=== PATIENT | female | born 1955 | race Caucasian/White ===

== ENCOUNTER → 2016-08-30 | Outpatient (CLI) | payer BC, OTHER ==
[~2016-08-30] MED LIST: ALLO100T PO; AMLO-110 PO; CALC0.25 PO; CINA0.42 PO; CIPR-255 PO; ESCI1TAB10 PO; METO25TA3 PO; OMEP40CA41 PO; ROPI0.5T15 PO
--- NOTE | 2016-08-30 13:21 | DIAGNOSTIC IMAGING REPORT ---
LUMBAR SPINE RADIOGRAPHS, INCLUDING FLEXION AND EXTENSION CLINICAL HISTORY: Lumbosacral back pain. COMPARISON: Lumbar spine radiographs August 15, 2012. FINDINGS: A peritoneal dialysis catheter is incidentally noted. Alignment of lumbar spine is anatomic. Vertebral body heights are maintained. There is no fracture or suspicious lesion. A few Schmorl's nodes are suspected. Mild multilevel degenerative disc disease and facet arthrosis is present. IMPRESSION: 1. No acute lumbar spine fracture or subluxation. 2. No evidence for instability of the lumbar spine. 3. Mild multilevel degenerative disc disease and facet arthrosis of the lumbar spine. Electronically signed by: Juventino Perez M.D. 08/30/2016 1:20 PM Dictated Date/Time: 08/30/2016 1:16 PM
[2016-08-30 17:50] LABS: ALB/GLOB RATIO 0.8 (0.9-2); ALKALINE PHOSPHATASE 65 U/L (45-117); ALT/SGPT 32 U/L (12-78); AST/SGOT 19 U/L (15-37); BLOOD UREA NITROGEN 46 mg/dl (7-18); BUN/CREATININE RATIO 6.4 (10-20); CALCIUM 10.8 mg/dl (8.5-10.1); CARBON DIOXIDE 24 mmol/L (21-32); CHLORIDE 103 mmol/L (98-107); GLUCOSE 105 mg/dl (70-99); POTASSIUM 3.9 mmol/L (3.5-5.1); SODIUM 141 mmol/L (136-145)
[2016-08-30 20:36] LABS: LYME DISEASE AB IGG NEG (NEG); LYME DISEASE AB IGM NEG (NEG)
== END | disposition home or self-care (01) ==
LOC: C.RADBC 12:24
PROVIDERS: ATTEND Internal Medicine
DX: N18.6 End stage renal disease (principal); M54.5 Low back pain

== ENCOUNTER → 2016-10-03 | Outpatient (CLI) | payer BC, OTHER ==
--- NOTE | 2016-10-03 16:12 | DIAGNOSTIC IMAGING REPORT ---
CHEST 2 VIEWS ROUTINE HISTORY: E83.52 [id number] COMPARISON: Chest 07/14/2016. FINDINGS: The lungs are clear. Cardiac silhouette is normal in size. No pleural effusions. No pneumothorax. IMPRESSION: No acute process. Electronically signed by: Gordy Downing M.D. 10/03/2016 4:10 PM Dictated Date/Time: 10/03/2016 4:08 PM
[2016-10-03 16:49] LABS: HEMATOCRIT 31.3 % (37-47); MEAN CELL VOLUME 104.7 fL (80-100); MEAN CORPUSCULAR HEMOGLOBIN 35.5 pg (25-34); MEAN CORPUSCULAR HGB CONC 33.9 g/dl (32-36); RED BLOOD COUNT 2.99 M/uL (4.2-5.4)
[2016-10-03 17:14] LABS: BASO % 0.5 %; BASO ABS # 0.04 K/uL (0-0.2); COMPLETE YES; EOS % 3.2 %; IG% 0.4 %; LYMPH % 13.3 %; LYMPH ABS # 1.04 K/uL (1.2-3.4); MEAN PLATELET VOLUME 10.4 fL (7.4-10.4); NEUT % 76.6 %; PLATELET COUNT 85 K/uL (130-400); PLT ESTIMATE DECREASED; POLYCHROMASIA 1+; TOXIC GRANULATION 1+
[2016-10-03 17:22] LABS: URINE APPEARANCE CLOUDY (CLEAR); URINE BILIRUBIN NEG (NEG); URINE COLOR DK YELLOW; URINE EPITHELIAL CELL AUTO >30 /lpf (0-5); URINE NITRITE NEG (NEG); URINE PH 5.5 (4.5-7.5); URINE SPECIFIC GRAVITY 1.018 (1.000-1.030); UROBILINOGEN NEG (NEG)
[2016-10-03 17:24] LABS: URINE PROTIEN/CREAT RATIO 0.5 (0-0.2); URINE TOTAL PROTEIN 133.3 mg/dl (0-11.9)
[2016-10-03 17:26] LABS: MANUAL MICROSCOPIC REQUIRED? NO; REVIEW REQ? YES
[2016-10-03 17:37] LABS: URINE PATH CASTS 1-5 GRANULAR CASTS /lpf (0)
[2016-10-03 18:09] LABS: ALKALINE PHOSPHATASE 84 U/L (45-117); ALT/SGPT 27 U/L (12-78); AST/SGOT 15 U/L (15-37); BLOOD UREA NITROGEN 46 mg/dl (7-18); CARBON DIOXIDE 26 mmol/L (21-32); CHLORIDE 99 mmol/L (98-107); GLUCOSE 88 mg/dl (70-99); PHOSPHORUS 5.9 mg/dl (2.5-4.9); POTASSIUM 3.9 mmol/L (3.5-5.1); SODIUM 137 mmol/L (136-145)
[2016-10-05 19:16] LABS: FREE KAPPA/LAMBDA RATIO 1.15 (0.26-1.65); FREE LAMBDA 115.8 MG/L (5.7-26.3); IONIZED CALCIUM** TC 19950E 5.85 MG/DL (4.8-5.6)
== END | disposition home or self-care (01) ==
LOC: C.RAD 15:21
PROVIDERS: ATTEND Internal Medicine Nephrology
DX: E83.52 Hypercalcemia (principal)

== ENCOUNTER → 2016-10-18 | Outpatient (CLI) | payer BC, OTHER ==
[2016-10-30 18:16] LABS: ALBUMIN % 49.77 %; ALPHA-2-GLOBULIN % 12.73 %; BETA GLOBULIN % 16.02 %; CREATININE UR 220 MG/DL (20-320); GAMMA GLOBULIN % 16.96 %; PARATHYR RELATED PROT *34478X 49 pg/mL (14-27)
== END | disposition home or self-care (01) ==
LOC: C.LAB 17:04
PROVIDERS: ATTEND Internal Medicine Nephrology
DX: E83.52 Hypercalcemia (principal)

== ENCOUNTER → 2016-11-08 | Outpatient (CLI) | payer BC, OTHER ==
[~2016-11-08] MED LIST changes: +OPTIRAY 320 IV PRN
--- NOTE | 2016-11-08 12:49 | DIAGNOSTIC IMAGING REPORT ---
CT SCAN OF THE CHEST WITH IV CONTRAST CLINICAL HISTORY: Hypercalcemia. Pulmonary nodules. COMPARISON STUDY: Chest CT dated 01/21/2015. Chest x-ray dated 10/03/2016 an 10/18/2012. TECHNIQUE: Following the IV administration of 93 cc of Optiray 320, CT scan of the thorax was performed from the thoracic inlet to the upper abdomen. Images are reviewed in the axial, sagittal, and coronal planes. IV contrast was administered without complication. CT DOSE: 516.60 mGy.cm FINDINGS: Thyroid: Imaged portions of the thyroid gland are normal in size and attenuation. Thoracic aorta: There is minimal atherosclerotic calcification of the thoracic aorta, which is normal in caliber and demonstrates standard 3-vessel arch anatomy. No dissection is seen. Pulmonary vasculature: The pulmonary trunk is normal in caliber. There are no filling defects identified in the central pulmonary vessels to indicate pulmonary embolus. Note that this examination was not protocoled for evaluation of the pulmonary arteries. Heart: The heart is top normal in size and without pericardial effusion. Lungs and pleural spaces: There are small bilateral fat-containing Bochdalek hernias. There is no airspace consolidation typical for pneumonia or pleural effusion. The trachea and central airways appear clear. Scattered calcified granulomas are identified. A 7 mm irregular density in the lingula seen on image #146 as well as 2 small nodular densities in the right middle lobe on image #174 measuring up to 4 mm are not significantly changed from 2013 and of low double significance. Additional smaller pulmonary nodules are unchanged. No new pulmonary nodules are seen. Mediastinum: There is no mediastinal lymphadenopathy. Rosenda: Clear. Axillae: There is no axillary lymphadenopathy. Upper abdomen: There is a small hiatal hernia. Hepatic steatosis is observed. There is cortical atrophy of the partially imaged kidneys. Partially visualized upper abdominal viscera is otherwise within normal limits. Skeletal structures: The skeletal structures are osteopenic. No lytic or blastic bony lesions are seen. IMPRESSION: 1. There is no airspace consolidation or pleural effusion. 2. Scattered pulmonary nodules measuring up to 7 mm have not significantly changed dating back to 2012 and are of doubtful significance. 3. No new pulmonary lesions are identified. 4. Hepatic steatosis. 5. Additional findings as above. Electronically signed by: Ta Harris M.D. 11/08/2016 12:47 PM Dictated Date/Time: 11/08/2016 12:39 PM
== END | disposition home or self-care (01) ==
LOC: C.CTS 10:10
PROVIDERS: ATTEND Internal Medicine Nephrology
DX: N18.6 End stage renal disease (principal); E83.52 Hypercalcemia

== ENCOUNTER → 2016-11-22 | Outpatient (CLI) | payer BC, OTHER ==
[~2016-11-22] MED LIST changes: -OPTIRAY 320 IV PRN
--- NOTE | 2016-11-22 14:44 | Discharge Instructions ---
Discharge Instructions Procedure Procedure Date: November 22, 2016. Reason for visit: Right Calcs. Discharge Discharge Date: November 22, 2016. Discharge Diagnosis: status post breast biopsy Instructions Activity Recommendations: Additional Limitations (see below) Return to School/Work: no limitations Recommended Home Diet: No Limitations Provider Instructions: ACTIVITY RECOMMENDATIONS: * No lifting, pushing, pulling or exercising the affected side for three days. RETURN TO SCHOOL/WORK: * You may return to work/school after the procedure, but do not perform any strenuous activities for 24 to 48 hours. MEDICATIONS: * Tylenol (two 325 mg) every four to six hours if needed for mild pain (if not allergic to Tylenol). DIET: * Resume previous diet. SPECIAL CARE INSTRUCTIONS: * Keep biopsy site dry for 24 hours. May shower after 24 hours, but do not soak (bathe) incision. * May remove Tegaderm (plastic patch) tomorrow AFTER showering. * Leave the steri-strips on for one week. Allow the steri-strips to fall off by themselves. If not off after one week, you may remove them. You may place a Bandaid crosswise over the strips, if desired. * Apply ice 10 minutes on and 10 minutes off as needed. * Wear a bra at bedtime to sleep more comfortably for 2-3 days. * Your referring physician should have the results after approximately 5 to 7 business days. * Call for unusual bleeding, fever, drainage, etc or if you have any questions call during normal business hours or after hours call Dr Roman, . FOLLOW UP VISIT: Follow-up with Referring Physician as scheduled. Allergies Coded Allergies: No Known Allergies (Unverified , 07/14/16) Sun Bustamante Recommendations: Call your doctor if: * Temperature above 101 degrees * Pain not relieved by pain medicine ordered * There is increased drainage or redness from any incision * You have any unanswered questions or concerns. Your Doctors Instructions noted above were prepared by provider Karol Roman. Patient Signature Section: Patient Instructions Signature Page Bettie Moore Patient (or Guardian) Signature/Date: I have read and understand the instructions given to me by my caregivers. Caregiver/RN/Doctor Signature/Date: The above-named patient and/or guardian has received patient instructions on this date. + Original Patient Signature Page (only) stays with chart. Please make copy for patient.
--- NOTE | 2016-11-23 08:15 | MAMMOGRAPHY REPORT ---
THIS REPORT HAS BEEN AMENDED. AMENDMENT: 11/29/2016 Karol Roman M.D. The pathology from right breast stereotactic biopsy was reviewed on 11/29/2016. The pathology shows fibrocystic change with associated microcalcifications and a small incidental intraductal papilloma without atypical features noted. Findings are benign and concordant with the imaging findings. The patient can return to routine annual mammography. STEREOTACTIC GUIDED BIOPSY RIGHT BREAST: 11/22/2016 CLINICAL HISTORY: Indeterminate calcifications in the right upper outer quadrant. PATIENT CONSENT: The procedure, risks, benefits, and alternatives of stereotactic biopsy with clip p lacement were discussed with the patient, and verbal and written consent was obtained. A timeout wa s performed immediately prior to the procedure. PROCEDURE DESCRIPTION: With stereotactic guidance, aseptic technique, and lidocaine as a local anest hetic (1% lidocaine to anesthetize the skin and 1% lidocaine with epinephrine to anesthetize the grace per tissues), the calcifications of concern in the right upper outer quadrant were sampled multiple times with a 9-gauge vacuum-assisted biopsy needle ([employer]). The path of approach was lateral. The specimen radiograph demonstrates calcifications to be present in the samples. A metallic tereso er clip was placed at the biopsy site. This was confirmed on postprocedure mammograms. Direct pres sure was applied at the biopsy site and hemostasis was readily achieved. The patient tolerated the procedure without complication. She was given wound care instructions. COMPARISON: Comparison is made to exams dated: 11/15/2016 mammogram, 09/06/2015 mammogram, 03/04/2015 m ammogram, 02/18/2015 mammogram, 12/11/2013 mammogram, and 12/19/2012 mammogram - [facility] nter. IMPRESSION: STEREOTACTIC GUIDED BIOPSY Stereotactic biopsy of indeterminate calcifications in the right upper outer quadrant, with clip suma cement. The patient will receive pathology results from her referring provider. Karol Roman M.D. /:11/22/2016 14:47:35 Framing Specialist: Britney CABAN)(Af[place]), [facility]
--- NOTE | 2016-11-23 08:15 | MAMMOGRAPHY REPORT ---
UNILATERAL RIGHT DIGITAL DIAGNOSTIC MAMMOGRAM: 11/22/2016 CLINICAL HISTORY: Status post right breast stereotactic biopsy. TECHNIQUE: Right CC and MLO and LM views were obtained. COMPARISON: Comparison is made to exams dated: 11/15/2016 mammogram, 09/06/2015 mammogram, 03/04/2015 m ammogram, 02/18/2015 mammogram, 12/11/2013 mammogram, and 12/19/2012 mammogram - [facility] nter. BREAST COMPOSITION: There are scattered areas of fibroglandular density in the right breast. FINDINGS: A preprocedural right LM view was obtained for biopsy planning purposes. Postprocedural right CC and MLO views were also obtained, which shows a new biopsy marker clip in the right breast status post stereotactic biopsy of right upper outer quadrant calcifications. There is mild medial migration of the biopsy marker clip from the biopsy site by approximately 2 cm, likely due to accord ion effect. No significant postbiopsy hematoma is seen. IMPRESSION: POST PROCEDURE IMAGING FOR MARKER PLACEMENT New biopsy marker clip status post right breast stereotactic biopsy. Pathology results are pending. Approximately 10% of breast cancers are not detected with mammography. A negative mammographic repor t should not delay biopsy if a clinically suggestive mass is present. Karol Roman M.D. ah/:11/22/2016 15:02:36 Elocution Teacher: Britney CABAN)([employer]), [facility] BI-RADS Code: Post Procedure Imaging For Marker Placement
== END | disposition home or self-care (01) ==
LOC: C.MAMM 13:30
PROVIDERS: ATTEND Internal Medicine
DX: R92.0 Mammographic microcalcification found on diagnostic imaging of breast (principal)

== ENCOUNTER → 2017-07-04 | Outpatient (CLI) | payer BC, OTHER ==
[2017-07-04 15:57] LABS: URINE APPEARANCE TURBID (CLEAR); URINE BILIRUBIN NEG (NEG); URINE COLOR ORANGE; URINE EPITHELIAL CELL AUTO >30 /lpf (0-5); URINE NITRITE NEG (NEG); URINE SPECIFIC GRAVITY 1.014 (1.000-1.030); UROBILINOGEN NEG (NEG); ZZUR CULT IF INDIC CLEAN CATCH YES
[2017-07-04 15:59] LABS: MANUAL MICROSCOPIC REQUIRED? NO; REVIEW REQ? NO
== END | disposition home or self-care (01) ==
LOC: C.LAB 14:48
PROVIDERS: ATTEND Internal Medicine Nephrology
DX: R80.9 Proteinuria, unspecified (principal); N18.6 End stage renal disease; E83.52 Hypercalcemia

== ENCOUNTER → 2017-07-05 | Outpatient (CLI) | payer BC, OTHER ==
--- NOTE | 2017-07-05 09:16 | DIAGNOSTIC IMAGING REPORT ---
EXAMINATION: RENAL ULTRASOUND CLINICAL HISTORY: Hematuria. Renal cyst. Renal calculus. COMPARISON STUDY: CT scan dated 07/14/2016 FINDINGS: The right kidney measures 7.5 cm. The left kidney measures 7.6 cm. There is no evidence of hydronephrosis. There is a 17 mm right renal cyst. On the left, there are multiple renal cysts including a septated 27 mm lower pole renal cyst. There is bilateral renal atrophy and cortical thinning. There is increased renal cortical echogenicity, consistent with medical renal disease. No bladder abnormalities are visualized. Bilateral ureteral jets were visualized. IMPRESSION : 1. Bilateral renal cysts 2. Bilateral renal atrophy. Increased cortical echogenicity consistent with medical renal disease 3. No evidence of hydronephrosis Electronically signed by: Alexi Callaway M.D. 07/05/2017 9:14 AM Dictated Date/Time: 07/05/2017 9:11 AM
== END | disposition home or self-care (01) ==
LOC: C.ULTR 08:33
PROVIDERS: ATTEND Internal Medicine Nephrology
DX: R31.0 Gross hematuria (principal); N28.1 Cyst of kidney, acquired; N20.0 Calculus of kidney; N26.1 Atrophy of kidney (terminal)

== ENCOUNTER 2017-08-11 12:59 | Emergency (ER) | payer OTHER, BC ==
[~2017-08-11] VITALS: Ht 162.6 cm; Wt 90.6 kg
[2017-08-11 13:02] VITALS: TEMP 36.8; Ht 162.6 cm; Wt 90.6 kg
[2017-08-11] MEDS ORDERED: SODIUM CHLORIDE 0.9% 250ML 250 ML IV STA (13:30)
[2017-08-11] MEDS ORDERED: ONDANSETRON INJ 2 MG/ML 2 ML VIAL IV STA (13:30)
[2017-08-11] MEDS ORDERED: ERGO500011 PO (13:32)
[2017-08-11] MEDS ORDERED: CALC667C PO (13:32)
[2017-08-11] MEDS ORDERED: NRN100 PO (13:32)
[2017-08-11] MEDS ORDERED: WLLSR150 PO (13:32)
[2017-08-11] MEDS ORDERED: MoRPHine SULFATE 4 MG/ML 1 ML CARP\\VIAL IV STA (13:50)
--- NOTE | 2017-08-11 13:58 | EMERGENCY ROOM VISIT NOTE ---
History First contact with patient: 13:15 Chief Complaint: ABDOMINAL PAIN Stated Complaint: LOWER BACK PAIN AND FRONT Nursing Triage Summary: triage note; pt reports for the past several days left lower back pain that wraps around to left abd. pt reports nausea and diarrhea. pt reports hx of diverticulitis. History of Present Illness The patient is a 61 year old female who presents to the Emergency Room with complaints of left lower back and left lower quadrant abdominal pain that has gotten progressively worse over the last few days. She describes it as a sharp , stabbing sensation. It intermittently intensifies. It is worse with movement. The patient also complains of diarrhea. She denies any blood in her stool. No fever or chills. She has had a decreased appetite. Mild nausea. No vomiting. The patient has a history of frequent UTIs and diverticulosis. Review of Systems 10 system review performed and negative unless noted in HPI or below Past Medical/Surgical History Medical Problems: (1) Appendectomy (2) Benign hypertension (3) BLOOD DISEASE NOS (4) Hysterectomy (5) Kidney disease (6) Pancytopenia Peritoneal dialysis Family History Diabetes mellitus FH: cancer FH: heart disease Hypertension Social History Smoking Status: Never Smoker Alcohol Use: occasionally Marital Status: Housing Status: lives with family Current/Historical Medications Scheduled Allopurinol (Zyloprim), 100 MG PO QAM Amlodipine (Norvasc), 5 MG PO QAM Bupropion HCl (Bupropion HCl Sr), 150 MG PO QAM Calcium Acetate (Phosphate Bin (Phoslo 667 Mg), 3 CAP PO TIDM Ergocalciferol (Vitamin D 06289 Unit), 50,000 UNITS PO MONTHLY Escitalopram Oxalate (Lexapro), 20 MG PO QAM Gabapentin (Gabapentin), 200 MG PO HS Levofloxacin (Levaquin), 500 MG PO Q48H Metoprolol Succinate (Toprol Xl), 25 MG PO QAM Omeprazole (Prilosec), 40 MG PO QAM Physical Exam Vital Signs Date Time Temp Pulse Resp B/P (MAP) Pulse Ox O2 Delivery O2 Flow Rate FiO2 08/11/17 18:06 72 18 160/77 97 Room Air 08/11/17 17:00 82 08/11/17 16:33 107 18 161/80 98 Room Air 08/11/17 15:13 72 18 149/75 92 Room Air 08/11/17 13:02 36.8 75 18 162/80 96 Room Air Physical Exam VITALS: Vitals are noted on the nurse's note and reviewed by myself. Vital signs stable. GENERAL: 61-year-old female, in no acute distress, SKIN: The skin was without rashes, erythema, edema, or bruising. HEAD: Normocephalic atraumatic. MOUTH: Mucous membranes slightly dry. NECK: Supple without nuchal rigidity. No JVD. HEART: Regularly irregular rhythm without murmurs gallops or rubs. LUNGS: Clear to auscultation bilaterally without wheezes, rales or rhonchi. No accessory muscle use. ABDOMEN: Positive bowel sounds x 4.Soft, tenderness to palpation in the left lower quadrant, without organomegaly. No guarding or rebound tenderness. No CVA tenderness. PD catheter in place with no surrounding erythema noted. MUSCULOSKELETAL: No muscle atrophy, erythema, or edema noted. Strength 5/5 throughout. NEURO: Patient was alert and oriented to person place and time. Normal sensation to touch. No focal neurological deficits. Medical Decision & Procedures ER Provider Diagnostic Interpretation: CT abdomen and pelvis with oral contrast IMPRESSION: 1. A few patchy groundglass airspace opacities within the right lung base. This may represent a pneumonia. 2. No bowel wall thickening or obstruction. 3. Trace ascites and a small amount of pneumoperitoneum. This is likely due to the peritoneal catheter. 4. Right-sided nephrolithiasis. No ureteral stones. No hydronephrosis. 5. Atrophic needed kidneys containing multiple cysts. Laboratory Results 08/11/17 13:45 Red Blood Count 2.71, Mean Corpuscular Volume 104.8, Mean Corpuscular Hemoglobin 35.4, Mean Corpuscular Hemoglobin Concent 33.8, Mean Platelet Volume 9.1, Neutrophils (%) (Auto) 59.6, Lymphocytes (%) (Auto) 18.5, Monocytes (%) ( Auto) 11.6, Eosinophils (%) (Auto) 8.2, Basophils (%) (Auto) 1.6, Neutrophils # (Auto) 2.25, Lymphocytes # (Auto) 0.70, Monocytes # (Auto) 0.44, Eosinophils # ( Auto) 0.31, Basophils # (Auto) 0.06 08/11/17 13:45 Test 08/11/17 13:16 08/11/17 13:45 08/11/17 16:35 Urine Color DK YELLOW Urine Appearance CLOUDY (CLEAR) Urine pH 6.0 (4.5-7.5) Urine Specific [place] 1.012 (1.000-1.030) Urine Protein 2+ (NEG) Urine Glucose (UA) NEG (NEG) Urine Ketones NEG (NEG) Urine Occult Blood 3+ (NEG) Urine Nitrite NEG (NEG) Urine Bilirubin NEG (NEG) Urine Urobilinogen NEG (NEG) Urine Leukocyte Esterase TRACE (NEG) Urine WBC (Auto) 5-10 /hpf (0-5) Urine RBC (Auto) >30 /hpf (0-4) Urine Hyaline Casts (Auto) 1-5 /lpf (0-5) Urine Epithelial Cells (Auto) >30 /lpf (0-5) Urine Bacteria (Auto) 1+ (NEG) White Blood Count 3.78 K/uL (4.8-10.8) Red Blood Count 2.71 M/uL (4.2-5.4) Hemoglobin 9.6 g/dL (12.0-16.0) Hematocrit 28.4 % (37-47) Mean Corpuscular Volume 104.8 fL (80-100) Mean Corpuscular Hemoglobin 35.4 pg (25-34) Mean Corpuscular Hemoglobin Concent 33.8 g/dl (32-36) Platelet Count 79 K/uL (130-400) Mean Platelet Volume 9.1 fL (7.4-10.4) Neutrophils (%) (Auto) 59.6 % Lymphocytes (%) (Auto) 18.5 % Monocytes (%) (Auto) 11.6 % Eosinophils (%) (Auto) 8.2 % Basophils (%) (Auto) 1.6 % Neutrophils # (Auto) 2.25 K/uL (1.4-6.5) Lymphocytes # (Auto) 0.70 K/uL (1.2-3.4) Monocytes # (Auto) 0.44 K/uL (0.11-0.59) Eosinophils # (Auto) 0.31 K/uL (0-0.5) Basophils # (Auto) 0.06 K/uL (0-0.2) RDW Standard Deviation 51.9 fL (36.4-46.3) RDW Coefficient of Variation 13.8 % (11.5-14.5) Immature Granulocyte % (Auto) 0.5 % Immature Granulocyte # (Auto) 0.02 K/uL (0.00-0.02) Toxic Granulation 1+ Anion Gap 13.0 mmol/L (3-11) Est Creatinine Clear Calc Drug Dose 5.8 ml/min Estimated GFR () 3.8 Estimated GFR (Non- 3.3 BUN/Creatinine Ratio 6.2 (10-20) Calcium Level 9.9 mg/dl (8.5-10.1) Total Bilirubin 0.5 mg/dl (0.2-1) Aspartate Amino Transf (AST/SGOT) 16 U/L (15-37) Alanine Aminotransferase (ALT/SGPT) 22 U/L (12-78) Alkaline Phosphatase 77 U/L (45-117) Total Protein 7.4 gm/dl (6.4-8.2) Albumin 3.2 gm/dl (3.4-5.0) Globulin 4.2 gm/dl (2.5-4.0) Albumin/Globulin Ratio 0.8 (0.9-2) Lipase 499 U/L (73-393) Influenza Type A (RT-PCR) Neg for Influ A (NEG) Influenza Type B (RT-PCR) Neg for Influ B (NEG) Medications Administered Medications (Trade) Dose Ordered Sig/Giovana Route Start Time Stop Time Status Last Admin Dose Admin Ondansetron HCl (Zofran Inj) 4 mg NOW STAT IV 08/11/17 13:30 08/11/17 13:33 DC 08/11/17 13:48 4 MG Sodium Chloride 250 ml @ 999 mls/hr Q16M STAT IV 08/11/17 13:30 08/11/17 13:45 DC 08/11/17 13:48 999 MLS/HR Morphine Sulfate (MoRPHine SULFATE INJ) 4 mg ONE STAT IV 08/11/17 13:50 08/11/17 13:51 DC 08/11/17 14:05 4 MG Levofloxacin (Levaquin Tab) 750 mg NOW ONCE PO 08/11/17 18:00 08/11/17 18:01 DC 08/11/17 18:04 750 MG ECG Indication: other Rate (beats per minute): 72 Rhythm: normal sinus Findings: PAC Change: no significant change ED Course Patient was seen and examined Vital signs including blood pressure were reviewed medications list was verified with patient Labs were obtained, and a saline lock was established An EKG was performed and reviewed by myself and my supervising physician The patient was medicated with Zofran and morphine. She was hydrated with normal saline 250 mL Imaging was performed and reviewed The case was discussed with supervising physician who personally evaluated the patient The patient was reassessed and resting more comfortably. We discussed the results of her workup. She voiced understanding. The patient was given 1 dose of Levaquin 750 mg I reviewed discharge instructions the patient. They voiced understanding and had no further questions. Medical Decision Differential diagnosis: Diverticulitis, inflammatory bowel disease, infectious GI illness, pyelonephritis, musculoskeletal pain, ovarian cyst This patient is a 61-year-old female with a history of diverticulosis and frequent urinary tract infections that presents to emergency department with left lower back and left lower quadrant abdominal pain. On exam she was tender in the left lower quadrant. My thought was this was possibly diverticulitis versus a UTI. Her urinalysis does not appear to be significantly infected and it is contaminated with epithelial cells. I ordered a CT of the abdomen and pelvis. No signs of pyelonephritis or diverticulitis were noted. She did however have a right-sided pneumonia. When I reevaluated the patient, I asked her if she has had a cough. She said that she has had a moderate cough. This is possibly the cause of her not feeling well. An influenza swab was also performed and negative. The patient is not hypoxic. Vital signs are stable. I believe she is stable to be discharged home on oral antibiotics. She is comfortable with this plan. I did inform the patient that she was slightly pancytopenic. I recommended that she have repeat blood work and a repeat chest x-ray. She voiced understanding. She agrees to return to the emergency department with a new, worsening or concerning symptoms This chart was completed in part utilizing [employer] Speech Voice Recognition software. Attempts were made to minimize the grammatical errors, random word insertions, pronoun errors and incomplete sentences. Any formal questions or concerns about the content, text or information contained within the body of this dictation should be directly addressed to the provider for clarification. Medication Reconcilliation Current Medication List: was personally reviewed by me Blood Pressure Screening Patient's blood pressure: Elevated blood pressure Blood pressure disposition: Did not require urgent referral Impression Primary Impression: Pneumonia Departure Information Dispostion Home / Self-Care Condition FAIR Prescriptions Levofloxacin (Levaquin) 500 Mg Tab 500 MG PO Q48H for 7 Days, #3 TAB Prov: Agustina Pablo PA-C 08/11/17 Referrals Josep Francis M.D. (PCP) Noble Gomez M.D. Patient Instructions My [facility] Additional Instructions You had been evaluated in the emergency department for left-sided abdominal pain. It was discovered that you have a right-sided pneumonia that is possibly making you feel ill Please take the antibiotics as instructed. It will be taken every other day for 7 days. Please stay well hydrated. Drink plenty of water. Your blood counts were slightly low. Please have a CBC rechecked this week. Please follow-up with your primary care physician as soon as possible. Please call Sunday morning for a follow-up appointment. Tylenol 650 mg every 6 hours as needed for pain or fever Please do not hesitate to return to the emergency department with any new, worsening or concerning symptoms; especially, difficulty breathing, high fever or worsening pain
[2017-08-11 14:16] LABS: BASO % 1.6 %; BASO ABS # 0.06 K/uL (0-0.2); EOS % 8.2 %; EOS ABS # 0.31 K/uL (0-0.5); HEMATOCRIT 28.4 % (37-47); HEMOGLOBIN 9.6 g/dL (12.0-16.0); IG# 0.02 K/uL (0.00-0.02); LYMPH % 18.5 %; MEAN CELL VOLUME 104.8 fL (80-100); MEAN CORPUSCULAR HEMOGLOBIN 35.4 pg (25-34); MEAN CORPUSCULAR HGB CONC 33.8 g/dl (32-36); MEAN PLATELET VOLUME 9.1 fL (7.4-10.4); MONO % 11.6 %; MONO ABS # 0.44 K/uL (0.11-0.59); NEUT % 59.6 %; NEUT ABS # 2.25 K/uL (1.4-6.5); PLATELET COUNT 79 K/uL (130-400); RED CELL DISTRIBUTION WIDTH CV 13.8 % (11.5-14.5); RED CELL DISTRIBUTION WIDTH SD 51.9 fL (36.4-46.3); WHITE BLOOD COUNT 3.78 K/uL (4.8-10.8)
[2017-08-11 14:38] LABS: ALBUMIN 3.2 gm/dl (3.4-5.0); CALCIUM 9.9 mg/dl (8.5-10.1); CREATININE 11.2 mg/dl (0.60-1.20); POTASSIUM 4.1 mmol/L (3.5-5.1); TOTAL PROTEIN 7.4 gm/dl (6.4-8.2)
--- NOTE | 2017-08-11 15:02 | EMERGENCY ROOM VISIT NOTE ---
ED Visit Note First contact with patient: 13:15 I have personally seen and evaluated the patient with the physician certified physical therapist assistant. I agree with the diagnostic/management decisions and have personally been involved in these decisions and agree with the diagnosis.
--- NOTE | 2017-08-11 16:00 | DIAGNOSTIC IMAGING REPORT ---
ABDOMEN AND PELVIS CT WITH ORAL CONTRAST CT DOSE: 875.62 mGy.cm HISTORY: Left lower quadrant abdominal pain. TECHNIQUE: Multiaxial CT images of the abdomen and pelvis were performed following the use of oral contrast. A dose lowering technique was utilized adhering to the principles of ALARA. COMPARISON STUDY: Abdomen and pelvis CT 07/14/2016. FINDINGS: There are a few patchy groundglass densities within the right middle and lower lobes. Small amount of pneumoperitoneum. No fractures within the visualized osseous structures. The liver, gallbladder, pancreas, spleen, and adrenal glands are unremarkable. No retroperitoneal lymphadenopathy. Trace scattered ascites seen within the abdomen and pelvis. Normal bladder. The uterus is surgically absent. A peritoneal catheter is controlled within the right lower quadrant. This is similar to the prior study. The [place] kidneys are atrophic and contain multiple hypodense lesions likely representing cysts. This is similar to the prior study. There is a 5 mm stone within the lower pole the right kidney. No hydronephrosis. Tiny hiatus hernia. Tiny fat-containing supraumbilical hernia. Colonic diverticulosis. No bowel wall thickening or obstruction. The appendix is not identified and is likely surgically absent. IMPRESSION: 1. A few patchy groundglass airspace opacities within the right lung base. This may represent a pneumonia. 2. No bowel wall thickening or obstruction. 3. Trace ascites and a small amount of pneumoperitoneum. This is likely due to the peritoneal catheter. 4. Right-sided nephrolithiasis. No ureteral stones. No hydronephrosis. 5. Atrophic needed kidneys containing multiple cysts. Electronically signed by: Gordy Downing M.D. 08/11/2017 3:58 PM Dictated Date/Time: 08/11/2017 3:51 PM
[2017-08-11 17:41] LABS: INFLUENZA A PCR Neg for Influ A (NEG); INFLUENZA B PCR Neg for Influ B (NEG)
[2017-08-11] MEDS ORDERED: LEVOFLOXACIN 250 MG TAB PO ONE (18:00)
[2017-08-11 18:06] VITALS: BP 160/77; PULSE 72; O2SAT 97
[2017-08-11] MEDS ORDERED: LEVO-366 PO (18:08)
== END 2017-08-11 18:25 | disposition home or self-care (01) ==
LOC: C.EDB 13:01 → C.EDC 18:25
DX: J18.9 Pneumonia, unspecified organism (principal); K57.90 Diverticulosis of intestine, part unspecified, without perforation or abscess without bleeding; I10 Essential (primary) hypertension; N28.9 Disorder of kidney and ureter, unspecified; I49.1 Atrial premature depolarization; D61.818 Other pancytopenia; Z87.440 Personal history of urinary (tract) infections; Z90.710 Acquired absence of both cervix and uterus; Z83.3 Family history of diabetes mellitus; Z82.49 Family history of ischemic heart disease and other diseases of the circulatory system; Z99.2 Dependence on renal dialysis

== ENCOUNTER 2018-10-01 12:36 | Inpatient (IN) ==
[2018-10-01] MEDS ORDERED: SODIUM CHLORIDE 0.9% 500 ML IV SCH (13:00)
[2018-10-01] MEDS ORDERED: ONDANSETRON INJ 2 MG/ML 2 ML VIAL IV STA (13:02)
--- NOTE | 2018-10-01 13:53 | XRay Report ---
XR chest 1V portable HISTORY: 62 years-old Female Chest Pain acute atypical chest pain COMPARISON: Chest radiograph 09/09/2018 TECHNIQUE: Portable AP view of the chest FINDINGS: Cardiomediastinal and hilar silhouettes appear unchanged from comparison study. Surgical clip project s over the medial right lung apex. There is no pneumothorax, pleural effusion, focal airspace consoli dation or overt pulmonary edema. The patient is slightly rotated. Ill-defined opacities of the left l mason base suggests summation density versus atelectasis. Degenerative changes of the shoulders and spi ne. Asymmetric sclerotic appearance about the left proximal humerus, unchanged from comparison. IMPRESSION: No acute process The above report was generated using voice recognition software. It may contain grammatical, syntax o r spelling errors. Electronically signed by: Yanick Baldwin M.D. 10/01/2018 1:51 PM
[2018-10-01 14:05] LABS: Hematocrit (blood only) 35.2 % (37-47); Hemoglobin 11.5 g/dL (12.0-16.0); Mean Corpuscular Hgb Conc 32.7 g/dL (32-36); Mean Corpuscular Volume 94.9 fL (80-100); RDW Coefficient of Variation 16.3 % (11.5-14.5); RDW Standard Deviation 52.8 fL (36.4-46.3); Red Blood Count 3.71 M/uL (4.2-5.4); White Blood Count 3.28 K/uL (4.8-10.8)
[2018-10-01 14:12] LABS: iSTAT Creatinine 11.8 mg/dl (0.6-1.3); iSTAT Hemoglobin 8.8 g/dl (12.0-16.0); iSTAT Ionized Calcium 1.01 mmol/l (1.12-1.32); iSTAT Potassium 2.9 mEq/L (3.3-5.0)
[2018-10-01 14:18] LABS: Platelet Count 80 K/uL (130-400)
--- NOTE | 2018-10-01 14:19 | CT Scan Report ---
CT head/brain wo con CT DOSE: 1175.87 mGy.cm HISTORY: Pt c/O AMS TECHNIQUE: Multiaxial CT images of the head were performed without the use of intravenous contrast. A dose lowering technique was utilized adhering to the principles of ALARA. Comparison: None. Findings: The paranasal sinuses and mastoid air cells are clear. The calvarium and skull base are int act. The ventricles and sulci are within normal limits. There is no mass, hematoma, midline shift, or acute infarct. Impression: No acute intracranial abnormality. The above report was generated using voice recognition software. It may contain grammatical, syntax or spelling errors. Electronically signed by: Dontae Matta M.D. 10/01/2018 2:18 PM
[2018-10-01 14:28] LABS: Basophils # (auto) 0.01 K/uL (0-0.2); Basophils % (auto) 0.3 %; Eosinophils # (auto) 0.07 K/uL (0-0.5); Eosinophils % (auto) 2.1 %; Lymphocytes # (auto) 0.59 K/uL (1.2-3.4); Monocytes # (auto) 0.33 K/uL (0.11-0.59); Monocytes % (auto) 10.1 %; Neutrophils # (auto) 2.28 K/uL (1.4-6.5); Neutrophils % (auto) 69.5 %
[2018-10-01 14:32] LABS: Alanine Aminotransferase 21 U/L (12-78); Albumin Level 3.7 gm/dl (3.4-5.0); Alkaline Phosphatase 77 U/L (45-117); Aspartate Aminotransferase 20 U/L (15-37); BUN Creatinine Ratio 3.1 (10-20); Bilirubin,Total 0.6 mg/dl (0.2-1); Blood Urea Nitrogen 45 mg/dl (7-18); Calcium 10.1 mg/dl (8.5-10.1); Carbon Dioxide 31 mmol/L (21-32); Chloride 98 mmol/L (98-107); Creatine Kinase 60 U/L (26-192); Creatine Kinase MB 1.6 ng/ml (0.5-3.6); Est GFR (African American) 2.8; Est GFR (Non-African American) 2.4; Globulin 3.8 gm/dl (2.5-4.0); Glucose 101 mg/dl (70-99); Potassium 3.6 mmol/L (3.5-5.1); Sodium 140 mmol/L (136-145); Total Protein 7.5 gm/dl (6.4-8.2); Troponin I 0.027 ng/ml (0-0.045)
--- NOTE | 2018-10-01 14:46 | CT Scan Report ---
CT OF THE ABDOMEN AND PELVIS WITHOUT CONTRAST CLINICAL HISTORY: Vomiting. Abdominal pain. COMPARISON STUDY: CT of the abdomen and pelvis September 18, 2018. TECHNIQUE: Axial images of the abdomen and pelvis were obtained without IV contrast. Images were revi ewed in the axial, sagittal, and coronal planes. Automated exposure control was utilized for the brian dy. A dose lowering technique was utilized adhering to the principles of ALARA. FINDINGS: A small hiatal hernia is present. The heart is moderately enlarged. Evaluation of the abdom en and pelvis is suboptimal on this unenhanced examination. Unenhanced images of the liver, spleen, a drenal glands and pancreas are unremarkable. There is no biliary or pancreatic ductal dilatation. The re is no peripancreatic or pericholecystic infiltration. There is marked atrophy of both kidneys. Patrick ateral renal calculi are noted. There are no ureteral calculi. Right renal lesions are suboptimally a ssessed on this unenhanced exam but favor cysts. These measure near water attenuation. A few suspecte d left renal cysts are also present. There is no evidence for a bowel obstruction. This colonic diver ticulosis without evidence for acute diverticulitis. The appendix is not visualized. There are no sienna picious osseous lesions. IMPRESSION: 1. No acute process within the abdomen or pelvis on unenhanced exam. 2. Bilateral nephrolithiasis. 3. No bowel obstruction. 4. Colonic diverticulosis without evidence for acute diverticulitis. Electronically signed by: Juventino Perez M.D. 10/01/2018 2:44 PM
--- NOTE | 2018-10-01 18:00 | History & Physical Report ---
Date of Service October 01, 2018 Assessment & Plan (1) Altered mental status: Uncertain etiology Pt cr is usually around 6, now at 14 and likely causing sx in the setting of abbreviated HD on Sunday and missed HD today Renal c/s and planning for HD tomorrow Ammonia pending CT head: neg for acute Pt with medication changes 09/30 as per HPI although unclear if she has taken any of these Will hold baclofen (started yesterday) Continue gabapentin HS as was taking prior and avoid withdrawal Hold medrol dose pack, has possibly only taken 1 dose, will not cause issue to d/c Has been out of tramadol for some time (2) Intractable vomiting: Related to above, could be from missed HD vs medication rxn vs renal stones Monitor (3) ESRD (end stage renal disease): Baseline cr is 6, now at 14 Renal c/s and planning HD tomorrow (4) Hypokalemia: Replace and monitor as per renal (5) Hypertension: continue home meds (6) Gout: continue home meds (7) GERD (gastroesophageal reflux disease): states she has not been taking this recently due to not eating (8) Depression: continue home meds (9) Pancytopenia: Chronic issue, monitor (10) Back pain: Uncertain if this is exacerbation of pt's baseline MSK issues vs related to b/l renal stones Monitor (11) Anemia: Chronic in the setting of ESRD (12) DVT prophylaxis: Heparin for DVT proph History of Present Illness Primary Care Provider: Josep Francis MD 62 y/o F who was brought to the ED by her for c/o AMS. states that he came home yesterday and pt was n/v and lethargic. This continued into today. He states that this AM she was more weak with n/v and was not communicating with him as she usually would. He states that she was confused and could not remember details. She has not taken any medications since yesterday AM due to the n/v. She has not eaten since yesterday. states that pt does make urine and urinated this AM. Pt states she has not had a bowel movement in 3 days. states she has had an increase in back pain and itching. Pt is a dialysis pt, usual schedule is //. She was unable to complete her HD on Sunday due to back pain. She was to go to HD today, but was so weak that she could not go. Per , Dr. Bear was in the ED to see pt and is planning HD tomorrow. states that pt was seen by pain management yesterday. He states a medication was stopped an another started, but he has no idea what these were. He states that her gabapentin was increased from HS to TID dosing. Per [facility], it appears that gabapentin was increased to TID, but 100mg, 100mg, and 300mg. She was started on a medrol dose pack for R LE radiculopathy. Robaxin was d/c'd and baclofen was started in its place. It was also noted that pt was out of tramadol, but that her PCP orders this and she was to contact PCP for refill. is not certain what of these medication changes pt has made but is clear that she did not take any meds last night or today due to n/v. Allergies Allergy/AdvReac Type Severity Reaction Status Date / Time No Known Allergies Allergy Verified 10/01/18 13:15 Home Medications Home Medications Medication Instructions Recorded Confirmed Type allopurinol 100 mg PO QAM 04/14/18 10/01/18 History amlodipine 5 mg PO QAM 04/14/18 10/01/18 History calcitriol 0.5 mcg PO QAM 04/14/18 10/01/18 History calcium acetate 3 tab PO TIDM 04/14/18 10/01/18 History ergocalciferol (vitamin D2) 50,000 unit PO MONTHLY 04/14/18 10/01/18 History escitalopram oxalate 20 mg PO QAM 04/14/18 10/01/18 History furosemide 40 mg PO QAM 04/14/18 10/01/18 History metoprolol succinate 25 mg PO QAM 04/14/18 10/01/18 History bupropion HCl 150 mg PO QAM 04/19/18 10/01/18 History cinacalcet [Sensipar] 30 mg PO HS 08/17/18 10/01/18 History ondansetron HCl 4 mg tablet 4 mg PO Q6H tab 09/03/18 10/01/18 History baclofen 10 mg tablet 10 mg PO TID #90 tab 09/30/18 10/01/18 Rx gabapentin 100 mg capsule 100 mg PO TID cap 09/30/18 10/01/18 History Past Med/Surg History Medical History Anemia CHRONIC-- S/P TRANSFUSION 05/2018; STABLE HGB IN 9 RANGE SINCE TRANSFUSION Hypertension Gout GERD (gastroesophageal reflux disease) CONTROLLED Depression ESRD (end stage renal disease) DIALYSIS SUNDAY/SUNDAY/SUNDAY VIA LUE AVF Obesity Anxiety History of urinary disorder HX INTERSTITIAL CYSTITIS History of diverticulitis Pancytopenia CHRONIC; MULTIPLE HEMATOLOGY EVALUATIONS PER PCP WITH UNKNOWN ETIOLOGY STATING THAT HEMATOLOGY ADVISED PATIENT TO FOLLOWUP NEEDED AFTER SIGNIFICANT WORKUP UNREMARKABLE- PCP MONITORING Fracture of fourth toe, right, open (Inactive) HX OF Surgical History History of hysterectomy History of appendectomy History of delivery Chronic kidney disease AVF (arteriovenous fistula) LUE 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= 05/31/18= GRADE 2 VIEW, MAC 3, ETT 7.0; "SMALL CUT TO TONGUE, NO BLEEDING" PER ANESTHESIA RECORDS AT [facility] Family History Mother Family history of diabetes mellitus Father Family history of diabetes mellitus Father Family history of diabetes mellitus Brother Family history of esophageal cancer Other No pertinent family history Social History Preferred Language: Citizen Of [place] Beliefs That Will Affect Care: None Current Living Situation: Spouse and Family current occupational status: employed Feels Safe at Home: Yes Smoking Status: Former smoker Hx Alcohol Use: No Hx Substance Use: No Review of Systems Pertinent positives and negatives reviewed in HPI--all others negative Physical Exam Vital Signs (Past 24 Hours): Last Vital Signs Temp 36.7 C 10/01/18 12:42 Pulse 63 10/01/18 17:31 Resp 19 10/01/18 17:31 BP 152/85 H 10/01/18 17:31 Pulse Ox 91 10/01/18 17:31 Constitutional: WD/WN, vitals as above + ill appearing (emesis while I was in room) Eyes: normal visual olivas by confrontation and + anicteric sclerae Neck: normal visual inspection and trachea midline Respiratory: normal respiratory effort, lungs clear to auscultation Cardiovascular: Rate/Rhythm: regular rate and regular rhythm Gastrointestinal (Abdomen): Inspection/Auscultation: abdomen not distended Percussion/Palpation: abdomen soft; abdomen nontender Musculoskeletal: Head/Neck/Chest: normocephalic and head atraumatic Trace LE edema, peripheral pulses intact Skin: warm and dry with a slightly dusky appearance Neurologic: awake; not confused Speech / Cognition: normal speech Psychiatric: Orientation: alert, oriented to person and oriented to place; + not oriented to time (does not know year or month, does know it is Sunday) Results & Data Diagnostic Findings CXR: neg for acute CT head: neg for acute CTAP: noted for b/l nephrolithiasis ECG Rhythm: normal sinus Code Status & VTE Plan Code Status Full code per , pt was unable to participate in conversation due to emesis VTE Prophylaxis Plan VTE Prophylaxis will be ordered: Yes (1) Intractable vomiting Nausea presence: unspecified Vomiting type: unspecified Qualified Code(s): R11.10 - Vomiting, unspecified
--- NOTE | 2018-10-01 18:58 | Emergency Department Note ---
Entered by Juliette Bradford acting as a scribe for Onur Shaw MD History of Present Illness General Chief complaint: Vomiting Stated complaint: VOMITING,DISORIENTED Time Seen by Provider: 10/01/18 12:55 Source: patient and family Mode of arrival: ambulatory Limitations: no limitations History of Present Illness Provider complaint: Vomiting Onset (ago): day(s) 1 Location: head and chest Radiation: extremity Severity: moderate Pain Consistency: + constant Associated symptoms: no chest pain, no cough and no shortness of breath Patient is a 62 year old female presenting to the ED with vomiting beginning last night. Patients shares that he found her half asleep on the commode, noting patient was disoriented and shaking. He notes patients last L asiks treatment was x3 days go and she did not receive the full treatment due to pain. Patient did miss her scheduled dialysis today. Patient denies hx of diabetes. She also denies any abd pain, cough, CP, SOB, or any other complaints or concerns at this time. Home Medications Home Medications Medication Instructions Recorded Confirmed Type allopurinol 100 mg PO QAM 04/14/18 10/01/18 History amlodipine 5 mg PO QAM 04/14/18 10/01/18 History calcitriol 0.5 mcg PO QAM 04/14/18 10/01/18 History calcium acetate 3 tab PO TIDM 04/14/18 10/01/18 History ergocalciferol (vitamin D2) 50,000 unit PO MONTHLY 04/14/18 10/01/18 History escitalopram oxalate 20 mg PO QAM 04/14/18 10/01/18 History furosemide 40 mg PO QAM 04/14/18 10/01/18 History metoprolol succinate 25 mg PO QAM 04/14/18 10/01/18 History bupropion HCl 150 mg PO QAM 04/19/18 10/01/18 History cinacalcet [Sensipar] 30 mg PO HS 08/17/18 10/01/18 History ondansetron HCl 4 mg tablet 4 mg PO Q6H tab 09/03/18 10/01/18 History baclofen 10 mg tablet 10 mg PO TID #90 tab 09/30/18 10/01/18 Rx gabapentin 100 mg capsule 100 mg PO TID cap 09/30/18 10/01/18 History Allergies Allergy/AdvReac Type Severity Reaction Status Date / Time No Known Allergies Allergy Verified 10/01/18 13:15 Past Med/Surg History Medical History Anemia CHRONIC-- S/P TRANSFUSION 05/2018; STABLE HGB IN 9 RANGE SINCE TRANSFUSION Hypertension Gout GERD (gastroesophageal reflux disease) CONTROLLED Depression ESRD (end stage renal disease) DIALYSIS SUNDAY/SUNDAY/SUNDAY VIA LUE AVF Obesity Anxiety History of urinary disorder HX INTERSTITIAL CYSTITIS History of diverticulitis Pancytopenia CHRONIC; MULTIPLE HEMATOLOGY EVALUATIONS PER PCP WITH UNKNOWN ETIOLOGY STATING THAT HEMATOLOGY ADVISED PATIENT TO FOLLOWUP NEEDED AFTER SIGNIFICANT WORKUP UNREMARKABLE- PCP MONITORING Fracture of fourth toe, right, open (Inactive) HX OF Surgical History History of hysterectomy History of appendectomy History of delivery Chronic kidney disease AVF (arteriovenous fistula) LUE 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= 05/31/18= GRADE 2 VIEW, MAC 3, ETT 7.0; "SMALL CUT TO TONGUE, NO BLEEDING" PER ANESTHESIA RECORDS AT [facility] Family History Mother Family history of diabetes mellitus Father Family history of diabetes mellitus Father Family history of diabetes mellitus Brother Family history of esophageal cancer Other No pertinent family history Social History Preferred Language: Sinhala Beliefs That Will Affect Care: None Current Living Situation: Spouse and Family current occupational status: employed Feels Safe at Home: Yes Smoking Status: Former smoker Hx Alcohol Use: No Hx Substance Use: No Review of Systems See HPI for pertinent positives & negatives. and A total of 10 systems reviewed and were otherwise negative Physical Exam Vital Signs Vital Signs - 24 hr 10/01/18 12:42 10/01/18 12:53 10/01/18 12:59 Temperature 36.7 C Temperature Source Oral Sepsis Recent Fever Within 48 Hours No Sepsis New/Unexplained Change in Mental Status Yes Sepsis Action Taken by Nursing No Action Required Pulse Rate 75 Pulse Rate [Right Finger] Pulse Rate from SpO2 Sensor Respiratory Rate 18 Respiratory Effort / Characteristics Non-Labored Spontaneous Blood Pressure 130/82 Blood Pressure [Right Arm] Blood Pressure Mean 98 Blood Pressure Mean [Right Arm] Pulse Oximetry 96 Oxygen Delivery Method Room Air Room Air Room Air 10/01/18 13:28 10/01/18 13:36 10/01/18 15:01 Temperature Temperature Source Sepsis Recent Fever Within 48 Hours Sepsis New/Unexplained Change in Mental Status Sepsis Action Taken by Nursing Pulse Rate 71 Pulse Rate [Right Finger] 97 H 80 Pulse Rate from SpO2 Sensor 65 Respiratory Rate 31 H 22 28 H Respiratory Effort / Characteristics Blood Pressure 160/84 H Blood Pressure [Right Arm] 167/90 H 149/88 H Blood Pressure Mean 109 Blood Pressure Mean [Right Arm] 115 108 Pulse Oximetry 98 98 98 Oxygen Delivery Method Room Air Room Air Room Air 10/01/18 15:31 10/01/18 16:01 10/01/18 16:31 Temperature Temperature Source Sepsis Recent Fever Within 48 Hours Sepsis New/Unexplained Change in Mental Status Sepsis Action Taken by Nursing Pulse Rate 67 72 63 Pulse Rate [Right Finger] Pulse Rate from SpO2 Sensor 68 75 64 Respiratory Rate 21 21 23 Respiratory Effort / Characteristics Blood Pressure 169/92 H 176/140 H 186/90 H Blood Pressure [Right Arm] Blood Pressure Mean 117 152 122 Blood Pressure Mean [Right Arm] Pulse Oximetry 99 91 97 Oxygen Delivery Method Room Air Room Air Room Air 10/01/18 17:01 10/01/18 17:31 Temperature Temperature Source Sepsis Recent Fever Within 48 Hours Sepsis New/Unexplained Change in Mental Status Sepsis Action Taken by Nursing Pulse Rate 64 63 Pulse Rate [Right Finger] Pulse Rate from SpO2 Sensor 59 L 59 L Respiratory Rate 23 19 Respiratory Effort / Characteristics Blood Pressure 156/81 H 152/85 H Blood Pressure [Right Arm] Blood Pressure Mean 106 107 Blood Pressure Mean [Right Arm] Pulse Oximetry 94 91 Oxygen Delivery Method Room Air Room Air GENERAL: Patient cannot answer any questions, shaking on exam HEAD: Normocephalic atraumatic EYES: Ocular movements intact pupils equal and react to light OROPHARYNX mucous membranes are moist no exudates present no erythema or edema present NECK: Supple no nuchal rigidity CHEST: Good equal expansion LUNGS: Clear and equal to auscultation CARDIAC: Normal S1 and S2 ABDOMEN: Soft nontender no guarding BACK: No CVA tenderness EXTREMITIES: No pain upon palpation normal muscle strength in all groups no clubbing cyanosis or edema NEURO: Patient is following commands is answering questions appropriately. Alert and oriented x3 Cranial Nerves 2-12 grossly intact Course 1259: Past medical records reviewed. The patient was evaluated in room A11A, and a complete history and physical examination were performed. 1442: Discussed patient case with Dr. Acosta. 1504: Discussed case with Dr. Ward, who accepts patient for admission. Administered Medications Discontinued Medications Sodium Chloride (Nss) 500 mls @ 999 mls/hr IV .Q31M [place] Stop: 10/01/18 13:30 Last Infusion: 10/01/18 15:18 Dose: 0 mls/hr Documented by: [id number] Admin: 10/01/18 13:31 Dose: 999 mls/hr Documented by: [id number] Ondansetron HCl (Zofran) 4 mg IV NOW STA Stop: 10/01/18 13:03 Last Admin: 10/01/18 13:31 Dose: 4 mg Documented by: [id number] Medical Decision Making Differential Diagnosis Differential diagnosis: Etiologies such as metabolic, infection, hypo/hyperglycemia, electrolyte abnormalities, cardiac sources, intracerebral event, toxicologic, neurologic, as well as others were entertained. Medical Records Attestation: I reviewed the patient's medical records. Home Medications Current Medication List: was personally reviewed by me Laboratory Data Attestation: I reviewed the patient's lab results. Result diagrams: 10/01/18 13:50 10/01/18 13:50 Lab Results 10/01/18 10/01/18 10/01/18 Range/Units 13:50 13:50 13:59 WBC 3.28 L (4.8-10.8) K/uL RBC 3.71 L (4.2-5.4) M/uL Hgb 11.5 L (12.0-16.0) g/dL POC Hgb 8.8 L (12.0-16.0) g/dl Hct 35.2 L (37-47) % POC Hct 26 L (37-47) % MCV 94.9 (80-100) fL MCH 31.0 (25-34) pg MCHC 32.7 (32-36) g/dL RDW Std Deviation 52.8 H (36.4-46.3) fL RDW Coeff of Yuliana 16.3 H (11.5-14.5) % Plt Count 80 L (130-400) K/uL MPV 9.0 (7.4-10.4) fL Immature Gran % (Auto) 0.0 % Neut % (Auto) 69.5 % Lymph % (Auto) 18.0 % Jerome % (Auto) 10.1 % Eos % (Auto) 2.1 % Baso % (Auto) 0.3 % Immature Gran # (Auto) 0.00 (0.00-0.02) K/uL Neut # (Auto) 2.28 (1.4-6.5) K/uL Lymph # (Auto) 0.59 L (1.2-3.4) K/uL Jerome # (Auto) 0.33 (0.11-0.59) K/uL Eos # (Auto) 0.07 (0-0.5) K/uL Baso # (Auto) 0.01 (0-0.2) K/uL POC Sodium 143 (135-144) mEq/L Sodium 140 (136-145) mmol/L POC Potassium 2.9 L (3.3-5.0) mEq/L Potassium 3.6 (3.5-5.1) mmol/L POC Chloride 102 (101-112) mEq/L Chloride 98 (98-107) mmol/L Carbon Dioxide 31 (21-32) mmol/L POC Total CO2 24 (24-31) mEq/l Anion Gap 10.0 (3-11) POC Anion Gap 21.0 (16-25) mmol/L POC BUN 33 H (7-18) mg/dl BUN 45 H (7-18) mg/dl Creatinine 14.30 H* (0.6-1.2) mg/dl POC Creatinine 11.8 H* (0.6-1.3) mg/dl Est Cr Clr Drug Dosing Not Reportable Est GFR ( Amer) 2.8 Est GFR (Non-Af Amer) 2.4 BUN/Creatinine Ratio 3.1 L (10-20) Glucose 101 H (70-99) mg/dl POC Glucose (other) 86 (70-99) mg/dl Calcium 10.1 (8.5-10.1) mg/dl POC Ioniz Calcium Precious 1.01 L (1.12-1.32) mmol/l Total Bilirubin 0.6 (0.2-1) mg/dl AST 20 (15-37) U/L ALT 21 (12-78) U/L Alkaline Phosphatase 77 (45-117) U/L Total Creatine Kinase 60 (26-192) U/L CK-MB (CK-2) 1.6 (0.5-3.6) ng/ml CK/CKMB % Calc 2.7 (0-3.0) Troponin I 0.027 (0-0.045) ng/ml Total Protein 7.5 (6.4-8.2) gm/dl Albumin 3.7 (3.4-5.0) gm/dl Globulin 3.8 (2.5-4.0) gm/dl Albumin/Globulin Ratio 1.0 (0.9-2) Lipase 188 (73-393) U/L Imaging Data Radiologist's Impression: XR chest 1V portable HISTORY: 62 years-old Female Chest Pain acute atypical chest pain COMPARISON: Chest radiograph 09/09/2018 TECHNIQUE: Portable AP view of the chest FINDINGS: Cardiomediastinal and hilar silhouettes appear unchanged from comparison study. Surgical clip projects over the medial right lung apex. There is no pneumothorax, pleural effusion, focal airspace consolidation or overt pulmonary edema. The patient is slightly rotated. Ill-defined opacities of the left lung base suggests summation density versus atelectasis. Degenerative changes of the shoulders and spine. Asymmetric sclerotic appearance about the left proximal humerus, unchanged from comparison. IMPRESSION: No acute process The above report was generated using voice recognition software. It may contain grammatical, syntax or spelling errors. Electronically signed by: Yanick Baldwin M.D. 10/01/2018 1:[address] head/brain wo con CT DOSE: 1175.87 mGy.cm HISTORY: Pt c/O AMS TECHNIQUE: Multiaxial CT images of the head were performed without the use of intravenous contrast. A dose lowering technique was utilized adhering to the principles of ALARA. Comparison: None. Findings: The paranasal sinuses and mastoid air cells are clear. The calvarium and skull base are intact. The ventricles and sulci are within normal limits. There is no mass, hematoma, midline shift, or acute infarct. Impression: No acute intracranial abnormality. The above report was generated using voice recognition software. It may contain grammatical, syntax or spelling errors. Electronically signed by: Dontae Matta M.D. 10/01/2018 2:18 PM ECG Data Attestation: I personally reviewed and interpreted this ECG as follows: Indication: vomiting Rate (beats per minute): 93 Rhythm: normal sinus Findings: + other (LVH, old septal infarct); no ST depression and no ST elevation Blood Pressure Blood Pressure Findings: Elevated blood pressure Blood Pressure Disposition: further management by hospitalist JOSLYN Mejia This is a 62-year-old female who presents emergency department with an altered mental status. Patient's reports she has been vomiting since 2 days ago. Patient is unable to tell me where she is or the month. She was given Dilaudid here in the emergency department as well as Zofran for her nausea and vomiting. She was sent for a CAT scan of the head which does not show any acute process. Serial abdominal examinations were performed on the patient in the emergency department and at no time the patient exhibited surgical abdomen. Impression & Plan Intractable vomiting Discharge Plan Visit Data Chief Complaint: Vomiting Stated Complaint: VOMITING,DISORIENTED ED Provider: Onur Shaw Discharge Problem: Intractable vomiting Forms Stand Alone Forms: [facility] Prescriptions Prescriptions: No Action baclofen 10 mg tablet 10 mg PO TID Qty: 90 RF: 1 gabapentin 100 mg capsule 100 mg PO TID RF: 0 ondansetron HCl [Zofran] 4 mg tablet 4 mg PO Q6H RF: 0 bupropion HCl 150 mg Tablet Extended Release 24 Hr 150 mg PO QAM RF: 0 cinacalcet [Sensipar] 30 mg Tablet 30 mg PO HS RF: 0 furosemide 40 mg Tablet 40 mg PO QAM RF: 0 calcium acetate 667 mg Tablet 3 tab PO TIDM RF: 0 amlodipine 5 mg Tablet 5 mg PO QAM RF: 0 allopurinol 100 mg Tablet 100 mg PO QAM RF: 0 calcitriol 0.5 mcg Capsule 0.5 mcg PO QAM RF: 0 ergocalciferol (vitamin D2) 50,000 unit Capsule 50,000 unit PO MONTHLY RF: 0 escitalopram oxalate 20 mg Tablet 20 mg PO QAM RF: 0 metoprolol succinate 25 mg Capsule,Sprinkle,Er 24hr 25 mg PO QAM RF: 0 Discharge Problem: Intractable vomiting Qualifiers: Vomiting type: unspecified Nausea presence: unspecified Qualified Code(s): R11.10 - Vomiting, unspecified The scribe's documentation has been prepared under my direction and personally reviewed by me in its entirety. I confirm that the note above accurately refl ects all work, treatment, procedures, and medical decision making performed by me.
[2018-10-01] MEDS ORDERED: ONDANSETRON INJ 2 MG/ML 2 ML VIAL ONE (19:41)
[2018-10-01] MEDS ORDERED: MAGNESIUM HYDROXIDE SUSP 30 ML UDC PO PRN (19:56)
[2018-10-01] MEDS ORDERED: ACETAMINOPHEN 325 MG TAB PO PRN (19:56)
[2018-10-01] MEDS: ONDANSETRON 4 MG TAB PO SCH (22:10)
[2018-10-01] MEDS: HEPARIN SOD 5,000 UNIT/0.5 ML VIAL SQ SCH (22:11)
[2018-10-02] MEDS: ONDANSETRON INJ 2 MG/ML 2 ML VIAL IV PRN ×2 (03:13→22:40)
[2018-10-02] MEDS: ONDANSETRON 4 MG TAB PO SCH ×4 (03:14→20:04)
[2018-10-02] MEDS: HEPARIN SOD 5,000 UNIT/0.5 ML VIAL SQ SCH ×2 (06:44→13:46)
[2018-10-02] MEDS ORDERED: EPOETIN ALFA 10,000 UNITS/ML VIAL IV ONE (07:00)
[2018-10-02] MEDS ORDERED: SODIUM CHLORIDE 0.9% 1000ML 1,000 ML IV PRN ×2 (07:00→08:42)
[2018-10-02 07:25] LABS: Hematocrit (blood only) 32.6 % (37-47); Hemoglobin 10.5 g/dL (12.0-16.0); Mean Corpuscular Hgb Conc 32.2 g/dL (32-36); Mean Corpuscular Volume 95.9 fL (80-100); Nucleated RBC # (auto) 0.02 K/uL (0-0); Nucleated RBC % (auto) 0.5 %; RDW Coefficient of Variation 16.7 % (11.5-14.5); RDW Standard Deviation 54.4 fL (36.4-46.3); White Blood Count 3.07 K/uL (4.8-10.8)
[2018-10-02 07:47] LABS: Mean Platelet Volume 9.6 fL (7.4-10.4); Platelet Count 77 K/uL (130-400)
[2018-10-02 08:13] LABS: BUN Creatinine Ratio 3.5 (10-20); Calcium 9.6 mg/dl (8.5-10.1); Creatinine Clr Calc Pharmacy 3.6 ml/min; Est GFR (African American) 2.5; Est GFR (Non-African American) 2.2
[2018-10-02 08:17] LABS: Basophils # (auto) 0.03 K/uL (0-0.2); Eosinophils # (auto) 0.23 K/uL (0-0.5); Eosinophils % (auto) 7.5 %; Immature Granulocytes # (auto) 0.01 K/uL (0.00-0.02); Immature Granulocytes % (auto) 0.3 %; Lymphocytes # (auto) 1.28 K/uL (1.2-3.4); Lymphocytes % (auto) 41.7 %; Monocytes % (auto) 16.3 %; Neutrophils # (auto) 1.02 K/uL (1.4-6.5); Neutrophils % (auto) 33.2 %
[2018-10-02 08:36] LABS: Phosphorus 8.2 mg/dl (2.5-4.9)
[2018-10-02] MEDS: ESCITALOPRAM OXALATE 20 MG TAB PO SCH ×3 (09:29→15:41)
[2018-10-02] MEDS: METOPROLOL SUCC 25MG EXT REL TAB PO SCH ×2 (09:29→15:32)
[2018-10-02] MEDS: CALCIUM ACETATE 667 MG CAP PO SCH ×4 (09:29→17:47)
[2018-10-02] MEDS: AMLODIPINE BESYLATE 5 MG TAB PO SCH ×3 (09:30→15:41)
[2018-10-02] MEDS: FUROSEMIDE 40 MG TAB PO SCH ×2 (09:30→13:42)
[2018-10-02] MEDS: ALLOPURINOL 100 MG TAB PO SCH ×3 (09:31→15:41)
[2018-10-02] MEDS: BuPROPion XL 150 MG TABCR PO SCH ×3 (09:31→15:41)
[2018-10-02] MEDS: CALCITRIOL 0.25 MCG CAPSULE PO SCH ×2 (09:32→15:31)
--- NOTE | 2018-10-02 10:47 | Nephrology Progress Note ---
Date of Service October 02, 2018 Assessment & Plan (1) ESRD (end stage renal disease): 62 y o F with ESRD on HD TTS. Admitted with N/V, AMS and back pain. Missed HD Rx x 2 and has been having short Rx due to intractable back pain. Unclear etiology for AMS, most likely due to change in analgesic, ? new analgesic causing GI symptom and AMS. K low with vomiting. Not unusual for her to have cr around 10-14, BUN fine, AMS unlikely related to shortened HD, electrolyte BP, volume status fine. Pt has been having intractable back pain, CT 2 weeks ago showed lumber bulging disc. unclear etiology for persistent change in mental status and confusion, all workup so far has been negative. Possible but less likely related to shortened dialysis treatment.? Related to change in pain medication recently, ? encephalopathy -- dialysis now as her regular schedule. UF as tolerated considering poor p.o. intake, nausea. -- Epogen 49949 units x1 dose today -- continue on phosphate binders with meals -- consider neurology evaluation if continues to be confused --strongly recommend ortho consult for definitive management of her back pain including looking in to surgical option as she has not been able to perform even her ADL's and has not been able to stay for dialysis will follow (2) Hypokalemia: (3) Altered mental status: (4) Intractable vomiting: (5) Anemia: (6) Hypertension: (7) Back pain: Ronaldo Hayes was seen examined in her room this morning with her at bedside. She was awake, alert however somewhat confused and overall doing poorly. denies shortness of breath or chest pain. Complain of persistent nausea. Review of Systems detailed review of system was negative except above Physical Exam Vital Signs (Past 24 Hours): Last Vital Signs Temp 36.6 C 10/02/18 07:10 Pulse 53 L 10/02/18 07:10 Resp 16 10/02/18 07:10 BP 171/72 H 10/02/18 07:10 Pulse Ox 98 10/02/18 07:10 Constitutional: + ill appearing, + disheveled and + in distress Neck: supple Respiratory: normal respiratory effort, lungs clear to auscultation Cardiovascular: RRR, no murmur, no edema Gastrointestinal (Abdomen): Inspection/Auscultation: abdomen normal to inspection and normal bowel sounds Neurologic: moves all extremities and awake Motor/Sensory: + tremor Psychiatric: Orientation: alert, oriented to person, oriented to place and cooperative Motor Behavior: + tremor (1) Intractable vomiting Nausea presence: unspecified Vomiting type: unspecified Qualified Code(s): R11.10 - Vomiting, unspecified
--- NOTE | 2018-10-02 16:44 | Hospitalist Progress Note ---
Date of Service October 02, 2018 Assessment & Plan (1) Altered mental status: Metabolic encephalopathy Uncertain etiology Presented with creat 14 on admission Renal c/s - had dialysis today Ammonia wnl, LFTs wnl CT head: neg for acute Pt with medication changes 09/30 as per HPI although unclear if she has taken any of these Will hold baclofen Continue gabapentin HS as was taking prior and avoid withdrawal Has been out of tramadol for some time Will order blood cultures, UC, sed rate, CRP, MR lumbar spine due to recent history of severe back pain LP in am with cytology, cbc, chemistry, and culture - at present, patient is not toxic appearing, no fever, VSS, no nuchal rigidity, no leukocytosis so I think a bacterial meningitis is less likely and therefore LP can wait until the morning to be done under fluoro. Will hold off on starting any antibiotics for now (2) Intractable vomiting: Unclear etiology, no acute process on CT abdomen, BC pending (3) ESRD (end stage renal disease): Baseline cr is 6, 14 on presentation dialysis today nephro consult (4) Hypokalemia: Replace and monitor as per renal (5) Hypertension: continue amlodipine, (6) Gout: continue allopurinol (7) GERD (gastroesophageal reflux disease): states she has not been taking this recently due to not eating (8) Depression: continue escitalopram, bupropion (9) Pancytopenia: Chronic issue, cbc with diff am (10) Back pain: Uncertain if this is exacerbation of pt's baseline MSK issues vs related to b/l renal stones MR lumbar spine as above (11) Anemia: Chronic in the setting of ESRD (12) DVT prophylaxis: Hold chemoprophylaxis for LP in am, patient also has low plt count Subjective Ms. Crowder is very confused when I saw her this afternoon. She had just come back from dialysis. She is not able to tell me her name though she knows she is in the hospital. Her states that this is very different than her baseline. She is able to follow some but not all commands. She denies headache or neck pain though after moving her neck through her range of motion she did say there was some neck pain. does mention that patient recently got over bronchitis but has had no sick contacts Review of Systems All systems reviewed & are unremarkable except as noted in HPI & below Physical Exam Vital Signs (Past 24 Hours): Last Vital Signs Temp 36.6 C 10/02/18 15:26 Pulse 54 L 10/02/18 15:26 Resp 16 10/02/18 15:26 BP 157/71 H 10/02/18 15:26 Pulse Ox 96 10/02/18 15:26 Physical Exam: General: Distressed Eyes: normal inspection, PERLL Respiratory: chest non tender, clear to auscultation, normal breath sounds, no respiratory distress, no accessory muscle use Cardiac: regular rate and rhythm, no rub or gallop, no murmur, no edema, no jvd GI/: active bowel sounds, no abd pain or tenderness, soft, non distended Extremities: normal range of motion, non tender Neuro/Psych: alert and oriented to place, anxious affect, asterixis/tremor bilateral hand, no nystagmus, tongue midline, no facial droop, bilateral weakness, unable to follow some commands, no nuchal rigidity or Brudzinski sign, neck is supple, no photophobia Skin: normal color, dry Results & Data Laboratory Results Abnormal lab results 10/01/18 10/02/18 10/02/18 Range/Units 20:30 07:00 07:00 WBC 3.07 L (4.8-10.8) K/uL RBC 3.40 L (4.2-5.4) M/uL Hgb 10.5 L (12.0-16.0) g/dL Hct 32.6 L (37-47) % RDW Std Deviation 54.4 H (36.4-46.3) fL RDW Coeff of Yuliana 16.7 H (11.5-14.5) % Plt Count 77 L (130-400) K/uL Neut # (Auto) 1.02 L (1.4-6.5) K/uL Absolute Nucleated RBC 0.02 H (0-0) K/uL Chloride 94 L (98-107) mmol/L Anion Gap 13.0 H (3-11) BUN 55 H (7-18) mg/dl Creatinine 15.60 H* D (0.6-1.2) mg/dl BUN/Creatinine Ratio 3.5 L (10-20) Phosphorus 8.2 H (2.5-4.9) mg/dl Magnesium 3.0 H (1.8-2.4) mg/dl Ammonia < 10.0 L (11-32) umol/L (1) Intractable vomiting Nausea presence: unspecified Vomiting type: unspecified Qualified Code(s): R11.10 - Vomiting, unspecified
[2018-10-02 18:35] LABS: C Reactive Protein 1.02 mg/dl (0-0.29)
--- NOTE | 2018-10-02 22:08 | Magnetic Resonance Report ---
MR lumbar spine wo con HISTORY: Pain discitis TECHNIQUE: Multiplanar multisequence MRI of the lumbar spine was performed without the use of contras t. COMPARISON: CT lumbar spine 09/18/2018 FINDINGS: For the purpose of the report the L5-S1 disc space will be located on axial image 28 of 30. Degenerative disc change throughout considered moderate. Degenerative Schmorl's nodes procedure descr ibed at L1 and L2. Atrophied kidneys. Small bilateral renal cysts. L1-L2: Minimal broad-based disc bulge L2-L3: Mild broad-based bulging disc with mild narrowing of the neuroforamina bilaterally L3-L4: No significant central canal or neural foraminal narrowing. L4-L5: No significant central canal or neural foraminal narrowing. L5-S1: No significant central canal or neural foraminal narrowing. IMPRESSION: 1. Moderate degenerative disc change throughout with several Schmorl's nodes previously described. 2. No evidence for discitis. 3. Multilevel bulging discs as discussed. The above report was generated using voice recognition software. It may contain grammatical, syntax or spelling errors. Electronically signed by: Dontae Matta M.D. 10/02/2018 10:06 PM
[2018-10-02] MEDS ORDERED: CALCIUM CARBONATE 500 MG CHEWABLE TAB PO PRN (23:33)
[2018-10-02] MEDS ORDERED: ALUMINUM/MAGNESIUM SUSP 30 ML UDC PO PRN (23:33)
[2018-10-03] MEDS ORDERED: PROCHLORPERAZINE 5 MG in SYRINGE 4 ML IV ONE (02:01)
[2018-10-03] MEDS: ONDANSETRON 4 MG TAB PO SCH ×5 (04:33→20:44)
[2018-10-03] MEDS ORDERED: SODIUM CHLORIDE 0.9% 1000ML 1,000 ML IV PRN (07:00)
[2018-10-03] MEDS: ONDANSETRON INJ 2 MG/ML 2 ML VIAL IV PRN ×3 (07:09→22:28)
--- NOTE | 2018-10-03 08:36 | Hospitalist Progress Note ---
Date of Service October 03, 2018 Assessment & Plan (1) Altered mental status: Metabolic encephalopathy Uncertain etiology Presented with creat 14 on admission Renal c/s - had dialysis yesterday and will be repeated this morning Ammonia wnl, LFTs wnl CT head: neg for acute Pt with medication changes 09/30 as per HPI although unclear if she has taken any of these Will hold baclofen Continue gabapentin HS as was taking prior and avoid withdrawal Has been out of tramadol for some time BC pending, C pending, sed rate elevated at 77 , CRP 1.02, MR lumbar spine without discitis but does continue to show bulging discs: Small bilateral renal cysts. L1-L2: Minimal broad-based disc bulge L2-L3: Mild broad-based bulging disc with mild narrowing of the neuroforamina bilaterally IMPRESSION: 1. Moderate degenerative disc change throughout with several Schmorl's nodes previously described. 2. No evidence for discitis. 3. Multilevel bulging discs as discussed. I will cancel the LP for now given her significant improvement. Will await neuro consult for recommendations on any further testing. (2) Intractable vomiting: Unclear etiology, no acute process on CT abdomen, BC pending (3) ESRD (end stage renal disease): Baseline cr is 6, 14 on presentation dialysis 10/02 and 10/03 nephro consult (4) Hypokalemia: Replace and monitor as per renal (5) Hypertension: continue amlodipine, (6) Gout: continue allopurinol (7) GERD (gastroesophageal reflux disease): states she has not been taking this recently due to not eating (8) Depression: continue escitalopram, bupropion (9) Pancytopenia: Chronic issue, cbc with diff pending (10) Back pain: MR lumbar spine as above (11) Anemia: Chronic in the setting of ESRD (12) DVT prophylaxis: Hold chemoprophylaxis for low platelets, scds Subjective Ms. Crowder is vastly improved this morning over last night. Awake and oriented, able to follow commands and converse fluently. She has almost no further tremors in her hands. She is still having some vomiting. Review of Systems All systems reviewed & are unremarkable except as noted in HPI & below Physical Exam Vital Signs (Past 24 Hours): Last Vital Signs Temp 36.9 C 10/03/18 08:08 Pulse 72 03/21/19 08:08 Resp 20 10/03/18 08:08 BP 162/82 H 10/03/18 08:08 Pulse Ox 97 10/03/18 08:08 Physical Exam: General: no distress Eyes: normal inspection, PERLL Respiratory: chest non tender, clear to auscultation, normal breath sounds, no respiratory distress, no accessory muscle use Cardiac: regular rate and rhythm, no rub or gallop, no murmur, no edema, no jvd GI/: active bowel sounds, no abd pain or tenderness, soft, non distended Extremities: normal range of motion, normal strength, non tender Neuro/Psych: alert and oriented x 3, normal mood and affect, CN II-XII intact, very minor asterixis Skin: normal color, dry Results & Data Laboratory Results Abnormal lab results 10/02/18 10/02/18 10/02/18 Range/Units 07:00 17:31 17:31 ESR 77 H (0-21) mm/hr Phosphorus 8.2 H (2.5-4.9) mg/dl C-Reactive Protein 1.02 H (0-0.29) mg/dl (1) Intractable vomiting Nausea presence: unspecified Vomiting type: unspecified Qualified Code(s): R11.10 - Vomiting, unspecified
[2018-10-03 08:55] LABS: Basophils # (auto) 0.01 K/uL (0-0.2); Basophils % (auto) 0.3 %; Eosinophils # (auto) 0.13 K/uL (0-0.5); Eosinophils % (auto) 3.6 %; Hematocrit (blood only) 36.6 % (37-47); Hemoglobin 11.7 g/dL (12.0-16.0); Immature Granulocytes # (auto) 0.02 K/uL (0.00-0.02); Immature Granulocytes % (auto) 0.6 %; Lymphocytes # (auto) 1.11 K/uL (1.2-3.4); Mean Corpuscular Volume 96.8 fL (80-100); Mean Platelet Volume 9.4 fL (7.4-10.4); Monocytes % (auto) 16.8 %; Neutrophils # (auto) 1.71 K/uL (1.4-6.5); Neutrophils % (auto) 47.7 %; Platelet Count 71 K/uL (130-400); RDW Coefficient of Variation 17.2 % (11.5-14.5); RDW Standard Deviation 57.1 fL (36.4-46.3); Red Blood Count 3.78 M/uL (4.2-5.4); White Blood Count 3.58 K/uL (4.8-10.8)
[2018-10-03] MEDS: METOPROLOL SUCC 25MG EXT REL TAB PO SCH (09:00)
[2018-10-03] MEDS: FUROSEMIDE 40 MG TAB PO SCH (09:00)
[2018-10-03] MEDS: AMLODIPINE BESYLATE 5 MG TAB PO SCH (09:00)
[2018-10-03] MEDS: CALCIUM ACETATE 667 MG CAP PO SCH ×3 (09:02→16:59)
[2018-10-03] MEDS: HYDROmorphone INJ 0.5 MG/0.5 ML SYR IV PRN ×3 (09:33→22:28)
[2018-10-03 09:40] LABS: BUN Creatinine Ratio 2.7 (10-20); Calcium 10.9 mg/dl (8.5-10.1); Creatinine Clr Calc Pharmacy 6.1 ml/min; Est GFR (African American) 4.8; Est GFR (Non-African American) 4.1; Potassium 3.5 mmol/L (3.5-5.1)
--- NOTE | 2018-10-03 10:00 | Neurology Consultation ---
Date of Consultation October 03, 2018 Assessment & Plan (1) Acute encephalopathy: This is a 62-year-old female who presents with acute encephalopathy. Appears to be metabolic etiology. Several factors likely contributing including missed dialysis, several medication changes, with nausea and vomiting and hypokalemia. I do not think that there is any primary neurological cause for her encephalopathy and the patient appears to be improved this morning. Recommendations: Ongoing management per primary team. If there is any concern that the patient has not returned to her baseline or is not improving as expected, could consider an MRI of the brain and EEG (although these things really do not seem needed at this time.) If there is any questions or concerns, feel free to call/page me. History of Present Illness Reason for Consultation: Encephalopathy Attending Physician: Chidi Allred MD History of Present Illness This is a 62-year-old female who presents with acute encephalopathy. Patient reports that she did recently miss her dialysis session and her creatinine was elevated on presentation to 14 which is higher than her normal baseline. In addition the patient had several medication changes made by pain management on Sunday. Patient was also noted on the day of presentation to have nausea and vomiting with hypokalemia. Upon presentation to the hospital these medication changes were reversed to what she was taken before and the patient appears much improved this morning. She feels basically back to her normal self. She denies any new ongoing headaches, sudden visual changes, sudden weakness, or sudden numbness. She does see pain management for chronic back pain. Ammonia was within normal. Patient denies any events in the past concerning for seizure or stroke. Denies taking any herbal supplements, illegal drug use, or marijuana. Patient denies any fevers or sick symptoms. Past medical history significant for end-stage renal disease, hypertension, gout, GERD, depression, back pain, and anemia Allergies Allergy/AdvReac Type Severity Reaction Status Date / Time No Known Allergies Allergy Verified 10/01/18 13:15 Home Medications Home Medications Medication Instructions Recorded Confirmed Type allopurinol 100 mg PO QAM 04/14/18 10/01/18 History amlodipine 5 mg PO QAM 04/14/18 10/01/18 History calcitriol 0.5 mcg PO QAM 04/14/18 10/01/18 History calcium acetate 3 tab PO TIDM 04/14/18 10/01/18 History ergocalciferol (vitamin D2) 50,000 unit PO MONTHLY 04/14/18 10/01/18 History escitalopram oxalate 20 mg PO QAM 04/14/18 10/01/18 History furosemide 40 mg PO QAM 04/14/18 10/01/18 History metoprolol succinate 25 mg PO QAM 04/14/18 10/01/18 History bupropion HCl 150 mg PO QAM 04/19/18 10/01/18 History cinacalcet [Sensipar] 30 mg PO HS 08/17/18 10/01/18 History ondansetron HCl 4 mg tablet 4 mg PO Q6H tab 09/03/18 10/01/18 History baclofen 10 mg tablet 10 mg PO TID #90 tab 09/30/18 10/01/18 Rx gabapentin 100 mg capsule 100 mg PO TID cap 09/30/18 10/01/18 History Patient History Medical History Anemia CHRONIC-- S/P TRANSFUSION 05/2018; STABLE HGB IN 9 RANGE SINCE TRANSFUSION Hypertension Gout GERD (gastroesophageal reflux disease) CONTROLLED Depression ESRD (end stage renal disease) DIALYSIS SUNDAY/SUNDAY/SUNDAY VIA LUE AVF Obesity Anxiety History of urinary disorder HX INTERSTITIAL CYSTITIS History of diverticulitis Pancytopenia CHRONIC; MULTIPLE HEMATOLOGY EVALUATIONS PER PCP WITH UNKNOWN ETIOLOGY STATING THAT HEMATOLOGY ADVISED PATIENT TO FOLLOWUP NEEDED AFTER SIGNIFICANT WORKUP UNREMARKABLE- PCP MONITORING Fracture of fourth toe, right, open (Inactive) HX OF Surgical History History of hysterectomy History of appendectomy History of delivery Chronic kidney disease AVF (arteriovenous fistula) LUE 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 Family History Mother Family history of diabetes mellitus Father Family history of diabetes mellitus Father Family history of diabetes mellitus Brother Family history of esophageal cancer Other No pertinent family history Social History Communication Ability: Effective Beliefs That Will Affect Care: None Current Living Situation: Spouse current occupational status: employed Other Information That Helps Us Care for You: No Feels Safe at Home: Yes Smoking Status: Unknown if ever smoked Hx Alcohol Use: No Hx Substance Use: No Review of Systems Complete review of systems otherwise negative except for the above-noted in HPI Physical Exam Vital Signs (Past 24 Hours): Last Vital Signs Temp 36.9 C 10/03/18 08:08 Pulse 72 10/03/18 08:08 Resp 20 10/03/18 08:08 BP 162/82 H 10/03/18 08:08 Pulse Ox 97 10/03/18 08:08 Physical Exam: Gen.: Patient is alert and oriented in no acute distress lying in bed during dialysis Heart: Regular rate and rhythm Extremities: No gross deformities or rashes noted Neurological examination: Mental status: Patient is alert and oriented to person place and time. Able to give her own history. ok fund of knowledge. Attention concentration normal for the situation. Remote and recent memory seem intact Speech is fluent without any dysarthria or aphasia noted Cranial nerves: Visual olivas intact to confrontation. Funduscopic examination was difficult to visualize. Pupils equally round and reactive to light. Extraoc ular muscles intact without nystagmus. No facial asymmetry noted. Facial sensation intact. Tongue midline. Good palatal elevation. Good shoulder shrug bilaterally. Hearing grossly intact voice. Strength: 5/5 both proximal and distal in all extremities .Tone is normal. Sensation: Grossly intact to light touch in all extremities Deep tendon reflexes: +1 in bilateral biceps and patellar. Coordination: Patient has good finger to nose without dysmetria. Station within the bed is normal.
--- NOTE | 2018-10-03 10:11 | Nephrology Progress Note ---
Date of Service October 03, 2018 Assessment & Plan (1) ESRD (end stage renal disease): 62 y o F with ESRD on HD TTS. Admitted with N/V, AMS and back pain. Missed HD Rx x 2 and has been having short Rx due to intractable back pain. Unclear etiology for AMS, most likely due to change in analgesic, ? new analgesic causing GI symptom and AMS. K low with vomiting. Not unusual for her to have cr around 10-14, BUN fine, AMS unlikely related to shortened HD, electrolyte BP, volume status fine. Pt has been having intractable back pain, CT 2 weeks ago showed lumber bulging disc. Overall clinically improve significantly and doing much better. Denies any further confusion. -- dialysis today as her regular schedule. UF as tolerated considering poor p.o. intake, nausea. -- continue on phosphate binders with meals -- pending neurology and ortho evaluation for definitive management of her back pain including looking in to surgical option as she has not been able to perform even her ADL's and has not been able to stay for dialysis --discussed in detail with patient and the importance getting regular dialysis treatment at least 4 hours 3 times a week explained that change in mental status other symptoms could be related to inadequate dialysis for last few months. will follow (2) Hypokalemia: (3) Altered mental status: (4) Intractable vomiting: (5) Anemia: (6) Hypertension: (7) Back pain: Ronaldo Hayes was seen examined in her room this morning with her at bedside. Had 4 hours dialysis yesterday, had 2 liters UF tolerated well although she reports that she had hard time staying for 4 hours on repeatedly thought of getting off early. She was awake, alert and overall doing better. Denies shortness of breath or chest pain. Complain of persistent nausea and ongoing back pain. Physical Exam Vital Signs (Past 24 Hours): Last Vital Signs Temp 36.6 C 10/03/18 09:40 Pulse 72 10/03/18 09:40 Resp 20 10/03/18 08:08 BP 124/62 10/03/18 09:40 Pulse Ox 97 10/03/18 08:08 Constitutional: + ill appearing Respiratory: normal respiratory effort, lungs clear to auscultation Cardiovascular: RRR, no murmur, no edema Gastrointestinal (Abdomen): Inspection/Auscultation: abdomen normal to inspection and normal bowel sounds Neurologic: moves all extremities and awake Motor/Sensory: + tremor Psychiatric: Orientation: alert, oriented to person, oriented to place and cooperative Motor Behavior: + tremor (1) Intractable vomiting Nausea presence: unspecified Vomiting type: unspecified Qualified Code(s): R11.10 - Vomiting, unspecified
[2018-10-03] MEDS: ALLOPURINOL 100 MG TAB PO SCH (14:40)
[2018-10-03] MEDS: ESCITALOPRAM OXALATE 20 MG TAB PO SCH (14:41)
[2018-10-03] MEDS: CALCITRIOL 0.25 MCG CAPSULE PO SCH (14:42)
[2018-10-03] MEDS: BuPROPion XL 150 MG TABCR PO SCH (16:57)
[2018-10-03] MEDS: PANTOprazole 40 MG TAB PO SCH (16:58)
[2018-10-04] MEDS: ONDANSETRON 4 MG TAB PO SCH ×4 (03:32→20:24)
[2018-10-04] MEDS: HYDROmorphone INJ 0.5 MG/0.5 ML SYR IV PRN ×3 (03:35→20:27)
[2018-10-04] MEDS ORDERED: SODIUM CHLORIDE 0.9% 1000ML 1,000 ML IV PRN (07:00)
[2018-10-04] MEDS: ONDANSETRON INJ 2 MG/ML 2 ML VIAL IV PRN ×2 (07:14→13:19)
[2018-10-04 07:41] LABS: Albumin Level 3.4 gm/dl (3.4-5.0); BUN Creatinine Ratio 2.3 (10-20); Creatinine Clr Calc Pharmacy 10.5 ml/min; Est GFR (African American) 9.3; Phosphorus 4.2 mg/dl (2.5-4.9); Potassium 3.8 mmol/L (3.5-5.1)
[2018-10-04] MEDS: PANTOprazole 40 MG TAB PO SCH (08:43)
[2018-10-04] MEDS: CALCIUM ACETATE 667 MG CAP PO SCH ×3 (08:43→16:46)
[2018-10-04] MEDS: METOPROLOL SUCC 25MG EXT REL TAB PO SCH (08:44)
[2018-10-04] MEDS: FUROSEMIDE 40 MG TAB PO SCH (08:44)
[2018-10-04] MEDS: AMLODIPINE BESYLATE 5 MG TAB PO SCH (08:44)
[2018-10-04] MEDS: BuPROPion XL 150 MG TABCR PO SCH (08:44)
[2018-10-04] MEDS: ESCITALOPRAM OXALATE 20 MG TAB PO SCH (08:45)
[2018-10-04] MEDS: ALLOPURINOL 100 MG TAB PO SCH (08:45)
[2018-10-04] MEDS: CALCITRIOL 0.25 MCG CAPSULE PO SCH (08:48)
[2018-10-04 09:00] LABS: Hematocrit (blood only) 32.7 % (37-47); Hemoglobin 10.4 g/dL (12.0-16.0); Mean Corpuscular Hgb Conc 31.8 g/dL (32-36); Mean Corpuscular Volume 96.7 fL (80-100); RDW Coefficient of Variation 17.5 % (11.5-14.5); RDW Standard Deviation 59.2 fL (36.4-46.3); Red Blood Count 3.38 M/uL (4.2-5.4); White Blood Count 4.62 K/uL (4.8-10.8)
[2018-10-04 09:03] LABS: Basophils # (auto) 0.02 K/uL (0-0.2); Basophils % (auto) 0.4 %; Eosinophils % (auto) 4.3 %; Immature Granulocytes # (auto) 0.02 K/uL (0.00-0.02); Immature Granulocytes % (auto) 0.4 %; Lymphocytes # (auto) 1.51 K/uL (1.2-3.4); Lymphocytes % (auto) 32.7 %; Mean Platelet Volume 9.5 fL (7.4-10.4); Monocytes # (auto) 0.75 K/uL (0.11-0.59); Monocytes % (auto) 16.2 %; Neutrophils # (auto) 2.12 K/uL (1.4-6.5); Platelet Count 59 K/uL (130-400)
--- NOTE | 2018-10-04 12:31 | Nephrology Progress Note ---
Date of Service October 04, 2018 Assessment & Plan (1) ESRD (end stage renal disease): 62 y o F with ESRD on HD TTS. Admitted with N/V, AMS and back pain. Missed HD Rx x 2 and has been having short Rx due to intractable back pain. Unclear etiology for AMS, most likely due to change in analgesic, ? new analgesic causing GI symptom and AMS. K low with vomiting. Not unusual for her to have cr around 10-14, BUN fine, AMS unlikely related to shortened HD, electrolyte BP, volume status fine. Pt has been having intractable back pain, CT 2 weeks ago showed lumber bulging disc. Overall clinically improve significantly and doing much better. Denies any further confusion. -- dialysis tomorrow as her regular schedule. -- continue on phosphate binders with meals -- pending ortho evaluation for definitive management of her back pain including looking in to surgical option as she has not been able to perform even her ADL's and has not been able to stay for dialysis --discussed in detail with patient about the importance of getting regular dialysis treatment at least 4 hours 3 times a week. will follow (2) Hypokalemia: (3) Altered mental status: (4) Intractable vomiting: (5) Anemia: (6) Hypertension: (7) Back pain: Ronaldo Hayes was seen examined in her room this morning. Had 4 hours dialysis yesterday, had 2 liters UF tolerated and she stayed for for 4 hours.. Overall doing much better, denies any confusion. Denies shortness of breath or chest pain. Nausea resolved. Continues to have back pain. Had MRI yesterday showing bulging disc. Physical Exam Vital Signs (Past 24 Hours): Last Vital Signs Temp 36.7 C 10/04/18 08:05 Pulse 71 10/04/18 08:05 Resp 20 10/04/18 08:05 BP 127/74 10/04/18 08:05 Pulse Ox 92 10/04/18 08:05 Constitutional: + ill appearing Respiratory: normal respiratory effort, lungs clear to auscultation Cardiovascular: RRR, no murmur, no edema Gastrointestinal (Abdomen): Inspection/Auscultation: abdomen normal to inspection and normal bowel sounds Neurologic: moves all extremities and awake Motor/Sensory: + tremor Psychiatric: Orientation: alert, oriented to person, oriented to place and cooperative Motor Behavior: + tremor (1) Intractable vomiting Nausea presence: unspecified Vomiting type: unspecified Qualified Code(s): R11.10 - Vomiting, unspecified
--- NOTE | 2018-10-04 13:19 | Orthopedic Consultation ---
Date of Consultation October 04, 2018 Assessment & Plan (1) Back pain: Reviewed her MRI that carefully. I do not appreciate any significant neural compression or evidence of compression fracture. There is multilevel underlying spondylosis with some facet arthropathy but nothing surgical in [place]. At this time majority of her pain does appear to be across the left SI joint. She may benefit with a diagnostic therapeutic left SI joint injection. She has worked with [facility] pain physicians in the past. I would not recommend any surgical intervention at this time. She did undergo activity as tolerated. Present on Admission?: Yes History of Present Illness Reason for Consultation: Back pain Attending Physician: Chidi Allred MD History of Present Illness This is a very pleasant 62-year-old female that presents to the hospital with multiple medical issues. She also notes significant back discomfort most notable when undergoing dialysis. She describes having to be in a chair in a essentially fixed position for approximately 4 hours this is extremely uncomfortable for her. Pain she is described as involving lumbosacral junction favoring the left side. She denies any radicular complaints at this time but notes occasional numbness to the left anterior thigh. During our discussion she is quite comfortable. Her is at the bedside. Allergies Allergy/AdvReac Type Severity Reaction Status Date / Time No Known Allergies Allergy Verified 10/01/18 13:15 Home Medications Home Medications Medication Instructions Recorded Confirmed Type allopurinol 100 mg PO QAM 04/14/18 10/01/18 History amlodipine 5 mg PO QAM 04/14/18 10/01/18 History calcitriol 0.5 mcg PO QAM 04/14/18 10/01/18 History calcium acetate 3 tab PO TIDM 04/14/18 10/01/18 History ergocalciferol (vitamin D2) 50,000 unit PO MONTHLY 04/14/18 10/01/18 History escitalopram oxalate 20 mg PO QAM 04/14/18 10/01/18 History furosemide 40 mg PO QAM 04/14/18 10/01/18 History metoprolol succinate 25 mg PO QAM 04/14/18 10/01/18 History bupropion HCl 150 mg PO QAM 04/19/18 10/01/18 History cinacalcet [Sensipar] 30 mg PO HS 08/17/18 10/01/18 History ondansetron HCl 4 mg tablet 4 mg PO Q6H tab 09/03/18 10/01/18 History baclofen 10 mg tablet 10 mg PO TID #90 tab 09/30/18 10/01/18 Rx gabapentin 100 mg capsule 100 mg PO TID cap 09/30/18 10/01/18 History Patient History Medical History Anemia CHRONIC-- S/P TRANSFUSION 05/2018; STABLE HGB IN 9 RANGE SINCE TRANSFUSION Hypertension Gout GERD (gastroesophageal reflux disease) CONTROLLED Depression ESRD (end stage renal disease) DIALYSIS SUNDAY/SUNDAY/SUNDAY VIA LUE AVF Obesity Anxiety History of urinary disorder HX INTERSTITIAL CYSTITIS History of diverticulitis Pancytopenia CHRONIC; MULTIPLE HEMATOLOGY EVALUATIONS PER PCP WITH UNKNOWN ETIOLOGY STATING THAT HEMATOLOGY ADVISED PATIENT TO FOLLOWUP NEEDED AFTER SIGNIFICANT WORKUP UNREMARKABLE- PCP MONITORING Fracture of fourth toe, right, open (Inactive) HX OF Surgical History History of hysterectomy History of appendectomy History of delivery Chronic kidney disease AVF (arteriovenous fistula) LUE 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= 05/31/18= GRADE 2 VIEW, MAC 3, ETT 7.0; "SMALL CUT TO TONGUE, NO BLEEDING" PER ANESTHESIA RECORDS AT [facility] Family History Mother Family history of diabetes mellitus Father Family history of diabetes mellitus Father Family history of diabetes mellitus Brother Family history of esophageal cancer Other No pertinent family history Social History Communication Ability: Effective Beliefs That Will Affect Care: None Current Living Situation: Spouse current occupational status: employed Other Information That Helps Us Care for You: No Feels Safe at Home: Yes Smoking Status: Unknown if ever smoked Hx Alcohol Use: No Hx Substance Use: No Physical Exam Vital Signs (Past 24 Hours): Last Vital Signs Temp 36.7 C 10/04/18 08:05 Pulse 71 10/04/18 08:05 Resp 20 10/04/18 08:05 BP 127/74 10/04/18 08:05 Pulse Ox 92 10/04/18 08:05 Physical Exam: Patient is sitting up in bed. She is good strength testing. She has no abnormal skin markings across lumbar spine. She is markedly tender to palpation of the left SI joint compared to the right. She is neurologically intact to testing bilateral extremity's.
--- NOTE | 2018-10-04 15:16 | Hospitalist Progress Note ---
Date of Service October 04, 2018 Assessment & Plan (1) Altered mental status: Metabolic encephalopathy - likely secondary to inability to tolerate full dialysis session and subsequent elevated creatinine Presented with creat 14 on admission Renal c/s - mental status improved after dialysis Ammonia wnl, LFTs wnl CT head: neg for acute Pt with medication changes 09/30 as per HPI although she and her report she only took one dose of Baclofen Continue gabapentin HS as was taking prior and avoid withdrawal Has been out of tramadol for some time BC pending, C pending, sed rate elevated at 77 , CRP 1.02, MR lumbar spine without discitis but does continue to show bulging discs: Small bilateral renal cysts. L1-L2: Minimal broad-based disc bulge L2-L3: Mild broad-based bulging disc with mild narrowing of the neuroforamina bilaterally IMPRESSION: 1. Moderate degenerative disc change throughout with several Schmorl's nodes previously described. 2. No evidence for discitis. 3. Multilevel bulging discs as discussed. I will cancel the LP for now given her significant improvement. Will await neuro consult for recommendations on any further testing. (2) Intractable vomiting: Unclear etiology, no acute process on CT abdomen, BC ngtd - vomiting improving (3) ESRD (end stage renal disease): Baseline cr is 6, 14 on presentation dialysis 10/02 and 10/03 nephro consult (4) Hypokalemia: Replace and monitor as per renal (5) Hypertension: continue amlodipine, (6) Gout: continue allopurinol (7) GERD (gastroesophageal reflux disease): states she has not been taking this recently due to not eating (8) Depression: continue escitalopram, bupropion (9) Pancytopenia: Chronic (10) Back pain: MR lumbar spine as above and ortho consult - no surgical intervention, will order scheduled tylenol, lidocaine patches, and oxycodone 5 mg one hour before dialysis to help her be able to get through her session. (11) Anemia: Chronic in the setting of ESRD (12) DVT prophylaxis: Hold chemoprophylaxis for low platelets, scds Subjective Ms. Crowder continues to improve however her pain level continues to be a concern. She and her are concerned about her ability to get through dialysis in the future as her pain in her back is what has prevented her from being able to tolerate her full therapy outpatient. Review of Systems All systems reviewed & are unremarkable except as noted in HPI & below Physical Exam Vital Signs (Past 24 Hours): Last Vital Signs Temp 36.7 C 10/04/18 15:07 Pulse 72 10/04/18 15:07 Resp 20 10/04/18 15:07 BP 123/70 10/04/18 15:07 Pulse Ox 98 10/04/18 15:07 Physical Exam: General: no distress Eyes: normal inspection, PERLL Respiratory: chest non tender, clear to auscultation, normal breath sounds, no respiratory distress, no accessory muscle use Cardiac: regular rate and rhythm, no rub or gallop, no murmur, no edema, no jvd GI/: active bowel sounds, no abd pain or tenderness, soft, non distended Extremities: normal range of motion, normal strength, non tender Neuro/Psych: alert and oriented x 3, normal mood and affect, CN II -XII Skin: normal color, dry Results & Data Laboratory Results Abnormal lab results 10/04/18 10/04/18 Range/Units 06:28 06:31 WBC 4.62 L (4.8-10.8) K/uL RBC 3.38 L (4.2-5.4) M/uL Hgb 10.4 L (12.0-16.0) g/dL Hct 32.7 L (37-47) % MCHC 31.8 L (32-36) g/dL RDW Std Deviation 59.2 H (36.4-46.3) fL RDW Coeff of Yuliana 17.5 H (11.5-14.5) % Plt Count 59 L (130-400) K/uL [place] # (Auto) 0.75 H (0.11-0.59) K/uL Sodium 134 L (136-145) mmol/L Chloride 97 L (98-107) mmol/L Creatinine 5.32 H* D (0.6-1.2) mg/dl BUN/Creatinine Ratio 2.3 L (10-20) (1) Intractable vomiting Nausea presence: unspecified Vomiting type: unspecified Qualified Code(s): R11.10 - Vomiting, unspecified
[2018-10-04] MEDS: ACETAMINOPHEN 500 MG TAB PO SCH (16:42)
[2018-10-04] MEDS: LIDOCAINE 5% 1 PATCH TD SCH (16:43)
[2018-10-04] MEDS: OXYCODONE HCL IR 5 MG TAB (IMMEDIATE RELEASE) PO SCH (16:54)
[2018-10-04] MEDS: SENSIPAR 30 MG PO SCH (20:46)
[2018-10-05] MEDS: ACETAMINOPHEN 500 MG TAB PO SCH ×3 (00:34→17:27)
[2018-10-05] MEDS: ONDANSETRON 4 MG TAB PO SCH ×5 (03:08→21:42)
[2018-10-05] MEDS: HYDROmorphone INJ 0.5 MG/0.5 ML SYR IV PRN ×2 (03:10→17:46)
[2018-10-05 08:08] LABS: Hematocrit (blood only) 33.8 % (37-47); Hemoglobin 10.8 g/dL (12.0-16.0); Mean Corpuscular Volume 97.4 fL (80-100); RDW Coefficient of Variation 17.3 % (11.5-14.5); RDW Standard Deviation 59.2 fL (36.4-46.3); Red Blood Count 3.47 M/uL (4.2-5.4); White Blood Count 4.55 K/uL (4.8-10.8)
[2018-10-05] MEDS: OXYCODONE HCL IR 5 MG TAB (IMMEDIATE RELEASE) PO SCH (08:13)
[2018-10-05] MEDS: ONDANSETRON INJ 2 MG/ML 2 ML VIAL IV PRN ×2 (08:13→21:41)
[2018-10-05 08:17] LABS: Mean Platelet Volume 9.7 fL (7.4-10.4); Platelet Count 73 K/uL (130-400)
[2018-10-05] MEDS: CALCIUM ACETATE 667 MG CAP PO SCH ×3 (08:20→17:27)
[2018-10-05] MEDS: PANTOprazole 40 MG TAB PO SCH (08:24)
[2018-10-05] MEDS: LIDOCAINE 5% 1 PATCH TD SCH (08:25)
[2018-10-05 08:50] LABS: Albumin Level 3.6 gm/dl (3.4-5.0); BUN Creatinine Ratio 2.9 (10-20); Calcium 9.9 mg/dl (8.5-10.1); Creatinine Clr Calc Pharmacy 7.3 ml/min; Est GFR (Non-African American) 5.2; Phosphorus 4.7 mg/dl (2.5-4.9); Potassium 3.7 mmol/L (3.5-5.1)
[2018-10-05] MEDS ORDERED: BACLOFEN 10 MG TAB PO SCH (09:00)
--- NOTE | 2018-10-05 11:29 | Nephrology Progress Note ---
Date of Service October 05, 2018 Assessment & Plan (1) ESRD (end stage renal disease): 62 y o F with ESRD on HD TTS. Admitted with N/V, AMS and back pain. Missed HD Rx x 2 and has been having short Rx due to intractable back pain. Unclear etiology for AMS, most likely due to change in analgesic, ? new analgesic causing GI symptom and AMS. K low with vomiting. Not unusual for her to have cr around 10-14, BUN fine, AMS unlikely related to shortened HD, electrolyte BP, volume status fine. Pt has been having intractable back pain, had MRI and was evaluated by Orthopedic and fell like no surgery indicated at this time for back pain. She was recommended to continue to follow with pain management. -- dialysis today for 4 hours. -- continue on phosphate binders with meals --discussed in detail with patient about the importance of getting regular dialysis treatment at least 4 hours 3 times a week. Advise her to continue to follow closely with pain management clinic. will follow (2) Hypokalemia: (3) Altered mental status: (4) Intractable vomiting: (5) Anemia: (6) Hypertension: (7) Back pain: Subjective Freddy was seen examined during dialysis this morning. Has been tolerating dialysis well, back pain seems to be better controlled. Overall doing much better, denies any confusion. Denies shortness of breath or chest pain. Nausea resolved. Continues to have back pain. Physical Exam Vital Signs (Past 24 Hours): Last Vital Signs Temp 37.2 C 10/05/18 09:04 Pulse 58 L 10/05/18 10:40 Resp 16 10/05/18 07:43 BP 129/61 10/05/18 10:40 Pulse Ox 97 10/05/18 07:43 Constitutional: + ill appearing Respiratory: normal respiratory effort, lungs clear to auscultation Cardiovascular: RRR, no murmur, no edema Gastrointestinal (Abdomen): Inspection/Auscultation: abdomen normal to inspection and normal bowel sounds Neurologic: moves all extremities and awake Motor/Sensory: + tremor Psychiatric: Orientation: alert, oriented to person, oriented to place and cooperative Motor Behavior: + tremor (1) Intractable vomiting Nausea presence: unspecified Vomiting type: unspecified Qualified Code(s): R11.10 - Vomiting, unspecified
--- NOTE | 2018-10-05 13:55 | Hospitalist Progress Note ---
Date of Service October 05, 2018 Assessment & Plan (1) Altered mental status: Metabolic encephalopathy - likely secondary to inability to tolerate full dialysis session and subsequent elevated creatinine Presented with creat 14 on admission Renal c/s - mental status improved after dialysis - encephalopathy now resolved Ammonia wnl, LFTs wnl CT head: neg for acute Pt with medication changes 09/30 as per HPI although she and her report she only took one dose of Baclofen Continue gabapentin HS as was taking prior and avoid withdrawal BC ngtd, UC grew mixed ganesh sed rate elevated at 77 , CRP 1.02, MR lumbar spine without discitis but does continue to show bulging discs: Small bilateral renal cysts. L1-L2: Minimal broad-based disc bulge L2-L3: Mild broad-based bulging disc with mild narrowing of the neuroforamina bilaterally IMPRESSION: 1. Moderate degenerative disc change throughout with several Schmorl's nodes previously described. 2. No evidence for discitis. 3. Multilevel bulging discs as discussed. Neuro consulted - no further intervention from their persepective (2) Intractable vomiting: Unclear etiology, no acute process on CT abdomen, BC ngtd - vomiting improving, just a little nauseas today (3) ESRD (end stage renal disease): Baseline cr is 6, 14 on presentation dialysis 10/02,10/03, 10/05 nephro consult (4) Hypokalemia: Replace and monitor as per renal (5) Hypertension: continue amlodipine, (6) Gout: continue allopurinol (7) GERD (gastroesophageal reflux disease): states she has not been taking this recently due to not eating (8) Depression: continue escitalopram, bupropion (9) Pancytopenia: Chronic (10) Back pain: MR lumbar spine as above and ortho consult - no surgical intervention, will order scheduled tylenol, lidocaine patches, and oxycodone 5 mg one hour before dialysis to help her be able to get through her session. (11) Anemia: Chronic in the setting of ESRD (12) DVT prophylaxis: Hold chemoprophylaxis for low platelets, scds Subjective Ms. Crowder denies any symptoms today, her back is feeling somewhat better with the medications started yesterday. Review of Systems All systems reviewed & are unremarkable except as noted in HPI & below Physical Exam Vital Signs (Past 24 Hours): Last Vital Signs Temp 36.7 C 10/05/18 13:07 Pulse 62 10/05/18 13:07 Resp 16 10/05/18 07:43 BP 113/64 10/05/18 13:07 Pulse Ox 97 10/05/18 07:43 Physical Exam: General: no distress Eyes: normal inspection, PERLL Respiratory: chest non tender, clear to auscultation, normal breath sounds, no respiratory distress, no accessory muscle use Cardiac: regular rate and rhythm, no rub or gallop, no murmur, no edema, no jvd GI/: active bowel sounds, no abd pain or tenderness, soft, non distended Extremities: normal range of motion, normal strength, non tender Neuro/Psych: alert and oriented x 3, normal mood and affect Skin: normal color, dry Results & Data Laboratory Results Abnormal lab results 10/05/18 10/05/18 Range/Units 07:55 07:55 WBC 4.55 L (4.8-10.8) K/uL RBC 3.47 L (4.2-5.4) M/uL Hgb 10.8 L (12.0-16.0) g/dL Hct 33.8 L (37-47) % RDW Std Deviation 59.2 H (36.4-46.3) fL RDW Coeff of Yuliana 17.3 H (11.5-14.5) % Plt Count 73 L (130-400) K/uL Sodium 133 L (136-145) mmol/L Chloride 96 L (98-107) mmol/L BUN 22 H D (7-18) mg/dl Creatinine 7.63 H* D (0.6-1.2) mg/dl BUN/Creatinine Ratio 2.9 L (10-20) (1) Intractable vomiting Nausea presence: unspecified Vomiting type: unspecified Qualified Code(s): R11.10 - Vomiting, unspecified
[2018-10-05] MEDS: FUROSEMIDE 40 MG TAB PO SCH (14:13)
[2018-10-05] MEDS: AMLODIPINE BESYLATE 5 MG TAB PO SCH (14:14)
[2018-10-05] MEDS: METOPROLOL SUCC 25MG EXT REL TAB PO SCH (14:14)
[2018-10-05] MEDS: CALCITRIOL 0.25 MCG CAPSULE PO SCH (14:15)
[2018-10-05] MEDS: ALLOPURINOL 100 MG TAB PO SCH (14:15)
[2018-10-05] MEDS: BuPROPion XL 150 MG TABCR PO SCH (14:15)
[2018-10-05] MEDS: ESCITALOPRAM OXALATE 20 MG TAB PO SCH (14:18)
[2018-10-05] MEDS: SENSIPAR 30 MG PO SCH (14:18)
[2018-10-05] MEDS: GABAPENTIN 100 MG CAP PO SCH ×2 (20:36→21:42)
[2018-10-05] MEDS ORDERED: OXYCODONE HCL IR 5 MG TAB (IMMEDIATE RELEASE) PO STA (23:25)
[2018-10-06] MEDS: ACETAMINOPHEN 500 MG TAB PO SCH ×2 (02:01→08:38)
[2018-10-06] MEDS: ONDANSETRON 4 MG TAB PO SCH ×2 (03:40→08:38)
[2018-10-06 07:06] LABS: Hematocrit (blood only) 34.6 % (37-47); Hemoglobin 11.1 g/dL (12.0-16.0); Mean Corpuscular Hgb Conc 32.1 g/dL (32-36); Mean Corpuscular Volume 97.5 fL (80-100); RDW Coefficient of Variation 17.5 % (11.5-14.5); RDW Standard Deviation 60.8 fL (36.4-46.3); Red Blood Count 3.55 M/uL (4.2-5.4)
[2018-10-06 07:09] LABS: Mean Platelet Volume 9.3 fL (7.4-10.4); Platelet Count 70 K/uL (130-400)
[2018-10-06 07:29] VITALS: BP 147/82; TEMP 98.6; O2SAT 98
[2018-10-06 07:49] LABS: Albumin Level 3.3 gm/dl (3.4-5.0); BUN Creatinine Ratio 2.4 (10-20); Calcium 9.2 mg/dl (8.5-10.1); Creatinine Clr Calc Pharmacy 10.9 ml/min; Est GFR (African American) 9.7; Est GFR (Non-African American) 8.4; Phosphorus 3.5 mg/dl (2.5-4.9); Potassium 3.8 mmol/L (3.5-5.1)
[2018-10-06] MEDS: SENSIPAR 30 MG PO SCH (08:37)
[2018-10-06] MEDS: GABAPENTIN 100 MG CAP PO SCH (08:37)
[2018-10-06] MEDS: LIDOCAINE 5% 1 PATCH TD SCH (08:37)
[2018-10-06] MEDS: FUROSEMIDE 40 MG TAB PO SCH (08:37)
[2018-10-06] MEDS: ALLOPURINOL 100 MG TAB PO SCH (08:38)
[2018-10-06] MEDS: CALCIUM ACETATE 667 MG CAP PO SCH (08:38)
[2018-10-06] MEDS: AMLODIPINE BESYLATE 5 MG TAB PO SCH (08:38)
[2018-10-06] MEDS: BuPROPion XL 150 MG TABCR PO SCH (08:38)
[2018-10-06] MEDS: CALCITRIOL 0.25 MCG CAPSULE PO SCH (08:38)
[2018-10-06] MEDS: PANTOprazole 40 MG TAB PO SCH (08:38)
[2018-10-06] MEDS: METOPROLOL SUCC 25MG EXT REL TAB PO SCH (08:38)
[2018-10-06] MEDS: ESCITALOPRAM OXALATE 20 MG TAB PO SCH (08:38)
--- NOTE | 2018-10-06 10:22 | Discharge Summary ---
Date of Service October 06, 2018 Admission HPI Per Admitting Provider 62 y/o F who was brought to the ED by her for c/o AMS. states that he came home yesterday and pt was n/v and lethargic. This continued into today. He states that this AM she was more weak with n/v and was not communicating with him as she usually would. He states that she was confused and could not remember details. She has not taken any medications since yesterday AM due to the n/v. She has not eaten since yesterday. states that pt does make urine and urinated this AM. Pt states she has not had a bowel movement in 3 days. states she has had an increase in back pain and itc alexander. Pt is a dialysis pt, usual schedule is //. She was unable to complete her HD on Sunday due to back pain. She was to go to HD today, but was so weak that she could not go. Per , Dr. Bear was in the ED to see pt and is planning HD tomorrow. states that pt was seen by pain management yesterday. He states a medication was stopped an another started, but he has no idea what these were. He states that her gabapentin was increased from HS to TID dosing. Per [employer], it appears that gabapentin was increased to TID, but 100mg, 100mg, and 300mg. She was started on a medrol dose pack for R LE radiculopathy. Robaxin was d/c'd and baclofen was started in its place. It was also noted that pt was out of tramadol, but that her PCP orders this and she was to contact PCP for refill. is not certain what of these medication changes pt has made but is clear that she did not take any meds last night or today due to n/v. Principal Diagnosis Metabolic encephalopathy Discharge Exam Constitutional WD/WN, vitals as above Eyes PERRL, conjunctivae normal, anicteric sclerae Respiratory normal respiratory effort, lungs clear to auscultation Cardiovascular RRR, no murmur, no edema Musculoskeletal no cyanosis or clubbing, extremities motor strength 5/5 Skin no rashes, warm and dry Neurologic moves all extremities and awake Psychiatric A+Ox3, euthymic affect Discharge Data Allergies Allergy/AdvReac Type Severity Reaction Status Date / Time No Known Allergies Allergy Verified 10/01/18 13:15 Consultations 10/01/18 14:54 Consult Nephrology Stat ED Decision to Admit Stat 10/01/18 19:56 Consult Case Management - Discharge Planning Routine Consult Nephrology Routine 10/02/18 09:06 Consult Orthopedic Surgery Routine 10/02/18 16:33 Consult Neurology Routine 10/05/18 13:50 Consult [facility] production line operator Routine Ordered Studies 10/01/18 13:00 CT head/brain wo con Stat 10/01/18 13:02 CT abd pelvis wo con Stat 10/02/18 17:32 MR lumbar spine wo con Routine Hospital Course (1) Altered mental status: Metabolic encephalopathy - likely secondary to inability to tolerate full dialysis session and subsequent elevated creatinine Presented with creat 14 on admission Renal c/s - mental status improved after dialysis - encephalopathy now resolved Ammonia wnl, LFTs wnl CT head: neg for acute Pt with medication changes 09/30 as per HPI although she and her report she only took one dose of Baclofen - advised to hold on further Baclofen until seen by pain management. Will restart gabapentin for home - patient has been taking this medication for quite some time and has not had ill effects from it before so will continue. BC ngtd, UC grew mixed ganesh sed rate elevated at 77 , CRP 1.02, MR lumbar spine without discitis but does continue to show bulging discs: Small bilateral renal cysts. L1-L2: Minimal broad-based disc bulge L2-L3: Mild broad-based bulging disc with mild narrowing of the neuroforamina bilaterally IMPRESSION: 1. Moderate degenerative disc change throughout with several Schmorl's nodes previously described. 2. No evidence for discitis. 3. Multilevel bulging discs as discussed. Neuro consulted - no further intervention from their persepective Will discharge with 3 days of tramadol. Patient has been out for a while and had to cancel her appointment with Dr. Francis's office to come to the ED so couldn't get a refill last week. PDMP shows last fill was 2 months ago with a 15 day supply. Patient should take a dose one hour before dialysis to help her get through a session. She should contact Dr. Francis's office for continued prescription. (2) Intractable vomiting: Unclear etiology, no acute process on CT abdomen, BC ngtd - resolved. Continue protonix (3) ESRD (end stage renal disease): Baseline cr is 6, 14 on presentation dialysis 10/02,10/03, 10/05 nephro consult (4) Hypokalemia: Resolved (5) Hypertension: continue amlodipine, (6) Gout: continue allopurinol (7) GERD (gastroesophageal reflux disease): states she has not been taking this recently due to not eating (8) Depression: continue escitalopram, bupropion (9) Pancytopenia: Chronic (10) Back pain: MR lumbar spine as above and ortho consult - no surgical intervention, will order scheduled tylenol, lidocaine patches, and oxycodone 5 mg one hour before dialysis to help her be able to get through her session. (11) Anemia: Chronic in the setting of ESRD (12) DVT prophylaxis: Hold chemoprophylaxis for low platelets, scds Total Time Total Time Spent Total Time Spent (In Minutes): greater than 30 minutes Discharge Plan Discharge Items Patient Disposition: Home - Home Health Services Reason For Visit: AMS Discharge Diagnosis: Metabolic encephalopathy Discharge Goals: Improve disease control Activity: Resume your previous activity Non-emergency contact: Primary Care Provider Call non-emergency contact if: you have any medication questions and your symptoms worsen Follow-up/Referrals: Josep Francis MD [Primary Care Provider] - Diet: Dialysis Renal and Heart Healthy Addtl Provider Instructions: Please keep your dialysis schedule. I will send you home with three days of your tramadol which will give you time to contact Dr. Francis's office on Sunday for a refill. You should be sure to take a dose of tramadol about an hour before a dialysis session to help you get through the session. Please do not restart the Baclofen until you have seen pain management. Our nurse navigator will contact you with appointments for pain management and with Dr. Francis's office. You should see Dr. Francis within about a week. Prescriptions: New tramadol 50 mg tablet 50 mg PO Q8H PRN (Reason: pain ) Qty: 9 RF: 0 pantoprazole 40 mg Tablet,Delayed Release (Dr/Ec) 40 mg PO QAM Qty: 30 RF: 0 Continued gabapentin 100 mg capsule 100 mg PO TID RF: 0 ondansetron HCl [Zofran] 4 mg tablet 4 mg PO Q6H RF: 0 bupropion HCl 150 mg Tablet Extended Release 24 Hr 150 mg PO QAM RF: 0 cinacalcet [Sensipar] 30 mg Tablet 30 mg PO HS RF: 0 furosemide 40 mg Tablet 40 mg PO QAM RF: 0 calcium acetate 667 mg Tablet 3 tab PO TIDM RF: 0 amlodipine 5 mg Tablet 5 mg PO QAM RF: 0 allopurinol 100 mg Tablet 100 mg PO QAM RF: 0 calcitriol 0.5 mcg Capsule 0.5 mcg PO QAM RF: 0 ergocalciferol (vitamin D2) 50,000 unit Capsule 50,000 unit PO MONTHLY RF: 0 escitalopram oxalate 20 mg Tablet 20 mg PO QAM RF: 0 metoprolol succinate 25 mg Capsule,Sprinkle,Er 24hr 25 mg PO QAM RF: 0 Discontinued baclofen 10 mg tablet 10 mg PO TID Qty: 90 RF: 1 Stand-Alone Forms: [facility]charge Orders: Discharge Order (Routine); Ordered 10/06/18 Ordered By: Dayana Francis Admission Data Admit Date/Time: 10/01/18 17:42 Attending Provider: Chidi Allred Admit Provider: Juliette Ward Primary Care Provider: Josep Francis Other Providers: Christin Bear ; Juliette Ward ; Apolinar Mayes Brian A. ; Dayana Francis Service: Medical
[2018-10-06 10:30] VITALS: PULSE 73
[2018-10-31] MEDS ORDERED: ERGOCALCIFEROL 50,000 UNITS CAP PO SCH (09:00)
== END 2018-10-06 10:58 | disposition home or self-care (01) | DRG 682 ==
LOC: ED 12:36 → 4W 17:42 → SUATTDRO 17:42 → 4W 19:30

== ENCOUNTER 2018-10-23 12:54 | Inpatient (IN) ==
[2018-10-23] MEDS ORDERED: SODIUM CHLORIDE 0.9% 1000ML 500 ML IV ONE ×2 (13:30→15:32)
--- NOTE | 2018-10-23 13:54 | XRay Report ---
XR chest 1V portable CLINICAL HISTORY: Sepsis dyspnea COMPARISON STUDY: 10/01/2018 FINDINGS: Mild stable cardia megaly. Lungs are clear. Stable synovial calcifications overlying the le ft humeral head and neck. IMPRESSION: Mild cardia megaly. Otherwise no acute process. The above report was generated using voice recognition software. It may contain grammatical, syntax or spelling errors. Electronically signed by: Dontae Matta M.D. 10/23/2018 1:53 PM
[2018-10-23 14:41] LABS: Hematocrit (blood only) 36.7 % (37-47); Mean Corpuscular Hgb Conc 32.7 g/dL (32-36); Mean Corpuscular Volume 98.7 fL (80-100); RDW Coefficient of Variation 18.8 % (11.5-14.5); RDW Standard Deviation 67.2 fL (36.4-46.3); Red Blood Count 3.72 M/uL (4.2-5.4); White Blood Count 2.91 K/uL (4.8-10.8)
[2018-10-23 14:51] LABS: INR 1.1 (0.9-1.1); Partial Thromboplastin Ratio 0.8; Partial Thromboplastin Time 22.8 Seconds (21.0-31.0); Prothrombin Time 10.9 Seconds (9.0-12.0)
[2018-10-23 14:56] LABS: Base Excess VBG 5.1 mEq/L; Oxygen Saturation VBG 62.8 %; pH VBG 7.45 (7.36-7.41)
[2018-10-23 14:58] LABS: Mean Platelet Volume 9.4 fL (7.4-10.4); Platelet Count 58 K/uL (130-400)
[2018-10-23 15:00] LABS: iSTAT Creatinine 8.3 mg/dl (0.6-1.3); iSTAT Hemoglobin 11.9 g/dl (12.0-16.0); iSTAT Ionized Calcium 1.13 mmol/l (1.12-1.32); iSTAT Potassium 6.6 mEq/L (3.3-5.0)
[2018-10-23 15:09] LABS: Anisocytosis Present; Basophils # (auto) 0.03 K/uL (0-0.2); Eosinophils % (auto) 3.4 %; Immature Granulocytes # (auto) 0.01 K/uL (0.00-0.02); Immature Granulocytes % (auto) 0.3 %; Lymphocytes # (auto) 0.62 K/uL (1.2-3.4); Lymphocytes % (auto) 21.3 %; Monocytes # (auto) 0.32 K/uL (0.11-0.59); Neutrophils # (auto) 1.83 K/uL (1.4-6.5); Polychromasia 1+
[2018-10-23 15:13] LABS: Albumin Globulin Ratio 0.8 (0.9-2); Albumin Level 3.4 gm/dl (3.4-5.0); BUN Creatinine Ratio 4.5 (10-20); Bilirubin Direct 0.2 mg/dl (0-0.2); Bilirubin,Total 0.7 mg/dl (0.2-1); Calcium 9.5 mg/dl (8.5-10.1); Creatinine Clr Calc Pharmacy 6.8 ml/min; Est GFR (African American) 5.5; Est GFR (Non-African American) 4.8; Globulin 4.1 gm/dl (2.5-4.0); Magnesium 2.5 mg/dl (1.8-2.4); Phosphorus 4.8 mg/dl (2.5-4.9); Potassium 6.6 mmol/L (3.5-5.1); Total Protein 7.5 gm/dl (6.4-8.2)
--- NOTE | 2018-10-23 15:13 | CT Scan Report ---
CT SCAN OF THE BRAIN WITHOUT IV CONTRAST CLINICAL HISTORY: Change in mental status. COMPARISON STUDY: CT of the brain dated 10/01/2018. TECHNIQUE: Unenhanced axial CT scan of the brain is performed from the vertex to the skull base. A do se lowering technique was utilized adhering to the principles of ALARA. CT DOSE: 537.48 mGy.cm FINDINGS: Brain parenchyma: There are age-related involutional changes noting mild to moderate subcortical and periventricular microangiopathic change. There is no hemorrhage, mass effect, or evidence of acute t erritorial ischemia by CT criteria. Messer-white matter differentiation is preserved. No extra-axial fl uid collection is seen. Ventricles, sulci, cisterns: Prominent secondary to involutional change. Intracranial vasculature: There is atherosclerotic calcification of the cavernous carotid arteries. Calvarium: Unremarkable. Sinuses and mastoids: The visualized paranasal sinuses are clear. The mastoid air cells are well pneu matized. Orbits: The bony orbits are grossly intact. IMPRESSION: There is no hemorrhage, mass effect, or evidence of acute territorial ischemia by CT jovan maravilla. Electronically signed by: Ta Harris M.D. 10/23/2018 3:11 PM
[2018-10-23] MEDS ORDERED: DEXTROSE 50% 50 ML SYRINGE IV STA (15:29)
[2018-10-23] MEDS ORDERED: INSULIN HUMAN REGULAR PER UNIT 10 UNITS in SYRINGE 9.9 ML IV STA (15:29)
[2018-10-23] MEDS ORDERED: CALCIUM GLUCONATE 10% 2,000 MG in SODIUM CHLORIDE 0.9% 50 ML IV STA (15:29)
[2018-10-23] MEDS ORDERED: NovoLIN-R INSULIN PER UNIT CHARGE ONE (15:56)
--- NOTE | 2018-10-23 16:04 | History & Physical Report ---
Date of Service October 23, 2018 Assessment & Plan (1) Acute encephalopathy: - Admit to med/surg - Hold baclofen as this may be the offending agent with recent initiation of the med and poor clearance with short HD sessions within the past week - Check BCx x 2, urine culture to r/o infectious causes, - Urine has not yet been collected, pt makes urine at baseline - Vomiting at bedside during exam, possible gastroenteritis? Pt daughter reports no sick contacts. ROS cannot be obtained due to AMS. Zofran prn. - Ammonia is <10, pt was initially given oral kayexelate in the ER, however unsuccessful, she has been ordered a kayexylate enema x 1. - Aspiration precautions, currently on 7L with adequate O2 sats, monitor closely for aspiration pneumonia. Sit head of bed upright at 90degrees until improved mental status - Keep NPO for now (2) ESRD (end stage renal disease): (3) Dialysis patient: (4) AVF (arteriovenous fistula): - Consult nephrology for HD - Cr. 8.11, BUN 37, K+ 6.6 - Normal HD is scheduled T//Sun - last session on 10/22 but was only 1 hr in length - Continue sensipar 30 mg HS, sevelamer 800 mg TID - Ammonia level negative, not likely true hepatic encephalopathy, but instead would likely be from initiation of baclofen for pain management along with only getting 1 hr of HD vs getting total of her normal 4 hr session. ER performed kayexylate enema x 1. (5) Anemia: - Due to chronic disease - thrombocytopenia specifically upon admission with PLT =58 and appears to be lower than her normal - Monitor with am labs (6) Hypertension: - Relatively well controlled, continue lasix 40 mg po daily, metoprolol succinate 25 mg QAM (7) Gout: - Continue allopurinol 100 mg QAM (8) GERD (gastroesophageal reflux disease): - Continue pantoprazole and ranitidine (9) Depression: - Cont lexapro 20 mg QAM and wellbutrin 150 mg QAM (10) Chronic SI joint pain: - Consider pain management consultation in house to address encephalopathy: hold baclofen, oxycodone and tramadol. Can continue gabapentin in the morning if improved mental status. - Continue lidocaine patch (11) Hyperkalemia: - Follow am labs, will improve with HD (12) Vitamin D deficiency: - Continue vit d monthly, calcium replacement (13) Constipation: - Pt was seen in the ER on 10/19 due to worsening back pain and was prescribed 3 days of oxycodone along with bowel regimen. Abdominal imaging revealed some constipation at that time. Unknown last BM - Hold senna and colace with administration of kayexalate enema (14) DVT prophylaxis: - heparin sub q History of Present Illness Chief Complaint: AMS Primary Care Provider: Josep Francis MD This is a 63 yo F with PMHx of ESRD on HD T/, previous encephalopathy and recent admission which seemed to be caused by polypharmacy with pain medications, HTN, HLD, anemia of chronic disease, depression, vit D deficiency, GERD, gout and chronic back pain who presents with AMS, increased confusion and nausea/vomiting. Pt is unable to participate in discussion due to AMS, so history is obtained by her daughter at bedside. Pt is able to name her daughter, but that is all the participation throughout my visit. Pt was recently admitted to our facility from 10/01-10/06 for similar presentation of encephalopathy due to polypharmacy, but may have specifically been due to baclofen vs. gabapentin dosage change for pain which occurred last time. Yesterday the patient took a baclofen for pain after HD session. Of note, she was seen in the ER on 10/19 and given prescription for oxycodone 5 mg, with a 3 day supply for back pain. She is scheduled for 4 hrs of HD, however has not been able to complete a full session since last Sunday due to low back and hip pain which radiates down her leg. Her HD yesterday was only 1 hr long due to pain. Change in mental status began today. She slept in and was awoken by her around 10am, at that point she was confused and unable to really participate in conversation. Daughter lives in an apartment upstairs, and recognized these signs as similar to the previous episode where she was admitted. Pt notes she has not been talking much since being in the ER. Pt vomited this morning and did not know what was happening. Since being in the ER she has vomited 2 more times, once during my exam. In the ER a dose of oral kayexeylate was attempted but unsuccessful. BUN 37, Cr. 8.1, K+ 6.6 Allergies Allergy/AdvReac Type Severity Reaction Status Date / Time No Known Allergies Allergy Verified 10/23/18 13:49 Home Medications Home Medications Medication Instructions Recorded Confirmed Type allopurinol 100 mg PO QAM 04/14/18 10/23/18 History calcium acetate 3 tab PO TIDM 04/14/18 10/23/18 History ergocalciferol (vitamin D2) 50,000 unit PO MONTHLY 04/14/18 10/23/18 History escitalopram oxalate 20 mg PO QAM 04/14/18 10/23/18 History furosemide 40 mg PO QAM 04/14/18 10/23/18 History metoprolol succinate 25 mg PO QAM 04/14/18 10/23/18 History bupropion HCl 150 mg PO QAM 04/19/18 10/23/18 History cinacalcet [Sensipar] 30 mg PO HS 08/17/18 10/23/18 History ondansetron HCl 4 mg tablet 4 mg PO Q6H tab 09/03/18 10/23/18 History gabapentin 100 mg capsule 100 mg PO TID cap 09/30/18 10/23/18 History lidocaine 1 patch TRANSDERMAL QAM 30 Days 10/06/18 10/23/18 Rx #30 ea pantoprazole 40 mg PO QAM #30 tab 10/06/18 10/23/18 Rx tramadol 50 mg PO Q8H PRN #9 tab 10/06/18 10/23/18 Rx docusate sodium [Colace] 100 mg PO BID #60 cap 10/19/18 10/23/18 Rx oxycodone 5 mg PO Q6 PRN #14 tab 10/19/18 10/23/18 Rx sennosides [Senokot] 8.6 mg PO HS #30 tab 10/19/18 10/23/18 Rx baclofen 10 mg PO TID PRN 10/23/18 10/23/18 History ranitidine HCl 150 mg PO DAILY 10/23/18 10/23/18 History sevelamer HCl 800 mg PO TID 10/23/18 10/23/18 History Past Med/Surg History Medical History Constipation Vitamin D deficiency Chronic SI joint pain (Acute) Hyperkalemia (Acute) Acute encephalopathy Anemia CHRONIC-- S/P TRANSFUSION 05/2018; STABLE HGB IN 9 RANGE SINCE TRANSFUSION Hypertension (Acute) Gout GERD (gastroesophageal reflux disease) CONTROLLED Depression ESRD (end stage renal disease) DIALYSIS SUNDAY/SUNDAY/SUNDAY VIA LUE AVF Obesity Anxiety History of urinary disorder HX INTERSTITIAL CYSTITIS History of diverticulitis Pancytopenia CHRONIC; MULTIPLE HEMATOLOGY EVALUATIONS PER PCP WITH UNKNOWN ETIOLOGY STATING THAT HEMATOLOGY ADVISED PATIENT TO FOLLOWUP NEEDED AFTER SIGNIFICANT WORKUP UNREMARKABLE- PCP MONITORING Dialysis patient End stage chronic kidney disease Fracture of fourth toe, right, open (Inactive) HX OF Surgical History History of hysterectomy History of appendectomy History of delivery Chronic kidney disease AVF (arteriovenous fistula) LUE 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= 05/31/18= GRADE 2 VIEW, MAC 3, ETT 7.0; "SMALL CUT TO TONGUE, NO BLEEDING" PER ANESTHESIA RECORDS AT [facility] Family History Mother Family history of diabetes mellitus Father Family history of diabetes mellitus Father Family history of diabetes mellitus Brother Family history of esophageal cancer Other No pertinent family history Social History Preferred Language: Persian Communication Ability: Effective Beliefs That Will Affect Care: None Current Living Situation: Spouse current occupational status: employed Other Information That Helps Us Care for You: No Feels Safe at Home: Yes Safety Concerns: Feels Safe At This Time Smoking Status: Never smoker Hx Alcohol Use: No Hx Substance Use: No Review of Systems Unobtainable due to cognitive status Physical Exam Vital Signs (Past 24 Hours): Last Vital Signs Temp 36.9 C 10/23/18 13:08 Pulse 68 10/23/18 14:55 Resp 16 10/23/18 14:55 BP 141/87 H 10/23/18 14:55 Pulse Ox 97 10/23/18 14:55 Physical Exam: General: awaken with sternal rub and loud talking, unable to participate in discussion, does recognize her daughter and says her name when asked who she is. Mild distress during vomiting at bedside. Head: Normocephalic, atraumatic ENT: PERRL, EOMI, no pharyngeal exudate, mucous membranes moist Chest: Clear to auscultation, on 7L via NC, no adventitious breath sounds Cardiac: Regular rate and rhythm, + JAVON, no JVD, normal peripheral pulses, good capillary refill Abdominal: NABS x 4 quadrants, soft, nontender to palpation, no rebound, guarding or tenderness Extremities: AVF in L forearm with +bruit and thrill, + myoclonic jerking, trace peripheral edema BLE, no erythema, calfs nontender to palpation Skin: appears intact, no lesions or rash. Neuro: Awakens to sternal rub and loud speaking, +myoclonic jerking, speech is clear, unable to answer questions or follow commands Constitutional: WD/WN, vitals as above Does not interact, opens eyes but falls asleep easily Eyes: normal visual olivas by confrontation and + anicteric sclerae Neck: normal visual inspection and trachea midline Respiratory: normal respiratory effort, lungs clear to auscultation Cardiovascular: Rate/Rhythm: regular rate and regular rhythm Gastrointestinal (Abdomen): Inspection/Auscultation: abdomen not distended Percussion/Palpation: abdomen soft; abdomen nontender Musculoskeletal: Head/Neck/Chest: normocephalic and head atraumatic trace LE edema, + pedal pulses Skin: no rashes, warm and dry Neurologic: + confused; + not awake Speech / Cognition: + abnormal speech Psychiatric: Orientation: oriented to person Affect: + blunted affect Lymphatic: Exam as done by Juliette Ward DO Results & Data Diagnostic Findings XR chest 1V portable CLINICAL HISTORY: Sepsis dyspnea COMPARISON STUDY: 10/01/2018 FINDINGS: Mild stable cardia megaly. Lungs are clear. Stable synovial calcifications overlying the left humeral head and neck. IMPRESSION: Mild cardia megaly. Otherwise no acute process. CT SCAN OF THE BRAIN WITHOUT IV CONTRAST CLINICAL HISTORY: Change in mental status. COMPARISON STUDY: CT of the brain dated 10/01/2018. TECHNIQUE: Unenhanced axial CT scan of the brain is performed from the vertex to the skull base. A dose lowering technique was utilized adhering to the principles of ALARA. CT DOSE: 537.48 mGy.cm FINDINGS: Brain parenchyma: There are age-related involutional changes noting mild to moderate subcortical and periventricular microangiopathic change. There is no hemorrhage, mass effect, or evidence of acute territorial ischemia by CT criteria. Messer-white matter differentiation is preserved. No extra-axial fluid collection is seen. Ventricles, sulci, cisterns: Prominent secondary to involutional change. Intracranial vasculature: There is atherosclerotic calcification of the cavernous carotid arteries. Calvarium: Unremarkable. Sinuses and mastoids: The visualized paranasal sinuses are clear. The mastoid air cells are well pneumatized. Orbits: The bony orbits are grossly intact. IMPRESSION: There is no hemorrhage, mass effect, or evidence of acute territorial ischemia by CT criteria. ECG Additional Comments: 23-OCT-2018 13:45:35 [facility] Normal sinus rhythm Left axis deviation V oltage criteria for left ventricular hypertrophy Cannot rule out Septal infarct (cited on or before 01-OCT-2018) Abnormal ECG When compared with ECG of 01-OCT-2018 12:53, T wave inversion now evident in Inferior leads T wave inversion less evident in Lateral leads 25mm/s 10mm/mV 150Hz 8.0 SP2 12SL 241 ALAN: 3 Referred by: REFERRED SELF Unconfirmed Vent. rate 66 BPM WV interval 178 ms QRS duration 88 ms QT/QTc 464/486 ms P-R-T axes 35 -40 -18 Code Status & VTE Plan Code Status Full code- discussed with daughter at bedside - daughter plans to further discuss this with her father and with her mother once encephalopathy is resolved as she has not discussed it with them before. Supervising Physician Co-Signing Physician Notes Pt seen and examined by me. Has not had a full HD session (1/4 hours) x last 3 sessions due to back pain and general intolerance to the session. Was given oxycodone in the ED due to back pain. Restarted on baclofen by Pain Management for back pain. Has been vomiting and AMS. Agree with HPI/ROS as noted by PA See above for my exam in PE section Agree with plan as outlined above Encephalopathy likely related to increased narcotic and baclofen dosing in the setting of poor renal clearance and intolerance of HD sessions HyperK, likely related to same HD, renal c/s (1) Hypertension Hypertension type: unspecified Qualified Code(s): I10 - Essential (primary) hypertension
[2018-10-23] MEDS: SODIUM POLYSTYRENE SULFONATE 15G/60ML SUSP PO STA ×2 (16:08→16:28)
[2018-10-23] MEDS ORDERED: SODIUM POLYSTYRENE SULFONATE PR STA (16:15)
[2018-10-23] MEDS ORDERED: SODIUM POLYSTYRENE 15 GM/60 ML 500ML BOTTLE PR STA ×2 (16:25→16:28)
[2018-10-23 16:30] LABS: Troponin I 0.022 ng/ml (0-0.045)
[2018-10-23] MEDS ORDERED: ACETAMINOPHEN 325 MG TAB PO PRN (16:41)
[2018-10-23] MEDS ORDERED: TRAMADOL HCL 50 MG TABLET PO PRN (16:44)
[2018-10-23] MEDS ORDERED: ONDANSETRON INJ 2 MG/ML 2 ML VIAL ONE (16:53)
--- NOTE | 2018-10-23 17:33 | Emergency Department Note ---
Entered by Trina Murphy acting as a scribe for History of Present Illness General Chief complaint: Illness Stated complaint: SICK, DIALYSIS PATIENT, NEW MEDICINE Time Seen by Provider: 10/23/18 13:15 Source: patient and family (, daughter) History of Present Illness Provider complaint: back pain Onset (ago): month(s) 2 Location: back Pain Consistency: + constant Maximum Pain Intensity: 3 Quality: + other (pain) Associated symptoms: + denies other symptoms (denies abdominal pain) and + nausea/vomiting Treatments prior to arrival: other (Baclofen, Gabapentin) The patient is a 63 year old female who presents to the Emergency Room with complaints of constant back pain for the last 2 months. Per , the patient has been going to pain management for pain in her back and legs. Her states that the patient was placed back on 1 Baclofen and 3 Gabapentin yester day. Per , Baclofen has made the patient confused in the past. Her states that the patient's back pain has been affecting her dialysis as the patient has been unable to sit for 4 hours and states that the patient's pain worsens at dialysis. Her daughter states that the patient was here 5 days ago and had X-Rays done. Per , the patient did not have any back prior to a couple of months ago. Per , the patient does still urinate. The patient denies having abdominal pain. Per , the patient vomited shortly prior to arrival. Home Medications Home Medications Medication Instructions Recorded Confirmed Type allopurinol 100 mg PO QAM 04/14/18 10/23/18 History calcium acetate 3 tab PO TIDM 04/14/18 10/23/18 History ergocalciferol (vitamin D2) 50,000 unit PO MONTHLY 04/14/18 10/23/18 History escitalopram oxalate 20 mg PO QAM 04/14/18 10/23/18 History furosemide 40 mg PO QAM 04/14/18 10/23/18 History metoprolol succinate 25 mg PO QAM 04/14/18 10/23/18 History bupropion HCl 150 mg PO QAM 04/19/18 10/23/18 History cinacalcet [Sensipar] 30 mg PO HS 08/17/18 10/23/18 History ondansetron HCl 4 mg tablet 4 mg PO Q6H tab 09/03/18 10/23/18 History gabapentin 100 mg capsule 100 mg PO TID cap 09/30/18 10/23/18 History lidocaine 1 patch TRANSDERMAL QAM 30 Days 10/06/18 10/23/18 Rx #30 ea pantoprazole 40 mg PO QAM #30 tab 10/06/18 10/23/18 Rx tramadol 50 mg PO Q8H PRN #9 tab 10/06/18 10/23/18 Rx docusate sodium [Colace] 100 mg PO BID #60 cap 10/19/18 10/23/18 Rx oxycodone 5 mg PO Q6 PRN #14 tab 10/19/18 10/23/18 Rx sennosides [Senokot] 8.6 mg PO HS #30 tab 10/19/18 10/23/18 Rx baclofen 10 mg PO TID PRN 10/23/18 10/23/18 History ranitidine HCl 150 mg PO DAILY 10/23/18 10/23/18 History sevelamer HCl 800 mg PO TID 10/23/18 10/23/18 History Allergies Allergy/AdvReac Type Severity Reaction Status Date / Time No Known Allergies Allergy Verified 10/23/18 13:49 Past Med/Surg History Medical History Constipation Vitamin D deficiency Chronic SI joint pain (Acute) Hyperkalemia (Acute) Acute encephalopathy Anemia CHRONIC-- S/P TRANSFUSION 05/2018; STABLE HGB IN 9 RANGE SINCE TRANSFUSION Hypertension (Acute) Gout GERD (gastroesophageal reflux disease) CONTROLLED Depression ESRD (end stage renal disease) DIALYSIS SUNDAY/SUNDAY/SUNDAY VIA LUE AVF Obesity Anxiety History of urinary disorder HX INTERSTITIAL CYSTITIS History of diverticulitis Pancytopenia CHRONIC; MULTIPLE HEMATOLOGY EVALUATIONS PER PCP WITH UNKNOWN ETIOLOGY STATING THAT HEMATOLOGY ADVISED PATIENT TO FOLLOWUP NEEDED AFTER SIGNIFICANT WORKUP UNREMARKABLE- PCP MONITORING Dialysis patient End stage chronic kidney disease Fracture of fourth toe, right, open (Inactive) HX OF Surgical History History of hysterectomy History of appendectomy History of delivery Chronic kidney disease AVF (arteriovenous fistula) LUE 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= 05/31/18= GRADE 2 VIEW, MAC 3, ETT 7.0; "SMALL CUT TO TONGUE, NO BLEEDING" PER ANESTHESIA RECORDS AT [facility] Family History Mother Family history of diabetes mellitus Father Family history of diabetes mellitus Father Family history of diabetes mellitus Brother Family history of esophageal cancer Other No pertinent family history Social History Preferred Language: Frisian Communication Ability: Effective Beliefs That Will Affect Care: None Current Living Situation: Spouse current occupational status: employed Other Information That Helps Us Care for You: No Feels Safe at Home: Yes Safety Concerns: Feels Safe At This Time Smoking Status: Never smoker Hx Alcohol Use: No Hx Substance Use: No Review of Systems See HPI for pertinent positives & negatives. and A total of 10 systems reviewed and were otherwise negative Physical Exam Vital Signs Vital Signs - 24 hr 10/23/18 13:08 10/23/18 13:30 10/23/18 14:55 Temperature 36.9 C Temperature Source Oral Sepsis Recent Fever Within 48 Hours No Sepsis Action Taken by Nursing No Action Required End-Tidal CO2 Pulse Rate 78 60 Pulse Rate [Apical] 68 Pulse Rate [Right Brachial] Pulse Rate from SpO2 Sensor Pulse Rhythm Regular Pulse Rhythm [Apical] Regular Pulse Rhythm [Right Brachial] Pulse Strength Normal Pulse Strength [Apical] Normal Respiratory Rate 20 11 L Respiratory Effort / Characteristics Non-Labored Spontaneous Non-Labored Spontaneous Respiratory Depth Normal Normal Respiratory Pattern Regular Regular Blood Pressure - Lying Blood Pressure 143/83 H Blood Pressure [Right Arm] 141/87 H Blood Pressure Mean 103 Blood Pressure Mean [Right Arm] 105 Blood Pressure Position Sitting Blood Pressure Position [Right Arm] Lying Pulse Oximetry 97 97 97 Oxygen Delivery Method Room Air Room Air Room Air 10/23/18 15:00 10/23/18 15:01 10/23/18 15:17 Temperature Temperature Source Sepsis Recent Fever Within 48 Hours Sepsis Action Taken by Nursing End-Tidal CO2 Pulse Rate 59 L 64 61 Pulse Rate [Apical] Pulse Rate [Right Brachial] Pulse Rate from SpO2 Sensor 60 Pulse Rhythm Pulse Rhythm [Apical] Pulse Rhythm [Right Brachial] Pulse Strength Pulse Strength [Apical] Respiratory Rate 7 L 11 L Respiratory Effort / Characteristics Respiratory Depth Respiratory Pattern Blood Pressure - Lying Blood Pressure 141/87 H 166/86 H Blood Pressure [Right Arm] Blood Pressure Mean 105 112 Blood Pressure Mean [Right Arm] Blood Pressure Position Blood Pressure Position [Right Arm] Pulse Oximetry 97 99 Oxygen Delivery Method Room Air Room Air 10/23/18 15:30 10/23/18 16:00 10/23/18 16:30 Temperature Temperature Source Sepsis Recent Fever Within 48 Hours Sepsis Action Taken by Nursing End-Tidal CO2 Pulse Rate 64 57 L Pulse Rate [Apical] Pulse Rate [Right Brachial] Pulse Rate from SpO2 Sensor 64 57 L 62 Pulse Rhythm Pulse Rhythm [Apical] Pulse Rhythm [Right Brachial] Pulse Strength Pulse Strength [Apical] Respiratory Rate 16 7 L Respiratory Effort / Characteristics Respiratory Depth Respiratory Pattern Blood Pressure - Lying Blood Pressure 167/71 H 143/78 H Blood Pressure [Right Arm] Blood Pressure Mean 103 99 Blood Pressure Mean [Right Arm] Blood Pressure Position Blood Pressure Position [Right Arm] Pulse Oximetry 98 96 Oxygen Delivery Method Room Air Room Air 10/23/18 16:31 10/23/18 16:44 10/23/18 17:02 Temperature Temperature Source Sepsis Recent Fever Within 48 Hours Sepsis Action Taken by Nursing End-Tidal CO2 36 28 Pulse Rate 84 69 Pulse Rate [Apical] Pulse Rate [Right Brachial] Pulse Rate from SpO2 Sensor 56 L 85 70 Pulse Rhythm Pulse Rhythm [Apical] Pulse Rhythm [Right Brachial] Pulse Strength Pulse Strength [Apical] Respiratory Rate Respiratory Effort / Characteristics Respiratory Depth Respiratory Pattern Blood Pressure - Lying Blood Pressure 215/78 H 220/96 H 162/64 H Blood Pressure [Right Arm] Blood Pressure Mean 123 137 96 Blood Pressure Mean [Right Arm] Blood Pressure Position Blood Pressure Position [Right Arm] Pulse Oximetry 97 100 100 Oxygen Delivery Method Room Air Room Air Room Air 10/23/18 17:44 10/23/18 18:02 10/23/18 18:19 Temperature Temperature Source Sepsis Recent Fever Within 48 Hours Sepsis Action Taken by Nursing End-Tidal CO2 Pulse Rate 86 Pulse Rate [Apical] Pulse Rate [Right Brachial] Pulse Rate from SpO2 Sensor Pulse Rhythm Pulse Rhythm [Apical] Pulse Rhythm [Right Brachial] Pulse Strength Pulse Strength [Apical] Respiratory Rate Respiratory Effort / Characteristics Non-Labored Spontaneous Respiratory Depth Normal Respiratory Pattern Regular Blood Pressure - Lying Blood Pressure Blood Pressure [Right Arm] Blood Pressure Mean Blood Pressure Mean [Right Arm] Blood Pressure Position Blood Pressure Position [Right Arm] Pulse Oximetry Oxygen Delivery Method Room Air Room Air 10/23/18 19:01 10/23/18 19:08 10/23/18 19:20 Temperature 36.9 C Temperature Source Axillary Sepsis Recent Fever Within 48 Hours Sepsis Action Taken by Nursing End-Tidal CO2 Pulse Rate 63 64 Pulse Rate [Apical] Pulse Rate [Right Brachial] 65 Pulse Rate from SpO2 Sensor Pulse Rhythm Pulse Rhythm [Apical] Pulse Rhythm [Right Brachial] Regular Pulse Strength Pulse Strength [Apical] Respiratory Rate Respiratory Effort / Characteristics Respiratory Depth Respiratory Pattern Blood Pressure - Lying 120/71 Blood Pressure 114/66 109/61 Blood Pressure [Right Arm] Blood Pressure Mean Blood Pressure Mean [Right Arm] Blood Pressure Position Lying Lying Blood Pressure Position [Right Arm] Pulse Oximetry Oxygen Delivery Method 10/23/18 19:40 10/23/18 20:00 10/23/18 20:20 Temperature Temperature Source Sepsis Recent Fever Within 48 Hours Sepsis Action Taken by Nursing End-Tidal CO2 Pulse Rate 70 70 69 Pulse Rate [Apical] Pulse Rate [Right Brachial] Pulse Rate from SpO2 Sensor Pulse Rhythm Pulse Rhythm [Apical] Pulse Rhythm [Right Brachial] Pulse Strength Pulse Strength [Apical] Respiratory Rate Respiratory Effort / Characteristics Respiratory Depth Respiratory Pattern Blood Pressure - Lying Blood Pressure 103/63 97/56 L 90/53 L Blood Pressure [Right Arm] Blood Pressure Mean Blood Pressure Mean [Right Arm] Blood Pressure Position Lying Lying Lying Blood Pressure Position [Right Arm] Pulse Oximetry Oxygen Delivery Method 10/23/18 20:30 10/23/18 20:40 10/23/18 21:00 Temperature Temperature Source Sepsis Recent Fever Within 48 Hours Sepsis Action Taken by Nursing End-Tidal CO2 Pulse Rate 54 L 79 77 Pulse Rate [Apical] Pulse Rate [Right Brachial] Pulse Rate from SpO2 Sensor Pulse Rhythm Pulse Rhythm [Apical] Pulse Rhythm [Right Brachial] Pulse Strength Pulse Strength [Apical] Respiratory Rate Respiratory Effort / Characteristics Respiratory Depth Respiratory Pattern Blood Pressure - Lying Blood Pressure 90/39 L 142/50 H 123/55 L Blood Pressure [Right Arm] Blood Pressure Mean Blood Pressure Mean [Right Arm] Blood Pressure Position Lying Lying Lying Blood Pressure Position [Right Arm] Pulse Oximetry Oxygen Delivery Method 10/23/18 21:34 10/23/18 21:45 10/23/18 23:01 Temperature 36.6 C 36.3 C L 36.3 C L Temperature Source Axillary Sepsis Recent Fever Within 48 Hours Sepsis Action Taken by Nursing End-Tidal CO2 Pulse Rate 74 75 Pulse Rate [Apical] Pulse Rate [Right Brachial] 78 Pulse Rate from SpO2 Sensor Pulse Rhythm Pulse Rhythm [Apical] Pulse Rhythm [Right Brachial] Regular Pulse Strength Pulse Strength [Apical] Respiratory Rate 20 20 Respiratory Effort / Characteristics Respiratory Depth Respiratory Pattern Blood Pressure - Lying Blood Pressure 146/77 H 180/85 H Blood Pressure [Right Arm] 131/67 Blood Pressure Mean Blood Pressure Mean [Right Arm] Blood Pressure Position Blood Pressure Position [Right Arm] Lying Pulse Oximetry 99 98 Oxygen Delivery Method GENERAL: Chronically ill-appearing. HENT: Normocephalic, atraumatic. Oropharynx with dry mucous membranes and otherwise unremarkable. EYES: Normal conjunctiva. Sclera non-icteric. EOMI. No nystamgus. PEARRL. NECK: Supple. No nuchal rigidity. FROM. No JVD. RESPIRATORY: Clear to auscultation. CARDIAC: Regular rate, normal rhythm. Extremities warm and well perfused. Pulses equal. ABDOMEN: Soft, non-distended. No tenderness to palpation. No rebound or guarding. No masses. RECTAL: Deferred. MUSCULOSKELETAL: Chest examination reveals no tenderness. The back is symmet rical on inspection without obvious abnormality. There is no CVA tenderness to palpation. No joint edema. Left forearm AV fistula, palpable thrill. LOWER EXTREMITIES: Calves are equal size bilaterally and non-tender. No edema. No discoloration. NEURO: Drowsy but alert to voice. Alert to self and place. Moving all extremities equally with 4/5 strength. Normal reflexes. Intermittent mild clonic jerk. SKIN: No rash or jaundice noted. Course 1319: The patient was evaluated in room A11B, and a complete history and physical examination were performed. 1535: I updated the patient's family who verbalized agreement and understanding of the treatment plan. 1554: I discussed the patient's case with Dr. Timmy Bustamante who will evaluate the patient for further management. Consultations Consultation #1: Dr. Timmy Bustamante Time: 15:54 Administered Medications Calcium Acetate (Phoslo) 2,001 mg PO TIDM [facility] Stop: 11/22/18 17:59 Last Admin: 10/23/18 18:01 Dose: Not Given Documented by: [id number] Gabapentin (Neurontin) 100 mg PO TID [facility] Stop: 11/22/18 20:59 Last Admin: 10/23/18 21:59 Dose: Not Given Documented by: [id number] Heparin Sodium (Porcine) (Heparin Sodium (Porcine)) 5,000 units SQ Q8 [place] Stop: 11/22/18 21:59 Last Admin: 10/23/18 22:21 Dose: 5,000 units Documented by: [id number] Cosigned by: [id number] Miscellaneous (Order Awaiting Action) 1 ea N/A QS [place] Stop: 11/23/18 00:00 Last Admin: 10/23/18 23:24 Dose: Not Given Documented by: [id number] Sevelamer HCl (Renagel) 800 mg PO TIDM [place] Stop: 11/22/18 17:59 Last Admin: 10/23/18 18:01 Dose: Not Given Documented by: [id number] Discontinued Medications Dextrose (Dextrose 50%) 100 ml IV NOW STA Stop: 10/23/18 15:30 Last Admin: 10/23/18 16:07 Dose: 100 ml Documented by: [id number] Sodium Chloride (Nss 1000ml) 500 mls @ 999 mls/hr IV .Q31M ONE Stop: 10/23/18 14:00 Last Infusion: 10/23/18 15:33 Dose: 0 mls/hr Documented by: [id number] Admin: 10/23/18 15:02 Dose: 999 mls/hr Documented by: [id number] Calcium Gluconate 2,000 mg/ (Sodium Chloride) 70 mls @ 240 mls/hr IV NOW STA Stop: 10/23/18 15:43 Last Infusion: 10/23/18 16:25 Dose: 0 mls/hr Documented by: [id number] Admin: 10/23/18 16:07 Dose: 240 mls/hr Documented by: [id number] Insulin Human Regular 10 units (/ Syringe) 9.9 mls @ 3 mls/sec IV ONE STA Stop: 10/23/18 15:30 Last Admin: 10/23/18 16:08 Dose: 3 mls/sec Documented by: [id number] Cosigned by: [id number] Sodium Chloride (Nss 1000ml) 500 mls @ 999 mls/hr IV .Q31M ONE Stop: 10/23/18 16:02 Last Infusion: 10/23/18 16:38 Dose: 0 mls/hr Documented by: [id number] Admin: 10/23/18 16:07 Dose: 999 mls/hr Documented by: [id number] Insulin Human Regular (Novolin R U-100 Per Unit) Confirm Administered Dose 1 units .ROUTE .STK-MED ONE Stop: 10/23/18 15:57 Last Admin: 10/23/18 16:08 Dose: Not Given Documented by: [id number] Ondansetron HCl (Zofran) Confirm Administered Dose 4 mg .ROUTE .STK-MED ONE Stop: 10/23/18 16:54 Last Admin: 10/23/18 17:07 Dose: 4 mg Documented by: [id number] Sodium Polystyrene Sulfonate (Kayexalate) 15 gm PO NOW STA Stop: 10/23/18 15:30 Last Admin: 10/23/18 16:28 Dose: Not Given Documented by: [id number] Sodium Polystyrene Sulfonate (Kayexalate) 50 gm [place] NOW STA Stop: 10/23/18 16:26 Last Admin: 10/23/18 17:07 Dose: 50 gm Documented by: [id number] Sodium Polystyrene Sulfonate (Kayexalate) 50 gm [place] NOW STA Stop: 10/23/18 16:29 Last Admin: 10/23/18 17:07 Dose: Not Given Documented by: [id number] Medical Decision Making Differential Diagnosis Differentials include: ICH, CVA, PNA, bronchitis, PE, UTI, gastroenteritis, elec trolyte abnormality, ACS, CHF among others. Medical Records Attestation: I reviewed the patient's medical records. Home Medications Current Medication List: was personally reviewed by me Laboratory Data Attestation: I reviewed the patient's lab results. Result diagrams: 10/23/18 14:28 10/23/18 14:28 Lab Results 10/23/18 10/23/18 10/23/18 Range/Units 14:25 14:25 14:25 WBC (4.8-10.8) K/uL RBC (4.2-5.4) M/uL Hgb (12.0-16.0) g/dL POC Hgb (12.0-16.0) g/dl Hct (37-47) % POC Hct (37-47) % MCV (80-100) fL MCH (25-34) pg MCHC (32-36) g/dL RDW Std Deviation (36.4-46.3) fL RDW Coeff of Yuliana (11.5-14.5) % Plt Count (130-400) K/uL MPV (7.4-10.4) fL Immature Gran % (Auto) % Neut % (Auto) % Lymph % (Auto) % Scurry % (Auto) % Eos % (Auto) % Baso % (Auto) % Immature Gran # (Auto) (0.00-0.02) K/uL Neut # (Auto) (1.4-6.5) K/uL Lymph # (Auto) (1.2-3.4) K/uL Scurry # (Auto) (0.11-0.59) K/uL Eos # (Auto) (0-0.5) K/uL Baso # (Auto) (0-0.2) K/uL Polychromasia Anisocytosis PT (9.0-12.0) Seconds INR (0.9-1.1) APTT (21.0-31.0) Seconds PTT Ratio VBG pH 7.45 H (7.36-7.41) VBG pCO2 44 (38-50) mmHg VBG pO2 33 mmHg VBG HCO3 30 mmol/L VBG O2 Saturation 62.8 % VBG Base Excess 5.1 mEq/L Barometric Pressure 728.5 mm/Hg POC Sodium (135-144) mEq/L Sodium (136-145) mmol/L POC Potassium (3.3-5.0) mEq/L Potassium (3.5-5.1) mmol/L POC Chloride (101-112) mEq/L Chloride (98-107) mmol/L Carbon Dioxide (21-32) mmol/L POC Total CO2 (24-31) mEq/l Anion Gap (3-11) POC Anion Gap (16-25) mmol/L POC BUN (7-18) mg/dl BUN (7-18) mg/dl Creatinine (0.6-1.2) mg/dl POC Creatinine (0.6-1.3) mg/dl Est Cr Clr Drug Dosing ml/min Est GFR ( Amer) Est GFR (Non-Af Amer) BUN/Creatinine Ratio (10-20) Glucose (70-99) mg/dl POC Glucose (other) (70-99) mg/dl Lactate 2.1 H* (0.4-2.0) mmol/L Calcium (8.5-10.1) mg/dl POC Ioniz Calcium Precious (1.12-1.32) mmol/l Phosphorus (2.5-4.9) mg/dl Magnesium (1.8-2.4) mg/dl Total Bilirubin (0.2-1) mg/dl Direct Bilirubin (0-0.2) mg/dl AST (15-37) U/L ALT (12-78) U/L Alkaline Phosphatase (45-117) U/L Ammonia < 10.0 L (11-32) umol/L Troponin I (0-0.045) ng/ml Total Protein (6.4-8.2) gm/dl Albumin (3.4-5.0) gm/dl Globulin (2.5-4.0) gm/dl Albumin/Globulin Ratio (0.9-2) TSH (0.300-4.500) uIu/ml 10/23/18 10/23/18 10/23/18 Range/Units 14:28 14:28 14:28 WBC 2.91 L (4.8-10.8) K/uL RBC 3.72 L (4.2-5.4) M/uL Hgb 12.0 (12.0-16.0) g/dL POC Hgb (12.0-16.0) g/dl Hct 36.7 L (37-47) % POC Hct (37-47) % MCV 98.7 (80-100) fL MCH 32.3 (25-34) pg MCHC 32.7 (32-36) g/dL RDW Std Deviation 67.2 H (36.4-46.3) fL RDW Coeff of Yuliana 18.8 H (11.5-14.5) % Plt Count 58 L (130-400) K/uL MPV 9.4 (7.4-10.4) fL Immature Gran % (Auto) 0.3 % Neut % (Auto) 63.0 % Lymph % (Auto) 21.3 % Scurry % (Auto) 11.0 % Eos % (Auto) 3.4 % Baso % (Auto) 1.0 % Immature Gran # (Auto) 0.01 (0.00-0.02) K/uL Neut # (Auto) 1.83 (1.4-6.5) K/uL Lymph # (Auto) 0.62 L (1.2-3.4) K/uL Scurry # (Auto) 0.32 (0.11-0.59) K/uL Eos # (Auto) 0.10 (0-0.5) K/uL Baso # (Auto) 0.03 (0-0.2) K/uL Polychromasia 1+ Anisocytosis Present PT 10.9 (9.0-12.0) Seconds INR 1.1 (0.9-1.1) APTT 22.8 (21.0-31.0) Seconds PTT Ratio 0.8 VBG pH (7.36-7.41) VBG pCO2 (38-50) mmHg VBG pO2 mmHg VBG HCO3 mmol/L VBG O2 Saturation % VBG Base Excess mEq/L Barometric Pressure mm/Hg POC Sodium (135-144) mEq/L Sodium 138 (136-145) mmol/L POC Potassium (3.3-5.0) mEq/L Potassium 6.6 H* (3.5-5.1) mmol/L POC Chloride (101-112) mEq/L Chloride 101 (98-107) mmol/L Carbon Dioxide 33 H (21-32) mmol/L POC Total CO2 (24-31) mEq/l Anion Gap 3.0 (3-11) POC Anion Gap (16-25) mmol/L POC BUN (7-18) mg/dl BUN 37 H (7-18) mg/dl Creatinine 8.11 H* (0.6-1.2) mg/dl POC Creatinine (0.6-1.3) mg/dl Est Cr Clr Drug Dosing 6.8 ml/min Est GFR ( Amer) 5.5 Est GFR (Non-Af Amer) 4.8 BUN/Creatinine Ratio 4.5 L (10-20) Glucose 108 H (70-99) mg/dl POC Glucose (other) (70-99) mg/dl Lactate (0.4-2.0) mmol/L Calcium 9.5 (8.5-10.1) mg/dl POC Ioniz Calcium Precious (1.12-1.32) mmol/l Phosphorus 4.8 (2.5-4.9) mg/dl Magnesium 2.5 H (1.8-2.4) mg/dl Total Bilirubin 0.7 (0.2-1) mg/dl Direct Bilirubin 0.2 (0-0.2) mg/dl AST 20 (15-37) U/L ALT 16 (12-78) U/L Alkaline Phosphatase 99 (45-117) U/L Ammonia (11-32) umol/L Troponin I 0.022 (0-0.045) ng/ml Total Protein 7.5 (6.4-8.2) gm/dl Albumin 3.4 (3.4-5.0) gm/dl Globulin 4.1 H (2.5-4.0) gm/dl Albumin/Globulin Ratio 0.8 L (0.9-2) TSH 2.530 (0.300-4.500) uIu/ml 10/23/18 Range/Units 14:40 WBC (4.8-10.8) K/uL RBC (4.2-5.4) M/uL Hgb (12.0-16.0) g/dL POC Hgb 11.9 L (12.0-16.0) g/dl Hct (37-47) % POC Hct 35 L (37-47) % MCV (80-100) fL MCH (25-34) pg MCHC (32-36) g/dL RDW Std Deviation (36.4-46.3) fL RDW Coeff of Yuliana (11.5-14.5) % Plt Count (130-400) K/uL MPV (7.4-10.4) fL Immature Gran % (Auto) % Neut % (Auto) % Lymph % (Auto) % Scurry % (Auto) % Eos % (Auto) % Baso % (Auto) % Immature Gran # (Auto) (0.00-0.02) K/uL Neut # (Auto) (1.4-6.5) K/uL Lymph # (Auto) (1.2-3.4) K/uL Scurry # (Auto) (0.11-0.59) K/uL Eos # (Auto) (0-0.5) K/uL Baso # (Auto) (0-0.2) K/uL Polychromasia Anisocytosis PT (9.0-12.0) Seconds INR (0.9-1.1) APTT (21.0-31.0) Seconds PTT Ratio VBG pH (7.36-7.41) VBG pCO2 (38-50) mmHg VBG pO2 mmHg VBG HCO3 mmol/L VBG O2 Saturation % VBG Base Excess mEq/L Barometric Pressure mm/Hg POC Sodium 140 (135-144) mEq/L Sodium (136-145) mmol/L POC Potassium 6.6 H* (3.3-5.0) mEq/L Potassium (3.5-5.1) mmol/L POC Chloride 98 L (101-112) mEq/L Chloride (98-107) mmol/L Carbon Dioxide (21-32) mmol/L POC Total CO2 32 H (24-31) mEq/l Anion Gap (3-11) POC Anion Gap 17.0 (16-25) mmol/L POC BUN 35 H (7-18) mg/dl BUN (7-18) mg/dl Creatinine (0.6-1.2) mg/dl POC Creatinine 8.3 H* (0.6-1.3) mg/dl Est Cr Clr Drug Dosing ml/min Est GFR ( Amer) Est GFR (Non-Af Amer) BUN/Creatinine Ratio (10-20) Glucose (70-99) mg/dl POC Glucose (other) 112 H (70-99) mg/dl Lactate (0.4-2.0) mmol/L Calcium (8.5-10.1) mg/dl POC Ioniz Calcium Precious 1.13 (1.12-1.32) mmol/l Phosphorus (2.5-4.9) mg/dl Magnesium (1.8-2.4) mg/dl Total Bilirubin (0.2-1) mg/dl Direct Bilirubin (0-0.2) mg/dl AST (15-37) U/L ALT (12-78) U/L Alkaline Phosphatase (45-117) U/L Ammonia (11-32) umol/L Troponin I (0-0.045) ng/ml Total Protein (6.4-8.2) gm/dl Albumin (3.4-5.0) gm/dl Globulin (2.5-4.0) gm/dl Albumin/Globulin Ratio (0.9-2) TSH (0.300-4.500) uIu/ml Imaging Data Radiologist's Impression: Radiology results as stated below per my review and the radiologist's interpretation: XR chest 1V portable CLINICAL HISTORY: Sepsis dyspnea COMPARISON STUDY: 10/01/2018 FINDINGS: Mild stable cardia megaly. Lungs are clear. Stable synovial calcifications overlying the left humeral head and neck. IMPRESSION: Mild cardia megaly. Otherwise no acute process. The above report was generated using voice recognition software. It may contain grammatical, syntax or spelling errors. Electronically signed by: Dontae Matta M.D. 10/23/2018 1:[address] SCAN OF THE BRAIN WITHOUT IV CONTRAST CLINICAL HISTORY: Change in mental status. COMPARISON STUDY: CT of the brain dated 10/01/2018. TECHNIQUE: Unenhanced axial CT scan of the brain is performed from the vertex to the skull base. A dose lowering technique was utilized adhering to the principles of ALARA. CT DOSE: 537.48 mGy.cm FINDINGS: Brain parenchyma: There are age-related involutional changes noting mild to moderate subcortical and periventricular microangiopathic change. There is no hemorrhage, mass effect, or evidence of acute territorial ischemia by CT criteria. Messer-white matter differentiation is preserved. No extra-axial fluid collection is seen. Ventricles, sulci, cisterns: Prominent secondary to involutional change. Intracranial vasculature: There is atherosclerotic calcification of the cavernous carotid arteries. Calvarium: Unremarkable. Sinuses and mastoids: The visualized paranasal sinuses are clear. The mastoid air cells are well pneumatized. Orbits: The bony orbits are grossly intact. IMPRESSION: There is no hemorrhage, mass effect, or evidence of acute territorial ischemia by CT criteria. Electronically signed by: Ta Harris M.D. 10/23/2018 3:11 PM ECG Data Attestation: I personally reviewed and interpreted this ECG as follows: Indication: altered mental status Rate (beats per minute): 66 Rhythm: normal sinus Findings: + other (non-specific T-wave abnormality, QRS 88), + T-wave inversion (inferior) and + left axis deviation; no ST depression, no ST elevation and no acute ischemic change (overt) Comparison ECG Date: from (10/01/18) Change: no significant change Blood Pressure Blood Pressure Findings: Elevated blood pressure Blood Pressure Disposition: further management by hospitalist JOSLYN Mejia The patient is a 63-year-old woman with a past medical history of end-stage renal disease on hemodialysis, history of encephalopathy, who presents emergency department from home for worsening mental status/drowsiness in the setting of being resumed on baclofen yesterday for her chronic back and lower extremity pain per hpi. Of note, patient was previously admitted for encephalopathy related to her baclofen. Per family report the patient completed only 1.5 hours of her 4-hour dialysis session yesterday due to her pain. Subsequently contacted the pain management clinic who recommended initiating her Bactrim after consultation with her PCP. On arrival the patient is drowsy appearing but alert to voice and follows commands. She appears clinically dry. Moves all extremities equally with 4/5 strength. EKG without peak T waves or QRS prolongation. There are nonspecific T wave abnormalities without overt acute ischemia and overall similar to prior. Chest x-ray negative for acute process. CT head negative for ICH. WBC 2.9, H/H 12/36.7 and platelets 58 similar to prior range of values. VBG unremarkable. Chemistry demonstrates hyperkalemia with potassium of 6.6. Otherwise no acidosis. Creatinine is 8 with BUN of 37 within patient's prior range of values in the setting of her end-stage renal disease. Lactate is 2.1 in the setting having not completed dialysis yesterday. Patient ordered for calcium, insulin as well as Kayexalate for her hyperkalemia. Otherwise given the patient's baclofen is renally excreted would likely benefit from dialysis both for clearance of her baclofen and for her hyperkalemia. Case was discussed with Dr. Ward, [facility] hospitalist, who will evaluate the patient for admission. Impression & Plan Hyperkalemia, Encephalopathy Critical Care Time I have personally spent greater than 45 minutes of critical care time in the direct management of this patient. This includes bedside care, interpretation of diagnostic studies, and testing, discussion with consultants, patient, and family members, and other required patient management activities. This 45 minutes is in excess of all separately billable procedures. Critical Care Time: Yes Total Critical Care Time: 45 Discharge Plan Visit Data *Final* Discharge Date/Time: 10/23/18 17:17 Chief Complaint: Illness Stated Complaint: SICK, DIALYSIS PATIENT, NEW MEDICINE ED Provider: Misael Mahoney Discharge Problem: Hyperkalemia, Encephalopathy Patient Disposition: Admitted As Inpatient Discharge Instructions Interventions: ED Discharge Assessment Last Done: 10/23/18 17:17 The scribe's documentation has been prepared under my direction and personally reviewed by me in its entirety. I confirm that the note above accurately reflects all work, treatment, procedures, and medical decision making performed by me.
[2018-10-23] MEDS: CALCIUM ACETATE 667 MG CAP PO SCH (18:01)
[2018-10-23] MEDS: SEVELAMER HCL 800 MG TABLET PO SCH (18:01)
--- NOTE | 2018-10-23 19:00 | Nephrology Consultation ---
Date of Consultation October 23, 2018 Assessment & Plan (1) End stage renal disease: 62 y o F with ESRD on HD TTS. Admitted with AMS. She has been having short Rx due to intractable back pain, had only 1 h HD yesterday. W/U including CT head, CXR,ammonia unremarkable. K high at 6.6 --emergency HD for 2 h for hyperkalemia with 2 K bath and plan for 4 h HD tomorrow. --avoid iv fluid (2) Anemia: (3) Altered mental status: (4) Hypokalemia: (5) Back pain: Will follow Thank you for allowing me to participate in your patient's care. It was a pleasure to see Freddy (2) Altered mental status: (3) Hyperkalemia: (4) Anemia: (5) Secondary hyperparathyroidism: (6) Hypertension: History of Present Illness Reason for Consultation: ESRD on HD, admitted with AMS and hyperkalemia with inadequate HD. Attending Physician: Juliette Ward DO History of Present Illness Bettie Crowder is a 62-year-old female with ESRD secondary to hypertensive nephropathy and microvascular disease hypertension, anemia and thrombocytopenia admitted to the hospital with change in mental status, missed dialysis and hyperkalemia. Nephrology consult was requested to provide emergency dialysis. Electronic medical records including labs imaging are reviewed in detail during patient's visit. Her daughter was at bedside Bettie was brought to the hospital altered mental status and less responsiveness. She has chronic back pain and she has been seeing pain management. She had similar admission 2 weeks ago when she had workup including MRI of lumbar spine and evaluation by Orthopedic surgery. She was found to have moderate degenerative disease and multiple bulging disc however she was not considered to require surgery and continued with pain management. However she was continued to be bothered by back pain and was not able to stay for full dialysis treatment. She had only 1 hour treatment on 10/24/2018. Workup in emergency room including CT brain,and chest x-ray was otherwise unremarkable. Lab in ER showed hyperkalemia with potassium 6.6. She has end-stage renal disease secondary to hypertensive nephropathy, has been on dialysis for last almost 4 years, was on peritoneal dialysis and has been on hemodialysis for last at least 6 months. She still makes decent amount of urine. She has been having shortened dialysis treatment and missed dialysis treatment because of her inability to lie in the chair for long time due to significant back pain. She was sleepy and did not answer any question or communicate. Most of the information was from her daughter at bedside and EMR review Allergies Allergy/AdvReac Type Severity Reaction Status Date / Time No Known Allergies Allergy Verified 10/23/18 13:49 Home Medications Home Medications Medication Instructions Recorded Confirmed Type allopurinol 100 mg PO QAM 04/14/18 10/23/18 History calcium acetate 3 tab PO TIDM 04/14/18 10/23/18 History ergocalciferol (vitamin D2) 50,000 unit PO MONTHLY 04/14/18 10/23/18 History escitalopram oxalate 20 mg PO QAM 04/14/18 10/23/18 History furosemide 40 mg PO QAM 04/14/18 10/23/18 History metoprolol succinate 25 mg PO QAM 04/14/18 10/23/18 History bupropion HCl 150 mg PO QAM 04/19/18 10/23/18 History cinacalcet [Sensipar] 30 mg PO HS 08/17/18 10/23/18 History ondansetron HCl 4 mg tablet 4 mg PO Q6H tab 09/03/18 10/23/18 History gabapentin 100 mg capsule 100 mg PO TID cap 09/30/18 10/23/18 History lidocaine 1 patch TRANSDERMAL QAM 30 Days 10/06/18 10/23/18 Rx #30 ea pantoprazole 40 mg PO QAM #30 tab 10/06/18 10/23/18 Rx tramadol 50 mg PO Q8H PRN #9 tab 10/06/18 10/23/18 Rx docusate sodium [Colace] 100 mg PO BID #60 cap 10/19/18 10/23/18 Rx oxycodone 5 mg PO Q6 PRN #14 tab 10/19/18 10/23/18 Rx sennosides [Senokot] 8.6 mg PO HS #30 tab 10/19/18 10/23/18 Rx baclofen 10 mg PO TID PRN 10/23/18 10/23/18 History ranitidine HCl 150 mg PO DAILY 10/23/18 10/23/18 History sevelamer HCl 800 mg PO TID 10/23/18 10/23/18 History Patient History Medical History Constipation Vitamin D deficiency Chronic SI joint pain (Acute) Hyperkalemia (Acute) Acute encephalopathy Anemia CHRONIC-- S/P TRANSFUSION 05/2018; STABLE HGB IN 9 RANGE SINCE TRANSFUSION Hypertension (Acute) Gout GERD (gastroesophageal reflux disease) CONTROLLED Depression ESRD (end stage renal disease) DIALYSIS SUNDAY/SUNDAY/SUNDAY VIA LUE AVF Obesity Anxiety History of urinary disorder HX INTERSTITIAL CYSTITIS History of diverticulitis Pancytopenia CHRONIC; MULTIPLE HEMATOLOGY EVALUATIONS PER PCP WITH UNKNOWN ETIOLOGY STATING THAT HEMATOLOGY ADVISED PATIENT TO FOLLOWUP NEEDED AFTER SIGNIFICANT WORKUP UNREMARKABLE- PCP MONITORING Dialysis patient End stage chronic kidney disease Fracture of fourth toe, right, open (Inactive) HX OF Surgical History History of hysterectomy History of appendectomy History of delivery Chronic kidney disease AVF (arteriovenous fistula) LUE 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= 05/31/18= GRADE 2 VIEW, MAC 3, ETT 7.0; "SMALL CUT TO TONGUE, NO BLEEDING" PER ANESTHESIA RECORDS AT [facility] Family History Mother Family history of diabetes mellitus Father Family history of diabetes mellitus Father Family history of diabetes mellitus Brother Family history of esophageal cancer Other No pertinent family history Social History Preferred Language: Greenlandic Communication Ability: Effective Beliefs That Will Affect Care: None Current Living Situation: Spouse current occupational status: employed Other Information That Helps Us Care for You: No Feels Safe at Home: Yes Safety Concerns: Feels Safe At This Time Smoking Status: Never smoker Hx Alcohol Use: No Hx Substance Use: No Review of Systems Detailed review of system was not possible due to patient's condition Physical Exam Vital Signs (Past 24 Hours): Last Vital Signs Temp 36.9 C 10/23/18 13:08 Pulse 86 10/23/18 18:19 Resp 7 L 10/23/18 16:00 BP 162/64 H 10/23/18 17:02 Pulse Ox 100 10/23/18 17:02 Physical Exam: GENERAL: Middle-aged female, breathing comfortably however she did not answer question or wake up during the interview HEENT: Atraumatic, normocephalic. NECK: Supple, no JVD, no carotid bruit appreciated. ENT: No sinus tenderness MOUTH and THROAT: dry oral mucosa, RESPIRATORY: Normal breathing efforts, clear to auscultation bilaterally, no wheezes or rales. CARDIOVASCULAR: S1, S2 normal, rate rhythm regular. ABDOMEN: Soft, nontender, positive bowel sound. MUSCULOSKELETAL: No joint swelling. SKIN: No skin rash EXTREMITY: No lower extremity edema NEURO: Could not be assessed PSYCHIATRY: Could not be assessed (1) Hypertension Hypertension type: unspecified Qualified Code(s): I10 - Essential (primary) hypertension
[2018-10-23] MEDS ORDERED: SODIUM CHLORIDE 0.9% 1000ML 1,000 ML IV PRN (19:16)
[2018-10-23] MEDS ORDERED: SENNA 8.6 MG TAB PO SCH (21:00)
[2018-10-23] MEDS ORDERED: DOCUSATE SODIUM 100 MG CAP PO SCH (21:00)
[2018-10-23] MEDS: GABAPENTIN 100 MG CAP PO SCH (21:59)
[2018-10-23] MEDS: HEPARIN SOD 5,000 UNIT/0.5 ML VIAL SQ SCH (22:21)
[2018-10-24 05:20] LABS: Appearance Urine Clear (Clear); Bilirubin Urine Negative (Negative); Blood Urine 3+ (Negative); Color Urine Yellow; Glucose Urine UA 1+ (Negative); Ketones Urine Negative (Negative); Leukocyte Esterase Urine Negative (Negative); Nitrite Urine Negative (Negative); Specific Gravity Urine 1.015 (1.000-1.030); Urobilinogen Urine Negative (Negative); pH Urine >= 9.0 (4.5-7.5)
[2018-10-24 05:23] LABS: Protein Urine 2+ (Negative)
[2018-10-24 05:36] LABS: Epithelial Cell Urine 20-30 /lpf (0-5)
[2018-10-24 05:37] LABS: Bacteria Urine Negative (Negative); Hyaline Casts Urine 0-5 /lpf (0-5); WBC Urine 0-5 /hpf (0-5)
[2018-10-24] MEDS: HEPARIN SOD 5,000 UNIT/0.5 ML VIAL SQ SCH ×3 (06:12→20:18)
[2018-10-24 06:49] LABS: Hematocrit (blood only) 31.6 % (37-47); Hemoglobin 10.3 g/dL (12.0-16.0); Mean Corpuscular Hgb Conc 32.6 g/dL (32-36); Mean Corpuscular Volume 99.1 fL (80-100); RDW Coefficient of Variation 18.9 % (11.5-14.5); Red Blood Count 3.19 M/uL (4.2-5.4); White Blood Count 4.17 K/uL (4.8-10.8)
[2018-10-24 06:50] LABS: Mean Platelet Volume 9.2 fL (7.4-10.4); Platelet Count 55 K/uL (130-400)
[2018-10-24] MEDS ORDERED: SODIUM CHLORIDE 0.9% 1000ML 1,000 ML IV PRN ×2 (07:00→08:28)
[2018-10-24 07:41] LABS: Albumin Globulin Ratio 0.8 (0.9-2); BUN Creatinine Ratio 3.6 (10-20); Bilirubin,Total 0.7 mg/dl (0.2-1); Calcium 9.2 mg/dl (8.5-10.1); Creatinine Clr Calc Pharmacy 9.4 ml/min; Est GFR (Non-African American) 6.9; Globulin 3.8 gm/dl (2.5-4.0); Phosphorus 4.2 mg/dl (2.5-4.9); Potassium 3.9 mmol/L (3.5-5.1); Total Protein 6.8 gm/dl (6.4-8.2)
[2018-10-24 08:05] LABS: Hepatitis B Surface Antibody Immune
[2018-10-24 08:16] LABS: Hepatitis B Surface Antigen Neg (Neg)
[2018-10-24 08:31] LABS: C Reactive Protein 0.53 mg/dl (0-0.29); Troponin I 0.045 ng/ml (0-0.045)
--- NOTE | 2018-10-24 10:00 | Nephrology Progress Note ---
Date of Service October 24, 2018 Assessment & Plan (1) End stage renal disease: 62 y o F with ESRD on HD TTS. Admitted with AMS. She has been having short Rx due to intractable back pain, had only 1 h HD yesterday. W/U including CT head, CXR,ammonia unremarkable. K was high 6.6 Received emergency dialysis last night for 2 hours, hyperkalemia resolved. Currently electrolyte acceptable. --plan for 4 hours dialysis as her regular schedule today --avoid iv fluid --nephrocaps daily and phos binder with meal. (2) Anemia: (3) Altered mental status: (4) Hypokalemia: (5) Back pain: Will follow Thank you for allowing me to participate in your patient's care. It was a pleasure to see Freddy (2) Altered mental status: (3) Hyperkalemia: (4) Anemia: (5) Secondary hyperparathyroidism: (6) Hypertension: Subjective Freddy was seen and evaluated this morning in her room with her at bedside. She is awake, alert however somewhat confused and having difficulty completing sentences. Continues to be bothered by significant pain in back and legs. Electrolyte improved, blood pressure remained elevated. The Review of Systems Detailed review of system was otherwise unremarkable except pertinent positive and negative findings mention above in history of present illness. Physical Exam Vital Signs (Past 24 Hours): Last Vital Signs Temp 36.8 C 10/24/18 08:34 Pulse 88 10/24/18 08:34 Resp 20 10/24/18 08:34 BP 189/83 H 10/24/18 08:34 Pulse Ox 95 10/24/18 08:34 Constitutional: + ill appearing and + altered mental status Respiratory: normal respiratory effort, lungs clear to auscultation Cardiovascular: RRR, no murmur, no edema Neurologic: awake and + confused Psychiatric: Affect: + depressed affect (1) Hypertension Hypertension type: unspecified Qualified Code(s): I10 - Essential (primary) hypertension
[2018-10-24] MEDS: GABAPENTIN 100 MG CAP PO SCH (10:16)
[2018-10-24] MEDS: ESCITALOPRAM OXALATE 20 MG TAB PO SCH (10:16)
[2018-10-24] MEDS: FUROSEMIDE 40 MG TAB PO SCH ×2 (10:16→17:39)
[2018-10-24] MEDS: CALCIUM ACETATE 667 MG CAP PO SCH ×3 (10:16→16:46)
[2018-10-24] MEDS: SEVELAMER HCL 800 MG TABLET PO SCH ×3 (10:16→16:46)
[2018-10-24] MEDS: METOPROLOL SUCC 25MG EXT REL TAB PO SCH ×2 (10:17→17:40)
[2018-10-24] MEDS: BuPROPion XL 150 MG TABCR PO SCH (10:17)
[2018-10-24] MEDS: PANTOprazole 40 MG TAB PO SCH (10:17)
[2018-10-24] MEDS: ALLOPURINOL 100 MG TAB PO SCH (10:17)
[2018-10-24] MEDS: LIDOCAINE 5% 1 PATCH TD SCH (11:30)
[2018-10-24] MEDS ORDERED: KETOROLAC TROMETHAMINE 15 MG/ML VIAL IV ONE (12:28)
[2018-10-24] MEDS ORDERED: ACETAMINOPHEN 1,000 MG/100 ML VIAL IV STA (12:28)
--- NOTE | 2018-10-24 12:34 | Hospitalist Progress Note ---
Date of Service October 24, 2018 Assessment & Plan (1) Low back pain: The patient has been dealing with this issue for months per the but particularly worse in the last 4-6 weeks. She has had 3 CT abd/pelvis since July, lumbar spine CT, MRI lumbar spine, numerous x-rays, and multiple evaluations by various providers including [facility] and Dr. Mayes from [facility] spine. It has been felt that the axial lumbar spine is not the cause of her pain. She has had several p roviders examine her and document that the bulk of the pain is centered about the LEFT SI joint. 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 In addition the family reports she has been complaining of b/l leg symptoms particularly down the posterior thighs. If she is having paresthesias this would be atypical for SI joint dysfunction. You can certainly have referred pelvic and groin pain from SI joint disease but actual paresthesias would be unusual. Perhaps she has 2 processes at the same time. Plan - I spoke with Dr. Quintana from pain management; her team will see her tomorrow morning. She confirmed they would not perform any SI joint injection due to concern of bleeding in the setting of her ESRD / HD status. IV tylenol and IV toradol given today with incomplete pain response. I cautiously gave IV dilaudid; 0.25mg did not help (but it did not cause worsening confusion). 0.5mg helped her pain and did not cause altered MS. Thus, will continue 0.5mg q3h prn. 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 She will need PT, OT once able to tolerate ambulation. Present on Admission?: Yes (2) Pain of left sacroiliac joint: see discussion above in "low back pain" consider dedicated imaging of the SI joints but uncertain it would change our management consider repeat imaging of MRI of the lumbar spine if pain is refractory to all modalities to ensure no new process since her September 2018 MRI Present on Admission?: Yes (3) Paresthesia of bilateral legs: odd for SI joint dysfunction to cause paresthesias of both legs. MRI l-spine from September without significant foraminal stenosis or spinal stenosis. TSH wnl. B12 level in the last year normal. Sed rate was high earlier this year, now only in the 30s, and crp is nearly 0. Check CPK in am due to complaint of "pain everywhere." Check lyme's titer in am to be complete to r/o radiculitis from a [employer] lyme's. Gabapentin was placed on hold this am in setting of significant altered MS. Resume when able. Present on Admission?: Yes (4) Toxic encephalopathy: Altered MS began after taking baclofen about 36 hours ago. This is similar to her presentation in September 2018 when she was altered from polypharmacy (meds for back). Her mentation improved as the day went on today c/w toxic etiology. Metabolic etiologies ruled out to date including -- UTI (u/a not suggestive of UTI), pneumonia. Check flu test to be complete but low suspicion for such. Avoid sedatives and muscle relaxers. Present on Admission?: Yes (5) Elevated sed rate: Was 77 in September; improved to 30s now. CRP largely normal. Etiology uncertain. Follow. Present on Admission?: Yes (6) End stage renal disease: HD //Sun. Appreciate nephrology consult. Spoke w/ Dr. Bear this am re: recent issues w/ HD. Patient likely to need dilaudid prior to HD sessions to remain comfortable. Volume status acceptable today. Present on Admission?: Yes (7) Hypertension: Resume po meds. Spikes in BP likely due to severe pain. Adjust HTN meds if needed. Present on Admission?: Yes (8) Hyperkalemia: resolved BMP am Present on Admission?: Yes (9) Pancytopenia: chronic. has had extensive hematology evaluations by report without an identifiable etiology. daily CBC for stability. Present on Admission?: Yes (10) DVT prophylaxis: heparin SC q12h cautiously in light of low platelets if platelets drop any further then stop heparin total time today over 3 visits, speaking with consultants, reviewing her chart extensively - 80 minutes Subjective multiple visits to the pt's room today (3). first - during AM rounds. Patient had just returned from HD. The HD assessed was aborted early because of markedly elevated BP and the patient would not keep her arm still where her AV fistula was. Upon my arrival the patient was moaning. It appeared she had tears in her eyes. She had her eyes open but when I asked her questions she just started. Sometimes after repeating the questions multiple times she would finally give one-word answers. During my AM rounds I performed full physical exam and she had no c-spine, t- spine, or l-spine pain to palpation but had pain over the expected location of the left SI joint. A 2nd visit during the late afternoon was paid to her room as her daughter and were at bedside. The was quite upset because she has had the pain "for months" and it was not improving. He reported that this presentation (confusion) was very similar to her September 2018 hospital stay after she became altered from taking various meds for her back. and family are aware that pain management will not perform any injection because of her ESRD on HD status. They report that she takes oxycodone at home and this does NOT cause sedation/altered MS. They are not aware of any steroid use in the past. A 3rd visit to the patient's room was early evening. She was very calm and comfortable appearing. This was following 2 doses of IV dilaudid and IV toradol, tylenol, and decadron. (0.25mg of dilaudid did not help, 0.5mg did). She was awake, alert, and able to answer my questions more lucidly during the 3rd visit. Review of Systems Unobtainable due to cognitive status Physical Exam Vital Signs (Past 24 Hours): Last Vital Signs Temp 37.3 C 10/24/18 11:39 Pulse 100 H 10/24/18 11:39 Resp 22 10/24/18 11:39 BP 188/91 H 10/24/18 11:39 Pulse Ox 95 10/24/18 11:39 Constitutional: + acute distress (writhing in pain, moaning (first visit to patient)), + ill appearing and average body habitus looks older than stated age ENMT: Mouth: + oral mucosal abnormality (dry MM) Respiratory: normal respiratory effort, lungs clear to auscultation Cardiovascular: Rate/Rhythm: regular rate and regular rhythm Heart Sounds: normal S1 and normal S2; no murmur Vessels: posterior tibial pulses present and dorsalis pedis pulses present; no JVD Extremities: no edema AV fistula distal left arm Gastrointestinal (Abdomen): normal bowel sounds, soft, nontender, no hepatosplenomegaly Musculoskeletal: no tenderness to palpation over c-spine, t-spine, or l-spine. Tenderness present over left SI joint but not the right SI joint. I was able to perform a straight leg test b/l and this was NEGATIVE. I was able to palpate on her pelvis without pain. No synovitis of the knee or ankle. Skin: no rashes, warm and dry Neurologic: seems to spontaneously move all 4 limbs; when asked to actively move her arms/legs against me she would not follow commands; no apparent ankle clonus; DTRs patellar 1-2+ b/l; no facial droop Psychiatric: Orientation: + not alert and + not oriented x 3 Results & Data Laboratory Results Laboratory Results - last 24 hr 10/24/18 10/24/18 10/24/18 04:45 05:49 05:49 WBC 4.17 L RBC 3.19 L Hgb 10.3 L Hct 31.6 L MCV 99.1 MCH 32.3 MCHC 32.6 RDW Std Deviation 68.0 H RDW Coeff of Yuliana 18.9 H Plt Count 55 L MPV 9.2 ESR Sodium 137 Potassium 3.9 D Chloride 97 L Carbon Dioxide 32 Anion Gap 8.0 BUN 22 H Creatinine 6.00 H* D Est Cr Clr Drug Dosing 9.4 Est GFR ( Amer) 8.0 Est GFR (Non-Af Amer) 6.9 BUN/Creatinine Ratio 3.6 L Glucose 79 POC Glucose Calcium 9.2 Phosphorus 4.2 Magnesium 2.0 Total Bilirubin 0.7 AST 15 ALT 13 Alkaline Phosphatase 85 Troponin I C-Reactive Protein Total Protein 6.8 Albumin 3.0 L Globulin 3.8 Albumin/Globulin Ratio 0.8 L Urine Color Yellow Urine Appearance Clear Urine pH >= 9.0 H Ur Specific Mobile 1.015 Urine Protein 2+ H Urine Glucose (UA) 1+ H Urine Ketones Negative Urine Blood 3+ H Urine Nitrite Negative Urine Bilirubin Negative Urine Urobilinogen Negative Ur Leukocyte Esterase Negative Urine RBC 10-30 H Urine WBC 0-5 Ur Epithelial Cells 20-30 H Urine Bacteria Negative Hyaline Casts 0-5 Hep Bs Antigen Hep Bs Antibody Hep Bs Antibody, Quant 10/24/18 10/24/18 10/24/18 05:49 05:49 06:41 WBC RBC Hgb Hct MCV MCH MCHC RDW Std Deviation RDW Coeff of Yuliana Plt Count MPV ESR 39 H Sodium Potassium Chloride Carbon Dioxide Anion Gap BUN Creatinine Est Cr Clr Drug Dosing Est GFR ( Amer) Est GFR (Non-Af Amer) BUN/Creatinine Ratio Glucose POC Glucose 77 Calcium Phosphorus Magnesium Total Bilirubin AST ALT Alkaline Phosphatase Troponin I C-Reactive Protein Total Protein Albumin Globulin Albumin/Globulin Ratio Urine Color Urine Appearance Urine pH Ur Specific Mobile Urine Protein Urine Glucose (UA) Urine Ketones Urine Blood Urine Nitrite Urine Bilirubin Urine Urobilinogen Ur Leukocyte Esterase Urine RBC Urine WBC Ur Epithelial Cells Urine Bacteria Hyaline Casts Hep Bs Antigen Neg Hep Bs Antibody Immune Hep Bs Antibody, Quant 13.82 10/24/18 07:45 WBC RBC Hgb Hct MCV MCH MCHC RDW Std Deviation RDW Coeff of Yuliana Plt Count MPV ESR Sodium Potassium Chloride Carbon Dioxide Anion Gap BUN Creatinine Est Cr Clr Drug Dosing Est GFR ( Amer) Est GFR (Non-Af Amer) BUN/Creatinine Ratio Glucose POC Glucose Calcium Phosphorus Magnesium Total Bilirubin AST ALT Alkaline Phosphatase Troponin I 0.045 C-Reactive Protein 0.53 H Total Protein Albumin Globulin Albumin/Globulin Ratio Urine Color Urine Appearance Urine pH Ur Specific Mobile Urine Protein Urine Glucose (UA) Urine Ketones Urine Blood Urine Nitrite Urine Bilirubin Urine Urobilinogen Ur Leukocyte Esterase Urine RBC Urine WBC Ur Epithelial Cells Urine Bacteria Hyaline Casts Hep Bs Antigen Hep Bs Antibody Hep Bs Antibody, Quant (1) Low back pain Back pain laterality: left Chronicity: chronic Sciatica presence: unspecified whether sciatica present Qualified Code(s): M54.5 - Low back pain; G89.29 - Other chronic pain (2) Hypertension Hypertension type: unspecified Qualified Code(s): I10 - Essential (primary) hypertension
[2018-10-24] MEDS: LIDOCAINE HCL 5% OINT 30 GM TUBE EXT SCH (12:55)
[2018-10-24] MEDS ORDERED: HYDROmorphone INJ 0.5 MG/0.5 ML SYR IV STA (15:45)
[2018-10-24] MEDS: dexAMETHasone 4 MG in SYRINGE 0 ML IV SCH ×2 (16:44→20:12)
[2018-10-24] MEDS: HYDROmorphone INJ 0.5 MG/0.5 ML SYR IV PRN ×2 (17:55→22:12)
[2018-10-25] MEDS: dexAMETHasone 4 MG in SYRINGE 0 ML IV SCH ×3 (04:56→22:19)
[2018-10-25 05:44] LABS: Influenza A virus by PCR Neg for Influ A (Neg); Influenza B virus by PCR Neg for Influ B (Neg)
[2018-10-25] MEDS: HYDROmorphone INJ 0.5 MG/0.5 ML SYR IV PRN ×2 (06:20→09:47)
[2018-10-25 06:26] LABS: Hematocrit (blood only) 31.8 % (37-47); Hemoglobin 10.6 g/dL (12.0-16.0); Mean Corpuscular Hgb Conc 33.3 g/dL (32-36); Mean Corpuscular Volume 97.2 fL (80-100); RDW Coefficient of Variation 18.2 % (11.5-14.5); RDW Standard Deviation 64.4 fL (36.4-46.3); Red Blood Count 3.27 M/uL (4.2-5.4)
[2018-10-25 06:34] LABS: Mean Platelet Volume 10.1 fL (7.4-10.4); Platelet Count 60 K/uL (130-400)
[2018-10-25 07:07] LABS: Basophils # (auto) 0.02 K/uL (0-0.2); Basophils % (auto) 0.7 %; Lymphocytes # (auto) 1.04 K/uL (1.2-3.4); Lymphocytes % (auto) 38.5 %; Monocytes # (auto) 0.18 K/uL (0.11-0.59); Monocytes % (auto) 6.7 %; Neutrophils # (auto) 1.46 K/uL (1.4-6.5); Neutrophils % (auto) 54.1 %
[2018-10-25 07:21] LABS: Albumin Globulin Ratio 0.8 (0.9-2); Albumin Level 3.2 gm/dl (3.4-5.0); Bilirubin,Total 0.7 mg/dl (0.2-1); Calcium 9.7 mg/dl (8.5-10.1); Creatinine Clr Calc Pharmacy 7.7 ml/min; Est GFR (African American) 6.3; Est GFR (Non-African American) 5.4; Globulin 3.8 gm/dl (2.5-4.0); Potassium 4.9 mmol/L (3.5-5.1)
[2018-10-25] MEDS ORDERED: HydrALAZINE HCL 20 MG/ML VIAL IV STA (07:52)
[2018-10-25] MEDS ORDERED: SODIUM CHLORIDE 0.9% 1000ML 1,000 ML IV PRN (08:10)
--- NOTE | 2018-10-25 08:15 | Nephrology Progress Note ---
Date of Service October 25, 2018 Assessment & Plan (1) End stage renal disease: 62 y o F with ESRD on HD TTS. Admitted with AMS. She has been having short Rx due to intractable back pain, had only 1 h HD yesterday. W/U including CT head, CXR,ammonia unremarkable. K was high 6.6 could not stay for HD yesterday duet to pain. Currently electrolyte acceptable. --plan for 4 hours dialysis today if she able to stay. Hopefully steroid will be able to help with her pain. --avoid iv fluid --nephrocaps daily and phos binder with meal. (2) Anemia: (3) Altered mental status: (4) Hypokalemia: (5) Back pain: Will follow (2) Altered mental status: (3) Hyperkalemia: (4) Anemia: (5) Secondary hyperparathyroidism: (6) Hypertension: Ronaldo Hayes was seen and evaluated this morning in her room with her at bedside. She is awake, alert but very confused and having difficulty completing sentences. Continues to be bothered by significant pain in back and legs. Electrolyte iacceptable. blood pressure remained elevated. Physical Exam Vital Signs (Past 24 Hours): Last Vital Signs Temp 36.9 C 10/25/18 07:08 Pulse 62 10/25/18 07:08 Resp 20 10/25/18 07:08 BP 200/94 H 10/25/18 07:08 Pulse Ox 97 10/25/18 07:08 Constitutional: + ill appearing and + altered mental status Respiratory: normal respiratory effort, lungs clear to auscultation Cardiovascular: RRR, no murmur, no edema Neurologic: awake and + confused Psychiatric: Affect: + depressed affect (1) Hypertension Hypertension type: unspecified Qualified Code(s): I10 - Essential (primary) hypertension
[2018-10-25] MEDS: FUROSEMIDE 40 MG TAB PO SCH (08:19)
[2018-10-25] MEDS: METOPROLOL SUCC 25MG EXT REL TAB PO SCH (08:19)
[2018-10-25] MEDS: ESCITALOPRAM OXALATE 20 MG TAB PO SCH (08:27)
[2018-10-25] MEDS: BuPROPion XL 150 MG TABCR PO SCH (08:28)
[2018-10-25] MEDS: SEVELAMER HCL 800 MG TABLET PO SCH ×3 (08:28→17:07)
[2018-10-25] MEDS: PANTOprazole 40 MG TAB PO SCH (08:28)
[2018-10-25] MEDS: CALCIUM ACETATE 667 MG CAP PO SCH ×3 (08:38→17:08)
[2018-10-25] MEDS: LIDOCAINE HCL 5% OINT 30 GM TUBE EXT SCH (08:40)
[2018-10-25] MEDS: ALLOPURINOL 100 MG TAB PO SCH (08:40)
[2018-10-25] MEDS: HEPARIN SOD 5,000 UNIT/0.5 ML VIAL SQ SCH ×2 (08:40→22:18)
[2018-10-25] MEDS: ONDANSETRON INJ 2 MG/ML 2 ML VIAL IV PRN (09:06)
[2018-10-25] MEDS: ACETAMINOPHEN 500 MG TAB PO SCH ×2 (09:47→18:29)
[2018-10-25] MEDS: NIFEdipine EXTENDED REL 30 MG TABCR PO SCH (09:47)
[2018-10-25] MEDS: LIDOCAINE 5% 1 PATCH TD SCH (09:48)
[2018-10-25 11:22] LABS: Lyme Ab IgG w/WB Rflx Negative (Negative); Lyme Ab IgM w/WB Rflx Negative (Negative)
--- NOTE | 2018-10-25 12:14 | Hospitalist Progress Note ---
Date of Service October 25, 2018 Assessment & Plan (1) Low back pain: The patient has been dealing with this issue for months per the but particularly worse in the last 4-6 weeks. She has had 3 CT abd/pelvis since July, lumbar spine CT, MRI lumbar spine, numerous x-rays, and multiple evaluations by various providers including [facility] and Dr. Mayes from [facility] [place]. It has been felt that the axial lumbar spine is not the cause of her pain. She has had several p roviders examine her and document that the bulk of the pain is centered about the LEFT SI joint. 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 Decadron q6h was started for the suspected left-sided sacroileitis yesterday and she seems more comfortable today. Will lower steroids to q12h dosing today. Tolerating dilaudid without obvious worsening of mental status. I confirmed with pain management they will NOT inject the SI joint due to her ESRD/HD status. I am heavily concerned by her ongoing altered mental status. (2) Pain of left sacroiliac joint: see discussion above in "low back pain" I am planning to recheck MRI of the l-spine since she has had intermittent complaints of b/l leg pains which would be unusual for SI joint dysfunction (3) Paresthesia of bilateral legs: odd for SI joint dysfunction to cause paresthesias of both legs. MRI l-spine from September without significant foraminal stenosis or spinal stenosis. TSH wnl. B12 level in the last year normal. Sed rate was high earlier this year, now only in the 30s, and crp is nearly 0. CPK is normal. Lyme's testing is negative. Gabapentin was placed on hold due to significant altered MS. Plan - MRI brain urgently to r/o central process Repeat MRI lumbar spine Check thiamine level since thiamine def can cause neuropathy and confusion Then start high-dose thiamine IV (4) Toxic encephalopathy: vs metabolic encephalopathy. Altered MS began after taking baclofen about 48-72 hours ago. This is similar to her presentation in September 2018 when she was altered from polypharmacy (meds for back). At this point I would have a hard time believing her altered MS is from 1 dose of baclofen 3 days ago. Lyme's is negative. Flu PCR is negative. No evidence of UTI or pneumonia. B12 level in the last year along with TSH have been normal. B1 level sent; thiamine 200 BID initiated. Check RPR. MRI brain urgently. May need LP. (5) Elevated sed rate: Was 77 in September; improved to 30s now. CRP largely normal. Etiology uncertain. Follow. (6) End stage renal disease: HD //Sat. Appreciate nephrology consult. able to complete HD session today. (7) Hypertension: Resumed po meds. Spikes in BP likely due to severe pain however still hypertensive. will add nifedipine 30mg daily. (8) Hyperkalemia: resolved (9) Pancytopenia: chronic. present for at least 1-2 years. has had extensive hematology evaluations by report without an identifiable etiology. daily CBC for stability. (10) DVT prophylaxis: heparin SC q12h cautiously in light of low platelets if platelets drop any further then stop heparin updated by phone this evening Subjective during the visit the patient kept stating "I can't look". when asked what she meant she would just say "I can't look because I can't look". when asked if she was having pain she never answered. staff report she has had no moaning (as if in pain) like yesterday and seems more comfortable. able to eat and take meds today. Review of Systems Unobtainable due to cognitive status Physical Exam Vital Signs (Past 24 Hours): Last Vital Signs Temp 37.0 C 10/25/18 09:30 Pulse 86 10/25/18 12:01 Resp 20 10/25/18 07:08 BP 147/79 H 10/25/18 12:01 Pulse Ox 97 10/25/18 07:08 Constitutional: + ill appearing and average body habitus starting at ceiling with eyes open; no nystagmus Eyes: PERRL she cannot follow commands to check extraocular movements; however - she does seem to track left and right spontaneously; again no nystag mus Respiratory: normal respiratory effort, lungs clear to auscultation Cardiovascular: Rate/Rhythm: regular rate and regular rhythm Heart Sounds: normal S1 and normal S2; no murmur Vessels: posterior tibial pulses present and dorsalis pedis pulses present; no JVD Extremities: no edema Gastrointestinal (Abdomen): normal bowel sounds, soft, nontender, no hepatosplenomegaly Skin: no rashes, warm and dry Neurologic: +babinski's bilaterally; moves all 4 limbs spontaneously; unable to assess strength however since she is not following commands; no facial droop; speech w/o dysarthria Psychiatric: Orientation: + not oriented x 3 Results & Data Laboratory Results Laboratory Results - last 24 hr 10/25/18 10/25/18 10/25/18 05:00 05:57 05:57 WBC 2.70 L RBC 3.27 L Hgb 10.6 L Hct 31.8 L MCV 97.2 MCH 32.4 MCHC 33.3 RDW Std Deviation 64.4 H RDW Coeff of Yuliana 18.2 H Plt Count 60 L MPV 10.1 Immature Gran % (Auto) 0.0 Neut % (Auto) 54.1 Lymph % (Auto) 38.5 [place] % (Auto) 6.7 Eos % (Auto) 0.0 Baso % (Auto) 0.7 Immature Gran # (Auto) 0.00 Neut # (Auto) 1.46 Lymph # (Auto) 1.04 L [place] # (Auto) 0.18 Eos # (Auto) 0.00 Baso # (Auto) 0.02 Sodium 138 Potassium 4.9 D Chloride 102 Carbon Dioxide 27 Anion Gap 9.0 BUN 29 H Creatinine 7.31 H* D Est Cr Clr Drug Dosing 7.7 Est GFR ( Amer) 6.3 Est GFR (Non-Af Amer) 5.4 BUN/Creatinine Ratio 4.0 L Glucose 97 Calcium 9.7 Total Bilirubin 0.7 AST 24 ALT 15 Alkaline Phosphatase 89 Total Creatine Kinase 41 Total Protein 7.0 Albumin 3.2 L Globulin 3.8 Albumin/Globulin Ratio 0.8 L Lyme Disease IgG Ab Lyme Disease IgM Ab Influenza Type A (PCR) Neg for Influ A Influenza Type B (PCR) Neg for Influ B 10/25/18 05:57 WBC RBC Hgb Hct MCV MCH MCHC RDW Std Deviation RDW Coeff of Yuliana Plt Count MPV Immature Gran % (Auto) Neut % (Auto) Lymph % (Auto) [place] % (Auto) Eos % (Auto) Baso % (Auto) Immature Gran # (Auto) Neut # (Auto) Lymph # (Auto) [place] # (Auto) Eos # (Auto) Baso # (Auto) Sodium Potassium Chloride Carbon Dioxide Anion Gap BUN Creatinine Est Cr Clr Drug Dosing Est GFR ( Amer) Est GFR (Non-Af Amer) BUN/Creatinine Ratio Glucose Calcium Total Bilirubin AST ALT Alkaline Phosphatase Total Creatine Kinase Total Protein Albumin Globulin Albumin/Globulin Ratio Lyme Disease IgG Ab Negative Lyme Disease IgM Ab Negative Influenza Type A (PCR) Influenza Type B (PCR) (1) Low back pain Back pain laterality: left Chronicity: chronic Sciatica presence: unspecified whether sciatica present Qualified Code(s): M54.5 - Low back pain; G89.29 - Other chronic pain (2) Hypertension Hypertension type: unspecified Qualified Code(s): I10 - Essential (primary) hypertension
[2018-10-25] MEDS: THIAMINE HCL 200 MG in SODIUM CHLORIDE 0.9% 50 ML IV SCH ×2 (15:37→22:18)
--- NOTE | 2018-10-25 21:23 | Magnetic Resonance Report ---
MR brain wo con HISTORY: Mental status change persistent confusion, +babinski's b/l, eval stroke TECHNIQUE: Multiplanar multisequence MRI of the brain was performed without the use of contrast. COMPARISON STUDY: 04/27/2007 FINDINGS: Diffusion images are considered negative for an acute ischemic insult. Ventricular system is midline. Sella and parasellar region is unremarkable. Considerable increase in foci of increased signal within the periventricular deep white matter region s. This includes a diffuse increase in signal within the occipital regions at the level of the optic radiations. Appearances suggestive of a demyelinating disorder. There is no deviation of midline structures. Cerebellar hemispheres are unremarkable terms of signal. There is mild mucosal thickening of the mastoid air cells. IMPRESSION: 1. No evidence for acute intracranial ischemic insult. 2. Progressive foci of increased signal within the periventricular deep matter regions. 3. This appearance suggests a progressive demyelinating disorder such as multiple sclerosis The above report was generated using voice recognition software. It may contain grammatical, syntax or spelling errors. Electronically signed by: Dontae Matta M.D. 10/25/2018 9:22 PM
--- NOTE | 2018-10-25 21:54 | Magnetic Resonance Report ---
MR lumbar spine wo con HISTORY: Back pain severe back pain, b/l leg pain TECHNIQUE: Multiplanar multisequence MRI of the lumbar spine was performed without the use of contras t. COMPARISON: 10/02/2018 FINDINGS: For the purpose of the report the L5-S1 disc space will be located on axial image 30 of 33. Limited study due to considerable patient motion. Transaxial images are nondiagnostic. Significant de generative disc change throughout with several Schmorl's nodes. This is unchanged compared to the alexandra or study. L1-L2: Minimal broad-based disc bulge L2-L3: Mild broad-based disc bulge L3-L4: Minimal broad-based disc bulge L4-L5: Minimal broad-based disc bulge. L5-S1: Minimal broad-based disc bulge. IMPRESSION: 1. Limited study technically as the patient could not tolerate a complete exam. 2. Mild multilevel bulging discs as described unchanged from the prior study. 3. Mild compromise of the neuroforamina bilaterally from L1 through L3 also unchanged. 4. Moderate generalized degenerative disc change throughout. 5. Incidental note is made of atrophic multicystic kidneys. The above report was generated using voice recognition software. It may contain grammatical, syntax or spelling errors. Electronically signed by: Dontae Matta M.D. 10/25/2018 9:52 PM
[2018-10-26] MEDS: ACETAMINOPHEN 500 MG TAB PO SCH ×3 (01:14→19:54)
[2018-10-26] MEDS: HYDROmorphone INJ 0.5 MG/0.5 ML SYR IV PRN ×2 (05:10→14:11)
[2018-10-26 06:50] LABS: Hematocrit (blood only) 31.6 % (37-47); Hemoglobin 10.4 g/dL (12.0-16.0); Mean Corpuscular Hgb Conc 32.9 g/dL (32-36); Mean Corpuscular Volume 97.5 fL (80-100); RDW Coefficient of Variation 18.3 % (11.5-14.5); Red Blood Count 3.24 M/uL (4.2-5.4); White Blood Count 5.33 K/uL (4.8-10.8)
[2018-10-26 06:59] LABS: Mean Platelet Volume 9.6 fL (7.4-10.4); Platelet Count 68 K/uL (130-400)
[2018-10-26 07:19] LABS: BUN Creatinine Ratio 5.7 (10-20); Calcium 9.5 mg/dl (8.5-10.1); Creatinine Clr Calc Pharmacy 9.3 ml/min; Est GFR (Non-African American) 6.9; Potassium 4.3 mmol/L (3.5-5.1)
[2018-10-26] MEDS: NIFEdipine EXTENDED REL 30 MG TABCR PO SCH (08:19)
[2018-10-26] MEDS: ALLOPURINOL 100 MG TAB PO SCH (08:19)
[2018-10-26] MEDS: METOPROLOL SUCC 25MG EXT REL TAB PO SCH (08:19)
[2018-10-26] MEDS: SEVELAMER HCL 800 MG TABLET PO SCH ×3 (08:20→19:54)
[2018-10-26] MEDS: CALCIUM ACETATE 667 MG CAP PO SCH ×3 (08:20→19:54)
[2018-10-26] MEDS: FUROSEMIDE 40 MG TAB PO SCH (08:20)
[2018-10-26] MEDS: PANTOprazole 40 MG TAB PO SCH (08:20)
[2018-10-26] MEDS: HEPARIN SOD 5,000 UNIT/0.5 ML VIAL SQ SCH ×2 (08:21→21:11)
[2018-10-26] MEDS: dexAMETHasone 4 MG in SYRINGE 0 ML IV SCH ×2 (08:21→21:11)
[2018-10-26] MEDS: BuPROPion XL 150 MG TABCR PO SCH (08:21)
[2018-10-26] MEDS: LIDOCAINE 5% 1 PATCH TD SCH (08:22)
[2018-10-26] MEDS: LIDOCAINE HCL 5% OINT 30 GM TUBE EXT SCH (08:23)
[2018-10-26] MEDS: ESCITALOPRAM OXALATE 20 MG TAB PO SCH (09:01)
[2018-10-26] MEDS: THIAMINE HCL 200 MG in SODIUM CHLORIDE 0.9% 50 ML IV SCH ×2 (09:01→21:11)
[2018-10-26] MEDS ORDERED: SODIUM CHLORIDE 0.9% 1000ML 1,000 ML IV PRN (10:12)
--- NOTE | 2018-10-26 11:04 | Nephrology Progress Note ---
Date of Service October 26, 2018 Assessment & Plan (1) End stage renal disease: 62 y o F with ESRD on HD TTS. Admitted with AMS and intractable back pain. back pain much improved on Decadron Had 4 h Rx yesterday. Currently electrolyte acceptable. --plan for 4 hours dialysis today ias her regular schedule --avoid iv fluid --nephrocaps daily and phos binder with meal. (2) Anemia: (3) Altered mental status: (4) Hypokalemia: (5) Back pain: Will follow (2) Altered mental status: (3) Hyperkalemia: (4) Anemia: (5) Secondary hyperparathyroidism: (6) Hypertension: Ronaldo Hayes was seen and evaluated this morning in her room with her at bedside. She is awake, alert, pain much improved. Electrolyte acceptable. blood pressure improved. Physical Exam Vital Signs (Past 24 Hours): Last Vital Signs Temp 36.7 C 10/26/18 07:09 Pulse 57 L 10/26/18 08:00 Resp 20 10/26/18 07:09 BP 175/75 H 10/26/18 07:09 Pulse Ox 96 10/26/18 07:09 Constitutional: WD/WN, vitals as above Respiratory: normal respiratory effort, lungs clear to auscultation Cardiovascular: RRR, no murmur, no edema Neurologic: moves all extremities and awake Psychiatric: Affect: + depressed affect (1) Hypertension Hypertension type: unspecified Qualified Code(s): I10 - Essential (primary) hypertension
[2018-10-26] MEDS: ONDANSETRON INJ 2 MG/ML 2 ML VIAL IV PRN (16:57)
--- NOTE | 2018-10-26 21:58 | Hospitalist Progress Note ---
Date of Service October 26, 2018 Assessment & Plan (1) Low back pain: The patient has been dealing with this issue for months per the but particularly worse in the last 4-6 weeks. She has had 3 CT abd/pelvis since July, lumbar spine CT, MRI lumbar spine, numerous x-rays, and multiple evaluations by various providers including [facility] and Dr. Mayes from [facility] [place] spine. It has been felt that the axial lumbar spine is not the cause of her pain. She has had several p roviders examine her and document that the bulk of the pain is centered about the LEFT SI joint. 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 Repeat MRI L-spine with DJD but no significant stenosis seen. Decadron was started for the suspected left-sided sacroileitis. Overall pain is improved. Cont decadron q12h; then wean tomorrow. Try to limit narcotics. I counseled patient that narcotics will not alter the course of SI joint dysfunction. I confirmed with pain management they will NOT inject the SI joint due to her ESRD/HD status. (2) Pain of left sacroiliac joint: see discussion above in "low back pain" Repeat MRI of the l-spine without significant changes from MRI done in September. Cont heat, stretching, PT. Cont steroids. Cont tylenol. (3) Paresthesia of bilateral legs: odd for SI joint dysfunction to cause paresthesias of both legs. MRI l-spine from September without significant foraminal stenosis or spinal stenosis. repeat MRI l-spine yesterday similar. TSH wnl. B12 level in the last year normal. Sed rate was high earlier this year, now only in the 30s, and crp is nearly 0. CPK is normal. Lyme's testing is negative. Gabapentin was placed on hold due to significant altered MS. thiamine level pending; while awaiting level she is on thiamine 200mg BID. RPR pending. she has no complaints of this pain today. in the past when she had this pain -- cause?? (4) Toxic encephalopathy: vs metabolic encephalopathy. IMPROVED. Pt talking today, following commands, eating, etc. Altered MS began after taking baclofen x 1 on Sunday of this week. This is similar to her presentation in September 2018 when she was altered from polypharmacy (meds for back). Lyme's is negative. Flu PCR is negative. No evidence of UTI or pneumonia. B12 level in the last year along with TSH have been normal. B1 level sent; thiamine 200 BID initiated. RPR lina. MRI brain completed. Demyelination??? I have asked Dr. Gottlieb from neurology to consult for his opinion to see if there is a central process present. (5) Elevated sed rate: Was 77 in September; improved to 30s now. CRP largely normal. Etiology uncertain. Follow. (6) End stage renal disease: HD //Sun. Appreciate nephrology consult. able to complete HD session today for 2nd day in a row. (7) Hypertension: Resumed po meds. Spikes in BP likely due to severe pain however still hypertensive. improved overall w/ addition of nifedipine xr. (8) Hyperkalemia: resolved (9) Pancytopenia: chronic. present for at least 1-2 years. has had extensive hematology evaluations by report without an identifiable etiology. daily CBC for stability. (10) DVT prophylaxis: heparin SC q12h cautiously in light of low platelets if platelets drop any further then stop heparin PT OT evals I am pleased by her progress Subjective patient is very poor historian. she cannot tell me why she is on dialysis nor how long she has been receiving such. she does recall she was on PD at home years ago. her pain was "severe" this am at 0500 requiring dilaudid but during my visit (630pm) she was comfortable confirms her pain is left-sided over left SI joint area denies "pain all over" or pain in her legs denies paresthesias denies visual changes she cannot remember any events from the last 3 days Constitutional: + fatigue; no fever, no body aches and no anorexia Respiratory: no cough and no dyspnea Cardiovascular: no chest pain Gastrointestinal: + nausea; no abdominal pain and no vomiting Physical Exam Vital Signs (Past 24 Hours): Last Vital Signs Temp 36.7 C 10/26/18 20:11 Pulse 62 10/26/18 20:11 Resp 16 10/26/18 20:11 BP 137/70 10/26/18 20:11 Pulse Ox 97 10/26/18 20:11 Constitutional: average body habitus; no acute distress comfortable; looks older than stated age Eyes: PERRL EOMI, no nystagmus Respiratory: normal respiratory effort, lungs clear to auscultation Cardiovascular: Rate/Rhythm: regular rate and regular rhythm Heart Sounds: normal S1 and normal S2; no murmur Vessels: posterior tibial pulses present and dorsalis pedis pulses present; no JVD Extremities: no edema Gastrointestinal (Abdomen): normal bowel sounds, soft, nontender, no hepatosplenomegaly Skin: no rashes, warm and dry Neurologic: reflexes are brisk, L>R; +babinski b/l; strength 5/5 x 4 exts; no facial droop; memory seems poor; speech clear/fluent Psychiatric: Orientation: alert, oriented to person and oriented to place; + not oriented to time Results & Data Laboratory Results Laboratory Results - last 24 hr 10/26/18 10/26/18 06:27 06:27 WBC 5.33 RBC 3.24 L Hgb 10.4 L Hct 31.6 L MCV 97.5 MCH 32.1 MCHC 32.9 RDW Std Deviation 66.0 H RDW Coeff of Yuliana 18.3 H Plt Count 68 L MPV 9.6 Sodium 136 Potassium 4.3 Chloride 97 L Carbon Dioxide 31 Anion Gap 8.0 BUN 34 H Creatinine 5.98 H* D Est Cr Clr Drug Dosing 9.3 Est GFR ( Amer) 8.0 Est GFR (Non-Af Amer) 6.9 BUN/Creatinine Ratio 5.7 L Glucose 99 Calcium 9.5 (1) Low back pain Back pain laterality: left Chronicity: chronic Sciatica presence: unspecified whether sciatica present Qualified Code(s): M54.5 - Low back pain; G89.29 - Other chronic pain (2) Hypertension Hypertension type: unspecified Qualified Code(s): I10 - Essential (primary) hypertension
[2018-10-27] MEDS: ONDANSETRON INJ 2 MG/ML 2 ML VIAL IV PRN ×2 (01:13→10:18)
[2018-10-27] MEDS: ACETAMINOPHEN 500 MG TAB PO SCH ×2 (01:15→07:34)
[2018-10-27] MEDS: HYDROmorphone INJ 0.5 MG/0.5 ML SYR IV PRN (07:33)
[2018-10-27] MEDS: LIDOCAINE HCL 5% OINT 30 GM TUBE EXT SCH (07:33)
[2018-10-27] MEDS: LIDOCAINE 5% 1 PATCH TD SCH (07:33)
[2018-10-27] MEDS: ALLOPURINOL 100 MG TAB PO SCH (07:34)
[2018-10-27] MEDS: HEPARIN SOD 5,000 UNIT/0.5 ML VIAL SQ SCH (07:34)
[2018-10-27] MEDS: METOPROLOL SUCC 25MG EXT REL TAB PO SCH (07:35)
[2018-10-27] MEDS: SEVELAMER HCL 800 MG TABLET PO SCH ×3 (07:35→17:14)
[2018-10-27] MEDS: NIFEdipine EXTENDED REL 30 MG TABCR PO SCH (07:35)
[2018-10-27] MEDS: PANTOprazole 40 MG TAB PO SCH (07:35)
[2018-10-27] MEDS: CALCIUM ACETATE 667 MG CAP PO SCH ×3 (07:35→17:14)
[2018-10-27] MEDS: FUROSEMIDE 40 MG TAB PO SCH (07:35)
[2018-10-27] MEDS: ESCITALOPRAM OXALATE 20 MG TAB PO SCH (07:35)
[2018-10-27] MEDS: BuPROPion XL 150 MG TABCR PO SCH (07:35)
[2018-10-27] MEDS: dexAMETHasone 4 MG in SYRINGE 0 ML IV SCH (08:39)
[2018-10-27] MEDS: THIAMINE HCL 200 MG in SODIUM CHLORIDE 0.9% 50 ML IV SCH (08:39)
[2018-10-27 08:43] LABS: Hematocrit (blood only) 33.9 % (37-47); Hemoglobin 11.4 g/dL (12.0-16.0); Mean Corpuscular Hgb Conc 33.6 g/dL (32-36); Mean Platelet Volume 9.9 fL (7.4-10.4); Platelet Count 100 K/uL (130-400); RDW Coefficient of Variation 17.9 % (11.5-14.5); RDW Standard Deviation 62.7 fL (36.4-46.3); Red Blood Count 3.53 M/uL (4.2-5.4); White Blood Count 6.78 K/uL (4.8-10.8)
[2018-10-27 09:10] LABS: BUN Creatinine Ratio 6.2 (10-20); Calcium 10.6 mg/dl (8.5-10.1); Creatinine Clr Calc Pharmacy 11.7 ml/min; Est GFR (African American) 10.7; Est GFR (Non-African American) 9.2; Potassium 3.8 mmol/L (3.5-5.1)
--- NOTE | 2018-10-27 09:26 | Neurology Consultation ---
Date of Consultation October 27, 2018 Assessment & Plan (1) Toxic encephalopathy: This patient's encephalopathy appears to have resolved. I suspect that her encephalopathy was due to the recent reintroduction of baclofen and gabapentin to her medication regimen. She had a very similar presentation last month related to the same medications. Her end-stage renal failure and extensive white matter disease on brain MRI probably contributed to her presentation as well. Going forward, I would recommend against restarting gabapentin and baclofen in this patient. (2) Abnormal MRI of head: After further review of this patient's brain MRI in the context of her past medical history and history of present illness I do not think she has multiple sclerosis. I suspect the imaging findings are related to age advanced cerebrovascular disease. I would not pursue a diagnosis of multiple sclerosis at this time. I do not have any further immediate recommendations for this patient. Please contact me if I may be of further assistance. History of Present Illness Reason for Consultation: Change in mental status, abnormal brain MRI Requesting Physician: Jose Manuel Stinson MD Attending Physician: Jose Manuel Stinson History of Present Illness The patient is a 63-year old female with a chief complaint of altered mental status. She was noted by her to be increasingly confused since restarting baclofen and gabapentin for chronic low back pain the day prior to her assessment in the emergency department. Past medical history also notable for end-stage renal disease on hemodialysis. Her confusion persisted for several days but did improve by yesterday morning. She was seen by Dr. Hanson during an admission in September under a very similar set of circumstances including a gabapentin dosage increase and starting baclofen. The patient denies any recollection of her recent confusion. Again, her confusion has resolved. She denies headache, fever, changes in vision, dizziness, or weakness. A brain MRI completed on October 25 revealed a considerable increase in foci of increased signal within the periventricular deep white matter regions and increased signal within the occipital regions at the level of the optic rad iations potentially suggestive of a demyelinating disorder. The study was performed without the use of contrast and compared with the previous MRI done in 2006. Images and report reviewed. The patient denies a history of stroke or TIA. She does not have a known history of demyelinating disease or multiple sclerosis. She denies a history of symptoms suggestive of optic neuritis. Family history patient denies a family history of multiple sclerosis, demyelinating disease, stroke, or other neurological disorders. Allergies Allergy/AdvReac Type Severity Reaction Status Date / Time No Known Allergies Allergy Verified 10/23/18 13:49 Home Medications Home Medications Medication Instructions Recorded Confirmed Type allopurinol 100 mg PO QAM 04/14/18 10/23/18 History calcium acetate 3 tab PO TIDM 04/14/18 10/23/18 History ergocalciferol (vitamin D2) 50,000 unit PO MONTHLY 04/14/18 10/23/18 History escitalopram oxalate 20 mg PO QAM 04/14/18 10/23/18 History furosemide 40 mg PO QAM 04/14/18 10/23/18 History metoprolol succinate 25 mg PO QAM 04/14/18 10/23/18 History bupropion HCl 150 mg PO QAM 04/19/18 10/23/18 History cinacalcet [Sensipar] 30 mg PO HS 08/17/18 10/23/18 History ondansetron HCl 4 mg tablet 4 mg PO Q6H tab 09/03/18 10/23/18 History gabapentin 100 mg capsule 100 mg PO TID cap 09/30/18 10/23/18 History lidocaine 1 patch TRANSDERMAL QAM 30 Days 10/06/18 10/23/18 Rx #30 ea pantoprazole 40 mg PO QAM #30 tab 10/06/18 10/23/18 Rx tramadol 50 mg PO Q8H PRN #9 tab 10/06/18 10/23/18 Rx docusate sodium [Colace] 100 mg PO BID #60 cap 10/19/18 10/23/18 Rx oxycodone 5 mg PO Q6 PRN #14 tab 10/19/18 10/23/18 Rx sennosides [Senokot] 8.6 mg PO HS #30 tab 10/19/18 10/23/18 Rx baclofen 10 mg PO TID PRN 10/23/18 10/23/18 History ranitidine HCl 150 mg PO DAILY 10/23/18 10/23/18 History sevelamer HCl 800 mg PO TID 10/23/18 10/23/18 History Patient History Medical History Constipation Vitamin D deficiency Chronic SI joint pain (Acute) Hyperkalemia (Acute) Acute encephalopathy Anemia CHRONIC-- S/P TRANSFUSION 05/2018; STABLE HGB IN 9 RANGE SINCE TRANSFUSION Hypertension (Chronic) Gout GERD (gastroesophageal reflux disease) CONTROLLED Depression ESRD (end stage renal disease) DIALYSIS SUNDAY/SUNDAY/SUNDAY VIA LUE AVF Obesity Anxiety History of urinary disorder HX INTERSTITIAL CYSTITIS History of diverticulitis Pancytopenia (Chronic) CHRONIC; MULTIPLE HEMATOLOGY EVALUATIONS PER PCP WITH UNKNOWN ETIOLOGY STATING THAT HEMATOLOGY ADVISED PATIENT TO FOLLOWUP NEEDED AFTER SIGNIFICANT WORKUP UNREMARKABLE- PCP MONITORING Dialysis patient End stage chronic kidney disease Fracture of fourth toe, right, open (Inactive) HX OF Surgical History History of hysterectomy History of appendectomy History of delivery Chronic kidney disease AVF (arteriovenous fistula) LUE 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= 05/31/18= GRADE 2 VIEW, MAC 3, ETT 7.0; "SMALL CUT TO TONGUE, NO BLEEDING" PER ANESTHESIA RECORDS AT [facility] Family History Mother Family history of diabetes mellitus Father Family history of diabetes mellitus Father Family history of diabetes mellitus Brother Family history of esophageal cancer Other No pertinent family history Social History Communication Ability: Impaired Beliefs That Will Affect Care: None Current Living Situation: Spouse current occupational status: employed Other Information That Helps Us Care for You: No Feels Safe at Home: Yes Safety Concerns: Feels Safe At This Time Smoking Status: Never smoker Hx Alcohol Use: No Hx Substance Use: No Review of Systems Constitutional: no fever and no chills Eyes: no blind spots and no diplopia Ear, Nose, Mouth, Throat: no hearing loss Respiratory: no cough and no dyspnea Cardiovascular: no chest pain and no palpitations Gastrointestinal: no nausea and no vomiting Genitourinary (Female): no urinary incontinence Musculoskeletal: + back pain; no myalgia Integumentary: no rash and no lesions Neurologic: as per Subjective / HPI; no paralysis, no numbness, no lack of coordination, no seizure-like activity, no dizziness and no headache(s) Psychiatric: no depression and no anxiety Hematologic / Lymphatic: + easy bleeding Physical Exam Vital Signs (Past 24 Hours): Last Vital Signs Temp 37.0 C 10/27/18 07:10 Pulse 62 10/27/18 07:10 Resp 18 10/27/18 07:10 BP 176/75 H 10/27/18 07:10 Pulse Ox 99 10/27/18 07:10 Physical Exam: The patient is a well-developed, well-nourished elderly female. She is alert and fully oriented. Recent and remote memory intact. Attention and concentration normal. Patient exhibits a normal spontaneous speech pattern as well as an age-appropriate fund of knowledge and normal vocabulary. Visual olivas full to confrontation. Visual acuity normal. Pupils equal round react to light and accommodation. Eye movements normal. There is no nystagmus. Facial sensation intact. There is no facial droop or facial weakness. Hearing intact. Palate elevates to midline. Shoulder shrug intact. Tongue protrudes to midline. Sensation intact to all modalities in all 4 limbs. Deep tendon reflexes intact and symmetrical for the arms and legs. Plantar responses downgoing bilaterally. There is no dysdiadochokinesia or dysmetria [id number] or [id number] bilaterally. Ophthalmoscopic examination reveals normal-appearing optic disks and posterior segments. No papilledema or hemorrhages. Carotid pulses normal bilaterally, no bruits to auscultation. Gait and station normal. Patient exhibits normal muscle strength and tone for all 4 limbs. No atrophy. No abnormal movements observed. Results & Data Laboratory Results Today's labs are reviewed. WBC 6.78, hemoglobin 11.4, platelet count 100, sodium 135, potassium 3.8, BUN 29, creatinine 4.70, glucose 120, calcium 10.6 Sedimentation rate 39 on October 24, 2018 Transaminases normal on October 25, 2018 Ammonia level normal on October 23, 2018 Diagnostic Findings Brain MRI completed October 25, 2018 reveals progressive foci of increased signal within the periventricular deep white matter regions compared with a previous MRI done in 2007. Appearance potentially suggestive of a progressive demyelinating disorder such as multiple sclerosis per the interpreting radiologist. Images and report reviewed. Additional description the history of present illness. I would also add there are an extensive number of T2/flair hyperintensities throughout both cerebral hemispheres in a subcortical distribution as well. Overall, the pattern is quite nonspecific appearing. Furthermore, there are no infratentorial white matter lesions. The observed pattern of white matter hyperintensities could also be consistent with age advanced cerebrovascular disease.
--- NOTE | 2018-10-27 11:32 | Nephrology Progress Note ---
Date of Service October 27, 2018 Assessment & Plan (1) End stage renal disease: 62 y o F with ESRD on HD TTS. Admitted with AMS and intractable back pain. back pain much improved on Decadron Had 4 h Rx yesterday. Currently electrolyte acceptable. --next dialysis will be at Sunday --avoid iv fluid --nephrocaps daily and phos binder with meal. --okay to be discharged however she will need definitive plan for analgesic before discharge to make sure her pain remained well controlled and she can stay for 4 hours dialysis (2) Anemia: (3) Altered mental status: (4) Hypokalemia: (5) Back pain: Will follow (2) Altered mental status: (3) Hyperkalemia: (4) Anemia: (5) Secondary hyperparathyroidism: (6) Hypertension: Ronaldo Hayes was seen and evaluated this morning in her room with her at bedside. She is awake, alert, pain much improved. Electrolyte acceptable. blood pressure improved. Had dialysis yesterday. Physical Exam Vital Signs (Past 24 Hours): Last Vital Signs Temp 37.0 C 10/27/18 07:10 Pulse 62 10/27/18 07:10 Resp 18 10/27/18 07:10 BP 176/75 H 10/27/18 07:10 Pulse Ox 99 10/27/18 07:10 Constitutional: WD/WN, vitals as above Respiratory: normal respiratory effort, lungs clear to auscultation Cardiovascular: RRR, no murmur, no edema Neurologic: moves all extremities and awake Psychiatric: A+Ox3, euthymic affect (1) Hypertension Hypertension type: unspecified Qualified Code(s): I10 - Essential (primary) hypertension
--- NOTE | 2018-10-30 12:08 | Pain Management Consultation ---
Date of Consultation October 30, 2018 History of Present Illness Attending Physician: Jos eManuel Stinson Allergies Allergy/AdvReac Type Severity Reaction Status Date / Time No Known Allergies Allergy Verified 10/23/18 13:49 Home Medications Home Medications Medication Instructions Recorded Confirmed Type allopurinol 100 mg PO QAM 04/14/18 10/23/18 History calcium acetate 3 tab PO TIDM 04/14/18 10/23/18 History ergocalciferol (vitamin D2) 50,000 unit PO MONTHLY 04/14/18 10/23/18 History escitalopram oxalate 20 mg PO QAM 04/14/18 10/23/18 History furosemide 40 mg PO QAM 04/14/18 10/23/18 History metoprolol succinate 25 mg PO QAM 04/14/18 10/23/18 History bupropion HCl 150 mg PO QAM 04/19/18 10/23/18 History cinacalcet [Sensipar] 30 mg PO HS 08/17/18 10/23/18 History ondansetron HCl 4 mg tablet 4 mg PO Q6H tab 09/03/18 10/23/18 History lidocaine 1 patch TRANSDERMAL QAM 30 Days 10/06/18 10/23/18 Rx #30 ea pantoprazole 40 mg PO QAM #30 tab 10/06/18 10/23/18 Rx docusate sodium [Colace] 100 mg PO BID #60 cap 10/19/18 10/23/18 Rx sennosides [Senokot] 8.6 mg PO HS #30 tab 10/19/18 10/23/18 Rx ranitidine HCl 150 mg PO DAILY 10/23/18 10/23/18 History sevelamer HCl 800 mg PO TID 10/23/18 10/23/18 History amlodipine 5 mg PO DAILY #30 tab 10/27/18 Rx dexamethasone 2 mg PO DIRECTED #18 tab 10/27/18 Rx oxycodone 5 mg PO Q6 PRN #15 tab 10/27/18 10/23/18 Rx thiamine HCl (vitamin B1) 250 mg PO BID #60 tab 10/27/18 Rx Supervising Physician Co-Signing Physician Notes pt not seen during this admission Patient History Medical History Constipation Vitamin D deficiency Chronic SI joint pain (Acute) Hyperkalemia (Acute) Acute encephalopathy Anemia CHRONIC-- S/P TRANSFUSION 05/2018; STABLE HGB IN 9 RANGE SINCE TRANSFUSION Hypertension (Chronic) Gout GERD (gastroesophageal reflux disease) CONTROLLED Depression ESRD (end stage renal disease) DIALYSIS SUNDAY/SUNDAY/SUNDAY VIA LUE AVF Obesity Anxiety History of urinary disorder HX INTERSTITIAL CYSTITIS History of diverticulitis Pancytopenia (Chronic) CHRONIC; MULTIPLE HEMATOLOGY EVALUATIONS PER PCP WITH UNKNOWN ETIOLOGY STATING THAT HEMATOLOGY ADVISED PATIENT TO FOLLOWUP NEEDED AFTER SIGNIFICANT WORKUP UNREMARKABLE- PCP MONITORING Dialysis patient End stage chronic kidney disease Fracture of fourth toe, right, open (Inactive) HX OF Surgical History History of hysterectomy History of appendectomy History of delivery Chronic kidney disease AVF (arteriovenous fistula) LUE 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= 05/31/18= GRADE 2 VIEW, MAC 3, ETT 7.0; "SMALL CUT TO TONGUE, NO BLEEDING" PER ANESTHESIA RECORDS AT [facility] Family History Mother Family history of diabetes mellitus Father Family history of diabetes mellitus Father Family history of diabetes mellitus Brother Family history of esophageal cancer Other No pertinent family history Social History Smoking Status: Never smoker substance use type: does not use Physical Exam Vital Signs (Past 24 Hours): Last Vital Signs Temp 37.1 C 10/27/18 16:51 Pulse 68 10/27/18 16:51 Resp 18 10/27/18 16:51 BP 160/79 H 10/27/18 16:51 Pulse Ox 98 10/27/18 16:51
--- NOTE | 2018-11-06 10:27 | Discharge Summary ---
Date of Service date of admission - October 23, 2018 date of discharge - October 27, 2018 Admission HPI Per Admitting Provider This is a 63 yo F with PMHx of ESRD on HD //Sun, previous encephalopathy and recent admission which seemed to be caused by polypharmacy with pain medications, HTN, Hyperlipidemia, anemia of chronic disease, depression, vit D deficiency, GERD, gout and chronic back pain who presents with increased confusion and nausea/vomiting. Pt was unable to participate in discussion due to the altered mental status so history was obtained by her daughter at bedside. Pt was able to name her daughter but that was all the participation throughout the admitting hospitalist's visit. Pt was recently admitted to [facility] from 10/01-10/06 for similar presentation of encephalopathy due to polypharmacy, but may have specifically been due to baclofen vs. gabapentin dosage change for her back pain. Yesterday the patient took a baclofen for pain after her HD session. Of note, she was seen in the ER on 10/19 and given prescription for oxycodone 5 mg, with a 3 day supply for back pain. She was scheduled for 4 hrs of HD yesterday however she was not able to complete the full session due to her back pain (completed 1 hour). In fact she had not completed a full HD session since last Sunday due to low back and hip pain. The change in mental status began on the day of admission. She slept in and was awoken by her around 10am, at that point she was confused and unable to really participate in conversation. Daughter lives in an apartment upstairs, and recognized these signs as similar to the previous episode when she was admitted. Pt vomited on the AM of admission and did not know what was happening. Since being in the ER she vomited 2 more times. BUN 37, Cr. 8.1, K+ 6.6 Principal Diagnosis left SI joint dysfunction / sacroiliitis Discharge Exam Constitutional average body habitus; no acute distress Eyes PERRL ENMT external ear and nose normal, oropharynx normal Respiratory normal respiratory effort, lungs clear to auscultation Cardiovascular Rate/Rhythm: regular rate and regular rhythm Heart Sounds: normal S1 and normal S2; no murmur Vessels: posterior tibial pulses present and dorsalis pedis pulses present; no JVD Extremities: no edema Gastrointestinal (Abdomen) normal bowel sounds, soft, nontender, no hepatosplenomegaly Musculoskeletal minimal tenderness left SI joint; no spinous process pain over t-spine or l-spin e to palpation Skin no rashes, warm and dry Neurologic reflexes brisk, worse left leg vs right leg; slightly increased tone of legs; strength 5/5 x 4 exts Psychiatric Orientation: alert and oriented x 3 Eye Contact: good eye contact Motor Behavior: steady gait and station Speech: normal rate/rhythm/volume of speech Affect: euthymic affect Discharge Data Allergies Allergy/AdvReac Type Severity Reaction Status Date / Time No Known Allergies Allergy Verified 10/23/18 13:49 Consultations 1. neurology - Kuldeep Gottlieb MD 2. nephrology - Christin Bear MD 3. PT, OT Ordered Studies 1. CT head - no acute process. 2. MRI lumbar spine - IMPRESSION: 1. Limited study technically as the patient could not tolerate a complete exam. 2. Mild multilevel bulging discs as described unchanged from the prior study. 3. Mild compromise of the neuroforamina bilaterally from L1 through L3 also unchanged. 4. Moderate generalized degenerative disc change throughout. 5. Incidental note is made of atrophic multicystic kidneys. 3. MRI brain - IMPRESSION: 1. No evidence for acute intracranial ischemic insult. 2. Progressive foci of increased signal within the periventricular deep matter regions. 3. This appearance suggests a progressive demyelinating disorder such as multiple sclerosis Hospital Course (1) Low back pain: The patient has been dealing with this issue for months per the but particularly worse in the last 4-6 weeks. She has had 3 CT abd/pelvis studies since July 2018, lumbar spine CT, MRI lumbar spine, numerous x-rays, and multiple evaluations by various providers including [facility] and Dr. Corey Mayes from [facility] spine. It has been felt that the axial lumbar spine is not the cause of her pain. She has had several providers examine her and document that the bulk of the pain is centered about the LEFT SI joint. Thus it has been suspected she has left-sided sacroiliitis. She underwent a repeat MRI of the lumbar spine this admission showing mild DJD but no significant stenosis, compression fracture, etc. Decadron was started for the suspected left-sided sacroiliitis. Her pain quickly improved with steroids. Her narcotic usage decreased with the notable improvement on steroids. I counseled the patient that narcotics will NOT alter the course of SI joint dysfunction; rather, she will need ongoing use of anti-inflammatories, stretching and physical therapy. During this admission I confirmed with pain management that they will NOT inject the SI joint due to her ESRD/HD status due to concerns of bleeding into the joint. She will complete a slow steroid taper post-discharge. Then, following completion of the steroids, would recommend use of daily NSAID (this is ok with nephrology as she is on hemodialysis and kidney function is not expected to recover). She was given a prescription for outpatient PT/OT for the left SI joint dysfunction. (2) Pain of left sacroiliac joint: see discussion above in "low back pain" Repeat MRI of the l-spine without significant changes from the MRI done in September 2018. Cont heat, stretching, PT. Cont steroids. Cont tylenol. Limit narcotic usage. I question if the patient could have a form of autoimmune disease leading to the sacroiliitis. Sed rate in September 2018 was 77, improving to <40 during this hospitalization. Consider rheumatology evaluation for additional work-up. Consider dedicated MRI imaging of the left SI joint. She will follow-up with Dr. Josep Francis for this problem as well as [facility]. The patient was evaluated by PT/OT while here and cleared for discharge home. (3) Paresthesia of bilateral legs: SI joint dysfunction should not cause paresthesias of both legs. MRI l-spine from September and also this admission did not show significant foraminal stenosis or spinal stenosis. TSH was normal. B12 level in the last year was normal. Sed rate was high earlier this year, now only in the 30s, and crp is nearly 0. CPK was normal. Lyme's testing was negative. Thiamine level was normal. RPR was negative. Etiology? She underwent an MRI of the brain showing possible demyelinating disease. Dr. Kuldeep Gottlieb from [facility] evaluated the patient and felt the MRI brain findings were MOST CONSISTENT WITH FAIRLY ADVANCED CEREBROVASCULAR DISEASE from atherosclerotic disease. Consider outpatient neurology evaluation for nerve conduction studies/EMG to further work-up her paresthesias and to follow-up on her multiple issues. (4) Toxic encephalopathy: vs metabolic encephalopathy. IMPROVED/resolved with supportive care. Altered MS began after taking baclofen x 1 48 hours prior to admission. Her encephalopathy was similar to her presentation in September 2018 when she was altered from polypharmacy (medications for her back pain). Lyme's testing, flu PCR, chest x-ray, u/a, TSH, b12 level - all negative or normal. RPR and thiamine level ultimately returned normal. Her mental status ultimately returned to baseline without any intervention but time. She never had evidence of a OBSTETRICS GYN PHYSICIAN infection/encephalitis. It was thought that given her MRI brain findings (advanced deep white matter lesions) that the patient will be easily susceptible to encephalopathy in the setting of any drug that causes the blood-brain barrier, an infectious process, etc. Therefore, she was asked to discontinue the baclofen, tramadol, etc. The patient DOES tolerate oxycodone without altered mental status or sedation. She was advised to limit narcotic usage/use it sparingly. (5) Elevated sed rate: Was 77 in September; improved to 30s this admission. CRP largely normal. 2nd to sacroiliitis?? see above discussion. (6) End stage renal disease: Fortunately, as her back pain improved, she was able to tolerate HD sessions. [facility] assisted with her HD needs while here. She was euvolemic at discharge with appropriate acid/base status and normal potassium levels. (7) Hypertension: Labile during the stay likely due to back pain. BPs improved overall with addition of nifedipine xr. She will continue her other BP meds as previous. (8) Hyperkalemia: resolved with hemodialysis. (9) Pancytopenia: Chronic. Present for several years. By report has had extensive hematology evaluations in the past without an identifiable etiology. Interestingly, while on the IV decadron, her platelets yenny to 100 -- her highest level in years. Her WBC count also yenny to normal with steroids. Could she have an underlying autoimmune disease leading to pancytopenia? This was discussed with her PCP Dr. Francis. Consider rheumatology evaluation after discharge. Total Time Total Time Spent Total Time Spent (In Minutes): 60 Total Time Includes: Examination of the Patient, Discharge Planning, Medication Reconciliation and Communication With Other Providers Discharge Plan Discharge Items Patient Disposition: Home - Home Health Services Reason For Visit: ENCEPHALOPATHY (CONFUSION) Discharge Diagnosis: SUSPECTED LEFT-SIDED SI JOINT DYSFUNCTION (SACROILIITIS) - BACK PAIN IMPROVED. CONFUSION - RESOLVED. EXACT CAUSE UNCERTAIN BUT LIKELY DUE TO MEDICATIONS (BACLOFEN, ETC). Discharge Goals: Diagnostic testing, Learn about illness and Therapeutic intervention Activity: As commented below Activity Comment: no heavy exertional activities that can aggravate your back Lifting Comment: no more than 20 pounds Exercise/Sports: Wait until after follow-up appointment Driving/Machine Use: Resume 3 days after discharge Non-emergency contact: Primary Care Provider, Specialist and Hoop Riveting Machine Operator Call non-emergency contact if: you have any medication questions, your symptoms worsen, your pain is not controlled, your pain is worsening, your pain is concerning for you and your temperature is above 100.5 Follow-up/Referrals: Josep Francis MD [Primary Care Provider] - (see Dr. Francis within 4-5 days) Melanie Vasquez PA-C [Physician Merchant Tailor] - (please keep scheduled appointment with pain management that is coming up in the next week) Diet: Dialysis Renal Fluids: 1500ml (6 cups) Addtl Provider Instructions: From Jose Manuel Stinson, Hospitalist: 1. You were admitted to [facility] because of severe left-sided low back pain and confusion. Your confusion finally resolved by 10/26/18. It was not 100% certain what the cause(s) of the confusion was but may have been related to use of baclofen, gabapentin, or a combination of the two. We did not find evidence of stroke on your MRI of the brain. We did not find any infections (no flu, no UTI, no pneumonia, blood-stream infection, etc). Your MRI of the lumbar spine was repeated (you had one in September as well) and this showed mild arthritis but it was felt to NOT be the cause of your back pain. At this time we are suspicious you have "SI joint dysfunction" on the left side. It is sometimes called sacroiliitis. You have improved very quickly with steroids. SI joint disease can sometimes be autoimmune in nature. It can be worsened by a "leg-length discrepancy" (one leg is longer than the other). Also, if your gait (the way you walk) is not normal, the SI joint can be stressed as well. Please take a 10-day course of dexamethasone starting TOMORROW. Take the steroid with food. After the 10-day course is complete either Dr. Francis or pain management can prescribe an anti-inflammatory pill to you. You can take [id number] tylenol if desired for pain (up to 3000mg in 24 hours). Please try to use the oxycodone sparingly. The oxycodone can make you tired thus do not drive while taking oxycodone or use alcohol. Follow-up with pain management for the back. You may also want to consider seeing a environmental technical officer if it is felt that the SI joint problem is autoimmune in nature. 2. For your high blood pressure please start amlodipine 5mg once daily. Take your first dose TOMORROW on 10/28/18. Your MRI of the brain shows "plaques" which are likely related to long-standing high blood pressure. It is very important to control your blood pressure as best as possible. 3. Lastly, please take thiamine 250mg twice a day for 30 days. 4. Please STOP baclofen and gabapentin. Throw these 2 medications out. Also STOP tramadol. Throw this medication out as well. 5. Physical therapy -- 2 options -- either PT at [facility] in [place] OR PT at your home. PT at [facility] would likely be more comprehensive. 6. Follow-up -- see separate section. Please report for dialysis as scheduled this week. 7. Return to [facility] if -- * your back pain worsens or is uncontrolled despite the medications prescribed * you have recurrent confusion * you have numbness, tingling, or weakness in any limb * any other concerns Prescriptions: New amlodipine 5 mg tablet 5 mg PO DAILY Qty: 30 RF: 5 dexamethasone 2 mg tablet 2 mg PO DIRECTED Qty: 18 RF: 0 thiamine HCl (vitamin B1) 250 mg tablet 250 mg PO BID Qty: 60 RF: 0 Continued ondansetron HCl [Zofran] 4 mg tablet 4 mg PO Q6H RF: 0 bupropion HCl 150 mg Tablet Extended Release 24 Hr 150 mg PO QAM RF: 0 cinacalcet [Sensipar] 30 mg Tablet 30 mg PO HS RF: 0 pantoprazole 40 mg Tablet,Delayed Release (Dr/Ec) 40 mg PO QAM Qty: 30 RF: 0 sennosides [Senokot] 8.6 mg tablet 8.6 mg PO HS Qty: 30 RF: 0 docusate sodium [Colace] 100 mg capsule 100 mg PO BID Qty: 60 RF: 0 sevelamer HCl 800 mg Tablet 800 mg PO TID RF: 0 ranitidine HCl 150 mg Tablet 150 mg PO DAILY RF: 0 oxycodone 5 mg tablet 5 mg PO Q6 PRN (Reason: pain) Qty: 15 RF: 0 furosemide 40 mg Tablet 40 mg PO QAM RF: 0 calcium acetate 667 mg Tablet 3 tab PO TIDM RF: 0 allopurinol 100 mg Tablet 100 mg PO QAM RF: 0 ergocalciferol (vitamin D2) 50,000 unit Capsule 50,000 unit PO MONTHLY RF: 0 escitalopram oxalate 20 mg Tablet 20 mg PO QAM RF: 0 metoprolol succinate 25 mg Capsule,Sprinkle,Er 24hr 25 mg PO QAM RF: 0 Discontinued gabapentin 100 mg capsule 100 mg PO TID RF: 0 tramadol 50 mg tablet 50 mg PO Q8H PRN (Reason: pain ) Qty: 9 RF: 0 baclofen 10 mg Tablet 10 mg PO TID PRN (Reason: Spasms) RF: 0 Stand-Alone Forms: [facility]/Other Patient Handouts: ED Sacroiliitis Discharge Orders: Discharge Order (Routine); Ordered 10/27/18 Ordered By: Jose Manuel Stinson Admission Data Admit Date/Time: 10/23/18 17:04 Attending Provider: Jose Manuel Stinson Admit Provider: Juliette Ward Primary Care Provider: Josep Francis Other Providers: Juliette Ward ; Christin Bear ; Lilibeth Quintana ; Kuldeep Gottlieb Service: Telemetry Medical Other Interventions: Discharge Summary Assessment (RN) Last Done: 10/27/18 16:51 Pending Studies at Discharge: Yes Studies:: thiamine (vitamin B1) level DC Date/Time DO NOT enter until pt leaves facility: 10/27/18 17:35
[2018-11-13] MEDS ORDERED: ERGOCALCIFEROL 50,000 UNITS CAP PO SCH (09:00)
== END 2018-10-27 17:35 | disposition home health service (06) | DRG 91 ==
LOC: ED 12:54 → 2N 17:04 → SUATTDRO 17:04 → 2N 17:17
DX: Z83.3 Family history of diabetes mellitus; N25.81 Secondary hyperparathyroidism of renal origin; F32.9 Major depressive disorder, single episode, unspecified; Z99.2 Dependence on renal dialysis; D63.8 Anemia in other chronic diseases classified elsewhere; Z90.710 Acquired absence of both cervix and uterus; K21.9 Gastro-esophageal reflux disease without esophagitis; G92 Toxic encephalopathy; K59.00 Constipation, unspecified; M10.9 Gout, unspecified; M46.1 Sacroiliitis, not elsewhere classified; E87.5 Hyperkalemia; D61.818 Other pancytopenia; I12.0 Hypertensive chronic kidney disease with stage 5 chronic kidney disease or end stage renal disease; Z87.891 Personal history of nicotine dependence; R20.2 Paresthesia of skin; F41.9 Anxiety disorder, unspecified; E55.9 Vitamin D deficiency, unspecified; N18.6 End stage renal disease

== ENCOUNTER 2018-12-17 13:50 | Inpatient (IN) ==
[2018-12-17] MEDS ORDERED: MoRPHine SULFATE 4 MG/ML 1 ML CARP\\VIAL IV STA (14:32)
--- NOTE | 2018-12-17 14:37 | Emergency Department Note ---
ED Provider Note CHIEF COMPLAINT: Low back pain HISTORY OF PRESENT ILLNESS: This 63-year-old female patient with past medical history significant for hypertension, GERD, depression and anxiety, and end- stage renal disease on dialysis Sunday//Sunday schedule, who presents to the emergency department by private vehicle complaining of pain in the low back which has been chronic for several months, but has been getting worse over the past few days. The pain was gradual in onset, is now constant and worse with movement. The patient notes the pain as aching and a 10/10. The patient states that she was prescribed oxycodone for her pain which she has been taking, she states that this was helping with the pain somewhat, although the pain seems to still be getting worse. She does note that she ran out of her oxycodone and took her last dose last night around 6 PM, she has not had anything for pain since then. She states that her family doctor would not refill the prescription for her. She notes that she has been seen by pain management for injections in her back, but they are not prescribing her anything for pain. Patient states that she was at her dialysis today, and the back pain became so severe that she was unable to finish her treatment, she only received 2.5 hours of her dialysis. She also states that she was not feeling well over the weekend and did not go to her dialysis on Sunday. Her last full dialysis was last week . The patient denies any loss of control of their bowel or bladder functions. There has been no leg numbness or weakness, and no change in sensation. No chest pain or shortness of breath. The patient has known degenerative disc disease of her lumbar spine. She does still make some urine, she denies any dysuria or increased urinary frequency. She does note that she has had some nausea and vomiting off and on this weekend, and states she has vomited 3 times today. She also has had some lower abdominal pain. REVIEW OF SYSTEMS: A complete 10 point review of systems was reviewed with the patient with pertinent positives and negatives as per history of present illness. All else were negative. ALLERGIES: No known allergies MEDICATIONS: Reviewed in chart PMH: End-stage renal disease on hemodialysis, hypertension, GERD, anemia, history of hysterectomy, history of appendectomy, depression, anxiety SOCIAL HISTORY: Lives at home, she denies tobacco use PHYSICAL EXAM: VITALS: Vitals are noted on the nurse's note and reviewed by myself. Vital signs stable, afebrile. GENERAL: Pleasant and cooperative, in no acute distress, but appears to be uncomfortable from pain. Nontoxic-appearing and non-diaphoretic, well-developed well-nourished. SKIN: The skin was without rashes, erythema, edema, or bruising. Capillary refill less than 2 seconds. NECK: Supple without nuchal rigidity. No cervical spine tenderness. No paraspinous muscle tenderness. HEART: Regular rate and rhythm without murmurs gallops or rubs. LUNGS: Clear to auscultation bilaterally without wheezes, rales or rhonchi. ABDOMEN: Positive bowel sounds x 4. Normal tympanic percussion. Soft, nondistended, without masses or organomegaly. Tender to palpation in the left lower quadrant, abdomen is otherwise nontender. Brady sign negative. MUSCULOSKELETAL: No muscle atrophy, erythema, or edema noted of the back. There is diffuse midline tenderness over the lumbar spinous processes. There is bilateral tenderness over the paraspinous muscles of the lumbar spine, left greater than right. There is no tenderness over the thoracic spine or paraspinous muscles. There are bilateral lumbar muscle spasms present. The patient is slow to move around. Negative straight leg raise test bilaterally. NEURO: Patient was alert and oriented to person place and time. Normal sensation to light and sharp touch. Deep tendon reflexes 2+ in the lower extremities. Dorsalis pedis pulse 2+ bilaterally. Strength 5/5 and equal in the bilateral lower extremities. ED COURSE AND MEDICAL DECISION MAKING: CC: Patient presenting with complaint of low back pain DIFFERENTIAL DIAGNOSIS: Includes, but not limited to lumbar strain/sprain, lumbar radiculopathy/sciatica, degenerative disc disease, acute on chronic back pain, cauda equina syndrome, discitis/osteomyelitis, diverticulitis, gastroen teritis, narcotic withdrawal, among others. INTERPRETATION OF LABS: Leukopenia, mild anemia, thrombocytopenia, mild hyponatremia, hyperkalemia, significantly elevated creatinine (consistent with baseline). IMAGING: LUMBAR SPINE CT CT DOSE: 714.99 mGy.cm HISTORY: low back pain TECHNIQUE: Multiaxial CT images of the lumbar spine were performed and reformatted in the sagittal and coronal plane without the use of contrast. A dose lowering technique was utilized adhering to the principles of ALARA. COMPARISON: Lumbar spine MRI 10/25/2018. Lumbar spine CT 09/18/2018. FINDINGS: No fracture or subluxation within the lumbar spine. The visualized sacrum is intact. Atrophic kidneys are again noted. This contains multiple vascular calcifications with a cortical calcification within the lower pole the left kidney. There may be a few punctate renal calculi. Inflammatory change identified within the left lower quadrant likely associated with a diverticula. Therefore, this favors acute diverticulitis. A few scattered Schmorl's nodes within the lumbar spine. No significant central canal narrowing by CT technique. Small broad-based posterior disc bulges seen throughout the lumbar spine resulting and mild multilevel bilateral neural foraminal narrowing. This remains unchanged. IMPRESSION: 1. No fracture or subluxation within the lumbar spine. 2. Partially visualized inflammatory change within the left lower quadrant. This likely represents acute diverticulitis. ----- CT OF THE ABDOMEN AND PELVIS WITH CONTRAST CLINICAL HISTORY: Abdominal and back pain. Evaluate for acute diverticulitis. COMPARISON STUDY: CT of the abdomen and pelvis October 01, 2018. Lumbar spine CT performed earlier today. TECHNIQUE: Following IV administration of 94 mL of Optiray-320, axial images of the abdomen and pelvis were obtained from the lung bases to the proximal femurs. Images were reviewed in the axial, sagittal, and coronal planes. IV contrast was administered without complication. Automated exposure control was utilized for the study. A dose lowering technique was utilized adhering to the principles of ALARA. CT DOSE: 596.60 mGycm FINDINGS: No pneumatosis, free air or portal venous gas is present. The liver, spleen, adrenal glands and pancreas are unremarkable. There is no peripancreatic or pericholecystic infiltration. There is no biliary or pancreatic ductal dilat ation. Probable pancreas divisum is present. Extensive atherosclerotic plaque is noted. Marked bilateral renal atrophy is noted. Multiple bilateral renal calculi are noted. The largest is a 1 cm calculus within the lower pole of the right kidney. There are no ureteral calculi. There is no hydronephrosis. Note is made of colonic diverticulosis. There is wall thickening with mild adjacent infiltration at the junction of the descending colon and sigmoid colon. There is no abscess. No suspicious osseous lesions are noted. There is no lymphadenopathy. IMPRESSION: 1. Mild acute diverticulitis at the junction of the descending colon and sigmoid colon. No free air or abscess. 2. Bilateral nephrolithiasis. No ureteral calculi. Marked bilateral renal atrophy. EKG: Shows normal sinus rhythm with a rate of 94 bpm, left axis deviation, normal intervals, LVH, no peaked T waves, nonspecific ST changes in anterior leads when compared to previous EKG from 11/28/2018 by my interpretation. MEDICATION RECONCILIATION: I attest that I have personally reviewed the patient's current medication list. INITIAL VITAL SIGNS REVIEW: I reviewed the patient's initial vital signs and interpret them as follows: T: Afebrile; BP: Hypertensive; HR: Mildly tachycardic; RR: Within normal limits; Pulse Ox: Within normal limits on room air. Blood pressure screening: The patient was found to have an elevated blood pressure and was referred to the inpatient team for further management. MDM SUMMARY: Patient was evaluated at bedside, history and physical exam performed. Patient is alert and oriented, no acute distress, but appears uncomfortable from pain, resting in the stretcher. Diffuse tenderness throughout the lumbar spine and lumbar muscles with some spasm present. Normal strength and sensation in the lower extremities, no red flags on exam or history concerning for cauda equina. She is a hemodialysis patient, has not received full dialysis treatment in 5 days. Orders were placed at bedside for labs, IV morphine for pain, IV Zofran for nausea, CT lumbar spine to evaluate for back pain. Patient discussed with Dr. Romano, who agrees with my assessment, plan, and disposition. Labs and imaging reviewed as above, noting pancytopenia, of which patient does have a history. Creatinine is consistent with her history of end-stage renal disease. She does have hyperkalemia of 5.9, EKG performed with some nonspecific ST changes noted appear to be new compared to previous, but no peaked T waves. Patient continues to complain of nausea and has vomited twice in the ED, she was given an additional dose of IV Phenergan for her nausea/vomiting. CT imaging of the lumbar spine does not show any significant acute issues within the lumbar spine, but note is made of inflammatory changes in the abdomen. CT of the abdomen/pelvis was performed, showing acute uncomplicated diverticulitis. Patient is tender in the left lower quadrant on my repeat exam. Patient reassessed multiple times throughout ED stay, she has remained afebrile, and her pain is improved after the IV morphine. She remains hypertensive. Given the persistent nausea/vomiting in the setting of acute diverticulitis, I did feel that the patient would benefit from admission. IV Zosyn was ordered at a renally adjusted dose to treat for the diverticulitis. She should also have dialysis tomorrow, as she was unable to complete her treatment today. I spoke with Dr. Porter, [facility] Hospitalist, who agrees to evaluate the patient for admission. A repeat EKG was performed at 2123, does appear to have more peaked T waves now. A POC potassium was performed and is 6.2. I did discuss and review the repeat EKG and potassium with Dr. Porter, she is placing orders for management. The patient was updated on all results and plan for admission, she verbalized understanding and was agreeable at this time. The chart was completed utilizing [employer] Speech voice recognition software. Grammatical errors, random word insertions, pronoun errors, and incomplete sentences are an occasional consequence of this system due to software limitations, ambient noise, and hardware issues. Any formal questions or concerns about the content, text, or information contained within the body of this dictation should be directly addressed to the nurse practitioner for clarification. Impression & Plan Diverticulitis, Hypertension, Nausea and vomiting, Acute hyperkalemia Past Med/Surg History Medical History Constipation Vitamin D deficiency Hyperkalemia (Acute) Anemia CHRONIC-- S/P TRANSFUSION 05/2018; STABLE HGB IN 9 RANGE SINCE TRANSFUSION Hypertension (Chronic) Gout GERD (gastroesophageal reflux disease) CONTROLLED Depression ESRD (end stage renal disease) DIALYSIS SUNDAY/SUNDAY/SUNDAY VIA LUE AVF Obesity Anxiety History of urinary disorder HX INTERSTITIAL CYSTITIS Pancytopenia (Chronic) CHRONIC; MULTIPLE HEMATOLOGY EVALUATIONS PER PCP WITH UNKNOWN ETIOLOGY STATING THAT HEMATOLOGY ADVISED PATIENT TO FOLLOWUP NEEDED AFTER SIGNIFICANT WORKUP UNREMARKABLE- PCP MONITORING Dialysis patient Chronic SI joint pain (Inactive) Fracture of fourth toe, right, open (Inactive) HX OF End stage chronic kidney disease Surgical History History of hysterectomy History of appendectomy History of delivery AVF (arteriovenous fistula) LUE 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= 05/31/18= GRADE 2 VIEW, MAC 3, ETT 7.0; "SMALL CUT TO TONGUE, NO BLEEDING" PER ANESTHESIA RECORDS AT [facility] Social History Preferred Language: Kittitian Communication Ability: Impaired Visual Impairment: No Limitations Hearing Ability: Normal Beliefs That Will Affect Care: None Current Living Situation: Spouse current occupational status: employed Feels Safe at Home: Yes Smoking Status: Never smoker Second Hand Exposure: No Hx Alcohol Use: No Hx Substance Use: No Results & Data Vital Signs Vital Signs - 24 hr 12/17/18 13:54 12/17/18 17:00 12/17/18 17:35 Temperature 36.8 C Temperature Source Oral Sepsis Recent Fever Within 48 Hours No Sepsis New/Unexplained Change in Mental Status No Sepsis Action Taken by Nursing No Action Required Pulse Rate 98 H Pulse Rate [Left Finger] 92 H 92 H Pulse Rhythm [Left Finger] Pulse Strength [Left Finger] Respiratory Rate 16 16 16 Respiratory Effort / Characteristics Respiratory Depth Respiratory Pattern Blood Pressure 176/96 H Blood Pressure [Left Arm] 168/92 H 217/106 H Blood Pressure [Right Arm] Blood Pressure Mean 122 Blood Pressure Mean [Left Arm] 117 143 Blood Pressure Mean [Right Arm] Blood Pressure Position [Left Arm] Sitting Blood Pressure Position [Right Arm] Pulse Oximetry 97 98 96 Oxygen Delivery Method Room Air Room Air Room Air 12/17/18 21:24 Temperature Temperature Source Sepsis Recent Fever Within 48 Hours Sepsis New/Unexplained Change in Mental Status Sepsis Action Taken by Nursing Pulse Rate Pulse Rate [Left Finger] 87 Pulse Rhythm [Left Finger] Regular Pulse Strength [Left Finger] Normal Respiratory Rate 18 Respiratory Effort / Characteristics Non-Labored Respiratory Depth Normal Respiratory Pattern Regular Blood Pressure Blood Pressure [Left Arm] Blood Pressure [Right Arm] 202/101 H Blood Pressure Mean Blood Pressure Mean [Left Arm] Blood Pressure Mean [Right Arm] 134 Blood Pressure Position [Left Arm] Blood Pressure Position [Right Arm] Lying Pulse Oximetry 96 Oxygen Delivery Method Room Air Laboratory Data Result diagrams: 12/17/18 14:51 12/17/18 14:51 Lab Results 12/17/18 12/17/18 Range/Units 14:51 14:51 WBC 2.65 L (4.8-10.8) K/uL RBC 3.29 L (4.2-5.4) M/uL Hgb 11.0 L (12.0-16.0) g/dL Hct 33.3 L (37-47) % MCV 101.2 H (80-100) fL MCH 33.4 (25-34) pg MCHC 33.0 (32-36) g/dL RDW Std Deviation 55.6 H (36.4-46.3) fL RDW Coeff of Yuliana 15.0 H (11.5-14.5) % Plt Count 58 L (130-400) K/uL MPV 9.1 (7.4-10.4) fL Immature Gran % (Auto) 0.0 % Neut % (Auto) 60.0 % Lymph % (Auto) 17.7 % [place] % (Auto) 20.4 % Eos % (Auto) 1.5 % Baso % (Auto) 0.4 % Immature Gran # (Auto) 0.00 (0.00-0.02) K/uL Neut # (Auto) 1.59 (1.4-6.5) K/uL Lymph # (Auto) 0.47 L (1.2-3.4) K/uL [place] # (Auto) 0.54 (0.11-0.59) K/uL Eos # (Auto) 0.04 (0-0.5) K/uL Baso # (Auto) 0.01 (0-0.2) K/uL Sodium 135 L (136-145) mmol/L Potassium 5.9 H (3.5-5.1) mmol/L Chloride 99 (98-107) mmol/L Carbon Dioxide 29 (21-32) mmol/L Anion Gap 8.0 (3-11) BUN 35 H (7-18) mg/dl Creatinine 7.15 H* (0.6-1.2) mg/dl Est Cr Clr Drug Dosing 7.9 ml/min Est GFR ( Amer) 6.4 Est GFR (Non-Af Amer) 5.6 BUN/Creatinine Ratio 5.0 L (10-20) Glucose 85 (70-99) mg/dl Calcium 10.9 H (8.5-10.1) mg/dl Administered Medications Ioversol (Optiray 320 100ml) 94 ml IV ONCE PRN PRN Reason: Interaction Checking Stop: 12/21/18 18:29 Last Admin: 12/17/18 18:30 Dose: 1 ml Documented by: [id number] Discontinued Medications Amlodipine Besylate (Norvasc) 5 mg PO NOW ONE Stop: 12/17/18 21:09 Last Admin: 12/17/18 21:37 Dose: 5 mg Documented by: [id number] Hydromorphone HCl (Dilaudid) 0.5 mg IV NOW STA Stop: 12/17/18 21:09 Last Admin: 12/17/18 21:37 Dose: 0.5 mg Documented by: [id number] Promethazine HCl (Phenergan) 12.5 mg in 50.5 mls @ 202 mls/hr IV NOW STA Stop: 12/17/18 17:50 Last Infusion: 12/17/18 18:02 Dose: 0 mls/hr Documented by: [id number] Admin: 12/17/18 17:47 Dose: 202 mls/hr Documented by: [id number] Piperacillin Sod/Tazobactam (Sod 2.25 gm/ Dextrose) 110 mls @ 200 mls/hr IV NOW STA Stop: 12/17/18 19:25 Last Infusion: 12/17/18 20:42 Dose: 0 mls/hr Documented by: [id number] Admin: 12/17/18 19:54 Dose: 200 mls/hr Documented by: [id number] Metoprolol Succinate (Toprol Xl) 25 mg PO NOW STA Stop: 12/17/18 21:09 Last Admin: 12/17/18 21:37 Dose: 25 mg Documented by: [id number] Morphine Sulfate (Morphine Sulfate) 4 mg IV NOW STA Stop: 12/17/18 14:33 Last Admin: 12/17/18 15:00 Dose: 4 mg Documented by: [id number] Ondansetron HCl (Zofran) 4 mg IV NOW STA Stop: 12/17/18 14:56 Last Admin: 12/17/18 15:00 Dose: 4 mg Documented by: [id number] Discharge Plan Visit Data Chief Complaint: Back Injury/Pain Stated Complaint: BACK PAIN ED Provider: Steven Romano ED Midlevel Provider: Dayana Israel Patient Disposition: Admitted As Inpatient Discharge Instructions Interventions: ED Discharge Assessment Last Done: 12/17/18 21:41 Prescriptions Prescriptions: No Action ondansetron HCl [Zofran] 4 mg tablet 4 mg PO Q6H RF: 0 bupropion HCl 150 mg Tablet Extended Release 24 Hr 150 mg PO BID RF: 0 cinacalcet [Sensipar] 30 mg Tablet 30 mg PO HS RF: 0 pantoprazole 40 mg Tablet,Delayed Release (Dr/Ec) 40 mg PO QAM Qty: 30 RF: 0 sennosides [Senokot] 8.6 mg tablet 8.6 mg PO HS Qty: 30 RF: 0 docusate sodium [Colace] 100 mg capsule 100 mg PO BID Qty: 60 RF: 0 sevelamer HCl 800 mg Tablet 800 mg PO TIDM RF: 0 amlodipine 5 mg tablet 5 mg PO DAILY Qty: 30 RF: 5 thiamine HCl (vitamin B1) 250 mg tablet 250 mg PO BID Qty: 60 RF: 0 prochlorperazine 25 mg Suppository 25 mg MT Q12H PRN (Reason: Nausea) RF: 0 oxycodone 5 mg tablet 5 mg PO BID PRN (Reason: pain) RF: 0 furosemide 40 mg Tablet 40 mg PO QAM RF: 0 calcium acetate 667 mg Tablet 2 tab PO TIDM RF: 0 allopurinol 100 mg Tablet 100 mg PO QAM RF: 0 ergocalciferol (vitamin D2) 50,000 unit Capsule 50,000 unit PO MONTHLY RF: 0 escitalopram oxalate 20 mg Tablet 20 mg PO QAM RF: 0 metoprolol succinate 25 mg Capsule,Sprinkle,Er 24hr 25 mg PO QAM RF: 0 ranitidine HCl 300 mg capsule 300 mg PO HS RF: 0
[2018-12-17] MEDS ORDERED: ONDANSETRON INJ 2 MG/ML 2 ML VIAL IV STA (14:55)
[2018-12-17 15:00] LABS: Hematocrit (blood only) 33.3 % (37-47); Mean Corpuscular Volume 101.2 fL (80-100); RDW Standard Deviation 55.6 fL (36.4-46.3); Red Blood Count 3.29 M/uL (4.2-5.4); White Blood Count 2.65 K/uL (4.8-10.8)
[2018-12-17 15:47] LABS: Calcium 10.9 mg/dl (8.5-10.1); Creatinine Clr Calc Pharmacy 7.9 ml/min; Est GFR (African American) 6.4; Est GFR (Non-African American) 5.6; Potassium 5.9 mmol/L (3.5-5.1)
[2018-12-17 15:52] LABS: Mean Platelet Volume 9.1 fL (7.4-10.4); Platelet Count 58 K/uL (130-400)
[2018-12-17 15:58] LABS: Basophils # (auto) 0.01 K/uL (0-0.2); Basophils % (auto) 0.4 %; Eosinophils # (auto) 0.04 K/uL (0-0.5); Eosinophils % (auto) 1.5 %; Lymphocytes # (auto) 0.47 K/uL (1.2-3.4); Lymphocytes % (auto) 17.7 %; Monocytes # (auto) 0.54 K/uL (0.11-0.59); Monocytes % (auto) 20.4 %; Neutrophils # (auto) 1.59 K/uL (1.4-6.5)
[2018-12-17] MEDS ORDERED: PROMETHAZINE 12.5 MG/50.5 ML BAG IV STA (17:36)
--- NOTE | 2018-12-17 17:53 | CT Scan Report ---
LUMBAR SPINE CT CT DOSE: 714.99 mGy.cm HISTORY: low back pain TECHNIQUE: Multiaxial CT images of the lumbar spine were performed and reformatted in the sagittal an d coronal plane without the use of contrast. A dose lowering technique was utilized adhering to the principles of ALARA. COMPARISON: Lumbar spine MRI 10/25/2018. Lumbar spine CT 09/18/2018. FINDINGS: No fracture or subluxation within the lumbar spine. The visualized sacrum is intact. Atroph ic kidneys are again noted. This contains multiple vascular calcifications with a cortical calcificat ion within the lower pole the left kidney. There may be a few punctate renal calculi. Inflammatory ch tyrell identified within the left lower quadrant likely associated with a diverticula. Therefore, this favors acute diverticulitis. A few scattered Schmorl's nodes within the lumbar spine. No significant central canal narrowing by CT technique. Small broad-based posterior disc bulges seen throughout the lumbar spine resulting and mild multilevel bilateral neural foraminal narrowing. This remains unchang ed. IMPRESSION: 1. No fracture or subluxation within the lumbar spine. 2. Partially visualized inflammatory change within the left lower quadrant. This likely represents ac [place] diverticulitis. Electronically signed by: Gordy Downing M.D. 12/17/2018 5:51 PM
[2018-12-17] MEDS ORDERED: IOVERSOL 100ml IV PRN (18:30)
--- NOTE | 2018-12-17 18:46 | CT Scan Report ---
CT OF THE ABDOMEN AND PELVIS WITH CONTRAST CLINICAL HISTORY: Abdominal and back pain. Evaluate for acute diverticulitis. COMPARISON STUDY: CT of the abdomen and pelvis October 01, 2018. Lumbar spine CT performed earlier tofrancesca tremaine. TECHNIQUE: Following IV administration of 94 mL of Optiray-320, axial images of the abdomen and pelvi s were obtained from the lung bases to the proximal femurs. Images were reviewed in the axial, sagitt al, and coronal planes. IV contrast was administered without complication. Automated exposure contro l was utilized for the study. A dose lowering technique was utilized adhering to the principles of A JACKIE. CT DOSE: 596.60 mGycm FINDINGS: No pneumatosis, free air or portal venous gas is present. The liver, spleen, adrenal glands and pancreas are unremarkable. There is no peripancreatic or pericholecystic infiltration. There is no biliary or pancreatic ductal dilatation. Probable pancreas divisum is present. Extensive atheroscl erotic plaque is noted. Marked bilateral renal atrophy is noted. Multiple bilateral renal calculi are noted. The largest is a 1 cm calculus within the lower pole of the right kidney. There are no ureter al calculi. There is no hydronephrosis. Note is made of colonic diverticulosis. There is wall thicken ing with mild adjacent infiltration at the junction of the descending colon and sigmoid colon. There is no abscess. No suspicious osseous lesions are noted. There is no lymphadenopathy. IMPRESSION: 1. Mild acute diverticulitis at the junction of the descending colon and sigmoid colon. No free air o r abscess. 2. Bilateral nephrolithiasis. No ureteral calculi. Marked bilateral renal atrophy. Electronically signed by: Juventino Perez M.D. 12/17/2018 6:45 PM
[2018-12-17] MEDS ORDERED: PIPERACILLIN/TAZOBACTAM 2.25 GM in DEXTROSE 5% 100 ML IV STA (18:53)
[2018-12-17] MEDS ORDERED: AMLODIPINE BESYLATE 5 MG TAB PO ONE (21:08)
[2018-12-17] MEDS ORDERED: HYDROmorphone INJ 0.5 MG/0.5 ML SYR IV STA (21:08)
[2018-12-17] MEDS ORDERED: METOPROLOL SUCC 50MG EXT REL TAB PO STA (21:08)
--- NOTE | 2018-12-17 21:13 | History & Physical Report ---
Date of Service December 17, 2018 Assessment & Plan (1) Low back pain: Patient with chronic low back pain, acute worsening over the last few days causing her to miss dialysis due to discomfort. Patient denies trauma, falls, fever/chills, no neurologic symptoms. Recently ran out of medications/Oxycodone which may be reason for acute worsening and ER visit. She has had multiple images, CTs and MRIs as well as evaluation by the Pain management team and Dr. Mayes from [facility]. Pain thought to be secondary to left sided sacroilitis in the past. She was treated with steroids and daily NSAIDS (which was cleared by Nephrology). Goal to limit narcotic use. She was previously on gabapentin, tramadol and baclofen which was discontinued during a hospital say in October as thought to be contributing to encephalopathy. -Admit to medical floor -Lidoderm patch -Tylenol PRN -Ibuprofen 400mg po TID PRN -Will hold Oxycodone for now -Dilaudid 0.5mg IV q 4 hours PRN Present on Admission?: Yes (2) Diverticulitis: Patient incidentally found to have acute diverticulitis on CT. She denies abdominal pain but has had some nausea and vomiting as well as mild LLQ tenderness on exam. No perforation, abscess or complication noted on CT. -Ciprofloxacin 400mg IV BID -Flagyl 500mg IV TID -Continue to monitor Present on Admission?: Yes (3) End stage renal disease: Patient with ESRD, receives HD q //. She missed HD on Sunday and received partial treatment today secondary to severe back pain. K=5.9, no EKG changes. Patient does not appear to be volume overloaded. She still makes urine. Concern for some TW changes on repeat EKG in the ER. Plan to repeat K and treat medically if elevated. No indication for acute HD at present. -Consult Nephrology for HD in AM - appreciate assistance with this case -Renal dosing where appropriate -Monitor electrolytes -Continue PhosLo and Renagel -Will administer Lasix 40mg IV x 1 as patient did not take home medications yet today which will assist to manage hyperkalemia K on arrival = 5.9, repeat POC K=6.2 -Will administer Calcium gluconate 1gm IV -Insulin 10u IV with 1 amp of D50 -IV lasix as above -Repeat K in AM Present on Admission?: Yes (4) Secondary hyperparathyroidism (of renal origin): Chronic -Continue Sensipar Present on Admission?: Yes (5) Hypertension: Patient with markedly elevated blood pressure at present. She did not take her PO medications today, also in considerable pain and missed HD which are all contributing to her poorly controlled BP. Patient with no symptoms co nsistent with HTN emergency -Administer PO meds now, Amlodipine and Metoprolol -Pain management as above -Closely monitor BP Present on Admission?: Yes (6) Gout: Chronic. No acute flare -Continue Allopurinol Present on Admission?: Yes (7) GERD (gastroesophageal reflux disease): Chronic. Stable -Continue Protonix -Continue Ranitidine Present on Admission?: Yes (8) Depression: Chronic. Stable -Continue Bupropion (9) Hyperkalemia: As above -Calcium gluconate, insulin with D50, IV Lasix x 1, repeat BMP in AM -HD in AM Present on Admission?: Yes (10) Pancytopenia: Longstanding history of fluctuating pancytopenia per review of Hematology/Oncology note from 04/2014. Thought to be secondary to chronic disease from her renal insufficiency. She has had several BMB in past which were unremarkable. She has been seen at [facility] as well - thought to have very low- grade underlying myelodysplasia that does not warrant treatment. Patient with no active bleeding. -Continue to monitor CBC -Should have routine followup regarding this issue as an outpatient F/E/N - [place]ock. HyperK as above, check PO4, Renal diet as tolerated, nausea control with Phenergan and Zofran PRN, Bowel regimen Ppx - low risk for DVT Code - Full Dispo - Admit to med with telemetry History of Present Illness Chief Complaint: back pain, diverticulitis, missed HD Primary Care Provider: Josep Francis MD Bettie Crowder is a 63yo C female with history of ESRD on HD q T/R/Sat pr esenting with acute on chronic low back pain. Patient reports chronic low back pain for approximately 4 months. She typically takes Oxycodone 5mg po qHS to manage this pain. She has had injections in the past and is currently scheduled to see Dr. Mayes for possible surgical management, appointment scheduled for 01/10/19. Patient's last dose of Oxycodone was yesterday around 17:00. She has had acute worsening of her pain since yesterday, aching, 10/10 in severity, slight radiation into posterior thighs, worse with movement. No weakness, no incontinence or numbness reported. She missed her HD treatment on Sunday because of her back pain and she completed only 2.5/4 hours of her treatment today. She denies fevers, chills or abdominal pain but has had nausea with 5 episodes of non-bloody/non-bilious vomiting. ER Course: Amlodipine 5mg, Dilaudid 0.5mg, Metoprolol 25mg, Morphine 4mg, Zofran 4mg, Zosyn 2.25gm, Phenergan 12.5mg Allergies Allergy/AdvReac Type Severity Reaction Status Date / Time No Known Allergies Allergy Verified 11/28/18 15:37 Home Medications Home Medications Medication Instructions Recorded Confirmed Type allopurinol 100 mg PO QAM 04/14/18 12/17/18 History calcium acetate 2 tab PO TIDM 04/14/18 12/17/18 History ergocalciferol (vitamin D2) 50,000 unit PO MONTHLY 04/14/18 12/17/18 History escitalopram oxalate 20 mg PO QAM 04/14/18 12/17/18 History furosemide 40 mg PO QAM 04/14/18 12/17/18 History metoprolol succinate 25 mg PO QAM 04/14/18 12/17/18 History bupropion HCl 150 mg PO BID 04/19/18 12/17/18 History cinacalcet [Sensipar] 30 mg PO HS 08/17/18 12/17/18 History ondansetron HCl 4 mg tablet 4 mg PO Q6H tab 09/03/18 12/17/18 History pantoprazole 40 mg PO QAM #30 tab 10/06/18 12/17/18 Rx docusate sodium [Colace] 100 mg PO BID #60 cap 10/19/18 12/17/18 Rx sennosides [Senokot] 8.6 mg PO HS #30 tab 10/19/18 12/17/18 Rx sevelamer HCl 800 mg PO TIDM 10/23/18 12/17/18 History amlodipine 5 mg PO DAILY #30 tab 10/27/18 12/17/18 Rx thiamine HCl (vitamin B1) 250 mg PO BID #60 tab 10/27/18 12/17/18 Rx oxycodone 5 mg PO BID PRN 11/28/18 12/17/18 History prochlorperazine 25 mg ND Q12H PRN 11/28/18 12/17/18 History ranitidine HCl 300 mg PO HS 12/17/18 12/17/18 History Past Med/Surg History Social History Preferred Language: Thai Communication Ability: Impaired Visual Impairment: No Limitations Hearing Ability: Normal Beliefs That Will Affect Care: None Current Living Situation: Spouse current occupational status: employed Feels Safe at Home: Yes Smoking Status: Never smoker Second Hand Exposure: No Hx Alcohol Use: No Hx Substance Use: No Review of Systems Review of Systems: All systems reviewed & are unremarkable except as noted in HPI & below Physical Exam Physical Exam: General: patient in moderate amount of pain, non-toxic in appearance, AA&O x 4 Skin: warm, dry, intact, no rashes or lesions HEENT: NC/AT, PERRL, EOMI, anicteric sclera, conjunctiva without injection, external ear normal to inspection and nontender, nares patent, moist mucus membranes, dentures in place, no oropharyngeal lesions, neck supple, trachea midline, no LAD, no thyromegaly, no JVD Heart: +S1/S2, regular, 2/6 JAVON across precordium to bilateral carotids, no r/g Lungs: equal air entry bilaterally, no rales/rhonchi/wheezes Abd: +BS, soft, ND, no masses/organomegaly/ascites, mild tenderness in LLQ with no rebound/guarding or peritoneal signs Ext: warm, 2+ pulses in UE/LE bilaterally, no clubbing/cyanosis or edema, LLUE AV fistula with palpable thrill Neuro: nonfocal, patient AA&O x 4, speech intact, no facial droop, moving all extremities on command with equal strength 5/5, negative straight leg raise Results & Data Vital Signs (Past 12 Hours) Vital Signs Temp Pulse Pulse Resp BP BP Pulse Ox 12/17/18 17:35 92 H 16 217/106 H 96 12/17/18 17:00 92 H 16 168/92 H 98 12/17/18 13:54 36.8 C 98 H 16 176/96 H 97 Laboratory Results Lab Results 12/17/18 12/17/18 Range/Units 14:51 14:51 WBC 2.65 L (4.8-10.8) K/uL RBC 3.29 L (4.2-5.4) M/uL Hgb 11.0 L (12.0-16.0) g/dL Hct 33.3 L (37-47) % MCV 101.2 H (80-100) fL MCH 33.4 (25-34) pg MCHC 33.0 (32-36) g/dL RDW Std Deviation 55.6 H (36.4-46.3) fL RDW Coeff of Yuliana 15.0 H (11.5-14.5) % Plt Count 58 L (130-400) K/uL MPV 9.1 (7.4-10.4) fL Immature Gran % (Auto) 0.0 % Neut % (Auto) 60.0 % Lymph % (Auto) 17.7 % [place] % (Auto) 20.4 % Eos % (Auto) 1.5 % Baso % (Auto) 0.4 % Immature Gran # (Auto) 0.00 (0.00-0.02) K/uL Neut # (Auto) 1.59 (1.4-6.5) K/uL Lymph # (Auto) 0.47 L (1.2-3.4) K/uL [place] # (Auto) 0.54 (0.11-0.59) K/uL Eos # (Auto) 0.04 (0-0.5) K/uL Baso # (Auto) 0.01 (0-0.2) K/uL Sodium 135 L (136-145) mmol/L Potassium 5.9 H (3.5-5.1) mmol/L Chloride 99 (98-107) mmol/L Carbon Dioxide 29 (21-32) mmol/L Anion Gap 8.0 (3-11) BUN 35 H (7-18) mg/dl Creatinine 7.15 H* (0.6-1.2) mg/dl Est Cr Clr Drug Dosing 7.9 ml/min Est GFR ( Amer) 6.4 Est GFR (Non-Af Amer) 5.6 BUN/Creatinine Ratio 5.0 L (10-20) Glucose 85 (70-99) mg/dl Calcium 10.9 H (8.5-10.1) mg/dl Diagnostic Findings CT OF THE ABDOMEN AND PELVIS WITH CONTRAST CLINICAL HISTORY: Abdominal and back pain. Evaluate for acute diverticulitis. COMPARISON STUDY: CT of the abdomen and pelvis October 01, 2018. Lumbar spine CT performed earlier today. TECHNIQUE: Following IV administration of 94 mL of Optiray-320, axial images of the abdomen and pelvis were obtained from the lung bases to the proximal femurs. Images were reviewed in the axial, sagittal, and coronal planes. IV contrast was administered without complication. Automated exposure control was utilized for the study. A dose lowering technique was utilized adhering to the principles of ALARA. CT DOSE: 596.60 mGycm FINDINGS: No pneumatosis, free air or portal venous gas is present. The liver, spleen, adrenal glands and pancreas are unremarkable. There is no peripancreatic or pericholecystic infiltration. There is no biliary or pancreatic ductal dilatation. Probable pancreas divisum is present. Extensive atherosclerotic plaque is noted. Marked bilateral renal atrophy is noted. Multiple bilateral renal calculi are noted. The largest is a 1 cm calculus within the lower pole of the right kidney. There are no ureteral calculi. There is no hydronephrosis. Note is made of colonic diverticulosis. There is wall thickening with mild adjac ent infiltration at the junction of the descending colon and sigmoid colon. There is no abscess. No suspicious osseous lesions are noted. There is no lymphadenopathy. IMPRESSION: 1. Mild acute diverticulitis at the junction of the descending colon and sigmoid colon. No free air or abscess. 2. Bilateral nephrolithiasis. No ureteral calculi. Marked bilateral renal atrophy. Electronically signed by: Juventino Perez M.D. 12/17/2018 6:45 PM Dictated: 12/17/181835 Transcribed: 12/17/181835 LUMBAR SPINE [address] CT DOSE: 714.99 mGy.cm HISTORY: low back pain TECHNIQUE: Multiaxial CT images of the lumbar spine were performed and reformatted in the sagittal and coronal plane without the use of contrast. A dose lowering technique was utilized adhering to the principles of ALARA. COMPARISON: Lumbar spine MRI 10/25/2018. Lumbar spine CT 09/18/2018. FINDINGS: No fracture or subluxation within the lumbar spine. The visualized sacrum is intact. Atrophic kidneys are again noted. This contains multiple vascular calcifications with a cortical calcification within the lower pole the left kidney. There may be a few punctate renal calculi. Inflammatory change identified within the left lower quadrant likely associated with a diverticula. Therefore, this favors acute diverticulitis. A few scattered Schmorl's nodes within the lumbar spine. No significant central canal narrowing by CT technique. Small broad-based posterior disc bulges seen throughout the lumbar spine resulting and mild multilevel bilateral neural foraminal narrowing. This remains unchanged. IMPRESSION: 1. No fracture or subluxation within the lumbar spine. 2. Partially visualized inflammatory change within the left lower quadrant. This likely represents acute diverticulitis. Electronically signed by: Gordy Downing M.D. 12/17/2018 5:51 PM Dictated: 12/17/18 1746 ECG Additional Comments: NSR at 85, left axis deviation, AS=893, MSM=383, XTe=394, unchanged from prior study Code Status & VTE Plan Code Status FULL (1) Low back pain Chronicity: chronic Back pain laterality: left Sciatica presence: unspecified whether sciatica present Qualified Code(s): M54.5 - Low back pain; G89.29 - Other chronic pain (2) Hypertension Hypertension type: unspecified Qualified Code(s): I10 - Essential (primary) hypertension (3) Gout Gout site: unspecified site Gout etiology: unspecified cause Chronicity: unspecified Qualified Code(s): M10.9 - Gout, unspecified (4) GERD (gastroesophageal reflux disease) Esophagitis presence: esophagitis presence not specified Qualified Code(s): K21.9 - Gastro-esophageal reflux disease without esophagitis
[2018-12-17 22:12] LABS: iSTAT Creatinine 8.3 mg/dl (0.6-1.3); iSTAT Hemoglobin 10.2 g/dl (12.0-16.0); iSTAT Ionized Calcium 1.28 mmol/l (1.12-1.32); iSTAT Potassium 6.2 mEq/L (3.3-5.0)
[2018-12-17] MEDS ORDERED: DEXTROSE 50% 50 ML SYRINGE IV ONE ×2 (22:35→23:00)
[2018-12-17] MEDS ORDERED: ACETAMINOPHEN 325 MG TAB PO PRN (22:35)
[2018-12-17] MEDS ORDERED: POLYETHYLENE (MIRALAX) 17 GM PACK PO PRN (22:35)
[2018-12-17] MEDS ORDERED: IBUPROFEN 200 MG TAB PO PRN (22:35)
[2018-12-17] MEDS ORDERED: NovoLIN-R INSULIN PER UNIT CHARGE IV STA (22:35)
[2018-12-17] MEDS ORDERED: PROCHLORPERAZINE 25 MG SUPP PR PRN (22:35)
[2018-12-17] MEDS ORDERED: FUROSEMIDE 40 MG/4 ML VIAL IV ONE (22:45)
[2018-12-17 23:00] LABS: Magnesium 2.7 mg/dl (1.8-2.4); Phosphorus 4.4 mg/dl (2.5-4.9)
[2018-12-17] MEDS ORDERED: INSULIN HUMAN REGULAR PER UNIT 10 UNITS in SYRINGE 9.9 ML IV ONE (23:00)
[2018-12-17] MEDS ORDERED: CALCIUM GLUCONATE 10% 1,000 MG in SODIUM CHLORIDE 0.9% 50 ML IV ONE (23:00)
[2018-12-17] MEDS: metroNIDAZOLE 500 MG/100 ML BAG IV SCH (23:07)
[2018-12-17] MEDS: CIPROFLOXACIN 400 MG/200 ML BAG IV SCH (23:21)
[2018-12-17] MEDS: THIAMINE HCL 50 MG TABLET PO SCH (23:27)
[2018-12-17] MEDS: DOCUSATE SODIUM 100 MG CAP PO SCH (23:27)
[2018-12-17] MEDS: BuPROPion XL 150 MG TABCR PO SCH (23:28)
[2018-12-17] MEDS: ONDANSETRON 4 MG TAB PO PRN (23:28)
[2018-12-17] MEDS: SENNA 8.6 MG TAB PO SCH (23:45)
[2018-12-18] MEDS: HYDROmorphone INJ 0.5 MG/0.5 ML SYR IV PRN ×3 (03:48→23:31)
[2018-12-18 06:06] LABS: Hematocrit (blood only) 31.7 % (37-47); Hemoglobin 10.3 g/dL (12.0-16.0); Mean Corpuscular Hgb Conc 32.5 g/dL (32-36); Mean Corpuscular Volume 100.6 fL (80-100); RDW Coefficient of Variation 15.2 % (11.5-14.5); RDW Standard Deviation 55.6 fL (36.4-46.3); Red Blood Count 3.15 M/uL (4.2-5.4); White Blood Count 3.15 K/uL (4.8-10.8)
[2018-12-18 06:07] LABS: Mean Platelet Volume 10.1 fL (7.4-10.4); Platelet Count 57 K/uL (130-400)
[2018-12-18] MEDS: metroNIDAZOLE 500 MG/100 ML BAG IV SCH ×3 (06:19→22:34)
[2018-12-18 06:23] LABS: BUN Creatinine Ratio 5.1 (10-20); Calcium 10.4 mg/dl (8.5-10.1); Creatinine Clr Calc Pharmacy 6.5 ml/min; Est GFR (African American) 5.2; Est GFR (Non-African American) 4.5; Potassium 6.6 mmol/L (3.5-5.1)
[2018-12-18] MEDS ORDERED: NovoLIN-R INSULIN PER UNIT CHARGE IV STA (07:07)
[2018-12-18 07:10] LABS: Basophils # (auto) 0.03 K/uL (0-0.2); Eosinophils # (auto) 0.13 K/uL (0-0.5); Eosinophils % (auto) 4.1 %; Immature Granulocytes # (auto) 0.03 K/uL (0.00-0.02); Lymphocytes # (auto) 0.91 K/uL (1.2-3.4); Lymphocytes % (auto) 28.9 %; Monocytes # (auto) 0.83 K/uL (0.11-0.59); Monocytes % (auto) 26.3 %; Neutrophils # (auto) 1.22 K/uL (1.4-6.5); Neutrophils % (auto) 38.7 %
[2018-12-18] MEDS ORDERED: CALCIUM GLUCONATE 10% 1,000 MG in SODIUM CHLORIDE 0.9% 50 ML IV STA (07:30)
[2018-12-18] MEDS ORDERED: SODIUM POLYSTYRENE SULFONATE 15G/60ML SUSP PO STA (07:31)
[2018-12-18] MEDS ORDERED: DEXTROSE 50% 50 ML SYRINGE IV ONE (07:45)
[2018-12-18] MEDS ORDERED: INSULIN HUMAN REGULAR PER UNIT 10 UNITS in SYRINGE 9.9 ML IV ONE (07:45)
[2018-12-18] MEDS ORDERED: SENSIPAR~ORDER AWAITING ACTION SCH (08:00)
[2018-12-18] MEDS: SEVELAMER HCL 800 MG TABLET PO SCH ×3 (08:25→17:14)
[2018-12-18] MEDS: CALCIUM ACETATE 667 MG CAP PO SCH ×3 (08:25→17:14)
[2018-12-18] MEDS: DOCUSATE SODIUM 100 MG CAP PO SCH ×2 (08:25→08:28)
[2018-12-18] MEDS: ONDANSETRON 4 MG TAB PO PRN (08:27)
[2018-12-18] MEDS: ALLOPURINOL 100 MG TAB PO SCH (08:27)
[2018-12-18] MEDS: BuPROPion XL 150 MG TABCR PO SCH ×2 (08:27→20:58)
[2018-12-18] MEDS: METOPROLOL SUCC 25MG EXT REL TAB PO SCH (08:28)
[2018-12-18] MEDS: THIAMINE HCL 50 MG TABLET PO SCH ×2 (08:28→20:59)
[2018-12-18] MEDS ORDERED: SODIUM CHLORIDE 0.9% 1000ML 1,000 ML IV PRN (10:04)
[2018-12-18] MEDS ORDERED: HEPARIN SOD (PORCINE) 1000 UNIT/ML 10 ML VIAL IV ONE (10:04)
[2018-12-18 10:14] LABS: BUN Creatinine Ratio 4.9 (10-20); Calcium 11.1 mg/dl (8.5-10.1); Creatinine Clr Calc Pharmacy 6.3 ml/min; Est GFR (African American) 4.9; Est GFR (Non-African American) 4.3
[2018-12-18] MEDS ORDERED: HEPARIN SOD (PORCINE) 1000 UNIT/ML 10 ML VIAL IV SCH (10:15)
--- NOTE | 2018-12-18 10:21 | Consultation ---
Date of Consultation December 18, 2018 Assessment & Plan (1) Pain of left sacroiliac joint: Patient was seen by Dr. Mayes in September as a hospital consult for similar complaints. she was deemed nonsurgical at that point time. No changes to current plan. Again no acute surgical indications. There is no significant foraminal stenosis, central stenosis or disc herniations. Majority of her pain appears to be SI joint dysfunction. Would encourage continued conservative treatment. We have also discussed follow-up with pain management this certainly can be done on an outpatient basis. Unable to use NSAID therapy due to her end-stage renal disease. Her bilateral lower extremity complaints do not appear to be radicular. Supervising Physician Co-Signing Physician Notes Dr. Apolinar Mayes History of Present Illness This is a 63-year-old female that we are asked to see in consultation in regards to lower back pain. Patient reports pain started acutely 4 months ago without specific accident, trauma, fall. She does note bilateral lower extremity pain and paresthesia but relates this to her ongoing restless leg syndrome. Pain is most significant when lying down. If she is walking and ambulatory she is most comfortable. She has been taking oxycodone at home for pain control. Denies bowel bladder dysfunction. Ambulates independently. She reports she has seen both Dr. Quintana and Dr. Griffin for pain management. Dr. Griffin performed bilateral SI joint injections about 3 or 4 weeks ago. Patient reports relief for that day only. She reports she has an office visit scheduled with Dr. Mayes at the end of the month. Attending Physician: Margaret Salinas MD Allergies Allergy/AdvReac Type Severity Reaction Status Date / Time No Known Allergies Allergy Verified 11/28/18 15:37 Home Medications Home Medications Medication Instructions Recorded Confirmed Type allopurinol 100 mg PO QAM 04/14/18 12/17/18 History calcium acetate 2 tab PO TIDM 04/14/18 12/17/18 History ergocalciferol (vitamin D2) 50,000 unit PO MONTHLY 04/14/18 12/17/18 History escitalopram oxalate 20 mg PO QAM 04/14/18 12/17/18 History furosemide 40 mg PO QAM 04/14/18 12/17/18 History metoprolol succinate 25 mg PO QAM 04/14/18 12/17/18 History bupropion HCl 150 mg PO BID 04/19/18 12/17/18 History cinacalcet [Sensipar] 30 mg PO HS 08/17/18 12/17/18 History ondansetron HCl 4 mg tablet 4 mg PO Q6H tab 09/03/18 12/17/18 History pantoprazole 40 mg PO QAM #30 tab 10/06/18 12/17/18 Rx docusate sodium [Colace] 100 mg PO BID #60 cap 10/19/18 12/17/18 Rx sennosides [Senokot] 8.6 mg PO HS #30 tab 10/19/18 12/17/18 Rx sevelamer HCl 800 mg PO TIDM 10/23/18 12/17/18 History amlodipine 5 mg PO DAILY #30 tab 10/27/18 12/17/18 Rx thiamine HCl (vitamin B1) 250 mg PO BID #60 tab 10/27/18 12/17/18 Rx oxycodone 5 mg PO BID PRN 11/28/18 12/17/18 History prochlorperazine 25 mg MT Q12H PRN 11/28/18 12/17/18 History ranitidine HCl 300 mg PO HS 12/17/18 12/17/18 History Patient History Medical History Constipation Vitamin D deficiency Hyperkalemia (Acute) Anemia CHRONIC-- S/P TRANSFUSION 05/2018; STABLE HGB IN 9 RANGE SINCE TRANSFUSION Hypertension (Chronic) Gout GERD (gastroesophageal reflux disease) CONTROLLED Depression ESRD (end stage renal disease) DIALYSIS SUNDAY/SUNDAY/SUNDAY VIA LUE AVF Obesity Anxiety History of urinary disorder HX INTERSTITIAL CYSTITIS Pancytopenia (Chronic) CHRONIC; MULTIPLE HEMATOLOGY EVALUATIONS PER PCP WITH UNKNOWN ETIOLOGY S TATING THAT HEMATOLOGY ADVISED PATIENT TO FOLLOWUP NEEDED AFTER SIGNIFICANT WORKUP UNREMARKABLE- PCP MONITORING Dialysis patient Chronic SI joint pain (Inactive) Fracture of fourth toe, right, open (Inactive) HX OF End stage chronic kidney disease Surgical History History of hysterectomy History of appendectomy History of delivery AVF (arteriovenous fistula) LUE 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= 05/31/18= GRADE 2 VIEW, MAC 3, ETT 7.0; "SMALL CUT TO TONGUE, NO BLEEDING" PER ANESTHESIA RECORDS AT [facility] Family History Mother Family history of diabetes mellitus Father Family history of diabetes mellitus Father Family history of diabetes mellitus Brother Family history of esophageal cancer Other No pertinent family history Social History Preferred Language: Indonesian Communication Ability: Effective Visual Impairment: No Limitations Hearing Ability: Normal Surgical Attendant Required: No Beliefs That Will Affect Care: None Current Living Situation: Spouse current occupational status: employed Other Information That Helps Us Care for You: No Feels Safe at Home: Yes Smoking Status: Never smoker Do You Dip or Chew Tobacco: No Second Hand Exposure: No Tobacco Cessation Education Requested by Patient: No Hx Alcohol Use: No Hx Substance Use: No Review of Systems Review of Systems: All systems reviewed & are unremarkable except as noted in HPI & below Physical Exam Physical Exam: Patient is lying in bed resting comfortably. She is alert and oriented x3. She is no obvious distress. She moves from a lying down to a seated position with ease. She has no abnormal skin markings of thoracolumbar spine. She is nontender to palpation to the midline thoracolumbar spine. She has modest tenderness over the bilateral SI joints. Strength is 5 5 bilateral EHL, dorsiflexion, plantar flexion, quadriceps, hamstrings bilaterally. Negative logrolling bilaterally. Negative tension signs but lately. Constitutional: WD/WN, vitals as above Eyes: normal visual olivas by confrontation ENMT: external ear and nose normal, oropharynx normal Neck: normal visual inspection Respiratory: normal respiratory effort Cardiovascular: Vessels: dorsalis pedis pulses present Extremities: normal capillary refill Gastrointestinal (Abdomen): Inspection/Auscultation: abdomen normal to inspection Musculoskeletal: Extremities: strength 5/5 throughout Skin: no rashes, warm and dry Neurologic: normal touch/pain/proprioception, deep tendon reflexes 2+ bilaterally and moves all extremities Psychiatric: Orientation: alert and oriented x 3 Affect: euthymic affect Results & Data Vital Signs (Past 12 Hours) Vital Signs Temp Pulse Resp BP Pulse Ox 12/18/18 07:08 37.1 C 75 18 168/86 H 96 12/18/18 03:31 37 C 79 18 169/79 H 98 12/17/18 22:35 36.8 C 87 18 178/97 H 96 Diagnostic Findings [place] [phone] Magnetic Resonance Report Patient: Jesi MEI Date: 10/01/18 MR#: [id number]: [address] Acct ID:[id number]: [facility] Zip[facility] [place] [address] Age: 62Location: 4W Sex: F Room/Bed: [facility] Att Phy: Chidi Allred M.D.Diagnosis: AMS Fernanda Phy: Josep Francis M.D.Service Date: 10/02/18 Fam Phy: Interpreting Phy: Dontae Matta MD Admit Phy: Juliette Ward DO Ordering Phy: Dayana Francis CRNP cc: ~ MR lumbar spine wo con HISTORY: Pain discitis TECHNIQUE: Multiplanar multisequence MRI of the lumbar spine was performed wi thout the use of contrast. COMPARISON: CT lumbar spine 09/18/2018 FINDINGS: For the purpose of the report the L5-S1 disc space will be located on axial image 28 of 30. Degenerative disc change throughout considered moderate. Degenerative Schmorl's nodes procedure described at L1 and L2. Atrophied kidneys. Small bilateral renal cysts. L1-L2: Minimal broad-based disc bulge L2-L3: Mild broad-based bulging disc with mild narrowing of the neuroforamina bilaterally L3-L4: No significant central canal or neural foraminal narrowing. L4-L5: No significant central canal or neural foraminal narrowing. L5-S1: No significant central canal or neural foraminal narrowing. IMPRESSION: 1. Moderate degenerative disc change throughout with several Schmorl's nodes previously described. 2. No evidence for discitis. 3. Multilevel bulging discs as discussed. The above report was generated using voice recognition software. It may contain grammatical, syntax or spelling errors. Electronically signed by: Dontae Matta M.D. 10/02/2018 10:06 PM [phone] Scan Report Patient: Jesi MEI Date: 12/17/18 MR#: [id number]: [address] Acct ID:[id number]: Date: 1955[facility] Zip: [place] [address] Age: 63Location: ED Sex: F Room/Bed: Att Phy: Diagnosis: BACK PAIN Fernanda Phy: Josep Francis MDService Date: 12/17/18 Fam Phy: Interpreting Phy: Gordy Downing MD Admit Phy: Ordering Phy: Dayana Israel CRNP cc: ~ LUMBAR SPINE CT CT DOSE: 714.99 mGy.cm HISTORY: low back pain TECHNIQUE: Multiaxial CT images of the lumbar spine were performed and reformatted in the sagittal and coronal plane without the use of contrast. A dose lowering technique was utilized adhering to the principles of ALARA. COMPARISON: Lumbar spine MRI 10/25/2018. Lumbar spine CT 09/18/2018. FINDINGS: No fracture or subluxation within the lumbar spine. The visualized sacrum is intact. Atrophic kidneys are again noted. This contains multiple vascular calcifications with a cortical calcification within the lower pole the left kidney. There may be a few punctate renal calculi. Inflammatory change identified within the left lower quadrant likely associated with a diverticula. Therefore, this favors acute diverticulitis. A few scattered Schmorl's nodes within the lumbar spine. No significant central canal narrowing by CT technique. Small broad-based posterior disc bulges seen throughout the lumbar spine resulting and mild multilevel bilateral neural foraminal narrowing. This remains unchanged. IMPRESSION: 1. No fracture or subluxation within the lumbar spine. 2. Partially visualized inflammatory change within the left lower quadrant. This likely represents acute diverticulitis. Electronically signed by: Gordy Downing M.D. 12/17/2018 5:51 PM [place], [place] [phone] Magnetic Resonance Report Patient: Jesi MEI Date: 10/23/18 MR#: [id number]: [address] Acct ID:[id number]: Date: 1955[facility] Zip: [place] [address] Age: 63Location: 2N Sex: F Room/Bed: [facility] Att Phy: Jose Manuel Stinson, MDDiagnosis: ENCEPHALOPATHY Fernanda Phy: Josep Francis MDService Date: 10/25/18 Fam Phy: Christin Bear MDInterpreting Phy: Dontae Matta MD Admit Phy: Juliette Ward, DO Ordering Phy: Jose Manuel Stinson MD cc: ~ MR brain wo con HISTORY: Mental status change persistent confusion, +babinski's b/l, eval stroke TECHNIQUE: Multiplanar multisequence MRI of the brain was performed without the use of contrast. COMPARISON STUDY: 04/27/2007 FINDINGS: Diffusion images are considered negative for an acute ischemic insult. Ventricular system is midline. Sella and parasellar region is unremarkable. Considerable increase in foci of increased signal within the periventricular deep white matter regions. This includes a diffuse increase in signal within the occipital regions at the level of the optic radiations. Appearances suggestive of a demyelinating disorder. There is no deviation of midline structures. Cerebellar hemispheres are unremarkable terms of signal. There is mild mucosal thickening of the mastoid air cells. IMPRESSION: 1. No evidence for acute intracranial ischemic insult. 2. Progressive foci of increased signal within the periventricular deep matter regions. 3. This appearance suggests a progressive demyelinating disorder such as multiple sclerosis The above report was generated using voice recognition software. It may contain grammatical, syntax or spelling errors.
--- NOTE | 2018-12-18 10:24 | Nephrology Consultation ---
Date of Consultation December 18, 2018 Assessment & Plan (1) ESRD (end stage renal disease): -- Will provide HD today to correct hyperkalemia. Orders have been entered into EMR and HD RN notified (2) Hyperkalemia: -- Dialysis today using a 2K bath -- Recheck PRP in am (3) Diverticulitis: -- On Cipro & Flagyl as per primary service (4) Low back pain: -- Await Orthopedic recommendations History of Present Illness Reason for Consultation: ESRD on HD Attending Physician: Margaret Salinas MD History of Present Illness Mrs. Crowder is a 63 year old white female who is seen at the request of Dr. Salinas to provide inpatient HD. Medical records in the EMR were reviewed today and are summarized as follows: Mrs. Crowder has ESRD due to diabetic nephropathy and hypertensive nephrosclerosis. Initially she was on NCCPD but failed therapy and developed progressive volume overload. She was transitioned to IHD and currently dialyzes at [facility] (TTS 3hr 30min F-180NR 2K 2.5Ca HCO3 35 EDW 72.5kg, Regional Wildlife Agent is Dr. Bear). Her medical history is also significant for RLS, gout, GERD, h/o R osteomyelitis s/p R 4th toe amputation, depression and thrombocytopenia since 30 years of age. Mrs. Crowder has developed recurrent low back pain. She has undergone steroid injections and has been taking Oxycodone. She is scheduled for Orthopedic Surgery evaluation later this month. Mrs. Crowder ran out of Oxycodone. Her back pain worsened and she was only able to complete 2.5 hours of dialysis yesterday. Following dialysis she presented to the ED for evaluation. Lumbar spine CT was negative for fracture or subluxation. It did reveal mild diverticulitis of the descending colon that was confirmed on dedicated abdominal CT study. Potassium was > 6 on admission. Patient was admitted for antibiotic therapy of diverticulitis, pain management and has received medical management of hyperkalemia Allergies Allergy/AdvReac Type Severity Reaction Status Date / Time No Known Allergies Allergy Verified 11/28/18 15:37 Home Medications Home Medications Medication Instructions Recorded Confirmed Type allopurinol 100 mg PO QAM 04/14/18 12/17/18 History calcium acetate 2 tab PO TIDM 04/14/18 12/17/18 History ergocalciferol (vitamin D2) 50,000 unit PO MONTHLY 04/14/18 12/17/18 History escitalopram oxalate 20 mg PO QAM 04/14/18 12/17/18 History furosemide 40 mg PO QAM 04/14/18 12/17/18 History metoprolol succinate 25 mg PO QAM 04/14/18 12/17/18 History bupropion HCl 150 mg PO BID 04/19/18 12/17/18 History cinacalcet [Sensipar] 30 mg PO HS 08/17/18 12/17/18 History ondansetron HCl 4 mg tablet 4 mg PO Q6H tab 09/03/18 12/17/18 History pantoprazole 40 mg PO QAM #30 tab 10/06/18 12/17/18 Rx docusate sodium [Colace] 100 mg PO BID #60 cap 10/19/18 12/17/18 Rx sennosides [Senokot] 8.6 mg PO HS #30 tab 10/19/18 12/17/18 Rx sevelamer HCl 800 mg PO TIDM 10/23/18 12/17/18 History amlodipine 5 mg PO DAILY #30 tab 10/27/18 12/17/18 Rx thiamine HCl (vitamin B1) 250 mg PO BID #60 tab 10/27/18 12/17/18 Rx oxycodone 5 mg PO BID PRN 11/28/18 12/17/18 History prochlorperazine 25 mg RI Q12H PRN 11/28/18 12/17/18 History ranitidine HCl 300 mg PO HS 12/17/18 12/17/18 History Patient History Medical History Constipation Vitamin D deficiency Hyperkalemia (Acute) Anemia CHRONIC-- S/P TRANSFUSION 05/2018; STABLE HGB IN 9 RANGE SINCE TRANSFUSION Hypertension (Chronic) Gout GERD (gastroesophageal reflux disease) CONTROLLED Depression ESRD (end stage renal disease) DIALYSIS SUNDAY/SUNDAY/SUNDAY VIA LUE AVF Obesity Anxiety History of urinary disorder HX INTERSTITIAL CYSTITIS Pancytopenia (Chronic) CHRONIC; MULTIPLE HEMATOLOGY EVALUATIONS PER PCP WITH UNKNOWN ETIOLOGY STATING THAT HEMATOLOGY ADVISED PATIENT TO FOLLOWUP NEEDED AFTER SIGNIFICANT WORKUP UNREMARKABLE- PCP MONITORING Dialysis patient Chronic SI joint pain (Inactive) Fracture of fourth toe, right, open (Inactive) HX OF End stage chronic kidney disease Surgical History History of hysterectomy History of appendectomy History of delivery AVF (arteriovenous fistula) LUE 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= 05/31/18= GRADE 2 VIEW, MAC 3, ETT 7.0; "SMALL CUT TO TONGUE, NO BLEEDING" PER ANESTHESIA RECORDS AT [facility] Family History Mother Family history of diabetes mellitus Father Family history of diabetes mellitus Father Family history of diabetes mellitus Brother Family history of esophageal cancer Other No pertinent family history Social History Preferred Language: Turkmen Communication Ability: Effective Visual Impairment: No Limitations Hearing Ability: Normal 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 Beliefs That Will Affect Care: None Current Living Situation: Spouse current occupational status: employed Other Information That Helps Us Care for You: No Feels Safe at Home: Yes Smoking Status: Never smoker Do You Dip or Chew Tobacco: No Second Hand Exposure: No Tobacco Cessation Education Requested by Patient: No Hx Alcohol Use: No Hx Substance Use: No Review of Systems Constitutional: no fever Respiratory: no cough and no dyspnea Cardiovascular: no chest pain, no palpitations and no edema Gastrointestinal: + vomiting; no abdominal pain and no diarrhea/loose stools Physical Exam Constitutional: + overweight; no acute distress Eyes: PERRL, conjunctivae normal, anicteric sclerae Neck: trachea midline, no thyromegaly Respiratory: normal respiratory effort, lungs clear to auscultation Cardiovascular: RRR, no murmur, no edema Extremities: + AV fistula (+ bruit) Gastrointestinal (Abdomen): normal bowel sounds, soft, nontender, no hepatosplenomegaly Results & Data Vital Signs (Past 12 Hours) Vital Signs Temp Pulse Resp BP Pulse Ox 12/18/18 07:08 37.1 C 75 18 168/86 H 96 12/18/18 03:31 37 C 79 18 169/79 H 98 12/17/18 22:35 36.8 C 87 18 178/97 H 96 Laboratory Results Laboratory Tests 12/18/18 12/18/18 05:38 05:38 WBC 3.15 L Hgb 10.3 L Hct 31.7 L Plt Count 57 L Sodium 136 Potassium 6.6 H* Chloride 102 Carbon Dioxide 25 BUN 44 H Creatinine 8.56 H* D Glucose 81 Calcium 10.4 H (1) Low back pain Chronicity: chronic Back pain laterality: left Sciatica presence: unspecified whether sciatica present Qualified Code(s): M54.5 - Low back pain; G89.29 - Other chronic pain
[2018-12-18] MEDS ORDERED: PROMETHAZINE HCL 12.5 MG in SODIUM CHLORIDE 0.9% 50 ML IV PRN (10:26)
[2018-12-18] MEDS: AMLODIPINE BESYLATE 5 MG TAB PO SCH (11:08)
[2018-12-18] MEDS: PANTOprazole 40 MG TAB PO SCH (11:08)
[2018-12-18] MEDS: FUROSEMIDE 40 MG TAB PO SCH (11:08)
[2018-12-18] MEDS: LIDOCAINE 5% 1 PATCH TD SCH (11:09)
[2018-12-18] MEDS: ESCITALOPRAM OXALATE 20 MG TAB PO SCH (11:09)
[2018-12-18] MEDS: CIPROFLOXACIN 400 MG/200 ML BAG IV SCH (14:50)
[2018-12-18] MEDS: SENNA 8.6 MG TAB PO SCH (20:57)
[2018-12-18] MEDS ORDERED: SENSIPAR 30 MG PO SCH (21:00)
[2018-12-18] MEDS ORDERED: CIPROFLOXACIN 400 MG/200 ML BAG IV SCH (23:00)
--- NOTE | 2018-12-18 23:39 | Hospitalist Progress Note ---
Date of Service December 18, 2018 Assessment & Plan (1) Low back pain: Patient with chronic low back pain, acute worsening over the last few days causing her to miss dialysis due to discomfort. Patient denies trauma, falls, fever/chills, no neurologic symptoms. Recently ran out of medications/Oxycodone which may be reason for acute worsening and ER visit. She has had multiple images, CTs and MRIs as well as evaluation by the Pain management team and Dr. Mayes from [facility] [place]. Pain thought to be secondary to left sided sacroilitis in the past. She was treated with steroids and daily NSAIDS (which was cleared by Nephrology). Goal to limit narcotic use. She was previously on gabapentin, tramadol and baclofen which was discontinued during a hospital say in October as thought to be contributing to encephalopathy. She also had a recent injection with pain management which only helped her pain for 1 day Last admission, her pain was improved with steroids Patient reports oxycodone has helped the most-perhaps her nausea vomiting was related to withdrawal from oxycodone? Appreciate orthopedic spine consultation-no surgical intervention recommended at this time -Continue Lidoderm patch -Continue Tylenol PRN -Continue ibuprofen 400mg po TID PRN -will restart oxycodone 5 mg p.o. every 6 hours as needed for severe pain and give her a supply of this to take home -Continue Dilaudid 0.5mg IV q 4 hours PRN --will consider starting steroids again if not improved by tomorrow (2) Nausea & vomiting: With multiple episodes of nausea and vomiting upon admission which is now improving today with antiemetics and receiving dialysis which she had missed due to pain Could be some element of opioid withdrawal as she recently ran out of oxycodone Doubt related to a mild acute diverticulitis -Continue Phenergan, Zofran as needed -Treating pain -Now she is tolerating a renal diet (3) Diverticulitis: Patient incidentally found to have mild acute diverticulitis on CT. She does have some mild left lower quadrant abdominal pain but reports she has been ignoring it because the pain in her lower back is taking precedence. No perforation, abscess or complication noted on CT. Reports the pain is now improved today after starting antibiotics She was vomiting and mostly n.p.o. for the day. Now restarting on renal diet and tolerating well. -Continue ciprofloxacin renally dosed -Continue Flagyl 500mg IV TID -Continue to monitor -We will switch to oral antibiotics when tolerating p.o. more reliably to finish out a 10-day course -Ideally, would have colonoscopy in 6 weeks (4) End stage renal disease: Patient with ESRD, receives HD q M//. She missed HD on Sunday and received partial treatment on the day of admission secondary to severe back pain. With hyperkalemia worsening after admission, no EKG changes. Patient does not appear to be volume overloaded. She still makes urine. She was treated with calcium gluconate, insulin and D50, and Kayexalate and potassium improved -Consult Nephrology for HD-had hemodialysis today -Renal dosing where appropriate -Monitor electrolytes -Continue PhosLo and Renagel -Follow BMP (5) Secondary hyperparathyroidism (of renal origin): Chronic -Continue Sensipar (6) Hypertension: Patient with hypertensive urgency upon admission which is now improved with restarting home meds and control of pain -Continue amlodipine and Metoprolol, Lasix -Pain management as above -Closely monitor BP (7) Gout: Chronic. No acute flare -Continue Allopurinol (8) GERD (gastroesophageal reflux disease): Chronic. Stable -Continue Protonix -Continue Ranitidine (9) Depression: Chronic. Stable -Continue Bupropion (10) Hyperkalemia: As above (11) Pancytopenia: Longstanding history of fluctuating pancytopenia per review of Hematology/Oncology note from 04/2014. Thought to be secondary to chronic disease from her renal insufficiency. She has had several BMB in past which were unremarkable. [place] [facility] [place] - thought to have very low- grade underlying myelodysplasia that does not warrant treatment. Patient with no active bleeding. -Continue to monitor CBC -Should have routine followup regarding this issue as an outpatient (12) Abnormal MRI of head: Previous admission she had a brain MRI which radiology read as possibility of demyelinating disease. She was seen by neurology at that time who thought this was more likely due to progressive severe cerebrovascular disease -Not likely to be a cause of her nausea and vomiting (13) DVT prophylaxis: Add teds and SCDs Disposition-remain on telemetry overnight, possible discharge home tomorrow with oral oxycodone if back pain is controlled, potassium levels and renal function are acceptable, and if tolerating regular diet Subjective Patient reports lower back pain is improved now with receiving IV Dilaudid. Her nausea and vomiting have improved this afternoon after receiving dialysis and antiemetics as well as pain control. She denies headache or lightheadedness, no chest pain or shortness of breath. Telemetry with normal sinus rhythm with rates in the 70s to 80s Patient reports pain in the left lower quadrant is not that bad in the she did not think to mention it prior to admission because her lower back pain was hurting so much. Review of Systems Review of Systems: All systems reviewed & are unremarkable except as noted in HPI & below Physical Exam 2 Constitutional: WD/WN, vitals as above Eyes: PERRL, conjunctivae normal, anicteric sclerae ENMT: external ear and nose normal, oropharynx normal Neck: trachea midline, no thyromegaly Respiratory: normal respiratory effort, lungs clear to auscultation Cardiovascular: RRR, no murmur, no edema Gastrointestinal (Abdomen): Inspection/Auscultation: abdomen normal to insp ection and normal bowel sounds Percussion/Palpation: + abdomen tender (Very minimal left lower quadrant without guarding or rebound tenderness) and abdomen soft Musculoskeletal: Spine: no thoracic spinal tenderness, no lumbar spinal tenderness, no paraspinal tenderness and straight leg raise negative bilaterally Extremities: extremities normal to inspection; no cyanosis and no clubbing Skin: no rashes, warm and dry Neurologic: moves all extremities and awake; no focal motor deficits (Strength 5 out of 5 throughout lower extremities) Psychiatric: A+Ox3, euthymic affect Results & Data Vital Signs (Past 12 Hours) Vital Signs Temp Pulse Pulse Resp BP BP Pulse Ox 12/18/18 19:49 36.6 C 74 18 173/89 H 98 12/18/18 17:00 79 12/18/18 15:25 36.8 C 63 18 122/72 97 12/18/18 14:41 36.8 C 76 142/76 H 12/18/18 14:20 69 129/69 12/18/18 14:00 70 154/78 H 12/18/18 13:40 65 142/77 H 12/18/18 13:20 74 142/66 H 12/18/18 13:00 69 142/73 H 12/18/18 12:40 67 140/70 12/18/18 12:20 67 143/66 H 12/18/18 12:00 71 123/59 L 12/18/18 11:59 36.8 C 76 22 148/65 H 98 12/18/18 11:40 69 145/71 H Laboratory Results 12/18/18 12/18/18 12/18/18 Range/Units 20:11 16:03 16:02 WBC (4.8-10.8) K/uL RBC (4.2-5.4) M/uL Hgb (12.0-16.0) g/dL Hct (37-47) % MCV (80-100) fL MCH (25-34) pg MCHC (32-36) g/dL RDW Std Deviation (36.4-46.3) fL RDW Coeff of Yuliana (11.5-14.5) % Plt Count (130-400) K/uL MPV (7.4-10.4) fL Immature Gran % (Auto) % Neut % (Auto) % Lymph % (Auto) % [place] % (Auto) % Eos % (Auto) % Baso % (Auto) % Immature Gran # (Auto) (0.00-0.02) K/uL Neut # (Auto) (1.4-6.5) K/uL Lymph # (Auto) (1.2-3.4) K/uL [place] # (Auto) (0.11-0.59) K/uL Eos # (Auto) (0-0.5) K/uL Baso # (Auto) (0-0.2) K/uL Sodium (136-145) mmol/L Potassium (3.5-5.1) mmol/L Chloride (98-107) mmol/L Carbon Dioxide (21-32) mmol/L Anion Gap (3-11) BUN (7-18) mg/dl Creatinine (0.6-1.2) mg/dl Est Cr Clr Drug Dosing ml/min Est GFR ( Amer) Est GFR (Non-Af Amer) BUN/Creatinine Ratio (10-20) Glucose (70-99) mg/dl POC Glucose 136 H 78 69 L* (70-99) Calcium (8.5-10.1) mg/dl Specimen Hemolysis 12/18/18 12/18/18 12/18/18 Range/Units 10:57 10:18 09:22 WBC (4.8-10.8) K/uL RBC (4.2-5.4) M/uL Hgb (12.0-16.0) g/dL Hct (37-47) % MCV (80-100) fL MCH (25-34) pg MCHC (32-36) g/dL RDW Std Deviation (36.4-46.3) fL RDW Coeff of Yuliana (11.5-14.5) % Plt Count (130-400) K/uL MPV (7.4-10.4) fL Immature Gran % (Auto) % Neut % (Auto) % Lymph % (Auto) % [place] % (Auto) % Eos % (Auto) % Baso % (Auto) % Immature Gran # (Auto) (0.00-0.02) K/uL Neut # (Auto) (1.4-6.5) K/uL Lymph # (Auto) (1.2-3.4) K/uL [place] # (Auto) (0.11-0.59) K/uL Eos # (Auto) (0-0.5) K/uL Baso # (Auto) (0-0.2) K/uL Sodium 136 (136-145) mmol/L Potassium 5.0 D (3.5-5.1) mmol/L Chloride 101 (98-107) mmol/L Carbon Dioxide 25 (21-32) mmol/L Anion Gap 11.0 (3-11) BUN 44 H (7-18) mg/dl Creatinine 8.91 H* D (0.6-1.2) mg/dl Est Cr Clr Drug Dosing 6.3 ml/min Est GFR ( Amer) 4.9 Est GFR (Non-Af Amer) 4.3 BUN/Creatinine Ratio 4.9 L (10-20) Glucose 43 L* (70-99) mg/dl POC Glucose 111 H 58 L* (70-99) Calcium 11.1 H (8.5-10.1) mg/dl Specimen Hemolysis 12/18/18 12/18/18 12/18/18 Range/Units 09:09 07:46 05:38 WBC (4.8-10.8) K/uL RBC (4.2-5.4) M/uL Hgb (12.0-16.0) g/dL Hct (37-47) % MCV (80-100) fL MCH (25-34) pg MCHC (32-36) g/dL RDW Std Deviation (36.4-46.3) fL RDW Coeff of Yuliana (11.5-14.5) % Plt Count (130-400) K/uL MPV (7.4-10.4) fL Immature Gran % (Auto) % Neut % (Auto) % Lymph % (Auto) % [place] % (Auto) % Eos % (Auto) % Baso % (Auto) % Immature Gran # (Auto) (0.00-0.02) K/uL Neut # (Auto) (1.4-6.5) K/uL Lymph # (Auto) (1.2-3.4) K/uL [place] # (Auto) (0.11-0.59) K/uL Eos # (Auto) (0-0.5) K/uL Baso # (Auto) (0-0.2) K/uL Sodium 136 (136-145) mmol/L Potassium 6.6 H* (3.5-5.1) mmol/L Chloride 102 (98-107) mmol/L Carbon Dioxide 25 (21-32) mmol/L Anion Gap 10.0 (3-11) BUN 44 H (7-18) mg/dl Creatinine 8.56 H* D (0.6-1.2) mg/dl Est Cr Clr Drug Dosing 6.5 ml/min Est GFR ( Amer) 5.2 Est GFR (Non-Af Amer) 4.5 BUN/Creatinine Ratio 5.1 L (10-20) Glucose 81 (70-99) mg/dl POC Glucose 87 71 (70-99) Calcium 10.4 H (8.5-10.1) mg/dl Specimen Hemolysis 12/18/18 Range/Units 05:38 WBC 3.15 L (4.8-10.8) K/uL RBC 3.15 L (4.2-5.4) M/uL Hgb 10.3 L (12.0-16.0) g/dL Hct 31.7 L (37-47) % MCV 100.6 H (80-100) fL MCH 32.7 (25-34) pg MCHC 32.5 (32-36) g/dL RDW Std Deviation 55.6 H (36.4-46.3) fL RDW Coeff of Yuliana 15.2 H (11.5-14.5) % Plt Count 57 L (130-400) K/uL MPV 10.1 (7.4-10.4) fL Immature Gran % (Auto) 1.0 % Neut % (Auto) 38.7 % Lymph % (Auto) 28.9 % [place] % (Auto) 26.3 % Eos % (Auto) 4.1 % Baso % (Auto) 1.0 % Immature Gran # (Auto) 0.03 H (0.00-0.02) K/uL Neut # (Auto) 1.22 L (1.4-6.5) K/uL Lymph # (Auto) 0.91 L (1.2-3.4) K/uL [place] # (Auto) 0.83 H (0.11-0.59) K/uL Eos # (Auto) 0.13 (0-0.5) K/uL Baso # (Auto) 0.03 (0-0.2) K/uL Sodium (136-145) mmol/L Potassium (3.5-5.1) mmol/L Chloride (98-107) mmol/L Carbon Dioxide (21-32) mmol/L Anion Gap (3-11) BUN (7-18) mg/dl Creatinine (0.6-1.2) mg/dl Est Cr Clr Drug Dosing ml/min Est GFR ( Amer) Est GFR (Non-Af Amer) BUN/Creatinine Ratio (10-20) Glucose (70-99) mg/dl POC Glucose (70-99) Calcium (8.5-10.1) mg/dl Specimen Hemolysis (1) Low back pain Chronicity: chronic Back pain laterality: left Sciatica presence: unspecified whether sciatica present Qualified Code(s): M54.5 - Low back pain; G89.29 - Other chronic pain (2) Hypertension Hypertension type: unspecified Qualified Code(s): I10 - Essential (primary) hypertension (3) Gout Gout site: unspecified site Gout etiology: unspecified cause Chronicity: unspecified Qualified Code(s): M10.9 - Gout, unspecified (4) GERD (gastroesophageal reflux disease) Esophagitis presence: esophagitis presence not specified Qualified Code(s): K21.9 - Gastro-esophageal reflux disease without esophagitis
[2018-12-18] MEDS ORDERED: OXYCODONE HCL IR 5 MG TAB (IMMEDIATE RELEASE) PO PRN (23:47)
[2018-12-19] MEDS: HYDROmorphone INJ 0.5 MG/0.5 ML SYR IV PRN ×2 (03:57→10:44)
[2018-12-19 06:29] LABS: Hematocrit (blood only) 30.3 % (37-47); Hemoglobin 9.8 g/dL (12.0-16.0); Mean Corpuscular Hgb Conc 32.3 g/dL (32-36); RDW Coefficient of Variation 14.8 % (11.5-14.5); RDW Standard Deviation 55.3 fL (36.4-46.3); Red Blood Count 2.97 M/uL (4.2-5.4); White Blood Count 2.02 K/uL (4.8-10.8)
[2018-12-19] MEDS: metroNIDAZOLE 500 MG/100 ML BAG IV SCH ×2 (06:42→14:22)
[2018-12-19 07:03] LABS: Mean Platelet Volume 10.3 fL (7.4-10.4); Platelet Count 50 K/uL (130-400)
[2018-12-19 07:15] LABS: BUN Creatinine Ratio 4.2 (10-20); Calcium 10.1 mg/dl (8.5-10.1); Creatinine Clr Calc Pharmacy 9.9 ml/min; Est GFR (African American) 8.4; Est GFR (Non-African American) 7.3
[2018-12-19] MEDS: CALCIUM ACETATE 667 MG CAP PO SCH ×3 (08:26→17:09)
[2018-12-19] MEDS: THIAMINE HCL 50 MG TABLET PO SCH (08:28)
[2018-12-19] MEDS: SEVELAMER HCL 800 MG TABLET PO SCH ×3 (08:29→17:08)
[2018-12-19] MEDS: ESCITALOPRAM OXALATE 20 MG TAB PO SCH (08:29)
[2018-12-19] MEDS: ALLOPURINOL 100 MG TAB PO SCH (08:29)
[2018-12-19] MEDS: PANTOprazole 40 MG TAB PO SCH (08:30)
[2018-12-19] MEDS: DOCUSATE SODIUM 100 MG CAP PO SCH (08:30)
[2018-12-19] MEDS: LIDOCAINE 5% 1 PATCH TD SCH (08:31)
[2018-12-19] MEDS: BuPROPion XL 150 MG TABCR PO SCH (08:31)
[2018-12-19] MEDS: FUROSEMIDE 40 MG TAB PO SCH (09:33)
[2018-12-19] MEDS: AMLODIPINE BESYLATE 5 MG TAB PO SCH (09:33)
[2018-12-19] MEDS: METOPROLOL SUCC 25MG EXT REL TAB PO SCH (09:34)
[2018-12-19] MEDS ORDERED: SODIUM CHLORIDE 0.9% 1000ML 1,000 ML IV PRN (09:39)
[2018-12-19] MEDS ORDERED: EPOETIN ALFA 10,000 UNITS/ML VIAL IV ONE (09:39)
[2018-12-19] MEDS ORDERED: HEPARIN SOD (PORCINE) 1000 UNIT/ML 10 ML VIAL IV ONE (09:39)
--- NOTE | 2018-12-19 09:46 | Nephrology Progress Note ---
Date of Service December 19, 2018 Assessment & Plan (1) ESRD (end stage renal disease): -- Patient wishes to resume TTS dialysis schedule in anticipation of returning home soon -- Will provide 2 hours HD this am. Orders entered into EMR and HD RN notified -- If patient is discharged to home she will need to resume her regular TTS dialysis schedule at [facility] (2) Hyperkalemia: -- Dialysis today using a 2K 2Ca bath (3) Diverticulitis: -- On Cipro & Flagyl as per primary service (4) Low back pain: -- Orthopedic evaluation reviewed: Pain is SI joint dysfunction. Conservative management recommended Subjective Mrs. Crowder was seen & examined in her hospital room this morning. She reports that her nausea has resolved and her abdominal pain is improved. Review of Systems Constitutional: no fever Respiratory: no dyspnea Cardiovascular: no chest pain Gastrointestinal: + diarrhea/loose stools; no abdominal pain and no vomiting Physical Exam Constitutional: + overweight; no acute distress Eyes: PERRL, conjunctivae normal, anicteric sclerae Neck: trachea midline, no thyromegaly Respiratory: normal respiratory effort, lungs clear to auscultation Cardiovascular: RRR, no murmur, no edema Extremities: + AV fistula (+ bruit) Gastrointestinal (Abdomen): normal bowel sounds, soft, nontender, no hepatosplenomegaly Results & Data Vital Signs (Past 12 Hours) Vital Signs Temp Pulse Pulse Pulse Resp BP Pulse Ox 12/19/18 07:20 36.7 C 70 16 172/78 H 96 12/19/18 07:00 69 12/19/18 04:15 179/80 H 12/19/18 03:55 37 C 80 18 193/83 H 96 12/19/18 00:00 70 12/18/18 23:00 37.2 C 67 20 160/71 H 97 Laboratory Tests 12/19/18 12/19/18 06:09 06:09 WBC 2.02 L Hgb 9.8 L Hct 30.3 L Plt Count 50 L Sodium 138 Potassium 5.0 Chloride 101 Carbon Dioxide 32 BUN 24 H Creatinine 5.73 H* D Glucose 92 (1) Low back pain Chronicity: chronic Back pain laterality: left Sciatica presence: unspecified whether sciatica present Qualified Code(s): M54.5 - Low back pain; G89.29 - Other chronic pain
--- NOTE | 2018-12-19 17:17 | Discharge Summary ---
Date of Service December 19, 2018 Admission HPI Per Admitting Provider Bettie Crowder is a 63yo C female with history of ESRD on HD q T/R/Sat presenting with acute on chronic low back pain. Patient reports chronic low back pain for approximately 4 months. She typically takes Oxycodone 5mg po qHS to manage this pain. She has had injections in the past and is currently scheduled to see Dr. Mayes for possible surgical management, appointment scheduled for 01/10/19. Patient's last dose of Oxycodone was yesterday around 17:00. She has had acute worsening of her pain since yesterday, aching, 10/10 in severity, slight radiation into posterior thighs, worse with movement. No weakness, no incontinence or numbness reported. She missed her HD treatment on Sunday because of her back pain and she completed only 2.5/4 hours of her treatment today. She denies fevers, chills or abdominal pain but has had nausea with 5 episodes of non-bloody/non-bilious vomiting. ER Course: Amlodipine 5mg, Dilaudid 0.5mg, Metoprolol 25mg, Morphine 4mg, Zofran 4mg, Zosyn 2.25gm, Phenergan 12.5mg Principal Diagnosis Intractable lower back pain Nausea/vomiting Discharge Exam Constitutional WD/WN, vitals as above Eyes PERRL, conjunctivae normal, anicteric sclerae ENMT external ear and nose normal, oropharynx normal Neck trachea midline, no thyromegaly Respiratory normal respiratory effort, lungs clear to auscultation Cardiovascular RRR, no murmur, no edema Gastrointestinal (Abdomen) normal bowel sounds, soft, nontender, no hepatosplenomegaly Musculoskeletal Spine: no thoracic spinal tenderness, no lumbar spinal tenderness, no paraspinal tenderness and straight leg raise negative bilaterally Extremities: extremities normal to inspection; no cyanosis and no clubbing Skin no rashes, warm and dry Neurologic moves all extremities and awake; no focal motor deficits (Strength 5 out of 5 throughout lower extremities) Psychiatric A+Ox3, euthymic affect Discharge Data Allergies Allergy/AdvReac Type Severity Reaction Status Date / Time No Known Allergies Allergy Verified 11/28/18 15:37 Consultations 12/17/18 19:19 ED Decision to Admit Stat 12/17/18 22:35 Consult Nephrology Routine 12/18/18 09:23 Consult Orthopedic Surgery Routine Ordered Studies 12/17/18 17:21 CT lumbar spine wo con Stat 12/17/18 17:59 CT abd pelvis IV con only Stat Hospital Course (1) Low back pain: Patient with chronic low back pain, acute worsening over the last few days causing her to miss dialysis due to discomfort. Patient denies trauma, falls, fever/chills, no neurologic symptoms. Recently ran out of medications/Oxycodone which may be reason for acute worsening and ER visit. She has had multiple images, CTs and MRIs as well as evaluation by the Pain management team and Dr. Mayes from [facility] spine. Pain thought to be secondary to left sided sacroilitis in the past. She was treated with steroids and daily NSAIDS (which was cleared by Nephrology). Goal to limit narcotic use. She was previously on gabapentin, tramadol and baclofen which was discontinued during a hospital say in October as thought to be contributing to encephalopathy. She also had a recent injection with pain management which only helped her pain for 1 day Last admission, her pain was improved with steroids Patient reports oxycodone has helped the most-perhaps her nausea vomiting was related to withdrawal from oxycodone? Appreciate orthopedic spine consultation-no surgical intervention recommended at this time Pain was much improved at the time of discharge -Follow up with Pain Management as outpt -Continue Lidoderm patch -Continue Tylenol PRN -Continue ibuprofen 400mg po TID PRN - restarted oxycodone 5 mg p.o. every 6 hours as needed for severe pain and give her a small supply of this to take home (2) Nausea & vomiting: With multiple episodes of nausea and vomiting upon admission which is now improving today with antiemetics and receiving dialysis which she had missed due to pain Could be some element of opioid withdrawal as she recently ran out of oxycodone, although was not on large doses of opioids Doubt related to a mild acute diverticulitis Received antiemetics and was tolerating regular diet at time of discharge -Treated pain (3) Diverticulitis: Patient incidentally found to have mild acute diverticulitis on CT. She does have some mild left lower quadrant abdominal pain but reports she has been ignoring it because the pain in her lower back is taking precedence. No perforation, abscess or complication noted on CT. Reports the pain is now resolved today after starting antibiotics Tolerating diet prior to dc -Continue ciprofloxacin renally dosed at 500mg po once daily to finish out 10 day course -Continue Flagyl 500mg po TID to finish out 10 day course -Ideally, would have colonoscopy in 6 weeks (4) End stage renal disease: Patient with ESRD, receives HD q M//. She missed HD on Sunday and received partial treatment on the day of admission secondary to severe back pain. With hyperkalemia worsening after admission, no EKG changes. Patient does not appear to be volume overloaded. She still makes urine. She was treated with calcium gluconate, insulin and D50, and Kayexalate and potassium improved -Consult Nephrology for HD-had hemodialysis twice while admitted -Renal dosing where appropriate -Monitor electrolytes -Continue PhosLo and Renagel -Follow BMP (5) Secondary hyperparathyroidism (of renal origin): Chronic -Continue Sensipar (6) Hypertension: Patient with hypertensive urgency upon admission which is now improved with restarting home meds and control of pain -Continue amlodipine and Metoprolol, Lasix -Pain management as above -Closely monitor BP (7) Gout: Chronic. No acute flare -Continue Allopurinol (8) GERD (gastroesophageal reflux disease): Chronic. Stable -Continue Protonix -Continue Ranitidine (9) Depression: Chronic. Stable -Continue Bupropion (10) Hyperkalemia: As above (11) Pancytopenia: Longstanding history of fluctuating pancytopenia per review of Hematology/Oncology note from 04/2014. Thought to be secondary to chronic disease from her renal insufficiency. She has had several BMB in past which were unremarkable. She has been seen at [facility] as well - thought to have very low- grade underlying myelodysplasia that does not warrant treatment. Patient with no active bleeding. -Continue to monitor CBC -Should have routine followup regarding this issue as an outpatient (12) Abnormal MRI of head: Previous admission she had a brain MRI which radiology read as possibility of demyelinating disease. She was seen by neurology at that time who thought this was more likely due to progressive severe cerebrovascular disease -Not likely to be a cause of her nausea and vomiting (13) DVT prophylaxis: teds and SCDs were provided Disposition-stable for dc to home Total Time Total Time Spent Total Time Spent (In Minutes): >30 min Total Time Includes: Examination of the Patient, Discharge Planning and Medication Reconciliation Discharge Plan Discharge Items Patient Disposition: Home - Self-Care Reason For Visit: BACK PAIN Discharge Diagnosis: Intractable back pain, hyperkalemia, Acute diverticulitis Condition: Good Discharge Goals: Decrease discomfort, Learn about illness and Therapeutic intervention Activity: Resume your previous activity Lifting: None Bathing: No limitations Exercise/Sports: As tolerated Non-emergency contact: Primary Care Provider, Specialist and Habilitative Interventionist Call non-emergency contact if: you have any medication questions, your symptoms worsen, your pain is not controlled, your pain is worsening, your pain is unusual for you, your pain is concerning for you, you have a fever and your temperature is above 101 Follow-up/Referrals: Josep Francis MD [Primary Care Provider] - (Please call for a follow up appointment within 1-2 weeks) Eric Mills DO [Physician] - (Please call Dr. Mills's office to schedule a colonoscopy in about 6 weeks due to having diverticulitis.) Diet: Dialysis Renal Addtl Provider Instructions: Please finish out a course of antibiotics called James and Aldo for your diverticulitis. You will need to have a colonoscopy in 6 weeks to take a look at that portion of your colon to make sure that area of the bowel has returned to normal. Please take the oxycodone as needed for back pain and follow up with Pain Management. You can also look into seeing a chiropractor or having acupuncture for your back pain. Please continue with your usual dialysis on Sunday. Follow up with your PCP within 1-2 weeks. Prescriptions: New acetaminophen [Mapap (acetaminophen)] 325 mg Tablet 650 mg PO Q4H PRN (Reason: pain) Qty: 30 RF: 0 ciprofloxacin HCl [Cipro] 500 mg tablet 500 mg PO DAILY Qty: 8 RF: 0 metronidazole 500 mg tablet 500 mg PO Q8H Qty: 24 RF: 0 Continued ondansetron HCl [Zofran] 4 mg tablet 4 mg PO Q6H RF: 0 bupropion HCl 150 mg Tablet Extended Release 24 Hr 150 mg PO BID RF: 0 cinacalcet [Sensipar] 30 mg Tablet 30 mg PO HS RF: 0 pantoprazole 40 mg Tablet,Delayed Release (Dr/Ec) 40 mg PO QAM Qty: 30 RF: 0 sennosides [Senokot] 8.6 mg tablet 8.6 mg PO HS Qty: 30 RF: 0 docusate sodium [Colace] 100 mg capsule 100 mg PO BID Qty: 60 RF: 0 sevelamer HCl 800 mg Tablet 800 mg PO TIDM RF: 0 amlodipine 5 mg tablet 5 mg PO DAILY Qty: 30 RF: 5 thiamine HCl (vitamin B1) 250 mg tablet 250 mg PO BID Qty: 60 RF: 0 prochlorperazine 25 mg Suppository 25 mg [place] Q12H PRN (Reason: Nausea) RF: 0 furosemide 40 mg Tablet 40 mg PO QAM RF: 0 calcium acetate 667 mg Tablet 2 tab PO TIDM RF: 0 allopurinol 100 mg Tablet 100 mg PO QAM RF: 0 ergocalciferol (vitamin D2) 50,000 unit Capsule 50,000 unit PO MONTHLY RF: 0 escitalopram oxalate 20 mg Tablet 20 mg PO QAM RF: 0 metoprolol succinate 25 mg Capsule,Sprinkle,Er 24hr 25 mg PO QAM RF: 0 ranitidine HCl 300 mg capsule 300 mg PO HS RF: 0 Changed oxycodone 5 mg tablet 5 mg PO Q6H PRN (Reason: pain) Qty: 20 RF: 0 Stand-Alone Forms: [facility] Discharge Orders: Discharge Order (Routine); Ordered 12/19/18 Ordered By: Margaret Salinas Admission Data Admit Date/Time: 12/17/18 21:23 Attending Provider: Margaret Salinas Admit Provider: Michelle Porter Primary Care Provider: Josep Francis Other Providers: Apolinar Mayes ; Noble Gomez. Service: Medical Other Interventions: Discharge Summary Assessment (RN) Last Done: 12/19/18 17:28 Pending Studies at Discharge: No DC Date/Time DO NOT enter until pt leaves facility: 12/19/18 17:44
== END 2018-12-19 17:44 | disposition home or self-care (01) | DRG 551 ==
LOC: ED 13:50 → SUATTDRO 21:23 → 2N 21:23
DX: E21.3 Hyperparathyroidism, unspecified; R11.2 Nausea with vomiting, unspecified; M10.9 Gout, unspecified; K21.9 Gastro-esophageal reflux disease without esophagitis; M54.5 Low back pain; D61.818 Other pancytopenia; N18.6 End stage renal disease; F32.9 Major depressive disorder, single episode, unspecified; K57.92 Diverticulitis of intestine, part unspecified, without perforation or abscess without bleeding

== ENCOUNTER 2019-01-15 22:23 | Inpatient (IN) ==
[2019-01-15 23:14] LABS: Hematocrit (blood only) 35.5 % (37-47); Hemoglobin 11.6 g/dL (12.0-16.0); Mean Corpuscular Hgb Conc 32.7 g/dL (32-36); Mean Corpuscular Volume 104.4 fL (80-100); RDW Coefficient of Variation 16.6 % (11.5-14.5); RDW Standard Deviation 63.3 fL (36.4-46.3); White Blood Count 4.36 K/uL (4.8-10.8)
[2019-01-15 23:25] LABS: Partial Thromboplastin Ratio 0.9; Partial Thromboplastin Time 24.2 Seconds (21.0-31.0); Prothrombin Time 10.5 Seconds (9.0-12.0)
[2019-01-15 23:36] LABS: Mean Platelet Volume 9.3 fL (7.4-10.4); Platelet Count 95 K/uL (130-400)
[2019-01-15 23:39] LABS: Albumin Globulin Ratio 0.8 (0.9-2); Albumin Level 3.4 gm/dl (3.4-5.0); BUN Creatinine Ratio 6.4 (10-20); Bilirubin,Total 0.4 mg/dl (0.2-1); Calcium 10.2 mg/dl (8.5-10.1); Est GFR (African American) 7.3; Est GFR (Non-African American) 6.3; Globulin 4.3 gm/dl (2.5-4.0); Potassium 4.9 mmol/L (3.5-5.1); Total Protein 7.7 gm/dl (6.4-8.2); Troponin I 0.049 ng/ml (0-0.045)
[2019-01-15] MEDS ORDERED: HYDROmorphone INJ 0.5 MG/0.5 ML SYR IV STA (23:46)
[2019-01-15] MEDS ORDERED: ONDANSETRON INJ 2 MG/ML 2 ML VIAL IV STA (23:46)
[2019-01-16] MEDS ORDERED: HYDROmorphone INJ 1 MG/ML SYRINGE IV STA (00:31)
[2019-01-16 01:21] LABS: Basophils # (auto) 0.04 K/uL (0-0.2); Basophils % (auto) 0.9 %; Eosinophils # (auto) 0.41 K/uL (0-0.5); Eosinophils % (auto) 9.4 %; Immature Granulocytes # (auto) 0.02 K/uL (0.00-0.02); Immature Granulocytes % (auto) 0.5 %; Lymphocytes # (auto) 2.17 K/uL (1.2-3.4); Lymphocytes % (auto) 49.8 %; Monocytes # (auto) 0.73 K/uL (0.11-0.59); Monocytes % (auto) 16.7 %; Neutrophils # (auto) 0.99 K/uL (1.4-6.5); Neutrophils % (auto) 22.7 %
[2019-01-16] MEDS ORDERED: ONDANSETRON INJ 2 MG/ML 2 ML VIAL IV STA (01:47)
--- NOTE | 2019-01-16 02:32 | History & Physical Report ---
Date of Service January 16, 2019 Assessment & Plan (1) Chest pain: Patient with acute onset left sided chest pain that occurred during HD. Mildly elevated troponin in setting of ESRD/HD, TWI present in inferior leads on EKG. Patient presently CP free. HD stable. States she has had worsening LOPEZ over the last few weeks. Admits to poor compliance with home medications. -Observation to PCU -Trend troponin -EKG in AM -Echo in AM -Cardiology consultation - appreciate assistance Present on Admission?: Yes (2) End stage renal disease: s/p HD today. Electrolytes and metabolic profile favorable -Renal diet -Avoid nephrotoxins -Continue Renagel, Sensipar -Will need Nephro consult for HD Sunday if patient is still in the hospital (3) Secondary hyperparathyroidism (of renal origin): Chronic -Continue Sensipar Present on Admission?: Yes (4) Anemia: No active bleeding -Continue to monitor Present on Admission?: Yes (5) Hypertension: Blood pressure elevated at present. Patient reports frequently missing her medications -Continue Amlodipine -Continue Lasix -Continue Metoprolol -Continue to monitor Present on Admission?: Yes (6) Gout: Chronic. Stable -Continue Allopurinol, renal dosing (7) GERD (gastroesophageal reflux disease): Chronic, stable -Continue Omeprazole and Ranitidine Present on Admission?: Yes (8) Depression: Chronic. Stable -Continue Bupropion -Continue Escitalopram (9) Low back pain: Continue home pain medications -Oxycodone -Tylenol -Lidoderm patch F/E/N - Heplock. Monitor electrolytes, K=4.9 at present, Renal diet as tolerated, Zofran/Phenergan PRN nausea, continue Thiamine supplement Ppx -Heparin for DVT ppx Code - Full Dispo - Observation to PCU for CP History of Present Illness Chief Complaint: chest pain Primary Care Provider: Josep Francis MD Bettie Crowder is a 63yo C female with history of ESRD on HD q T/R/S, anemia, HTN, GERD and Gout presenting with substernal chest pain. Patient was getting HD today (she missed Sunday therefore was dialyzed today) when she developed sharp left sided chest pain, 9/10 in severity, associated with shortness of breath. Pain intermittent, lasting a few seconds. Denies dizziness, lo phoresis. She returned home after HD and became more short of breath with recurrence of the chest pain. Patient with no history of CAD, no prior stent, no CHF. She had a stress test in 2006 which was negative. Overall she denies exertional chest pain but reports dyspnea with exertion that has worsened over the last few weeks. She also complains of chronic, severe back pain and intermittent stabbing abdominal pain. No distention, no nausea/vomiting/diarrhea/constipation or fevers. ER Course: Dilaudid, Zofran Allergies Allergy/AdvReac Type Severity Reaction Status Date / Time No Known Allergies Allergy Verified 01/16/19 02:00 Home Medications Home Medications Medication Instructions Recorded Confirmed Type allopurinol 100 mg PO QAM 04/14/18 01/16/19 History ergocalciferol (vitamin D2) 50,000 unit PO MONTHLY 04/14/18 01/16/19 History escitalopram oxalate 20 mg PO QAM 04/14/18 01/16/19 History furosemide 40 mg PO QAM 04/14/18 01/16/19 History metoprolol succinate 25 mg PO QAM 04/14/18 01/16/19 History bupropion HCl 150 mg PO BID 04/19/18 01/16/19 History cinacalcet [Sensipar] 30 mg PO HS 08/17/18 01/16/19 History ondansetron HCl 4 mg tablet 4 mg PO Q6H PRN tab 09/03/18 01/16/19 History sevelamer HCl 1,600 mg PO TIDM 10/23/18 01/16/19 History amlodipine 5 mg PO DAILY #30 tab 10/27/18 01/16/19 Rx thiamine HCl (vitamin B1) 250 mg PO BID #60 tab 10/27/18 01/16/19 Rx prochlorperazine 25 mg [place] Q12H PRN 11/28/18 01/16/19 History ranitidine HCl 300 mg PO HS 12/17/18 01/16/19 History acetaminophen 500 mg PO DIRECTED PRN 12/29/18 01/16/19 History omeprazole 40 mg PO DAILY 12/29/18 01/16/19 History lidocaine 5 % topical patch 1 patch TOPICAL DAILY #30 ea 12/31/18 01/16/19 Rx oxycodone 5 mg tablet 5 mg PO Q6H PRN #30 tab 12/31/18 01/16/19 Rx Past Med/Surg History Medical History Pain of left sacroiliac joint (Chronic) Low back pain (Chronic) Diverticulitis (Resolved) HX End stage renal disease (Chronic) Secondary hyperparathyroidism (of renal origin) (Chronic) Interstitial cystitis (Chronic) Diverticular disease (Chronic) hx Vitamin D deficiency (Chronic) Anemia (Chronic) CHRONIC-- S/P TRANSFUSION 05/2018; STABLE HGB IN 9 RANGE SINCE TRANSFUSION Hypertension (Chronic) Gout (Chronic) GERD (gastroesophageal reflux disease) (Chronic) CONTROLLED Depression (Chronic) ESRD (end stage renal disease) (Chronic) DIALYSIS SUNDAY/SUNDAY/SUNDAY VIA LUE AVF Obesity (Chronic) Anxiety (Chronic) Pancytopenia (Chronic) CHRONIC; MULTIPLE HEMATOLOGY EVALUATIONS PER PCP WITH UNKNOWN ETIOLOGY STATING THAT HEMATOLOGY ADVISED PATIENT TO FOLLOWUP NEEDED AFTER SIGNIFICANT WORKUP UNREMARKABLE- PCP MONITORING Dialysis patient (Chronic) CKD (chronic kidney disease) requiring chronic dialysis (Inactive) Chronic SI joint pain (Inactive) Fracture of fourth toe, right, open (Inactive) HX OF End stage chronic kidney disease Surgical History History of hysterectomy (Resolved) History of appendectomy (Resolved) History of delivery (Resolved) AVF (arteriovenous fistula) (Chronic) LUE Status post amputation of toe (Resolved) RIGHT 4TH TOE 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= 05/31/18= GRADE 2 VIEW, MAC 3, ETT 7.0; "SMALL CUT TO TONGUE, NO BLEEDING" PER ANESTHESIA RECORDS AT [facility] Family History Mother Family history of diabetes mellitus Father Family history of diabetes mellitus Father Family history of diabetes mellitus Brother Family history of esophageal cancer Other No pertinent family history Social History Preferred Language: Italian Communication Ability: Effective Visual Impairment: No Limitations Hearing Ability: Normal Beliefs That Will Affect Care: None Current Living Situation: Spouse current occupational status: employed Feels Safe at Home: Yes Smoking Status: Former smoker Second Hand Exposure: No Hx Alcohol Use: No Hx Substance Use: No Review of Systems Review of Systems: All systems reviewed & are unremarkable except as noted in HPI & below +Back pain +Abdominal pain Physical Exam Physical Exam: General: patient resting comfortably, NAD, non-toxic in appearance, AA&O x 4 Skin: warm, dry, intact, no rashes or lesions HEENT: NC/AT, PERRL, EOMI, anicteric sclera, conjunctiva without injection, external ear normal to inspection and nontender, nares patent, moist mucus membranes, dentition intact, no oropharyngeal lesions, neck supple, trachea midline, no LAD, no thyromegaly, no JVD Heart: +S1/S2, regular, no m/r/g, no reproducible chest wall tenderness, no epigastric pain Lungs: equal air entry bilaterally, no rales/rhonchi/wheezes Abd: +BS, soft, NT/ND, no masses/organomegaly/ascites Ext: warm, 2+ pulses in UE/LE bilaterally, no clubbing/cyanosis or edema, AV fistula in LUE with palpable thrill Neuro: nonfocal, patient AA&O x 4, speech intact, no facial droop, moving all extremities on command with equal strength 5/5 Results & Data Vital Signs (Past 12 Hours) Vital Signs Temp Pulse Pulse Resp BP BP Pulse Ox 01/16/19 01:08 77 18 178/99 H 96 01/16/19 00:16 81 17 195/102 H 99 01/16/19 00:15 81 21 99 01/16/19 00:11 79 21 207/102 H 99 01/16/19 00:10 82 82 19 206/101 H 206/101 H 99 01/15/19 22:27 36.8 C 92 H 16 190/94 H 99 Laboratory Results Lab Results 01/15/19 01/15/19 01/15/19 Range/Units 22:56 22:56 22:56 WBC 4.36 L (4.8-10.8) K/uL RBC 3.40 L (4.2-5.4) M/uL Hgb 11.6 L (12.0-16.0) g/dL Hct 35.5 L (37-47) % MCV 104.4 H (80-100) fL MCH 34.1 H (25-34) pg MCHC 32.7 (32-36) g/dL RDW Std Deviation 63.3 H (36.4-46.3) fL RDW Coeff of Yuliana 16.6 H (11.5-14.5) % Plt Count 95 L (130-400) K/uL MPV 9.3 (7.4-10.4) fL Immature Gran % (Auto) 0.5 % Neut % (Auto) 22.7 % Lymph % (Auto) 49.8 % Obion % (Auto) 16.7 % Eos % (Auto) 9.4 % Baso % (Auto) 0.9 % Immature Gran # (Auto) 0.02 (0.00-0.02) K/uL Neut # (Auto) 0.99 L* (1.4-6.5) K/uL Lymph # (Auto) 2.17 (1.2-3.4) K/uL Obion # (Auto) 0.73 H (0.11-0.59) K/uL Eos # (Auto) 0.41 (0-0.5) K/uL Baso # (Auto) 0.04 (0-0.2) K/uL PT 10.5 (9.0-12.0) Seconds INR 1.0 (0.9-1.1) APTT 24.2 (21.0-31.0) Seconds PTT Ratio 0.9 Sodium 139 (136-145) mmol/L Potassium 4.9 (3.5-5.1) mmol/L Chloride 101 (98-107) mmol/L Carbon Dioxide 27 (21-32) mmol/L Anion Gap 11.0 (3-11) BUN 42 H (7-18) mg/dl Creatinine 6.46 H* (0.6-1.2) mg/dl Est Cr Clr Drug Dosing 9.0 ml/min Est GFR ( Amer) 7.3 Est GFR (Non-Af Amer) 6.3 BUN/Creatinine Ratio 6.4 L (10-20) Glucose 95 (70-99) mg/dl Calcium 10.2 H (8.5-10.1) mg/dl Total Bilirubin 0.4 (0.2-1) mg/dl AST 24 (15-37) U/L ALT 21 (12-78) U/L Alkaline Phosphatase 88 (45-117) U/L Troponin I 0.049 H* (0-0.045) ng/ml Total Protein 7.7 (6.4-8.2) gm/dl Albumin 3.4 (3.4-5.0) gm/dl Globulin 4.3 H (2.5-4.0) gm/dl Albumin/Globulin Ratio 0.8 L (0.9-2) Specimen Hemolysis ECG Additional Comments: The study shows NSR at 84bpm, left axis deviation, JH=873, CVX=640, PKg=278, TWI present in II, aVF Code Status & VTE Plan Code Status Full Code VTE Prophylaxis Plan VTE Prophylaxis will be ordered: Yes PG Care Time/CCT Total # of Minutes Spent Total Time Spent with Patient: Total time spent is greater than 50% in coordination of care (as documented) at patient's floor/unit and/or counseling patient: (1) Hypertension Hypertension type: unspecified Qualified Code(s): I10 - Essential (primary) hypertension (2) Gout Gout site: unspecified site Gout etiology: unspecified cause Chronicity: unspecified Qualified Code(s): M10.9 - Gout, unspecified (3) GERD (gastroesophageal reflux disease) Esophagitis presence: esophagitis presence not specified Qualified Code(s): K21.9 - Gastro-esophageal reflux disease without esophagitis (4) Chest pain Chest pain type: unspecified Qualified Code(s): R07.9 - Chest pain, unspecified (5) Low back pain Chronicity: chronic Back pain laterality: left Sciatica presence: unspecified whether sciatica present Qualified Code(s): M54.5 - Low back pain; G89.29 - Other chronic pain
[2019-01-16] MEDS ORDERED: NITROGLYCERIN SL 0.4 MG/TAB TAB SL PRN (03:19)
[2019-01-16] MEDS ORDERED: ACETAMINOPHEN 500 MG TAB PO PRN (03:19)
[2019-01-16] MEDS ORDERED: PROCHLORPERAZINE 25 MG SUPP PR PRN (03:19)
[2019-01-16] MEDS: OXYCODONE HCL IR 5 MG TAB (IMMEDIATE RELEASE) PO PRN ×4 (03:47→21:48)
[2019-01-16 04:03] LABS: Magnesium 2.7 mg/dl (1.8-2.4); Phosphorus 6.3 mg/dl (2.5-4.9)
[2019-01-16] MEDS: SENSIPAR~ORDER AWAITING ACTION SCH ×2 (04:03→09:37)
[2019-01-16] MEDS: PROCHLORPERAZINE 10 MG in SYRINGE 8 ML IV PRN ×2 (04:03→16:08)
[2019-01-16] MEDS: HEPARIN SOD 5,000 UNIT/0.5 ML VIAL SQ SCH ×3 (05:58→20:52)
--- NOTE | 2019-01-16 07:49 | Emergency Department Note ---
Entered by Sindy Lazcano acting as a scribe for History of Present Illness General Chief complaint: Shortness of Breath/Dyspnea Stated complaint: BACK PAIN, SOB, THROWING UP Time Seen by Provider: 01/15/19 23:01 Source: patient History of Present Illness Provider complaint: SOB Onset (ago): hour(s) 9 Location: chest Pain Consistency: + constant Maximum Pain Intensity: 10 Relieved By: + none Exacerbated By: + none Associated symptoms: no denies other symptoms, no chest pain and no cough The patient is a 63 y/o female who presents to the emergency department for evaluation of constant shortness of breath that began nine hours ago. The patient states that roughly 10 hours ago she began having chest pain that resolved within a few hours but shortness of breath has persisted since. The patient notes she is on dialysis and had a treatment this morning. She reports she is also experiencing back pain in her middle to lower back that she is following with pain management for. She states she has oxycodone which she takes for the pain but does not remember if she took one today or not. The patient also reports abdominal pain that has persisted despite being treated previously with antibiotics. The patient denies a history of heart attack, denies chest pain, coughing, and any other symptoms. Home Medications Home Medications Medication Instructions Recorded Confirmed Type allopurinol 100 mg PO QAM 04/14/18 01/16/19 History ergocalciferol (vitamin D2) 50,000 unit PO MONTHLY 04/14/18 01/16/19 History escitalopram oxalate 20 mg PO QAM 04/14/18 01/16/19 History furosemide 40 mg PO QAM 04/14/18 01/16/19 History metoprolol succinate 25 mg PO QAM 04/14/18 01/16/19 History cinacalcet [Sensipar] 30 mg PO HS 08/17/18 01/16/19 History ondansetron HCl 4 mg tablet 4 mg PO Q6H PRN tab 09/03/18 01/16/19 History sevelamer HCl 1,600 mg PO TIDM 10/23/18 01/16/19 History amlodipine 5 mg PO DAILY #30 tab 10/27/18 01/16/19 Rx thiamine HCl (vitamin B1) 250 mg PO BID #60 tab 10/27/18 01/16/19 Rx prochlorperazine 25 mg [place] Q12H PRN 11/28/18 01/16/19 History ranitidine HCl 300 mg PO HS 12/17/18 01/16/19 History acetaminophen 500 mg PO DIRECTED PRN 12/29/18 01/16/19 History omeprazole 40 mg PO DAILY 12/29/18 01/16/19 History lidocaine 5 % topical patch 1 patch TOPICAL DAILY #30 ea 12/31/18 01/16/19 Rx oxycodone 5 mg tablet 5 mg PO Q6H PRN #30 tab 12/31/18 01/16/19 Rx bupropion HCl 150 mg PO BID 01/16/19 01/16/19 History Allergies Allergy/AdvReac Type Severity Reaction Status Date / Time No Known Allergies Allergy Verified 01/16/19 02:00 Past Med/Surg History Medical History Pain of left sacroiliac joint (Chronic) Low back pain (Chronic) Diverticulitis (Resolved) HX End stage renal disease (Chronic) Secondary hyperparathyroidism (of renal origin) (Chronic) Interstitial cystitis (Chronic) Diverticular disease (Chronic) hx Vitamin D deficiency (Chronic) Anemia (Chronic) CHRONIC-- S/P TRANSFUSION 05/2018; STABLE HGB IN 9 RANGE SINCE TRANSFUSION Hypertension (Chronic) Gout (Chronic) GERD (gastroesophageal reflux disease) (Chronic) CONTROLLED Depression (Chronic) ESRD (end stage renal disease) (Chronic) DIALYSIS SUNDAY/SUNDAY/SUNDAY VIA LUE AVF Obesity (Chronic) Anxiety (Chronic) Pancytopenia (Chronic) CHRONIC; MULTIPLE HEMATOLOGY EVALUATIONS PER PCP WITH UNKNOWN ETIOLOGY STATING THAT HEMATOLOGY ADVISED PATIENT TO FOLLOWUP NEEDED AFTER SIGNIFICANT WORKUP UNREMARKABLE- PCP MONITORING Dialysis patient (Chronic) CKD (chronic kidney disease) requiring chronic dialysis (Inactive) Chronic SI joint pain (Inactive) Fracture of fourth toe, right, open (Inactive) HX OF End stage chronic kidney disease Surgical History History of hysterectomy (Resolved) History of appendectomy (Resolved) History of delivery (Resolved) AVF (arteriovenous fistula) (Chronic) LUE Status post amputation of toe (Resolved) RIGHT 4TH TOE 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= 05/31/18= GRADE 2 VIEW, MAC 3, ETT 7.0; "SMALL CUT TO TONGUE, NO BLEEDING" PER ANESTHESIA RECORDS AT [facility] Family History Mother Family history of diabetes mellitus Father Family history of diabetes mellitus Father Family history of diabetes mellitus Brother Family history of esophageal cancer Other No pertinent family history Social History Preferred Language: Sierra Leonean Communication Ability: Effective Visual Impairment: No Limitations Hearing Ability: Normal Beliefs That Will Affect Care: None Current Living Situation: Spouse current occupational status: employed Feels Safe at Home: Yes Smoking Status: Former smoker Second Hand Exposure: No Hx Alcohol Use: No Hx Substance Use: No Review of Systems See HPI for pertinent positives & negatives. and A total of 10 systems reviewed and were otherwise negative Physical Exam Vital Signs Vital Signs - 24 hr 01/15/19 22:27 01/16/19 00:10 01/16/19 00:11 Temperature 36.8 C Temperature Source Oral Sepsis Recent Fever Within 48 Hours No Sepsis New/Unexplained Change in Mental Status No Sepsis Action Taken by Nursing No Action Required Pulse Rate 92 H 82 79 Pulse Rate [Right Finger] 82 Pulse Rate from SpO2 Sensor 81 80 Respiratory Rate 16 19 21 Respiratory Depth Normal Blood Pressure 190/94 H 206/101 H 207/102 H Blood Pressure [Right Arm] 206/101 H Blood Pressure Mean 126 136 137 Blood Pressure Mean [Right Arm] 136 Pulse Oximetry 99 99 99 Oxygen Delivery Method Room Air 01/16/19 00:15 01/16/19 00:16 01/16/19 01:08 Temperature Temperature Source Sepsis Recent Fever Within 48 Hours Sepsis New/Unexplained Change in Mental Status Sepsis Action Taken by Nursing Pulse Rate 81 81 Pulse Rate [Right Finger] 77 Pulse Rate from SpO2 Sensor 81 80 Respiratory Rate 21 17 18 Respiratory Depth Blood Pressure 195/102 H Blood Pressure [Right Arm] 178/99 H Blood Pressure Mean 133 Blood Pressure Mean [Right Arm] 125 Pulse Oximetry 99 99 96 Oxygen Delivery Method HEENT: Head - normocephalic and atraumatic Pupils are equal, round, and reactive to light. Extraocular eye muscles are intact, and sclera are anicteric. Nose - moist nasal mucosa without discharge. Mouth - moist buccal mucosa. Oropharynx is nonerythematous and there is no tonsillar exudate or edema noted. Neck: Supple; no JVD, nuchal rigidity, cervical lymphadenopathy, or auscultated bruits. Heart: Regular rate and rhythm. There is a normal S1 and S2 with no murmurs, clicks, or gallops appreciated. Lungs: Clear to auscultation bilaterally with no wheezes, rales, or rhonchi. Abdomen: Soft, completely nontender, nondistended, with good bowel sounds. There are no palpable pulsatile masses or hepatosplenomegaly. There is no guarding, rigidity, or rebound noted. Extremities: No evidence of cyanosis, clubbing, or edema. There are easily palpable peripheral pulses. Skin: warm and dry with good turgor and no rashes. Course 2338: Past medical records reviewed. The patient was evaluated in room C08. A complete history and physical exam was performed. A twelve-lead EKG was obtained. An IV lock was initiated and labs were drawn according to nursing protocol. She will have a chest x-ray 2346: I ordered Dilaudid 0.5 mg IV and Zofran 4 mg IV for the patient's back pain. 0025: The patient reports that her pain in her back has not been helped by the pain medication only the abdominal pain. 0031: I ordered Dilaudid 1 mg IV. 0038: I spoke with Dr. Mendel WALLER hospitalist. She will evaluate for further management. 0108: I checked on the patient and updated her on her results. 0147: The patient continues to describe nausea and vomiting. I ordered Zofran 4mg IV. Consultations Consultation #1: I spoke with Dr. mendel WALLER hospitalist. She will evaluate for further management. Time: 00:38 Administered Medications Heparin Sodium (Porcine) (Heparin Sodium (Porcine)) 5,000 units SQ Q8 [place] Stop: 02/15/19 05:59 Last Admin: 01/16/19 05:58 Dose: 5,000 units Documented by: [id number] Cosigned by: [id number] Prochlorperazine 10 mg/ (Syringe) 10 mls @ 5 mls/min IV Q12H PRN PRN Reason: Nausea Stop: 02/15/19 03:59 Last Admin: 01/16/19 04:03 Dose: 5 mls/min Documented by: [id number] Miscellaneous (Order Awaiting Action) 1 ea N/A QS [place] Stop: 02/15/19 03:44 Last Admin: 01/16/19 04:03 Dose: Not Given Documented by: [id number] Oxycodone HCl (Roxicodone Immediate Rel) 5 mg PO Q6H PRN PRN Reason: Pain Stop: 01/30/19 03:18 Last Admin: 01/16/19 03:47 Dose: 5 mg Documented by: [id number] Discontinued Medications Hydromorphone HCl (Dilaudid) 0.5 mg IV NOW STA Stop: 01/15/19 23:47 Last Admin: 01/15/19 23:52 Dose: 0.5 mg Documented by: [id number] Hydromorphone HCl (Dilaudid) 1 mg IV NOW STA Stop: 01/16/19 00:32 Last Admin: 01/16/19 00:35 Dose: 1 mg Documented by: [id number] Ondansetron HCl (Zofran) 4 mg IV NOW STA Stop: 01/15/19 23:47 Last Admin: 01/15/19 23:52 Dose: 4 mg Documented by: [id number] Ondansetron HCl (Zofran) 4 mg IV NOW STA Stop: 01/16/19 01:48 Last Admin: 01/16/19 01:52 Dose: 4 mg Documented by: [id number] Medical Decision Making Differential Diagnosis Differential Diagnosis: cardiac ischemia, angina, pleurisy, GERD, CHF. Medical Records Attestation: I reviewed the patient's medical records. Home Medications Current Medication List: was personally reviewed by me Laboratory Data Attestation: I reviewed the patient's lab results. Result diagrams: 01/15/19 22:56 01/15/19 22:56 Lab Results 01/15/19 01/15/19 01/15/19 Range/Units 22:56 22:56 22:56 WBC 4.36 L (4.8-10.8) K/uL RBC 3.40 L (4.2-5.4) M/uL Hgb 11.6 L (12.0-16.0) g/dL Hct 35.5 L (37-47) % MCV 104.4 H (80-100) fL MCH 34.1 H (25-34) pg MCHC 32.7 (32-36) g/dL RDW Std Deviation 63.3 H (36.4-46.3) fL RDW Coeff of Yuliana 16.6 H (11.5-14.5) % Plt Count 95 L (130-400) K/uL MPV 9.3 (7.4-10.4) fL Immature Gran % (Auto) 0.5 % Neut % (Auto) 22.7 % Lymph % (Auto) 49.8 % Stanley % (Auto) 16.7 % Eos % (Auto) 9.4 % Baso % (Auto) 0.9 % Immature Gran # (Auto) 0.02 (0.00-0.02) K/uL Neut # (Auto) 0.99 L* (1.4-6.5) K/uL Lymph # (Auto) 2.17 (1.2-3.4) K/uL Stanley # (Auto) 0.73 H (0.11-0.59) K/uL Eos # (Auto) 0.41 (0-0.5) K/uL Baso # (Auto) 0.04 (0-0.2) K/uL PT 10.5 (9.0-12.0) Seconds INR 1.0 (0.9-1.1) APTT 24.2 (21.0-31.0) Seconds PTT Ratio 0.9 Sodium 139 (136-145) mmol/L Potassium 4.9 (3.5-5.1) mmol/L Chloride 101 (98-107) mmol/L Carbon Dioxide 27 (21-32) mmol/L Anion Gap 11.0 (3-11) BUN 42 H (7-18) mg/dl Creatinine 6.46 H* (0.6-1.2) mg/dl Est Cr Clr Drug Dosing 9.0 ml/min Est GFR ( Amer) 7.3 Est GFR (Non-Af Amer) 6.3 BUN/Creatinine Ratio 6.4 L (10-20) Glucose 95 (70-99) mg/dl Calcium 10.2 H (8.5-10.1) mg/dl Phosphorus 6.3 H (2.5-4.9) mg/dl Magnesium 2.7 H (1.8-2.4) mg/dl Total Bilirubin 0.4 (0.2-1) mg/dl AST 24 (15-37) U/L ALT 21 (12-78) U/L Alkaline Phosphatase 88 (45-117) U/L Troponin I 0.049 H* (0-0.045) ng/ml Total Protein 7.7 (6.4-8.2) gm/dl Albumin 3.4 (3.4-5.0) gm/dl Globulin 4.3 H (2.5-4.0) gm/dl Albumin/Globulin Ratio 0.8 L (0.9-2) Specimen Hemolysis ECG Data Attestation: I personally reviewed and interpreted this ECG as follows: Indication: SOB/dyspnea Rate (beats per minute): 84 Rhythm: normal sinus Findings: no acute ischemic change and no ectopy Comparison ECG Date: from (12/18/18) Change: the following changes noted (Inverted T-wave in lead 3) Blood Pressure Blood Pressure Findings: Elevated blood pressure Blood Pressure Disposition: further management by hospitalist MDM Narrative The patient is a 63 y/o female who presents to the emergency department for evaluation of chest pain and constant shortness of breath that began nine hours ago. The patient developed a substernal chest pain after dialysis today which lasted for approximately 3 hours. Following this episode of chest pain, the patient developed shortness of breath. She is no longer suffering from the chest discomfort but still feels slightly short of breath. She denies any cardiac history. The patient does have an elevated troponin. The patient will need further management for repeat cardiac markers. I discussed the case with the [facility] Hospitalist and they will evaluate for further management. Impression & Plan Substernal chest pain Discharge Plan Visit Data *Final* Discharge Date/Time: 01/16/19 02:58 Chief Complaint: Shortness of Breath/Dyspnea Stated Complaint: BACK PAIN, SOB, THROWING UP ED Provider: Haily Noble Discharge Problem: Substernal chest pain Patient Disposition: Admitted As Inpatient Discharge Instructions Interventions: ED Discharge Assessment Last Done: 01/16/19 02:58 The scribe's documentation has been prepared under my direction and personally reviewed by me in its entirety. I confirm that the note above accurately reflects all work, treatment, procedures, and medical decision making performed by me.
[2019-01-16] MEDS: LIDOCAINE 5% 1 PATCH TD SCH (08:30)
[2019-01-16] MEDS: THIAMINE HCL 50 MG TABLET PO SCH ×2 (08:35→20:51)
[2019-01-16] MEDS: SEVELAMER HCL 800 MG TABLET PO SCH ×3 (08:35→17:05)
[2019-01-16] MEDS: FUROSEMIDE 40 MG TAB PO SCH (08:35)
[2019-01-16] MEDS: PANTOprazole 40 MG TAB PO SCH (08:35)
[2019-01-16] MEDS: BuPROPion SR 150 MG TABCR PO SCH ×2 (08:36→20:49)
[2019-01-16] MEDS: ESCITALOPRAM OXALATE 20 MG TAB PO SCH (08:36)
[2019-01-16] MEDS: AMLODIPINE BESYLATE 5 MG TAB PO SCH (08:36)
[2019-01-16] MEDS: ALLOPURINOL 100 MG TAB PO SCH (08:36)
[2019-01-16] MEDS: ONDANSETRON 4 MG TAB PO PRN (08:39)
[2019-01-16] MEDS ORDERED: METOPROLOL SUCC 25MG EXT REL TAB PO SCH (09:00)
--- NOTE | 2019-01-16 09:01 | XRay Report ---
XR chest 2V routine HISTORY: 63 years-old Female Chest pain, SOB acute atypical chest pain with shortness of breath COMPARISON: Chest radiograph 10/23/2018 TECHNIQUE: PA and lateral views of the chest FINDINGS: Cardiomediastinal and hilar silhouettes are within normal limits. Calcification of the thoracic aorti c arch. Surgical clip projects over the medial right lung apex. Calcifications of the right carotid v asculature. No pneumothorax, pleural effusion, focal airspace consolidation or overt pulmonary lungs are mildly hyperinflated with atelectatic flattening. General changes of the shoulders and spine. IMPRESSION: Mild hyperinflation without acute process. The above report was generated using voice recognition software. It may contain grammatical, syntax o r spelling errors. Electronically signed by: Yanick Baldwin M.D. 01/16/2019 9:00 AM
[2019-01-16 09:38] LABS: BUN Creatinine Ratio 6.9 (10-20); Calcium 10.5 mg/dl (8.5-10.1); Creatinine Clr Calc Pharmacy 12.5 ml/min; Est GFR (African American) 6.2; Est GFR (Non-African American) 5.4; Potassium 5.4 mmol/L (3.5-5.1); Troponin I 0.037 ng/ml (0-0.045)
--- NOTE | 2019-01-16 10:34 | Nephrology Consultation ---
Date of Consultation January 16, 2019 Assessment & Plan (1) End stage renal disease: 62 y o F with ESRD on HD TTS. Admitted with CP, currently resolved, initial trop mildly elevated. --currently blood pressure and volume status acceptable. Electrolytes acceptable. --keep on scheduled for dialysis Sunday as her regular schedule. -- continued Nephrocaps and renal diet -- dose medications for GFR less than 10 --Avoid IV fluid --THIEN for Hb <10 Thank you for allowing me to participate in your patient's care. It was a pleasure to see Freddy (2) Secondary hyperparathyroidism (of renal origin): (3) Anemia: (4) Chest pain: (5) Low back pain: History of Present Illness Attending Physician: Margaret Salinas MD History of Present Illness Bettie Crowder is a 62-year-old female with end-stage renal disease secondary to hypertensive nephropathy and microvascular disease hypertension, anemia and thrombocytopenia admitted to the hospital with chest pain. Nephrology consult was requested to provide an urgent dialysis. Electronic medical records including labs imaging are reviewed in detail during patient's visit. Bettie has end-stage renal disease secondary to hypertensive nephropathy, has been on dialysis for last almost 4 years, was on peritoneal dialysis and has been on hemodialysis for last 1 year.. She is usually on dialysis Sunday, Sunday however she missed dialysis Sunday as she was not feeling well and had dialysis yesterday. She had dialysis for for 3 hours. During dialysis she notice some chest pain which eventually resolved. After dialysis so she went home and she again started having chest pain and presented to the ED for further evaluation. In ED initial troponin was slightly elevated with no significant EKG changes. Chest x-ray was otherwise unremarkable. Electrolytes were acceptable. Blood pressure slightly elevated. Currently her chest pain totally resolved. She has no history of coronary artery disease. She has been having multiple hospital admission and shortened dialysis treatment because persistent back pain issues for last few months. Had many imaging study and evaluation by Ortho and pain management was told there is no indication for surgery. Currently she is the following with a pain management clinic in [place]. Currently she is resting in bed, chest pain resolved no shortness of breath but she continues to ongoing pain issues. Allergies Allergy/AdvReac Type Severity Reaction Status Date / Time No Known Allergies Allergy Verified 01/16/19 02:00 Home Medications Home Medications Medication Instructions Recorded Confirmed Type allopurinol 100 mg PO QAM 04/14/18 01/16/19 History ergocalciferol (vitamin D2) 50,000 unit PO MONTHLY 04/14/18 01/16/19 History escitalopram oxalate 20 mg PO QAM 04/14/18 01/16/19 History furosemide 40 mg PO QAM 04/14/18 01/16/19 History metoprolol succinate 25 mg PO QAM 04/14/18 01/16/19 History cinacalcet [Sensipar] 30 mg PO HS 08/17/18 01/16/19 History ondansetron HCl 4 mg tablet 4 mg PO Q6H PRN tab 09/03/18 01/16/19 History sevelamer HCl 1,600 mg PO TIDM 10/23/18 01/16/19 History amlodipine 5 mg PO DAILY #30 tab 10/27/18 01/16/19 Rx thiamine HCl (vitamin B1) 250 mg PO BID #60 tab 10/27/18 01/16/19 Rx prochlorperazine 25 mg [place] Q12H PRN 11/28/18 01/16/19 History ranitidine HCl 300 mg PO HS 12/17/18 01/16/19 History acetaminophen 500 mg PO DIRECTED PRN 12/29/18 01/16/19 History omeprazole 40 mg PO DAILY 12/29/18 01/16/19 History lidocaine 5 % topical patch 1 patch TOPICAL DAILY #30 ea 12/31/18 01/16/19 Rx oxycodone 5 mg tablet 5 mg PO Q6H PRN #30 tab 12/31/18 01/16/19 Rx bupropion HCl 150 mg PO BID 01/16/19 01/16/19 History Patient History Medical History Pain of left sacroiliac joint (Chronic) Low back pain (Chronic) Diverticulitis (Resolved) HX End stage renal disease (Chronic) Secondary hyperparathyroidism (of renal origin) (Chronic) Interstitial cystitis (Chronic) Diverticular disease (Chronic) hx Vitamin D deficiency (Chronic) Anemia (Chronic) CHRONIC-- S/P TRANSFUSION 05/2018; STABLE HGB IN 9 RANGE SINCE TRANSFUSION Hypertension (Chronic) Gout (Chronic) GERD (gastroesophageal reflux disease) (Chronic) CONTROLLED Depression (Chronic) ESRD (end stage renal disease) (Chronic) DIALYSIS SUNDAY/SUNDAY/SUNDAY VIA LUE AVF Obesity (Chronic) Anxiety (Chronic) Pancytopenia (Chronic) CHRONIC; MULTIPLE HEMATOLOGY EVALUATIONS PER PCP WITH UNKNOWN ETIOLOGY STATING THAT HEMATOLOGY ADVISED PATIENT TO FOLLOWUP NEEDED AFTER SIGNIFICANT WORKUP UNREMARKABLE- PCP MONITORING Dialysis patient (Chronic) CKD (chronic kidney disease) requiring chronic dialysis (Inactive) Chronic SI joint pain (Inactive) Fracture of fourth toe, right, open (Inactive) HX OF End stage chronic kidney disease Surgical History History of hysterectomy (Resolved) History of appendectomy (Resolved) History of delivery (Resolved) AVF (arteriovenous fistula) (Chronic) LUE Status post amputation of toe (Resolved) RIGHT 4TH TOE 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= 05/31/18= GRADE 2 VIEW, MAC 3, ETT 7.0; "SMALL CUT TO TONGUE, NO BLEEDING" PER ANESTHESIA RECORDS AT [facility] Family History Mother Family history of diabetes mellitus Father Family history of diabetes mellitus Father Family history of diabetes mellitus Brother Family history of esophageal cancer Other No pertinent family history Social History Preferred Language: Niuean Communication Ability: Effective Visual Impairment: No Limitations Hearing Ability: Normal Beliefs That Will Affect Care: None Current Living Situation: Spouse current occupational status: employed Feels Safe at Home: Yes Smoking Status: Former smoker Second Hand Exposure: No Hx Alcohol Use: No Hx Substance Use: No Review of Systems Review of Systems: All systems reviewed & are unremarkable except as noted in HPI & below Physical Exam Constitutional: WD/WN, vitals as above + ill appearing Eyes: PERRL, conjunctivae normal, anicteric sclerae Neck: trachea midline, no thyromegaly Respiratory: normal respiratory effort, lungs clear to auscultation Cardiovascular: RRR, no murmur, no edema Gastrointestinal (Abdomen): normal bowel sounds, soft, nontender, no hepatosplenomegaly Skin: no rashes, warm and dry Neurologic: PERRL, EOMI, accommodation nl, no face palsy, no dysarthria Psychiatric: A+Ox3, euthymic affect Results & Data Vital Signs (Past 12 Hours) Vital Signs Temp Pulse Pulse Resp BP BP Pulse Ox 01/16/19 10:00 78 01/16/19 07:42 36.8 C 83 16 165/95 H 97 01/16/19 04:08 166/84 H 01/16/19 03:15 36.9 C 78 16 196/91 H 98 01/16/19 02:58 84 18 164/85 H 98 01/16/19 02:26 83 19 174/86 H 99 01/16/19 01:08 77 18 178/99 H 96 01/16/19 00:16 81 17 195/102 H 99 01/16/19 00:15 81 21 99 01/16/19 00:11 79 21 207/102 H 99 01/16/19 00:10 82 82 19 206/101 H 206/101 H 99 (1) Chest pain Chest pain type: unspecified Qualified Code(s): R07.9 - Chest pain, unspecified (2) Low back pain Chronicity: chronic Back pain laterality: left Sciatica presence: unspecified whether sciatica present Qualified Code(s): M54.5 - Low back pain; G89.29 - Other chronic pain
[2019-01-16] MEDS ORDERED: ASPIRIN 81 MG ECTAB PO STA (12:33)
--- NOTE | 2019-01-16 12:38 | Hospitalist Progress Note ---
Date of Service January 16, 2019 Assessment & Plan (1) Chest pain: Patient with acute onset left sided chest pain that occurred during HD and again after she went home from HD. Sharp in nature, atypical. With mildly elevated troponin in setting of ESRD/HD that then trended back downward; TWI present in inferior leads on EKG changed from previous. SHe remains CP free. HD stable. States she has had worsening LOPEZ over the last few weeks. Admits to poor compliance with home medications. ECHO with multiple WMAs and mildly reduced LV function -Appreciate Cardio consult With likely CAD given multiple risk factors Pt and do not want to pursue cardiac cath as she wants to preserve residual renal function as she cannot tolerate full HD sessions due to her back pain -start ASA 81mg daily only given thrombocytopenia and watch plts -start high intensity statin and check lipid panel -increase beta bernadine to 50mg daily -plan for Nuc Stress either tomorrow or if not possible, then as outpt next week (2) End stage renal disease: s/p HD on 01/15 Electrolytes and metabolic profile stable, no need for HD today -Appreciate Nephro consult -Renal diet -Avoid nephrotoxins -Continue Renagel, Sensipar (3) Secondary hyperparathyroidism (of renal origin): Chronic -Continue Sensipar (4) Anemia: No active bleeding, hgb stable at 11.6 -Continue to monitor (5) Hypertension: Blood pressure elevated on admission. Patient reports frequently missing her medications at home BP better controlled now with giving meds -Continue Amlodipine at increased dose of 5mg daily -Continue Lasix -Continue Metoprolol and increase to 50mg as per Cardio -Continue to monitor (6) Gout: Chronic. Stable -Continue Allopurinol, renal dosing (7) GERD (gastroesophageal reflux disease): Chronic, stable -Continue Omeprazole and Ranitidine (8) Depression: Chronic. Stable -Continue Bupropion -Continue Escitalopram (9) Low back pain: Continue oxycodone, would not give any IV narcotics for her chronic, stable back pain She is seeing new Pain Man in [place] and awaiting to get meds there however they are still reviewing her case -Oxycodone and can increase to 10mg q6h prn -Tylenol -Lidoderm patch (10) DVT prophylaxis: Heparin SQ Dispo-remain on PCU Subjective No further CP, no SOB. Pain in back as usual. Says she only has 2 oxycodone pills left at home and "I didn't get around to calling Dr. Francis's office" for a refill. Is asking for IV pain medicine. Otherwise has her usual mild nausea. Tele with NSR,, rates in the 70s Review of Systems Review of Systems: All systems reviewed & are unremarkable except as noted in HPI & below Physical Exam Constitutional: well nourished and + ill appearing (appears chronicallly ill) Eyes: PERRL, conjunctivae normal, anicteric sclerae Neck: trachea midline, no thyromegaly Respiratory: normal respiratory effort, lungs clear to auscultation Cardiovascular: RRR, no murmur, no edema Gastrointestinal (Abdomen): normal bowel sounds, soft, nontender, no hepatosplenomegaly Musculoskeletal: Extremities: extremities normal to inspection; no cyanosis and no clubbing Skin: no rashes, warm and dry Neurologic: moves all extremities and awake; no focal motor deficits Psychiatric: A+Ox3, euthymic affect Results & Data Vital Signs (Past 12 Hours) Vital Signs Temp Pulse Pulse Resp BP BP Pulse Ox 01/16/19 11:38 35.6 C L 80 18 151/85 H 99 01/16/19 10:00 78 01/16/19 07:42 36.8 C 83 16 165/95 H 97 01/16/19 04:08 166/84 H 01/16/19 03:15 36.9 C 78 16 196/91 H 98 01/16/19 02:58 84 18 164/85 H 98 01/16/19 02:26 83 19 174/86 H 99 01/16/19 01:08 77 18 178/99 H 96 Laboratory Results 01/16/19 01/16/19 01/15/19 Range/Units 08:23 03:45 22:56 WBC (4.8-10.8) K/uL RBC (4.2-5.4) M/uL Hgb (12.0-16.0) g/dL Hct (37-47) % MCV (80-100) fL MCH (25-34) pg MCHC (32-36) g/dL RDW Std Deviation (36.4-46.3) fL RDW Coeff of Yuliana (11.5-14.5) % Plt Count (130-400) K/uL MPV (7.4-10.4) fL Immature Gran % (Auto) % Neut % (Auto) % Lymph % (Auto) % Shannon % (Auto) % Eos % (Auto) % Baso % (Auto) % Immature Gran # (Auto) (0.00-0.02) K/uL Neut # (Auto) (1.4-6.5) K/uL Lymph # (Auto) (1.2-3.4) K/uL Shannon # (Auto) (0.11-0.59) K/uL Eos # (Auto) (0-0.5) K/uL Baso # (Auto) (0-0.2) K/uL PT (9.0-12.0) Seconds INR (0.9-1.1) APTT (21.0-31.0) Seconds PTT Ratio Sodium 140 139 (136-145) mmol/L Potassium 5.4 H 4.9 (3.5-5.1) mmol/L Chloride 103 101 (98-107) mmol/L Carbon Dioxide 27 27 (21-32) mmol/L Anion Gap 10.0 11.0 (3-11) BUN 50 H 42 H (7-18) mg/dl Creatinine 7.34 H* D 6.46 H* (0.6-1.2) mg/dl Est Cr Clr Drug Dosing 12.5 9.0 ml/min Est GFR ( Amer) 6.2 7.3 Est GFR (Non-Af Amer) 5.4 6.3 BUN/Creatinine Ratio 6.9 L 6.4 L (10-20) Glucose 104 H 95 (70-99) mg/dl Calcium 10.5 H 10.2 H (8.5-10.1) mg/dl Phosphorus 6.3 H (2.5-4.9) mg/dl Magnesium 2.7 H (1.8-2.4) mg/dl Total Bilirubin 0.4 (0.2-1) mg/dl AST 24 (15-37) U/L ALT 21 (12-78) U/L Alkaline Phosphatase 88 (45-117) U/L Troponin I 0.037 0.049 H* (0-0.045) ng/ml Total Protein 7.7 (6.4-8.2) gm/dl Albumin 3.4 (3.4-5.0) gm/dl Globulin 4.3 H (2.5-4.0) gm/dl Albumin/Globulin Ratio 0.8 L (0.9-2) Specimen Hemolysis Nasal Screen MRSA (PCR) Negative (Negative) 01/15/19 01/15/19 Range/Units 22:56 22:56 WBC 4.36 L (4.8-10.8) K/uL RBC 3.40 L (4.2-5.4) M/uL Hgb 11.6 L (12.0-16.0) g/dL Hct 35.5 L (37-47) % MCV 104.4 H (80-100) fL MCH 34.1 H (25-34) pg MCHC 32.7 (32-36) g/dL RDW Std Deviation 63.3 H (36.4-46.3) fL RDW Coeff of Yuliana 16.6 H (11.5-14.5) % Plt Count 95 L (130-400) K/uL MPV 9.3 (7.4-10.4) fL Immature Gran % (Auto) 0.5 % Neut % (Auto) 22.7 % Lymph % (Auto) 49.8 % Shannon % (Auto) 16.7 % Eos % (Auto) 9.4 % Baso % (Auto) 0.9 % Immature Gran # (Auto) 0.02 (0.00-0.02) K/uL Neut # (Auto) 0.99 L* (1.4-6.5) K/uL Lymph # (Auto) 2.17 (1.2-3.4) K/uL Shannon # (Auto) 0.73 H (0.11-0.59) K/uL Eos # (Auto) 0.41 (0-0.5) K/uL Baso # (Auto) 0.04 (0-0.2) K/uL PT 10.5 (9.0-12.0) Seconds INR 1.0 (0.9-1.1) APTT 24.2 (21.0-31.0) Seconds PTT Ratio 0.9 Sodium (136-145) mmol/L Potassium (3.5-5.1) mmol/L Chloride (98-107) mmol/L Carbon Dioxide (21-32) mmol/L Anion Gap (3-11) BUN (7-18) mg/dl Creatinine (0.6-1.2) mg/dl Est Cr Clr Drug Dosing ml/min Est GFR ( Amer) Est GFR (Non-Af Amer) BUN/Creatinine Ratio (10-20) Glucose (70-99) mg/dl Calcium (8.5-10.1) mg/dl Phosphorus (2.5-4.9) mg/dl Magnesium (1.8-2.4) mg/dl Total Bilirubin (0.2-1) mg/dl AST (15-37) U/L ALT (12-78) U/L Alkaline Phosphatase (45-117) U/L Troponin I (0-0.045) ng/ml Total Protein (6.4-8.2) gm/dl Albumin (3.4-5.0) gm/dl Globulin (2.5-4.0) gm/dl Albumin/Globulin Ratio (0.9-2) Specimen Hemolysis Nasal Screen MRSA (PCR) (Negative) PG Care Time/CCT Total # of Minutes Spent Total Time Spent with Patient: Total time spent is greater than 50% in coordination of care (as documented) at patient's floor/unit and/or counseling patient: (1) Chest pain Chest pain type: unspecified Qualified Code(s): R07.9 - Chest pain, unspecified (2) Hypertension Hypertension type: unspecified Qualified Code(s): I10 - Essential (primary) hypertension (3) Gout Gout site: unspecified site Gout etiology: unspecified cause Chronicity: unspecified Qualified Code(s): M10.9 - Gout, unspecified (4) GERD (gastroesophageal reflux disease) Esophagitis presence: esophagitis presence not specified Qualified Code(s): K21.9 - Gastro-esophageal reflux disease without esophagitis (5) Low back pain Chronicity: chronic Back pain laterality: left Sciatica presence: unspecified whether sciatica present Qualified Code(s): M54.5 - Low back pain; G89.29 - Other chronic pain
[2019-01-16] MEDS ORDERED: METOPROLOL SUCC 50MG EXT REL TAB PO ONE (12:54)
--- NOTE | 2019-01-16 12:59 | Cardiology Consultation ---
Date of Consultation January 16, 2019 Assessment & Plan (1) Cardiomyopathy: Newly diagnosed cardiomyopathy with mildly reduced LV systolic function and wall motion abnormalities. Given her history, concern that she has underlying coronary artery disease. We discussed, given her presenting symp toms, cardiac catheterization. She and her considered this but prefer to avoid cardiac catheterization and preserve any renal function that she has given the fact that she does not tolerate full sessions of hemodialysis. There is no urgent indication for cardiac catheterization. She is currently chest pain-free. Recommend increasing metoprolol succinate to 50 mg daily. If no contraindications, recommend aspirin 81 mg daily and would treatFor presumed coronary artery disease. Recommend high-intensity statin therapy. She was agreeable. She was agreeable to undergo myocardial perfusion study. She has not had any further pain since being here, including while ambulating in her room to the use the restroom. (2) Chest pain: Atypical symptoms but she does have mild change in her inferior lead T- waves on ECG, abnormal echo, and very slightly elevated troponin level, but not diagnostic for myocardial infarction. She declines cardiac catheterization as noted above. Myocardial perfusion study tomorrow. She was advised to not consume any caffeine for 24 hours. (3) Elevated troponin: Not diagnostic of myocardial infarction. Very slightly elevated at 0.049 which is her peak. Plan as above. Elevated troponin could be due to underlying CAD, but also potentially from strain secondary to severe hypertension. (4) Hypertension: Blood pressure has not been controlled but apparently has not been controlled as an outpatient per her report. She is not compliant with her outpatient regimen on a daily basis. Recommend increasing metoprolol succinate to 50 mg daily. Otherwise, resume amlodipine which is also an antianginal. Hypertension may have been playing a role in her presentation, as well as her elevated troponins. Compliance of her medical therapy was recommended. Low- sodium diet. (5) Abnormal ECG: Repeat ECG. (6) Disposition: Cardiology will continue to follow. Myocardial perfusion study tomorrow. Plan of care discussed with Dr. Salinas of the primary hospitalist service. Highly complex medical issues for which cardiac catheterization/angiography was recommended and considered. Thank you for allowing me to participate in the care of your patient. Please call for any other questions or concerns. Sincerely, Ministerio Sullivan M.D. History of Present Illness Reason for Consultation: Chest Pain. Elevated troponin. Abnormal ECG. Requesting Physician: Dr. Salinas Attending Physician: Margaret Salinas MD History of Present Illness Mrs. Crowder is a very pleasant 63-year-old female with a history significant for ESRD on HD via left upper extremity fistula (Sunday, , Sunday), hypertension, chronic pancytopenia, and chronic back pain. She was admitted yesterday for chest discomfort that first occurred at dialysis. She describes her chest discomfort as a left-sided chest ache that would last for a few seconds before spontaneously resolving. Symptoms would recur intermittently over the next few hours. She first noted symptoms during the last hour of hemodialysis but it continued to happen at home intermittently as well. There was no radiation of the pain but she did have shortness of breath associated with her pain although the shortness of breath was more constant while the chest pain was intermittent. All of her symptoms spontaneously resolved during her car ride to the hospital. She admits that her blood pressure tends to be elevated with systolic pressure typically in the 160s. Yesterday her systolic blood pressure was greater than 200 at times. Her entered the room and states that her blood pressure is elevated due to the fact that she has chronic back pain which has actually been limiting her dialysis. She has been unable to complete a full 4 hours of dialysis at times and actually missed her appointment on Sunday due to her back pain. Because she missed Tuesdays dialysis, she underwent dialysis yesterday. She continues to make significant amounts of urine. She admits that she did not take her amlodipine, metoprolol, or Lasix for the past 2 days. She states that she is not always compliant with her medical therapy. She states that she does not feel well when she takes her medications at times. She denies syncope, near-syncope, palpitations, orthopnea, PND, edema, or bleeding such as melena, hematochezia, or hematuria. She states that she was treated for diverticulitis few weeks ago. She has chronic back pain. She has had chronic pancytopenia and has been evaluated by multiple hematologists. Review of systems: As above. Review of systems otherwise negative/unremarkable. Social history: She quit smoking approximately 30 years ago after approximately 5 pack years. No alcohol. She lives at home with her , daughter, and 2 grandchildren. She has another daughter who lives nearby. She is unemployed. Her presented to the bedside. Family history: Father from [place] at the age of 53. Allergies Allergy/AdvReac Type Severity Reaction Status Date / Time No Known Allergies Allergy Verified 01/16/19 02:00 Home Medications Home Medications Medication Instructions Recorded Confirmed Type allopurinol 100 mg PO QAM 04/14/18 01/16/19 History ergocalciferol (vitamin D2) 50,000 unit PO MONTHLY 04/14/18 01/16/19 History escitalopram oxalate 20 mg PO QAM 04/14/18 01/16/19 History furosemide 40 mg PO QAM 04/14/18 01/16/19 History metoprolol succinate 25 mg PO QAM 04/14/18 01/16/19 History cinacalcet [Sensipar] 30 mg PO HS 08/17/18 01/16/19 History ondansetron HCl 4 mg tablet 4 mg PO Q6H PRN tab 09/03/18 01/16/19 History sevelamer HCl 1,600 mg PO TIDM 10/23/18 01/16/19 History amlodipine 5 mg PO DAILY #30 tab 10/27/18 01/16/19 Rx thiamine HCl (vitamin B1) 250 mg PO BID #60 tab 10/27/18 01/16/19 Rx prochlorperazine 25 mg TN Q12H PRN 11/28/18 01/16/19 History ranitidine HCl 300 mg PO HS 12/17/18 01/16/19 History acetaminophen 500 mg PO DIRECTED PRN 12/29/18 01/16/19 History omeprazole 40 mg PO DAILY 12/29/18 01/16/19 History lidocaine 5 % topical patch 1 patch TOPICAL DAILY #30 ea 12/31/18 01/16/19 Rx oxycodone 5 mg tablet 5 mg PO Q6H PRN #30 tab 12/31/18 01/16/19 Rx bupropion HCl 150 mg PO BID 01/16/19 01/16/19 History Patient History Medical History Pain of left sacroiliac joint (Chronic) Low back pain (Chronic) Diverticulitis (Resolved) HX End stage renal disease (Chronic) Secondary hyperparathyroidism (of renal origin) (Chronic) Interstitial cystitis (Chronic) Diverticular disease (Chronic) hx Vitamin D deficiency (Chronic) Anemia (Chronic) CHRONIC-- S/P TRANSFUSION 05/2018; STABLE HGB IN 9 RANGE SINCE TRANSFUSION Hypertension (Chronic) Gout (Chronic) GERD (gastroesophageal reflux disease) (Chronic) CONTROLLED Depression (Chronic) ESRD (end stage renal disease) (Chronic) DIALYSIS SUNDAY/SUNDAY/SUNDAY VIA LUE AVF Obesity (Chronic) Anxiety (Chronic) Pancytopenia (Chronic) CHRONIC; MULTIPLE HEMATOLOGY EVALUATIONS PER PCP WITH UNKNOWN ETIOLOGY STATING THAT HEMATOLOGY ADVISED PATIENT TO FOLLOWUP NEEDED AFTER SIGNIFICANT WORKUP UNREMARKABLE- PCP MONITORING Dialysis patient (Chronic) CKD (chronic kidney disease) requiring chronic dialysis (Inactive) Chronic SI joint pain (Inactive) Fracture of fourth toe, right, open (Inactive) HX OF End stage chronic kidney disease Surgical History History of hysterectomy (Resolved) History of appendectomy (Resolved) History of delivery (Resolved) AVF (arteriovenous fistula) (Chronic) LUE Status post amputation of toe (Resolved) RIGHT 4TH TOE 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= 05/31/18= GRADE 2 VIEW, MAC 3, ETT 7.0; "SMALL CUT TO TONGUE, NO BLEEDING" PER ANESTHESIA RECORDS AT [facility] Family History Mother Family history of diabetes mellitus Father Family history of diabetes mellitus Father Family history of diabetes mellitus Brother Family history of esophageal cancer Other No pertinent family history Social History Preferred Language: Congolese Communication Ability: Effective Visual Impairment: No Limitations Hearing Ability: Normal 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 Alert and oriented. HEENT: Anicteric sclera. Neck: No JVD. No bruits. Normal carotid upstrokes bilaterally. Cardiac: PMI was nonpalpable. No ventricular heave. Regular. Normal S1-S2. No murmurs, rubs, or gallops. Pulmonary: Clear to auscultation bilaterally without wheezes, rales, or rhonchi. Abdomen: Soft, nontender, nondistended, with normoactive bowel sounds. No bruits noted. Extremities: 1+ right radial pulse. Left upper extremity fistula with palpable thrill and audible bruit. 1+ dorsalis pedis pulses bilaterally. No edema or cyanosis. No palpable cords. Psychiatric: Affect appears appropriate. Results & Data Vital Signs (Past 12 Hours) Vital Signs Temp Pulse Pulse Resp BP BP Pulse Ox 01/16/19 11:38 35.6 C L 80 18 151/85 H 99 01/16/19 10:00 78 01/16/19 07:42 36.8 C 83 16 165/95 H 97 01/16/19 04:08 166/84 H 01/16/19 03:15 36.9 C 78 16 196/91 H 98 01/16/19 02:58 84 18 164/85 H 98 01/16/19 02:26 83 19 174/86 H 99 01/16/19 01:08 77 18 178/99 H 96 Laboratory Results Laboratory Results - last 24 hr 01/15/19 01/15/19 01/15/19 22:56 22:56 22:56 WBC 4.36 L RBC 3.40 L Hgb 11.6 L Hct 35.5 L MCV 104.4 H MCH 34.1 H MCHC 32.7 RDW Std Deviation 63.3 H RDW Coeff of Yuliana 16.6 H Plt Count 95 L MPV 9.3 Immature Gran % (Auto) 0.5 Neut % (Auto) 22.7 Lymph % (Auto) 49.8 Rhea % (Auto) 16.7 Eos % (Auto) 9.4 Baso % (Auto) 0.9 Immature Gran # (Auto) 0.02 Neut # (Auto) 0.99 L* Lymph # (Auto) 2.17 Rhea # (Auto) 0.73 H Eos # (Auto) 0.41 Baso # (Auto) 0.04 PT 10.5 INR 1.0 APTT 24.2 PTT Ratio 0.9 Sodium 139 Potassium 4.9 Chloride 101 Carbon Dioxide 27 Anion Gap 11.0 BUN 42 H Creatinine 6.46 H* Est Cr Clr Drug Dosing 9.0 Est GFR ( Amer) 7.3 Est GFR (Non-Af Amer) 6.3 BUN/Creatinine Ratio 6.4 L Glucose 95 Calcium 10.2 H Phosphorus 6.3 H Magnesium 2.7 H Total Bilirubin 0.4 AST 24 ALT 21 Alkaline Phosphatase 88 Troponin I 0.049 H* Total Protein 7.7 Albumin 3.4 Globulin 4.3 H Albumin/Globulin Ratio 0.8 L Triglycerides Cholesterol LDL Cholesterol, Calc VLDL Cholesterol, Calc HDL Cholesterol Cholesterol/HDL Ratio Specimen Hemolysis Nasal Screen MRSA (PCR) 01/16/19 01/16/19 01/16/19 03:45 08:23 08:23 WBC RBC Hgb Hct MCV MCH MCHC RDW Std Deviation RDW Coeff of Yuliana Plt Count MPV Immature Gran % (Auto) Neut % (Auto) Lymph % (Auto) Rhea % (Auto) Eos % (Auto) Baso % (Auto) Immature Gran # (Auto) Neut # (Auto) Lymph # (Auto) Rhea # (Auto) Eos # (Auto) Baso # (Auto) PT INR APTT PTT Ratio Sodium 140 Potassium 5.4 H Chloride 103 Carbon Dioxide 27 Anion Gap 10.0 BUN 50 H Creatinine 7.34 H* D Est Cr Clr Drug Dosing 12.5 Est GFR ( Amer) 6.2 Est GFR (Non-Af Amer) 5.4 BUN/Creatinine Ratio 6.9 L Glucose 104 H Calcium 10.5 H Phosphorus Magnesium Total Bilirubin AST ALT Alkaline Phosphatase Troponin I 0.037 Total Protein Albumin Globulin Albumin/Globulin Ratio Triglycerides Pending Cholesterol Pending LDL Cholesterol, Calc Pending VLDL Cholesterol, Calc Pending HDL Cholesterol Pending Cholesterol/HDL Ratio Pending Specimen Hemolysis Nasal Screen MRSA (PCR) Negative Diagnostic Findings Telemetry personally reviewed: Sinus rhythm. No arrhythmia. Echo 01/16/2019: Normal LV size with mildly reduced systolic function. EF 45- 50%. Severe hypokinesis to akinesis of the base to mid inferior wall. Hypokinesis of the base to mid inferoseptum. Mild hypokinesis of the anteroseptum. Moderate to severe concentric LVH. Mild MR. RVSP 29. ECG personally reviewed: ECG 01/15/2019: NSR at 84 bpm. LVH. Septal HI. Inferior T-wave inversion, new from 12/18/2018. Medications Administered Current Inpatient Medications Acetaminophen (Tylenol) 500 mg PO Q4H PRN PRN Reason: Pain Stop: 02/15/19 03:18 Last Admin: 01/16/19 08:29 Dose: 500 mg Documented by: Allopurinol (Zyloprim) 100 mg PO QAM [facility] Stop: 02/15/19 08:59 Last Admin: 01/16/19 08:36 Dose: 100 mg Documented by: Amlodipine Besylate (Norvasc) 5 mg PO DAILY [facility] Stop: 02/15/19 08:59 Last Admin: 01/16/19 08:36 Dose: 5 mg Documented by: Aspirin (Ecotrin Ectab) 81 mg PO QAM [facility] Stop: 02/16/19 08:59 Atorvastatin Calcium (Lipitor) 40 mg PO HS [facility] Stop: 02/15/19 20:59 Bupropion HCl (Wellbutrin-Sr) 150 mg PO BID [facility] Stop: 02/15/19 08:59 Last Admin: 01/16/19 08:36 Dose: 150 mg Documented by: Escitalopram Oxalate (Lexapro Tab) 20 mg PO QAM [facility] [place] Stop: 02/15/19 08:59 Last Admin: 01/16/19 08:36 Dose: 20 mg Documented by: Furosemide (Lasix) 40 mg PO QAM [facility] Stop: 02/15/19 08:59 Last Admin: 01/16/19 08:35 Dose: 40 mg Documented by: Heparin Sodium (Porcine) (Heparin Sodium (Porcine)) 5,000 units SQ Q8 [facility] Stop: 02/15/19 05:59 Last Admin: 01/16/19 05:58 Dose: 5,000 units Documented by: Prochlorperazine 10 mg/ (Syringe) 10 mls @ 5 mls/min IV Q12H PRN PRN Reason: Nausea Stop: 02/15/19 03:59 Last Admin: 01/16/19 04:03 Dose: 5 mls/min Documented by: Lidocaine (Lidoderm 5%) 1 patch TD DAILY [facility] Stop: 02/15/19 08:59 Last Admin: 01/16/19 08:30 Dose: 1 patch Documented by: Metoprolol Succinate (Toprol Xl) 50 mg PO QAM [facility] [place] Stop: 02/16/19 08:59 Miscellaneous (Order Awaiting Action) 1 ea N/A QS [facility] Stop: 02/15/19 03:44 Last Admin: 01/16/19 09:37 Dose: Not Given Documented by: Miscellaneous (Remove Lidoderm Patch) 1 ea N/A DAILY@2100 [facility] Stop: 02/15/19 20:59 Nitroglycerin (Nitrostat) 0.4 mg SL UD PRN PRN Reason: Chest Pain Stop: 02/15/19 03:18 Ondansetron HCl (Zofran Tab) 4 mg PO Q6H PRN PRN Reason: Nausea Stop: 02/15/19 03:18 Last Admin: 01/16/19 08:39 Dose: 4 mg Documented by: Oxycodone HCl (Roxicodone Immediate Rel) 10 mg PO Q6H PRN PRN Reason: Pain Stop: 01/30/19 03:18 Pantoprazole Sodium (Protonix) 40 mg PO DAILY [place] Stop: 02/15/19 08:59 Last Admin: 01/16/19 08:35 Dose: 40 mg Documented by: Ranitidine HCl (Zantac) 300 mg PO HS [facility] Stop: 02/15/19 20:59 Sevelamer HCl (Renagel) 1,600 mg PO TIDM [facility] Stop: 02/15/19 07:59 Last Admin: 01/16/19 12:35 Dose: 1,600 mg Documented by: Thiamine HCl (Vitamin B-1) 250 mg PO BID [place] Stop: 02/15/19 08:59 Last Admin: 01/16/19 08:35 Dose: 250 mg Documented by: (1) Chest pain Chest pain type: unspecified Qualified Code(s): R07.9 - Chest pain, unspecified (2) Hypertension Hypertension type: unspecified Qualified Code(s): I10 - Essential (primary) hypertension
[2019-01-16 13:09] LABS: Chol HDL Ratio 3; Cholesterol 163 mg/dl (0-200); HDL Cholesterol 65 mg/dl; LDL Cholesterol Calculated 82 mg/dl; Triglycerides 79 mg/dl (0-150); VLDL Cholesterol 16 mg/dl
[2019-01-16] MEDS ORDERED: ATORVASTATIN 40 MG TAB PO SCH (21:00)
[2019-01-16] MEDS ORDERED: CINACALCET PO SCH (21:00)
[2019-01-17] MEDS: OXYCODONE HCL IR 5 MG TAB (IMMEDIATE RELEASE) PO PRN ×3 (03:38→17:03)
[2019-01-17] MEDS: HEPARIN SOD 5,000 UNIT/0.5 ML VIAL SQ SCH ×2 (06:02→14:34)
[2019-01-17 07:33] LABS: Hematocrit (blood only) 32.2 % (37-47); Hemoglobin 10.4 g/dL (12.0-16.0); Mean Corpuscular Hgb Conc 32.3 g/dL (32-36); Mean Corpuscular Volume 104.9 fL (80-100); RDW Standard Deviation 61.6 fL (36.4-46.3); Red Blood Count 3.07 M/uL (4.2-5.4); White Blood Count 2.57 K/uL (4.8-10.8)
[2019-01-17] MEDS ORDERED: REGADENOSON 0.4 MG/5 ML SYR IV ONE (08:26)
[2019-01-17 08:35] LABS: Mean Platelet Volume 9.7 fL (7.4-10.4); Platelet Count 64 K/uL (130-400)
[2019-01-17 08:36] LABS: Basophils # (auto) 0.03 K/uL (0-0.2); Basophils % (auto) 1.2 %; Eosinophils # (auto) 0.32 K/uL (0-0.5); Eosinophils % (auto) 12.5 %; Immature Granulocytes # (auto) 0.01 K/uL (0.00-0.02); Immature Granulocytes % (auto) 0.4 %; Lymphocytes # (auto) 1.06 K/uL (1.2-3.4); Lymphocytes % (auto) 41.2 %; Monocytes # (auto) 0.63 K/uL (0.11-0.59); Monocytes % (auto) 24.5 %; Neutrophils # (auto) 0.52 K/uL (1.4-6.5); Neutrophils % (auto) 20.2 %; Platelet Estimate Decreased (Normal)
[2019-01-17 08:43] LABS: BUN Creatinine Ratio 6.9 (10-20); Calcium 9.9 mg/dl (8.5-10.1); Creatinine Clr Calc Pharmacy 6.2 ml/min; Est GFR (African American) 4.6; Potassium 5.8 mmol/L (3.5-5.1)
[2019-01-17] MEDS ORDERED: METOPROLOL SUCC 25MG EXT REL TAB PO SCH (09:00)
[2019-01-17] MEDS ORDERED: ASPIRIN 81 MG ECTAB PO SCH (09:00)
--- NOTE | 2019-01-17 09:42 | Nephrology Progress Note ---
Date of Service January 17, 2019 Assessment & Plan (1) End stage renal disease: 62 y o F with ESRD on HD TTS. Admitted with CP, currently resolved. --will scheduled for dialysis today as her K is high and then keep on schedule for tomorrow. --totally agree with cardiology regarding need for cardiac cath consider high risk for underlying coronary artery disease. She has been on HD for long time and there is no possibility for coming off of WEED ERADICATOR and in this situation no contraindication for iV contrast exposure and do not think IV contrast will have any significant impact on her kidney. -- continued Nephrocaps and renal diet -- dose medications for GFR less than 10 --Avoid IV fluid --THIEN for Hb <10 Will follow (2) Secondary hyperparathyroidism (of renal origin): (3) Anemia: (4) Chest pain: (5) Low back pain: Ronaldo Hayes was not in ehr room as she left for stress test. BP well controlled, has high K at 5.8. Results & Data Vital Signs (Past 12 Hours) Vital Signs Temp Pulse Pulse Pulse Resp BP Pulse Ox 01/17/19 07:53 36.8 C 66 18 130/75 97 01/17/19 07:34 71 01/17/19 04:13 36.6 C 16 150/85 H 98 01/17/19 03:40 66 01/16/19 22:48 36.6 C 63 17 150/75 H 96 (1) Chest pain Chest pain type: unspecified Qualified Code(s): R07.9 - Chest pain, unspecified (2) Low back pain Chronicity: chronic Back pain laterality: left Sciatica presence: unspecified whether sciatica present Qualified Code(s): M54.5 - Low back pain; G89.29 - Other chronic pain
[2019-01-17] MEDS: SEVELAMER HCL 800 MG TABLET PO SCH ×3 (10:22→17:05)
[2019-01-17] MEDS: BuPROPion SR 150 MG TABCR PO SCH (10:22)
[2019-01-17] MEDS: ALLOPURINOL 100 MG TAB PO SCH (10:22)
[2019-01-17] MEDS: PANTOprazole 40 MG TAB PO SCH (10:23)
[2019-01-17] MEDS: THIAMINE HCL 50 MG TABLET PO SCH (10:26)
[2019-01-17] MEDS: LIDOCAINE 5% 1 PATCH TD SCH (10:26)
[2019-01-17] MEDS: AMLODIPINE BESYLATE 5 MG TAB PO SCH (10:27)
[2019-01-17] MEDS: ESCITALOPRAM OXALATE 20 MG TAB PO SCH (10:27)
[2019-01-17] MEDS: FUROSEMIDE 40 MG TAB PO SCH (10:27)
--- NOTE | 2019-01-17 10:39 | Cardiology Progress Note ---
Date of Service January 17, 2019 Assessment & Plan (1) Cardiomyopathy: Newly diagnosed cardiomyopathy with mildly reduced LV systolic function and wall motion abnormalities. She and her preferred conservative measures rather than cardiac catheterization which was discussed with her. My ocardial perfusion study pending for today. There is no urgent indication for cardiac catheterization. Continue metoprolol succinate to 50 mg daily. Treat for presumed CAD. Continue aspirin 81 mg daily if no contraindication. Continue high-intensity statin therapy. (2) Chest pain: Her symptoms were atypical but she did have wall motion abnormality on echo and very mild ECG abnormality. No further symptoms. Myocardial perfusion study today. (3) Elevated troponin: Not diagnostic of myocardial infarction. Very slightly elevated at 0.049 which is her peak. Plan as above. Elevated troponin could be due to underlying CAD, but also potentially from strain secondary to severe hypertension. (4) Hypertension: Blood pressure was quite elevated on presentation but has since improved. She has been normotensive to mildly hypertensive more recently. She was not compliant at home with her medications. Continue current regimen including metoprolol succinate which was titrated from 25 up to 50 mg daily. (5) Abnormal ECG: Mild T-wave abnormality in the inferior leads has improved. (6) Disposition: Awaiting myocardial perfusion study. Addendum: Myocardial perfusion study was performed and reviewed. Single-vessel ischemic territory suggested. Continue medical therapy. If she has recurrent symptoms, can continue to titrate antianginals or consider cardiac catheterization if she is agreeable to do so at that time. She has declined cardiac catheterization thus far. Results were discussed with Dr. Salinas of the primary hospitalist service. Patient can follow-up with Cardiology for continued management. Subjective She has not had any further chest pain. She denies shortness of breath, orthopnea, syncope, near-syncope, palpitations, edema, or bleeding. She continues to have chronic back pain issues. Review of systems: As above. Physical Exam Physical Exam: Gen.: No acute distress. Alert and oriented. HEENT: Anicteric sclera. Neck: No JVD. Cardiac: Regular. Normal S1-S2. No murmurs, rubs, or gallops. Pulmonary: Clear to auscultation bilaterally without wheezes, rales, or rhonchi. Abdomen: Soft, nontender, nondistended, with normoactive bowel sounds. No bruits noted. Extremities: Left upper extremity fistula with palpable thrill and audible bruit. No edema or cyanosis. Psychiatric: Affect appears appropriate. Results & Data Vital Signs (Past 12 Hours) Vital Signs Temp Pulse Pulse Pulse Resp BP Pulse Ox 01/17/19 07:53 36.8 C 66 18 130/75 97 01/17/19 07:34 71 01/17/19 04:13 36.6 C 16 150/85 H 98 01/17/19 03:40 66 01/16/19 22:48 36.6 C 63 17 150/75 H 96 Laboratory Results Laboratory Results - last 24 hr 01/16/19 01/17/19 01/17/19 08:23 07:04 07:04 WBC 2.57 L RBC 3.07 L Hgb 10.4 L Hct 32.2 L MCV 104.9 H MCH 33.9 MCHC 32.3 RDW Std Deviation 61.6 H RDW Coeff of Yuliana 16.0 H Plt Count 64 L MPV 9.7 Immature Gran % (Auto) 0.4 Neut % (Auto) 20.2 Lymph % (Auto) 41.2 Walsh % (Auto) 24.5 Eos % (Auto) 12.5 Baso % (Auto) 1.2 Immature Gran # (Auto) 0.01 Neut # (Auto) 0.52 L* Lymph # (Auto) 1.06 L Walsh # (Auto) 0.63 H Eos # (Auto) 0.32 Baso # (Auto) 0.03 Platelet Estimate Decreased L Sodium 136 Potassium 5.8 H Chloride 100 Carbon Dioxide 26 Anion Gap 10.0 BUN 64 H Creatinine 9.40 H* D Est Cr Clr Drug Dosing 6.2 Est GFR ( Amer) 4.6 Est GFR (Non-Af Amer) 4.0 BUN/Creatinine Ratio 6.9 L Glucose 81 Calcium 9.9 Triglycerides 79 Cholesterol 163 LDL Cholesterol, Calc 82 VLDL Cholesterol, Calc 16 HDL Cholesterol 65 Cholesterol/HDL Ratio 3 Hep Bs Antigen Hep Bs Antibody Hep Bs Antibody, Quant 01/17/19 07:04 WBC RBC Hgb Hct MCV MCH MCHC RDW Std Deviation RDW Coeff of Yuliana Plt Count MPV Immature Gran % (Auto) Neut % (Auto) Lymph % (Auto) Walsh % (Auto) Eos % (Auto) Baso % (Auto) Immature Gran # (Auto) Neut # (Auto) Lymph # (Auto) Walsh # (Auto) Eos # (Auto) Baso # (Auto) Platelet Estimate Sodium Potassium Chloride Carbon Dioxide Anion Gap BUN Creatinine Est Cr Clr Drug Dosing Est GFR ( Amer) Est GFR (Non-Af Amer) BUN/Creatinine Ratio Glucose Calcium Triglycerides Cholesterol LDL Cholesterol, Calc VLDL Cholesterol, Calc HDL Cholesterol Cholesterol/HDL Ratio Hep Bs Antigen Pending Hep Bs Antibody Pending Hep Bs Antibody, Quant Pending Diagnostic Findings Telemetry personally reviewed: Sinus rhythm. No arrhythmia. ECG personally reviewed: ECG 01/17/2019: Sinus rhythm 65 bpm. First-degree AV block. LVH. Septal infarct. Medications Administered Current Inpatient Medications Acetaminophen (Tylenol) 500 mg PO Q4H PRN PRN Reason: Pain Stop: 02/15/19 03:18 Last Admin: 01/16/19 08:29 Dose: 500 mg Documented by: Allopurinol (Zyloprim) 100 mg PO QAM [facility] Stop: 02/15/19 08:59 Last Admin: 01/16/19 08:36 Dose: 100 mg Documented by: Amlodipine Besylate (Norvasc) 5 mg PO DAILY [facility] Stop: 02/15/19 08:59 Last Admin: 01/16/19 08:36 Dose: 5 mg Documented by: Aspirin (Ecotrin Ectab) 81 mg PO QAM [facility] Stop: 02/16/19 08:59 Atorvastatin Calcium (Lipitor) 40 mg PO HS [facility] Stop: 02/15/19 20:59 Last Admin: 01/16/19 20:49 Dose: 40 mg Documented by: Bupropion HCl (Wellbutrin-Sr) 150 mg PO BID [facility] Stop: 02/15/19 08:59 Last Admin: 01/16/19 20:49 Dose: 150 mg Documented by: Escitalopram Oxalate (Lexapro Tab) 20 mg PO QAM [facility] Stop: 02/15/19 08:59 Last Admin: 01/16/19 08:36 Dose: 20 mg Documented by: Furosemide (Lasix) 40 mg PO QAM [facility] Stop: 02/15/19 08:59 Last Admin: 01/16/19 08:35 Dose: 40 mg Documented by: Heparin Sodium (Porcine) (Heparin Sodium (Porcine)) 5,000 units SQ Q8 [facility] Stop: 02/15/19 05:59 Last Admin: 01/17/19 06:02 Dose: 5,000 units Documented by: Prochlorperazine 10 mg/ (Syringe) 10 mls @ 5 mls/min IV Q12H PRN PRN Reason: Nausea Stop: 02/15/19 03:59 Last Admin: 01/16/19 16:08 Dose: 5 mls/min Documented by: Lidocaine (Lidoderm 5%) 1 patch TD DAILY [place] Stop: 02/15/19 08:59 Last Admin: 01/16/19 08:30 Dose: 1 patch Documented by: Metoprolol Succinate (Toprol Xl) 50 mg PO QAM [facility] Stop: 02/16/19 08:59 Miscellaneous (Remove Lidoderm Patch) 1 ea N/A DAILY@2100 [facility] Stop: 02/15/19 20:59 Last Admin: 01/16/19 20:57 Dose: 1 ea Documented by: Nitroglycerin (Nitrostat) 0.4 mg SL UD PRN PRN Reason: Chest Pain Stop: 02/15/19 03:18 Cinacalcet~Non- Formulary Patient's Own Med 1 ea PO [facility] Stop: 02/15/19 20:59 Last Admin: 01/16/19 20:50 Dose: 1 tab Documented by: Ondansetron HCl (Zofran Tab) 4 mg PO Q6H PRN PRN Reason: Nausea Stop: 02/15/19 03:18 Last Admin: 01/16/19 08:39 Dose: 4 mg Documented by: Oxycodone HCl (Roxicodone Immediate Rel) 10 mg PO Q6H PRN PRN Reason: Pain Stop: 01/30/19 03:18 Last Admin: 01/17/19 03:38 Dose: 10 mg Documented by: Pantoprazole Sodium (Protonix) 40 mg PO DAILY [facility] Stop: 02/15/19 08:59 Last Admin: 01/16/19 08:35 Dose: 40 mg Documented by: Ranitidine HCl (Zantac) 300 mg PO HS [facility] Stop: 02/15/19 20:59 Last Admin: 01/16/19 20:49 Dose: 300 mg Documented by: Sevelamer HCl (Renagel) 1,600 mg PO TIDM [place] Stop: 02/15/19 07:59 Last Admin: 01/16/19 17:05 Dose: 1,600 mg Documented by: Thiamine HCl (Vitamin B-1) 250 mg PO BID [facility] Stop: 02/15/19 08:59 Last Admin: 01/16/19 20:51 Dose: 250 mg Documented by: (1) Chest pain Chest pain type: unspecified Qualified Code(s): R07.9 - Chest pain, unspecified (2) Hypertension Hypertension type: unspecified Qualified Code(s): I10 - Essential (primary) h ypertension
[2019-01-17 11:02] LABS: Hepatitis B Surface Antibody Non-Immune
[2019-01-17 11:13] LABS: Hepatitis B Surface Antigen Neg (Neg)
[2019-01-17] MEDS: ONDANSETRON 4 MG TAB PO PRN (13:19)
[2019-01-17] MEDS ORDERED: SODIUM CHLORIDE 0.9% 1000ML 1,000 ML IV PRN (13:29)
--- NOTE | 2019-01-17 16:11 | Discharge Summary ---
Date of Service January 17, 2019 Admission HPI Per Admitting Provider Bettie Crowder is a 63yo C female with history of ESRD on HD q T/R/S, anemia, HTN, GERD and Gout presenting with substernal chest pain. Patient was getting HD today (she missed Sunday therefore was dialyzed today) when she developed sharp left sided chest pain, 9/10 in severity, associated with shortness of breath. Pain intermittent, lasting a few seconds. Denies dizziness, diaphoresis. She returned home after HD and became more short of breath with recurrence of the chest pain. Patient with no history of CAD, no prior stent, no CHF. She had a stress test in 2006 which was negative. Overall she denies exertional chest pain but reports dyspnea with exertion that has worsened over the last few weeks. She also complains of chronic, severe back pain and intermittent stabbing abdominal pain. No distention, no nausea/vomiting/diarrhea/constipation or fevers. ER Course: Eboni Negrete Principal Diagnosis Chest pain, coronary artery disease Discharge Exam Constitutional well nourished and + ill appearing (appears chronicallly ill) Eyes PERRL, conjunctivae normal, anicteric sclerae Neck trachea midline, no thyromegaly Respiratory normal respiratory effort, lungs clear to auscultation Cardiovascular RRR, no murmur, no edema Gastrointestinal (Abdomen) normal bowel sounds, soft, nontender, no hepatosplenomegaly Musculoskeletal Extremities: extremities normal to inspection; no cyanosis and no clubbing Skin no rashes, warm and dry Neurologic moves all extremities and awake; no focal motor deficits Psychiatric A+Ox3, euthymic affect Discharge Data Allergies Allergy/AdvReac Type Severity Reaction Status Date / Time No Known Allergies Allergy Verified 01/16/19 02:00 Consultations Cardiology Nephrology Ordered Studies Nuclear medicine stress test Echocardiogram Chest x-ray Hospital Course (1) Chest pain: Patient with acute onset left sided chest pain that occurred during HD and again after she went home from HD. Sharp in nature, atypical. With mildly elevated troponin in setting of ESRD/HD that then trended back downward; TWI present in inferior leads on EKG changed from previous. She remained chest pain free throughout her hospitalization. She was hemodynamically stable but had elevated blood pressures upon admission that were then improved with giving her antihypertensives. States she has had worsening LOPEZ over the last few weeks. Admits to poor compliance with home medications due to just not wanting to take a lot of medications, but now admits that she is going to make an effort to improve this. ECHO with multiple WMAs and mildly reduced LV function Nuclear medicine stress test did show both fixed ischemia and reversible ischemia in the expected region of the inferior wall consistent with single- vessel disease. -Appreciate Cardio consult -We have opted for medical management as she would not be a good candidate for dual antiplatelet therapy if she had a stent placed given her chronic thrombocytopenia -Started aspirin 81 mg daily, atorvastatin 40 mg daily, increase to metoprolol succinate 50 mg daily. She is not a candidate for LINCOLN inhibitor given renal disease -No urgent indication for cardiac catheterization at this time as per cardiology -Given thrombocytopenia and now that is on aspirin, will need to have CBC checked regularly and hold aspirin if platelets drop less than 50 K --Will have follow-up as an outpatient with cardiology (2) End stage renal disease: s/p HD on 01/15 and 01/17 for hyperkalemia -She can return to her usual hemodialysis schedule Electrolytes and metabolic profile stable, no need for HD today -Appreciate Nephro consult -Continue renal diet -Avoid nephrotoxins -Continue Renagel, Sensipar (3) Secondary hyperparathyroidism (of renal origin): Chronic -Continue Sensipar (4) Anemia: No active bleeding, hgb stable at 10-11 -Continue to monitor (5) Hypertension: Blood pressure elevated on admission. Patient reports frequently missing her medications at home BP better controlled now with giving meds -Continue Amlodipine 5mg daily -Continue Lasix 40 mg daily -Continue Metoprolol and increase to 50mg as per Cardio -Continue to monitor as an outpatient (6) Gout: Chronic. Stable -Continue Allopurinol, renal dosing (7) GERD (gastroesophageal reflux disease): Chronic, stable -Continue Omeprazole and Ranitidine (8) Depression: Chronic. Stable -Continue Bupropion -Continue Escitalopram (9) Low back pain: Her back pain is much improved with an increased dose of oxycodone Continue oxycodone at increased dose of 10 mg every 6 hours as needed She is seeing new Pain Man in [place] and awaiting to get meds there however they are still reviewing her case -Gave small supply of oxycodone with which to go home -Continue Tylenol as needed -Continue Lidoderm patch (10) Cardiomyopathy: With reduced LV function with LVEF 40-45% with significant wall motion abnormalities as above -Continue volume management with dialysis (11) Pancytopenia: Chronic for many years, has had multiple evaluations in the past with hematology to include several bone marrow aspirates/biopsy. Ultimately was found were thought to have pancytopenia secondary to chronic renal disease versus a low level underlying myelodysplasia. -Should follow CBC routinely and consider referral back to hematology if worsens (12) Hyperkalemia: Potassium 5.8 today-received hemodialysis prior to discharge and should continue hemodialysis on routine schedule after discharge (13) DVT prophylaxis: Heparin SQ was provided Dispo-stable for discharge to home today Total Time Total Time Spent Total Time Spent (In Minutes): Greater than 30 minutes Total Time Includes: Examination of the Patient, Discharge Planning, Medication Reconciliation and Communication With Other Providers (Cardiology) Discharge Plan Discharge Items Patient Disposition: Home - Self-Care Reason For Visit: CHEST PAIN Discharge Diagnosis: Chest pain, Coronary artery disease Condition: Good Discharge Goals: Decrease discomfort, Diagnostic testing, Improve disease control and Therapeutic intervention Activity: Resume your previous activity Bathing: No limitations Non-emergency contact: Primary Care Provider and [employer] Call non-emergency contact if: you have any medication questions, your symptoms worsen, your pain is not controlled, your pain is worsening and your pain is unusual for you Follow-up/Referrals: Josep Francis MD [Primary Care Provider] - 01/27/19 10:30 am (Please, follow up at [facility] [place] Office with Dr. Francis's cafe assistant, Anna Herman PA-C, on SundayJanuary 27 at 10:30 am. *If you need to change this appointment, call the office at [phone].) Chris Sullivan MD [Physician] - (Please, follow up at [facility] Cardiology [facility]. *A nurse from this hospital will contact you to schedule this appointment. The office is located in [address] of [facility] [employer] [facility]. This is the big building next to this [facility]. If you have any questions, call the office at [phone].) Diet: Dialysis Renal and Heart Healthy Addtl Provider Instructions: You were admitted with chest pain and found to have a blockage in 1 of your coronary arteries of the heart. Because of your kidney problems and your low platelets, we came to an agreement to not put you through a cardiac catheterization with stent placement. Instead, your heart disease will be managed with medications. Your metoprolol dose was increased to 50 mg daily, and your started on a baby aspirin a day 81 mg. You were also started on a cholesterol medicine to prevent further heart disease-this is called atorvastatin. Your oxycodone dose was increased to 10 mg every 6 hours as needed for pain. It is very important that you continue follow-up with your PCP and with pain management for further care of your back pain. Please follow-up with the chemical dependency attendant as scheduled for you. Please continue dialysis as scheduled as an outpatient. Please follow-up with primary care physician as scheduled for you. You should have your platelet count checked routinely with your primary care physician now that you are on a baby aspirin daily. Prescriptions: New metoprolol succinate 50 mg tablet extended release 24 hr 50 mg PO DAILY Qty: 30 RF: 0 atorvastatin 40 mg Tablet 40 mg PO HS Qty: 30 RF: 0 aspirin [Ecotrin Low Strength] 81 mg Tablet,Delayed Release (Dr/Ec) 81 mg PO QAM Qty: 30 RF: 0 Continued ondansetron HCl [Zofran] 4 mg tablet 4 mg PO Q6H PRN (Reason: Nausea) RF: 0 lidocaine 5 % adhesive patch,medicated 1 patch topical DAILY Qty: 30 RF: 0 cinacalcet [Sensipar] 30 mg Tablet 30 mg PO HS RF: 0 sevelamer HCl 800 mg Tablet 1,600 mg PO TIDM RF: 0 amlodipine 5 mg tablet 5 mg PO DAILY Qty: 30 RF: 5 thiamine HCl (vitamin B1) 250 mg tablet 250 mg PO BID Qty: 60 RF: 0 prochlorperazine 25 mg Suppository 25 mg MA Q12H PRN (Reason: Nausea) RF: 0 furosemide 40 mg Tablet 40 mg PO QAM RF: 0 allopurinol 100 mg Tablet 100 mg PO QAM RF: 0 ergocalciferol (vitamin D2) 50,000 unit Capsule 50,000 unit PO MONTHLY RF: 0 escitalopram oxalate 20 mg Tablet 20 mg PO QAM RF: 0 ranitidine HCl 300 mg capsule 300 mg PO HS RF: 0 omeprazole 40 mg Capsule,Delayed Release(Dr/Ec) 40 mg PO DAILY RF: 0 acetaminophen 500 mg Tablet 500 mg PO DIRECTED PRN (Reason: Pain) RF: 0 bupropion HCl 150 mg tablet sustained-release 12 hr 150 mg PO BID RF: 0 Changed oxycodone 5 mg tablet 10 mg PO Q6H PRN (Reason: Pain) Qty: 30 RF: 0 Discontinued metoprolol succinate 25 mg Capsule,Sprinkle,Er 24hr 25 mg PO QAM RF: 0 Stand-Alone Forms: [facility] Discharge Orders: Discharge Order (Routine); Ordered 01/17/19 Ordered By: Margaret Salinas Admission Data Admit Date/Time: 01/16/19 12:41 Attending Provider: Margaret Salinas Admit Provider: Michelle Porter Primary Care Provider: Josep Francis Other Providers: Michelle Porter ; José Miguel Wiseman ; Elian Sweet ; Steven Weems ; Juan Ramon Haines ; Murray Tomlinson Jr ; Chris Sullivan ; Inge Mims ; Valery Gaines ; Rajan Lakhani ; Rajan Olvera ; Andrew Mccollum ; Saran Caldwell ; Lilibeth Ritter ; Lacie Kemp ; Noble Gomez Service: Telemetry Other Pending Studies at Discharge: No
--- NOTE | 2019-01-17 17:12 | Myocardial Perfusion Study ---
Date of Service January 17, 2019 Myocardial Perfusion Study [facility] Myocardial Perfusion Study Report Procedure: 1. Myocardial perfusion study performed in multiple views/images 2. Lexiscan pharmacologic stress ECG Indications: 1. Chest pain 2. Abnormal echo 3. Elevated troponin Ordering physician: Dr. Sullivan Procedural details: For the stress portion of the study, Lexiscan 0.4 mg was intravenously administered followed by a saline flush. This was followed by 31.231 mCi of technetium 99m Cardiolite, injected at 10:05 a.m. on 01/17/2019. 30 minutes following the injection, imaging of the heart was performed in multiple projections. For the rest portion of the study, 11.5 mCi technetium 99m Cardiolite was injected intravenously at 8:15 a.m. on 01/17/2019. 1 hour following the injection, imaging of the heart was performed in the same projections. Lexiscan stress ECG: Resting ECG demonstrated: Sinus rhythm with first-degree AV block at 63 bpm. IVCD. Septal infarct. Maximum heart rate: 83 bpm Maximal, age-predicted heart rate: 52 % Resting blood pressure: 147/77 mmHg Maximum blood pressure: 147/[address] changes: None Arrhythmia: None Symptoms: None reported. Findings: Rotating raw imaging demonstrated no significant lung uptake. There is no significant motion artifact. Heart size appeared normal. Myocardial perfusion demonstrated a small to moderate sized area of moderately reduced uptake involving the base to distal inferior and base to distal inferolateral wall segments. This defect demonstrated a mild fixed component but otherwise was reversible, suggesting ischemia. Ejection fraction: 39 % Wall motion: Severe hypokinesis to akinesis involving the inferior wall. Otherwise, mild global hypokinesis. No significant transient ischemic dilation. Impression: 1. Abnormal myocardial perfusion study suggesting inferior and inferolateral ischemia. 2. Moderately reduced left ventricular systolic function. EF 39%. 3. Severe hypokinesis to akinesis of the inferior wall. Otherwise, global hypokinesis. 4. Nondiagnostic Lexiscan ECG. 5. Results discussed with Dr. Salinas of the primary hospitalist service.
[2019-01-18] MEDS ORDERED: SODIUM CHLORIDE 0.9% 1000ML 1,000 ML IV PRN (07:00)
== END 2019-01-17 17:48 | disposition home or self-care (01) | DRG 302 ==
LOC: 2S 22:23 → ED 22:23 → SUATTDRO 01-16 02:15 → 2S 01-16 02:58